=== PATIENT | female | born 1945 | race Caucasian/White ===

== ENCOUNTER 2016-04-01 06:33 | Inpatient (IN) | payer MEDICARE ==
[2016-04-01] MEDS ORDERED: SODIUM CHLORIDE 0.9% 500 ML IV STA (06:52)
[2016-04-01] MEDS ORDERED: RX INFO: IV CONTRAST WAS GIVEN 1 EACH MISC MISCELLANE PRN (06:52)
[2016-04-01] MEDS ORDERED: MORPHINE SULFATE 4 MG/ML SYRINGE IV STA (06:52)
[2016-04-01] MEDS ORDERED: SODIUM CHLORIDE 0.9% 1,000 ML IV STA ×2 (06:52)
--- NOTE | 2016-04-01 06:54 | ED ---
General Adult HPI - General Source: patient, RN notes reviewed, old records reviewed Mode of arrival: ambulatory Limitations: no limitations <Braulio Devries - Last Filed: 04/01/16 06:53> <Braulio Kirk - Last Filed: 04/01/16 09:05> - General Chief complaint: Abdominal Pain Stated complaint: ABD PAIN Time Seen by Provider: 04/01/16 06:47 - History of Present Illness Initial comments: This is a 71-year-old female to the ER for evaluation. The patient is reevaluation. Bowel pain. Patient is also suffering from diarrhea as of recent. Patient does have medical history significant for abdominal surgeries including gallbladder removal. Patient also has high blood pressure cholesterol no chest pain or stress of breath, no nausea vomiting or fever. No blood in her diarrhea. Patient also feels like her abdomen is severely distended. No modifying factors for symptoms no recent travel history and no family members with some similar significant symptoms (Braulio Devries) - Related Data Home Medications Medication Instructions Recorded Confirmed Cinnamon Bark [Cinnamon] 500 mg PO BID 12/08/15 04/01/16 Cyanocobalamin [Vitamin B-12] 1,000 mcg PO DAILY 12/08/15 04/01/16 Lisinopril-Hctz 10-12.5 mg 1 tab PO DAILY 12/08/15 04/01/16 [Zestoretic 10-12.5] [place]-3 Fatty Acids/Fish Oil [Fish 1 cap PO BID 12/08/15 04/01/16 Oil 1,000 mg Softgel] Omeprazole [PriLOSEC] 10 mg PO AC-BRKFST 12/08/15 04/01/16 Simvastatin [Simvastatin] 20 mg PO HS 12/08/15 04/01/16 Aspirin 325 mg PO DAILY 04/01/16 04/01/16 Multivitamins, Thera [Multivitamin] 1 tab PO DAILY 04/01/16 04/01/16 Allergies Allergy/AdvReac Type Severity Reaction Status Date / Time venom-honey bee Allergy Anaphylaxis Verified 04/01/16 06:38 [bee venom (honey bee)] Review of Systems ROS Other: All systems not noted in ROS Statement are negative. <Braulio Devries - Last Filed: 04/01/16 06:53> ROS Other: All systems not noted in ROS Statement are negative. <Braulio Kirk - Last Filed: 04/01/16 09:05> ROS Statement: Those systems with pertinent positive or pertinent negative responses have been documented in the HPI. Past Medical History Past Medical History: GERD/Reflux, Hyperlipidemia, Hypertension History of Any Multi-Drug Resistant Organisms: None Reported Past Surgical History: Cholecystectomy Past Psychological History: No Psychological Hx Reported Smoking Status: Never smoker Past Alcohol Use History: None Reported Past Drug Use History: None Reported <Braulio Devries - Last Filed: 04/01/16 06:53> General Exam Limitations: no limitations General appearance: alert, in no apparent distress, anxious, obese Head exam: Present: atraumatic, normocephalic, normal inspection Eye exam: Present: normal appearance, PERRL, EOMI. Absent: scleral icterus, conjunctival injection, periorbital swelling ENT exam: Present: normal exam, mucous membranes moist Neck exam: Present: normal inspection. Absent: tenderness, meningismus, lymphadenopathy Respiratory exam: Present: normal lung sounds bilaterally. Absent: respiratory distress, wheezes, rales, rhonchi, stridor Cardiovascular Exam: Present: regular rate, normal rhythm, normal heart sounds. Absent: systolic murmur, diastolic murmur, rubs, gallop, clicks GI/Abdominal exam: Present: soft, distended, tenderness, guarding, normal bowel sounds. Absent: rebound, rigid Extremities exam: Present: normal inspection, full ROM, normal capillary refill. Absent: tenderness, pedal edema, joint swelling, calf tenderness Back exam: Present: normal inspection Neurological exam: Present: alert, oriented X3, CN II-XII intact Psychiatric exam: Present: normal affect, normal mood Skin exam: Present: warm, dry, intact, normal color. Absent: rash <Braulio Devries - Last Filed: 04/01/16 06:53> Medical Decision Making <Braulio Devries - Last Filed: 04/01/16 06:53> - Lab Data Result diagrams: 04/01/16 06:50 04/01/16 06:50 <Braulio Kirk - Last Filed: 04/01/16 09:05> - Medical Decision Making CAT scan shows possible appendicitis versus sigmoid diverticulitis. Radiologist stated that the cecum comes across the midline so he believes it to be appendicitis but can't be sure because he cannot absolutely see the appendix. I spoke with Dr. Hancock's nurse in the OR and he accepts the patient admitted the patient I started the patient on Levaquin. (Braulio Kirk ) - Lab Data Lab Results 04/01/16 04/01/16 04/01/16 Range/Units 06:50 06:50 06:50 WBC 20.0 H (3.8-10.6) k/uL RBC 4.66 (3.80-5.40) m/uL Hgb 13.4 (11.4-16.0) gm/dL Hct 39.8 (34.0-46.0) % MCV 85.4 (80.0-100.0) fL MCH 28.8 (25.0-35.0) pg MCHC 33.7 (31.0-37.0) g/dL RDW 12.9 (11.5-15.5) % Plt Count 352 (150-450) k/uL Neutrophils % 87 % Lymphocytes % 10 % Monocytes % 2 % Eosinophils % 0 % Basophils % 0 % Neutrophils # 17.4 H (1.3-7.7) k/uL Lymphocytes # 2.0 (1.0-4.8) k/uL Monocytes # 0.3 (0-1.0) k/uL Eosinophils # 0.1 (0-0.7) k/uL Basophils # 0.0 (0-0.2) k/uL PT (9.0-12.0) sec INR (<1.1) APTT (22.0-30.0) sec Sodium 139 (137-145) mmol/L Potassium 3.3 L (3.5-5.1) mmol/L Chloride 101 (98-107) mmol/L Carbon Dioxide 24 (22-30) mmol/L Anion Gap 14 mmol/L BUN 12 (7-17) mg/dL Creatinine 0.67 (0.52-1.04) mg/dL Est GFR (MDRD) Af Amer >60 (>60 ml/min/1.73 sqM) Est GFR (MDRD) Non-Af >60 (>60 ml/min/1.73 sqM) Glucose 153 H (74-99) mg/dL Plasma Lactic Acid Lasha (0.7-2.0) mmol/L Calcium 9.0 (8.4-10.2) mg/dL Total Bilirubin 2.2 H (0.2-1.3) mg/dL AST 75 H (14-36) U/L ALT 95 H (9-52) U/L Alkaline Phosphatase 78 (38-126) U/L Total Creatine Kinase 99 (30-135) U/L CK-MB (CK-2) 0.8 (0.0-2.4) ng/mL CK-MB (CK-2) Rel Index 0.8 Troponin I <0.012 (0.000-0.034) ng/mL Total Protein 6.5 (6.3-8.2) g/dL Albumin 4.0 (3.5-5.0) g/dL Amylase 52 (30-110) U/L Lipase 65 (23-300) U/L Urine Color Urine Appearance (Clear) Urine pH (5.0-8.0) Ur Specific [place] (1.001-1.035) Urine Protein (Negative) Urine Glucose (UA) (Negative) Urine Ketones (Negative) Urine Blood (Negative) Urine Nitrate (Negative) Urine Bilirubin (Negative) Urine Urobilinogen (<2.0) mg/dL Ur Leukocyte Esterase (Negative) Urine RBC (0-5) /hpf Urine WBC (0-5) /hpf Ur Squamous Epith Cells (0-4) /hpf Urine Bacteria (None) /hpf Hyaline Casts (0-2) /lpf Urine Mucus (None) /hpf 04/01/16 04/01/16 04/01/16 Range/Units 06:50 06:50 06:50 WBC (3.8-10.6) k/uL RBC (3.80-5.40) m/uL Hgb (11.4-16.0) gm/dL Hct (34.0-46.0) % MCV (80.0-100.0) fL MCH (25.0-35.0) pg MCHC (31.0-37.0) g/dL RDW (11.5-15.5) % Plt Count (150-450) k/uL Neutrophils % % Lymphocytes % % Monocytes % % Eosinophils % % Basophils % % Neutrophils # (1.3-7.7) k/uL Lymphocytes # (1.0-4.8) k/uL Monocytes # (0-1.0) k/uL Eosinophils # (0-0.7) k/uL Basophils # (0-0.2) k/uL PT 13.7 H (9.0-12.0) sec INR 1.4 (<1.1) APTT 23.7 (22.0-30.0) sec Sodium (137-145) mmol/L Potassium (3.5-5.1) mmol/L Chloride (98-107) mmol/L Carbon Dioxide (22-30) mmol/L Anion Gap mmol/L BUN (7-17) mg/dL Creatinine (0.52-1.04) mg/dL Est GFR (MDRD) Af Amer (>60 ml/min/1.73 sqM) Est GFR (MDRD) Non-Af (>60 ml/min/1.73 sqM) Glucose (74-99) mg/dL Plasma Lactic Acid Lasha 1.9 (0.7-2.0) mmol/L Calcium (8.4-10.2) mg/dL Total Bilirubin (0.2-1.3) mg/dL AST (14-36) U/L ALT (9-52) U/L Alkaline Phosphatase (38-126) U/L Total Creatine Kinase (30-135) U/L CK-MB (CK-2) (0.0-2.4) ng/mL CK-MB (CK-2) Rel Index Troponin I (0.000-0.034) ng/mL Total Protein (6.3-8.2) g/dL Albumin (3.5-5.0) g/dL Amylase (30-110) U/L Lipase (23-300) U/L Urine Color Yellow Urine Appearance Cloudy H (Clear) Urine pH 6.0 (5.0-8.0) Ur Specific [place] 1.007 (1.001-1.035) Urine Protein Negative (Negative) Urine Glucose (UA) Negative (Negative) Urine Ketones Negative (Negative) Urine Blood Trace H (Negative) Urine Nitrate Negative (Negative) Urine Bilirubin Negative (Negative) Urine Urobilinogen 2.0 (<2.0) mg/dL Ur Leukocyte Esterase Negative (Negative) Urine RBC 1 (0-5) /hpf Urine WBC 2 (0-5) /hpf Ur Squamous Epith Cells 4 (0-4) /hpf Urine Bacteria Moderate H (None) /hpf Hyaline Casts 2 (0-2) /lpf Urine Mucus Rare H (None) /hpf Disposition <Braulio Devries - Last Filed: 04/01/16 06:53> Time of Disposition: 09:05 <Braulio Kirk - Last Filed: 04/01/16 09:05> Clinical Impression: Acute appendicitis Disposition: ADMITTED IP TO THIS HOSP
[2016-04-01 07:09] LABS: Basophils % (A) 0 %; CH 29.6; CHCM 34.8; Eosinophils # (A) 0.1 k/uL (0-0.7); Eosinophils % (A) 0 %; HCT 39.8 % (34.0-46.0); HDW 3.19; HGB 13.4 gm/dL (11.4-16.0); Luc # (Auto) 0.12; Luc % (Auto) 1; Lymphocytes % (A) 10 %; MCH 28.8 pg (25.0-35.0); MCHC 33.7 g/dL (31.0-37.0); MCV 85.4 fL (80.0-100.0); Mean Platelet Volume 6.4; Monocytes # (A) 0.3 k/uL (0-1.0); Monocytes % (A) 2 %; Neutrophils # (A) 17.4 k/uL (1.3-7.7); Neutrophils % (A) 87 %; RBC 4.66 m/uL (3.80-5.40); RDW 12.9 % (11.5-15.5)
[2016-04-01 07:18] LABS: INR 1.4 (<1.1); Partial Thromboplastin Time 23.7 sec (22.0-30.0); Prothrombin Time 13.7 sec (9.0-12.0)
[2016-04-01 07:19] LABS: ALT 95 U/L (9-52); AST 75 U/L (14-36); Alkaline Phosphatase 78 U/L (38-126); Amylase 52 U/L (30-110); Anion Gap 14 mmol/L; Blood Urea Nitrogen 12 mg/dL (7-17); Carbon Dioxide 24 mmol/L (22-30); Chloride 101 mmol/L (98-107); Glucose 153 mg/dL (74-99); Non-African American GFR(MDRD) >60 (>60 ml/min/1.73 sqM); Potassium 3.3 mmol/L (3.5-5.1); Sodium 139 mmol/L (137-145); Total Bilirubin 2.2 mg/dL (0.2-1.3); Total Protein 6.5 g/dL (6.3-8.2)
[2016-04-01 07:22] LABS: Appearance,Urine Cloudy (Clear); Bacteria,Urine Moderate /hpf; Bilirubin,Urine Negative (Negative); Glucose,Urine (UA) Negative (Negative); Ketones,Urine Negative (Negative); Leukocyte Esterase,Urine Negative (Negative); Mucus,Urine Rare /hpf; Nitrite,Urine Negative (Negative); Particle Count 7883; Protein,Urine Negative (Negative); RBC,Urine 1 /hpf (0-5); Specific Gravity,Urine 1.007 (1.001-1.035); Squamous Epithelial Cell,Urine 4 /hpf (0-4); UA Billing (MACRO vs. MICRO) MICRO; WBC,Urine 2 /hpf (0-5)
[2016-04-01 07:30] LABS: Creatine Kinase 99 U/L (30-135)
[2016-04-01 07:43] LABS: Creatine Kinase MB 0.8 ng/mL (0.0-2.4); Troponin I <0.012 ng/mL (0.000-0.034)
--- NOTE | 2016-04-01 08:32 | CT ---
EXAMINATION TYPE: CT abdomen pelvis w con DATE OF EXAM: 04/01/2016 8:05 AM COMPARISON: 12/08/2015 HISTORY: Abdominal pain for [address] hours with increasing intensity CT DLP: 814.10 mGycm Automated exposure control for dose reduction was used. CONTRAST: CT scan of the abdomen pelvis is performed with IV Contrast, patient injected with 100 ml mL of Omnip aque 300. FINDINGS: LUNG BASES-: No visible nodule. No infiltrate. Linear changes suggestive of scar or atelectasis. LIVER/GB: Cholecystectomy clips are in place. No space occupying hepatic lesion. Biliary tree is of n ormal caliber. PANCREAS: No inflammation. No distinct mass. SPLEEN: No splenic enlargement. No lesion seen. ADRENALS: No nodule. No thickening. KIDNEYS/BLADDER: No hydronephrosis. No nephrolithiasis. No distinct renal mass. Urinary bladder gross ly unremarkable. BOWEL: Nonvisualization of the appendix. There is a prominent small bowel loop within the pelvis with significant inflammatory change in the surrounding fat. Numerous diverticula are seen. Diverticuliti s is favored over an enteritis but should be correlated clinically. Of note the appendix is not visua lized. LYMPH NODES: No greater than 1cm abdominal or pelvic lymph nodes are appreciated. AORTA: No significant abnormality. OSSEOUS STRUCTURES: Hypertrophic and degenerative disc disease noted. OTHER: Uterus again appears lobulated with an area of abnormal attenuation could represent fibroid or thickened endometrium. Nabothian cyst again suspected. IMPRESSION: 1. Inflammatory change within the pelvis. Appendix is not seen with certainty. There is a small bowel dilated loop which may represent a localized ileus secondary to the inflammatory change. Differentia l diagnosis would include appendicitis or mild sigmoid diverticulitis. Orally clinically. 2. Large fixed paraesophageal hiatal hernia. 3. Abnormal morphology and attenuation within the uterus is nonspecific by CT scan. Fibroid in the di fferential. Endometrial pathology not excluded. Correlate clinically.
[2016-04-01] MEDS ORDERED: LEVOFLOXACIN 750MG-D5W PMX 750 MG in DEXTROSE/WATER 1 150ML.BAG IVPB STA (09:04)
[2016-04-01] MEDS ORDERED: MORPHINE SULFATE 2 MG/ML SYRINGE IVP PRN (09:07)
--- NOTE | 2016-04-01 11:31 | P.GSHP ---
History of Present Illness H&P Date: 04/01/16 Chief Complaint: Right lower quadrant abdominal pain This is a 71-year-old female who has complaints of abdominal pain. Patient states that she started to have mid abdominal pain last night. The pain worsened and is now a right lower quadrant. Patient CAT scan performed in the emergency room which is suggestive of acute appendicitis. 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 History of Any Multi-Drug Resistant Organisms: None Reported Past Surgical History: Cholecystectomy, Tonsillectomy Additional Past Surgical History / Comment(s): Bilateral cataract removals, R eye retinal hole repair, colonoscopies x 3. Past Anesthesia/Blood Transfusion Reactions: No Reported Reaction Past Psychological History: Anxiety Additional Psychological History / Comment(s): Pt resides with her spouse. She is independent. Smoking Status: Never smoker Past Alcohol Use History: None Reported Past Drug Use History: None Reported - Past Family History Father Family Medical History: Diabetes Mellitus Additional Family Medical History / Comment(s): father at the age of 62 yrs from diabetic complications. Mother Family Medical History: Diabetes Mellitus, Osteoarthritis (OA) Additional Family Medical History / Comment(s): Mother at the age of 93yrs. Medications and Allergies Home Medications Medication Instructions Recorded Confirmed Type Cinnamon Bark [Cinnamon] 500 mg PO BID 12/08/15 04/01/16 History Cyanocobalamin [Vitamin B-12] 1,000 mcg PO DAILY 12/08/15 04/01/16 History Lisinopril-Hctz 10-12.5 mg 1 tab PO DAILY 12/08/15 04/01/16 History [Zestoretic 10-12.5] [place]-3 Fatty Acids/Fish Oil [Fish 1 cap PO BID 12/08/15 04/01/16 History Oil 1,000 mg Softgel] Omeprazole [PriLOSEC] 10 mg PO AC-BRKFST 12/08/15 04/01/16 History Simvastatin [Simvastatin] 20 mg PO HS 12/08/15 04/01/16 History Aspirin 325 mg PO DAILY 04/01/16 04/01/16 History Multivitamins, Thera [Multivitamin] 1 tab PO DAILY 04/01/16 04/01/16 History Allergies Allergy/AdvReac Type Severity Reaction Status Date / Time venom-honey bee Allergy Anaphylaxis Verified 04/01/16 06:38 [bee venom (honey bee)] Surgical - Exam Vital Signs Temp Pulse Resp BP Pulse Ox 96.6 F L 96 20 133/56 99 04/01/16 06:37 04/01/16 06:37 04/01/16 06:37 04/01/16 06:37 04/01/16 06:37 - General well developed, no distress - Eyes PERRL - ENT normal pinna - Neck no masses - Respiratory normal expansion - Cardiovascular Rhythm: regular - Abdomen Abdomen: soft, tender (Pain and right lower quadrant) Results - Labs 04/01/16 06:50 04/01/16 06:50 - Imaging Abdominal x-ray: report reviewed CT scan - abdomen: report reviewed (Computed tomography scan is suggestive of acute appendicitis.) Assessment and Plan Plan: Right lower quadrant pain. Acute appendicitis. We'll perform laparoscopic appendectomy.
[2016-04-01] MEDS ORDERED: IV FLUID CONTINUATION 1,000 ML IV ONE (15:17)
[2016-04-01 15:28] LABS: Glucose,Whole Blood 94 mg/dL (75-99)
[2016-04-01] MEDS ORDERED: ONDANSETRON 4 MG/2 ML VIAL IVP ONE (15:35)
[2016-04-01] MEDS ORDERED: DEXAMETHASONE SOD PHOSPHATE 10 MG/ML 1 ML VIAL IV ONE (15:35)
[2016-04-01] MEDS ORDERED: HEPARIN SODIUM,PORCINE 5,000 UNIT/ML 1 ML VIAL SQ ONE (16:48)
[2016-04-01] MEDS ORDERED: MIDAZOLAM 2 MG/2 ML VIAL ONE (16:53)
[2016-04-01] MEDS ORDERED: NEOSTIGMINE 1 MG/ML 10 ML VIAL ONE (16:53)
[2016-04-01] MEDS ORDERED: fentaNYL (PF) 50 MCG/ML 2 ML AMP ONE (16:53)
[2016-04-01] MEDS ORDERED: GLYCOPYRROLATE 0.2 MG/ML 2 ML VIAL ONE (16:53)
[2016-04-01] MEDS ORDERED: SUCCINYLCHOLINE CHLORIDE 100 MG/5 ML SYR IV ONE (16:53)
[2016-04-01] MEDS ORDERED: LIDOCAINE 1% INJ 10MG/ML (20 ML MDV) ONE (16:53)
[2016-04-01] MEDS ORDERED: PROPOFOL 10 MG/ML 20 ML VIAL IV ONE (16:53)
[2016-04-01] MEDS ORDERED: PHENYLEPHRINE-0.9% NACL SYG 1 MG/10 ML SYRINGE ONE (16:53)
[2016-04-01] MEDS ORDERED: ROCURONIUM BROMIDE 10 MG/ML 10 ML VIAL IV ONE (16:53)
[2016-04-01] MEDS ORDERED: BUPIVACAIN-EPI 0.25%-1:200,000 30 ML VIAL SQ ONE ×2 (17:00→17:23)
[2016-04-01] MEDS: LACTATED RINGERS 1,000 ML IV ONE ×2 (17:23→19:03)
[2016-04-01] MEDS ORDERED: ONDANSETRON 4 MG/2 ML VIAL IVP PRN (17:39)
[2016-04-01] MEDS ORDERED: HYDROmorphone 1 MG/ML 1 ML SYRINGE IVP PRN (17:39)
[2016-04-01] MEDS ORDERED: NALOXONE 0.4 MG/ML 1 ML VIAL IV PRN (17:39)
--- NOTE | 2016-04-01 17:39 | P.OP ---
Date of Procedure: 04/01/16 Preoperative Diagnosis: Acute appendicitis Postoperative Diagnosis: Acute appendicitis Procedure(s) Performed: Laparoscopic appendectomy Anesthesia: BINU Surgeon: Damion Hancock Estimated Blood Loss (ml): 5 Pathology: other (Appendix) Condition: stable Disposition: PACU Description of Procedure: The patient's placed on the operating table in the supine position. The patient received general anesthesia. The abdomen was prepped and draped in the usual sterile fashion. The skin was anesthetized 1% local Xylocaine at the trocar sites. Using an 11 blade the skin was incised at the umbilicus. The umbilicus was grasped with a [place] clamp and then a Veress needle was placed into the peritoneal cavity. Position of the Veress needle was confirmed with positive drop test. After adequate insufflation a 5 mm trocar was placed into the peritoneal cavity. The abdomen was further insufflated. And then the laparoscope was placed in the peritoneal cavity. Next a 5 mm trocar was placed in the midline suprapubic position. And then a 10 mm trocar was placed in the midline epigastric position. The patient was rotated with the right side up and in Trendelenburg. The appendix was visualized. The appendix appeared to be inflamed. The appendix was grasped and then using the Harmonic scissors the mesoappendix was divided. A PDS Endoloop was then placed around the base of the appendix. And then the appendix was divided using Harmonic scissors. The appendix was placed into an Endo Catch and brought out through the 10 mm trocar site. The abdomen was irrigated. The sigmoid colon was examined. There appeared to be no evidence of significant sigmoid inflammation. There is no bleeding seen. The trochars withdrawn. The skin was closed interrupted 3-0 Monocryl suture. Dermabond dressing was applied. Patient was sent to recovery room in stable condition.
[2016-04-01 18:04] LABS: Glucose,Whole Blood 129 mg/dL (75-99)
[2016-04-02] MEDS: LACTATED RINGERS 1,000 ML IV ONE ×2 (01:59→06:54)
[2016-04-02 06:44] LABS: Basophils % (A) 0 %; CH 29.2; CHCM 33.7; Eosinophils % (A) 0 %; HCT 33.7 % (34.0-46.0); HDW 3.37; HGB 10.9 gm/dL (11.4-16.0); Luc # (Auto) 0.08; Luc % (Auto) 1; Lymphocytes # (A) 1.2 k/uL (1.0-4.8); Lymphocytes % (A) 8 %; MCH 28.3 pg (25.0-35.0); MCHC 32.5 g/dL (31.0-37.0); MCV 87.2 fL (80.0-100.0); Mean Platelet Volume 7.5; Monocytes # (A) 0.3 k/uL (0-1.0); Monocytes % (A) 2 %; Neutrophils # (A) 12.6 k/uL (1.3-7.7); Neutrophils % (A) 89 %; RBC 3.86 m/uL (3.80-5.40); RDW 13.2 % (11.5-15.5); WBC 14.2 k/uL (3.8-10.6); WBC (Perox) 15.26
[2016-04-02 06:54] LABS: Anion Gap 11 mmol/L; Blood Urea Nitrogen 9 mg/dL (7-17); Calcium 8.4 mg/dL (8.4-10.2); Carbon Dioxide 25 mmol/L (22-30); Chloride 105 mmol/L (98-107); Glucose 116 mg/dL (74-99); Non-African American GFR(MDRD) >60 (>60 ml/min/1.73 sqM); Potassium 3.5 mmol/L (3.5-5.1); Sodium 141 mmol/L (137-145)
[2016-04-02] MEDS ORDERED: HYDROcodone/APAP 7.5-325MG 1 EACH TAB PO PRN (08:21)
[2016-04-02] MEDS ORDERED: LEVOFLOXACIN 750MG-D5W PMX 750 MG in DEXTROSE/WATER 1 150ML.BAG IVPB SCH (09:00)
[2016-04-02 12:21] VITALS: BP 125/71; PULSE 82; RESP 20; TEMP 98.5
[2016-04-03] MEDS ORDERED: LEVOFLOXACIN 750 MG TAB PO SCH (09:00)
--- NOTE | 2016-04-03 19:27 | P.DS ---
Providers Date of admission: 04/01/16 09:05 Expected date of discharge: 04/02/16 Attending physician: Damion Hancock Primary care physician: Fay Joe [place] Hospital Course: Patient is a 71-year-old female admitted with acute appendicitis who emergent underwent laparoscopic appendectomy. Patient tolerated procedure well. Patient had an uneventful postoperative period. Patient was deemed stable for discharge to home with close follow-up in the outpatient setting. Discharge diagnoses: Acute appendicitis status post laparoscopic appendectomy The above impression and plan have been discussed and directed by Dr. Hancock. Anjelica WINKLER acting as scribe for Dr. Hancock. Pertinent Studies: Abdomen/pelvis CT Procedures: Laparoscopic appendectomy Patient Condition at Discharge: Good Plan - Discharge Summary New Discharge Prescriptions: Fluconazole [Diflucan] 150 mg PO ONCE #1 tab HYDROcodone/APAP 7.5-325MG [[place] 7.5-325] 1 tab PO Q6HR PRN #28 tab PRN Reason: Pain Levofloxacin [Levaquin] 500 mg PO DAILY #5 tab Discharge Medication List Cinnamon Bark [Cinnamon] 500 mg PO BID 12/08/15 [History] Cyanocobalamin [Vitamin B-12] 1,000 mcg PO DAILY 12/08/15 [History] Lisinopril-Hctz 10-12.5 mg [Zestoretic 10-12.5] 1 tab PO DAILY 12/08/15 [History ] [place]-3 Fatty Acids/Fish Oil [Fish Oil 1,000 mg Softgel] 1 cap PO BID 12/08/15 [ History] Omeprazole [PriLOSEC] 10 mg PO AC-BRKFST 12/08/15 [History] Simvastatin [Simvastatin] 20 mg PO HS 12/08/15 [History] Aspirin 325 mg PO DAILY 04/01/16 [History] Multivitamins, Thera [Multivitamin] 1 tab PO DAILY 04/01/16 [History] Fluconazole [Diflucan] 150 mg PO ONCE #1 tab 04/02/16 [Rx] HYDROcodone/APAP 7.5-325MG [[place] 7.5-325] 1 tab PO Q6HR PRN #28 tab 04/02/16 [ Rx] Levofloxacin [Levaquin] 500 mg PO DAILY #5 tab 04/02/16 [Rx] Follow up Appointment(s)/Referral(s): Fay Diaz MD [Primary Care Provider] - 1-2 days Damion Hancock MD [STAFF PHYSICIAN] - 04/09/16 3:30 pm Patient Instructions/Handouts: Laparoscopic Appendectomy (DC) Activity/Diet/Wound Care/Special Instructions: Regular diet as tolerated. drink fluids. no heavy lifting. no strenuous activity. Call office for any fever, chills. increased pain not covered with pain meds, redness or discolored drainage from puncture sites or any concerns. no driving until recheck and none when taking narcotics. May shower , no tub baths. do not scrub puncture sites. leave glue in place. Last received [place] 7.5 at 1145. start Levaquin tomorrow, received a dose iv today. Discharge Disposition: HOME SELF-CARE
== END 2016-04-02 12:44 | disposition home or self-care (01) | DRG 343 ==
LOC: EC 06:33 → 6PED 09:05
PROVIDERS: ADMIT Surgery; ATTEND Surgery
PROC: 0DTJ4ZZ Resection of Appendix, Percutaneous Endoscopic Approach (ICD-10-PCS; principal; 2016-04-01 09:00)
DX: K35.80 Unspecified acute appendicitis (principal); I10 Essential (primary) hypertension; E11.9 Type 2 diabetes mellitus without complications; K21.9 Gastro-esophageal reflux disease without esophagitis; E78.5 Hyperlipidemia, unspecified; M19.90 Unspecified osteoarthritis, unspecified site; M54.40 Lumbago with sciatica, unspecified side; Z86.59 Personal history of other mental and behavioral disorders; M53.1 Cervicobrachial syndrome; Z98.41 Cataract extraction status, right eye; Z79.82 Long term (current) use of aspirin; Z79.899 Other long term (current) drug therapy
CPT/HCPCS: 36415; 74177; 80048; 80053; 81001; 82150; 82550; 82553; 83605; 83690; 84484; 85025; 85610; 85730; 87086; 88304; 96361; 96374; 99285

== ENCOUNTER → 2016-05-27 | Outpatient (CLI) | payer MEDICARE ==
--- NOTE | 2016-05-27 12:11 | XR ---
EXAMINATION TYPE: 4 views cervical spine. 3 views lumbar spine. DATE OF EXAM: 05/27/2016 11:18 AM COMPARISON: NONE HISTORY: 71-year-old female neck and low back pain for 3 months FINDINGS: Cervical spine: Moderate to advanced disc/endplate degenerative change especially in the mid to lower cervical spine with multilevel hypertrophic facet and uncovertebral joint arthropathy throughout. No predental space widening or prevertebral soft tissue swelling. Suboptimal odontoid view. Normal alignment. Lumbar spine: There is a degenerated levoconvex scoliosis of the lumbar spine. 5 lumbar type vertebral bodies. Hype rtrophic facet arthropathy throughout with moderate to advanced disc/endplate degenerative change carl ecially at L1-L2 and to a lesser extent from L2 through L4 levels. Vertebral body heights are preserv ed. There is prominent grade 1 retrolisthesis at L3-L4 and trace grade 1 retrolisthesis at L1-L2 and L2-L3. IMPRESSION: 1. Cervical spine: Moderately advanced dissection plate degenerative change in the mid to lower cervi paul spine with multilevel hypertrophic facet and uncovertebral joint arthropathy. No malalignment. 2. Lumbar spine: Degenerated levoconvex scoliosis with advanced dissection plate degenerative change especially in the upper lumbar spine, prominent grade 1 retrolisthesis at L3-L4 and trace grade 1 ret rolistheses at L1-L2 and L2-L3. No vertebral compression collapse.
== END | disposition home or self-care (01) ==
LOC: RADXRMAIN 10:39
PROVIDERS: ATTEND Chiropractor
DX: M43.16 Spondylolisthesis, lumbar region (principal); M47.816 Spondylosis without myelopathy or radiculopathy, lumbar region; M47.812 Spondylosis without myelopathy or radiculopathy, cervical region; M46.82 Other specified inflammatory spondylopathies, cervical region; M41.9 Scoliosis, unspecified
CPT/HCPCS: 72040; 72100

== ENCOUNTER → 2016-08-19 | Outpatient (CLI) | payer MEDICARE ==
--- NOTE | 2016-08-20 10:25 | MM ---
Reason for exam: screening (asymptomatic). Last mammogram was performed 1 year and 8 months ago. History: Patient is postmenopausal and is nulliparous. Family history of breast cancer in paternal aunt at age 55 and breast cancer in paternal aunt at age 60. Took estrogen for 1 year beginning at age 51. Physical Findings: A clinical breast exam by your physician is recommended on an annual basis and results should be correlated with mammographic findings. MG 3D Screening Mammo W/Cad Bilateral CC and MLO view(s) were taken. Prior study comparison: December 31, 2014, bilateral MG screening mammo w CAD. December 18, 2013, bilateral MG screening mammo w CAD. The breast tissue is heterogeneously dense. This may lower the sensitivity of mammography. Benign calcifications. There is chronic nodularity bilaterally. There is no dominant lesion. No significant changes when compared with prior studies. ASSESSMENT: Benign, BI-RAD 2 RECOMMENDATION: Routine screening mammogram of both breasts in 1 year.
== END ==
LOC: RADMAMWWP 08:07
PROVIDERS: ATTEND Family Medicine
DX: Z12.31 Encounter for screening mammogram for malignant neoplasm of breast (principal)
CPT/HCPCS: 77063; G0202

== ENCOUNTER 2016-10-05 06:36 | Emergency (ER) | payer MEDICARE ==
[2016-10-05 06:43] VITALS: TEMP 97.4
[2016-10-05 07:51] LABS: Basophils # (A) 0.1 k/uL (0-0.2); Basophils % (A) 1 %; CH 25.7; CHCM 32.7; Eosinophils # (A) 0.1 k/uL (0-0.7); Eosinophils % (A) 1 %; HCT 32.8 % (34.0-46.0); HDW 3.26; HGB 11.1 gm/dL (11.4-16.0); Luc # (Auto) 0.11; Luc % (Auto) 1; Lymphocytes # (A) 2.1 k/uL (1.0-4.8); Lymphocytes % (A) 19 %; MCH 26.7 pg (25.0-35.0); MCHC 33.8 g/dL (31.0-37.0); MCV 78.8 fL (80.0-100.0); Mean Platelet Volume 6.6; Monocytes # (A) 0.4 k/uL (0-1.0); Monocytes % (A) 4 %; Neutrophils # (A) 8.2 k/uL (1.3-7.7); Neutrophils % (A) 75 %; RBC 4.16 m/uL (3.80-5.40); RDW 13.4 % (11.5-15.5); WBC 10.9 k/uL (3.8-10.6)
[2016-10-05 07:56] LABS: Appearance,Urine Cloudy (Clear); Bacteria,Urine Many /hpf; Bilirubin,Urine Negative (Negative); Glucose,Urine (UA) Negative (Negative); Ketones,Urine Negative (Negative); Leukocyte Esterase,Urine Small (Negative); Mucus,Urine Occasional /hpf; Nitrite,Urine Negative (Negative); PH, Urine 6.5 (5.0-8.0); Particle Count 11383; Protein,Urine Negative (Negative); RBC,Urine 2 /hpf (0-5); Specific Gravity,Urine 1.009 (1.001-1.035); Squamous Epithelial Cell,Urine 7 /hpf (0-4); UA Billing (MACRO vs. MICRO) MICRO; Urobilinogen,Urine <2.0 mg/dL (<2.0); WBC,Urine 1 /hpf (0-5)
[2016-10-05 08:04] VITALS: BP 128/62; PULSE 85; RESP 17
[2016-10-05 08:06] LABS: ALT 42 U/L (9-52); AST 27 U/L (14-36); Alkaline Phosphatase 103 U/L (38-126); Amylase 65 U/L (30-110); Anion Gap 14 mmol/L; Blood Urea Nitrogen 8 mg/dL (7-17); Calcium 9.1 mg/dL (8.4-10.2); Carbon Dioxide 23 mmol/L (22-30); Chloride 100 mmol/L (98-107); Glucose 141 mg/dL (74-99); Non-African American GFR(MDRD) >60 (>60 ml/min/1.73 sqM); Potassium 3.9 mmol/L (3.5-5.1); Sodium 137 mmol/L (137-145); Total Bilirubin 0.6 mg/dL (0.2-1.3); Total Protein 6.6 g/dL (6.3-8.2)
--- NOTE | 2016-10-05 08:14 | XR ---
EXAMINATION TYPE: XR KUB DATE OF EXAM: 10/05/2016 CLINICAL DATA: 71-year-old female right upper abdominal pain, PH[facility] COMPARISON: None FINDINGS: Lung bases are clear. Cholecystectomy clips. No evidence for free intraperitoneal air. No dilated small bowel or air-fluid levels. Scattered air and stool seen throughout the colon extendi ng distally into the rectum. Mild stool burden. No suspicious calcifications identified. IMPRESSION: No evidence of bowel obstruction or free intraperitoneal air.
--- NOTE | 2016-10-05 08:31 | ED ---
General Adult HPI - General Chief complaint: Abdominal Pain Stated complaint: Side/Abd pain Time Seen by Provider: 10/05/16 07:31 Source: patient, RN notes reviewed Mode of arrival: ambulatory Limitations: no limitations - History of Present Illness Initial comments: 71-year-old female presenting with a 3 day history of right upper quadrant abdominal pain. Patient states the pain sometimes travels to her right lower quadrant. Pain is mild at this time. She believes this may be constipation. She denies nausea vomiting or diarrhea. Denies fever. Denies chest pain or shortness of breath. States her last bowel movement was yesterday and was normal. Patient has had a cholecystectomy and appendectomy in the past. Only medical history is hypertension diabetes. - Related Data Home Medications Medication Instructions Recorded Confirmed Cinnamon Bark [Cinnamon] 500 mg PO BID 12/08/15 10/05/16 Cyanocobalamin [Vitamin B-12] 1,000 mcg PO DAILY 12/08/15 10/05/16 Lisinopril-Hctz 10-12.5 mg 1 tab PO DAILY 12/08/15 10/05/16 [Zestoretic 10-12.5] [place]-3 Fatty Acids/Fish Oil [Fish 1 cap PO BID 12/08/15 10/05/16 Oil 1,000 mg Softgel] Omeprazole [PriLOSEC] 10 mg PO AC-BRKFST 12/08/15 10/05/16 Simvastatin [Simvastatin] 20 mg PO HS 12/08/15 10/05/16 Multivitamins, Thera [Multivitamin] 1 tab PO DAILY 04/01/16 10/05/16 Aspirin 81 mg PO DAILY 10/05/16 10/05/16 Previous Rx's Medication Instructions Recorded Magnesium Citrate 150 ml PO ONCE PRN #300 ml 10/05/16 Polyethylene Glycol 3350 [Miralax] 17 gm PO DAILY PRN #1 package 10/05/16 Allergies Allergy/AdvReac Type Severity Reaction Status Date / Time venom-honey bee Allergy Anaphylaxis Verified 10/05/16 07:58 [bee venom (honey bee)] Review of Systems ROS Statement: Those systems with pertinent positive or pertinent negative responses have been documented in the HPI. ROS Other: All systems not noted in ROS Statement are negative. 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 History of Any Multi-Drug Resistant Organisms: None Reported Past Surgical History: Cholecystectomy, Tonsillectomy Additional Past Surgical History / Comment(s): Bilateral cataract removals, R eye retinal hole repair, colonoscopies x 3. Past Anesthesia/Blood Transfusion Reactions: No Reported Reaction Past Psychological History: Anxiety Smoking Status: Never smoker Past Alcohol Use History: None Reported Past Drug Use History: None Reported - Past Family History Father Family Medical History: Diabetes Mellitus Additional Family Medical History / Comment(s): father at the age of 62 yrs from diabetic complications. Mother Family Medical History: Diabetes Mellitus, Osteoarthritis (OA) Additional Family Medical History / Comment(s): Mother at the age of 93yrs. General Exam Limitations: no limitations General appearance: alert, in no apparent distress Head exam: Present: atraumatic, normocephalic Eye exam: Present: normal appearance, PERRL ENT exam: Present: normal exam, mucous membranes moist Neck exam: Present: normal inspection, full ROM. Absent: meningismus Respiratory exam: Present: normal lung sounds bilaterally. Absent: respiratory distress, wheezes Cardiovascular Exam: Present: regular rate, normal rhythm GI/Abdominal exam: Present: soft, tenderness (Minimal tenderness in the right upper and right lower quadrant). Absent: distended, guarding, rebound, rigid Extremities exam: Present: normal inspection, normal capillary refill. Absent: pedal edema Neurological exam: Present: alert, oriented X3 Psychiatric exam: Present: normal affect, normal mood Skin exam: Present: warm, dry Course Vital Signs 10/05/16 10/05/16 06:40 08:03 Temperature 97.4 F L Pulse Rate 105 H 85 Respiratory 18 17 Rate Blood Pressure 122/56 128/62 O2 Sat by Pulse 97 95 Oximetry Medical Decision Making - Medical Decision Making 71-year-old female presenting with 3 days of abdominal pain. Pain is primarily in the right upper and right lower quadrant. Abdominal examination is concerning with minimal tenderness to palpation. She states her last bowel movement was yesterday she does have a history of constipation. She believes this may be constipation. She has had her gallbladder and her appendix removed in the past. Vital signs are unremarkable. Workup including CBC, CMP, lipase and urinalysis is all unremarkable. X-ray is negative for obstruction or free air. There is a moderate amount of stool throughout the colon. Patient is discharged with MiraLAX and magnesium citrate solution. Her pain may be related to constipation or she is instructed to return to the emergency department with worsening symptoms. Patient and her are agreeable with this plan. - Lab Data Result diagrams: 10/05/16 07:23 10/05/16 07:23 Lab Results 10/05/16 10/05/16 10/05/16 Range/Units 07:23 07:23 07:23 WBC 10.9 H (3.8-10.6) k/uL RBC 4.16 (3.80-5.40) m/uL Hgb 11.1 L (11.4-16.0) gm/dL Hct 32.8 L (34.0-46.0) % MCV 78.8 L (80.0-100.0) fL MCH 26.7 (25.0-35.0) pg MCHC 33.8 (31.0-37.0) g/dL RDW 13.4 (11.5-15.5) % Plt Count 442 (150-450) k/uL Neutrophils % 75 % Lymphocytes % 19 % Monocytes % 4 % Eosinophils % 1 % Basophils % 1 % Neutrophils # 8.2 H (1.3-7.7) k/uL Lymphocytes # 2.1 (1.0-4.8) k/uL Monocytes # 0.4 (0-1.0) k/uL Eosinophils # 0.1 (0-0.7) k/uL Basophils # 0.1 (0-0.2) k/uL Sodium 137 (137-145) mmol/L Potassium 3.9 (3.5-5.1) mmol/L Chloride 100 (98-107) mmol/L Carbon Dioxide 23 (22-30) mmol/L Anion Gap 14 mmol/L BUN 8 (7-17) mg/dL Creatinine 0.65 (0.52-1.04) mg/dL Est GFR (MDRD) Af Amer >60 (>60 ml/min/1.73 sqM) Est GFR (MDRD) Non-Af >60 (>60 ml/min/1.73 sqM) Glucose 141 H (74-99) mg/dL Calcium 9.1 (8.4-10.2) mg/dL Total Bilirubin 0.6 (0.2-1.3) mg/dL AST 27 (14-36) U/L ALT 42 (9-52) U/L Alkaline Phosphatase 103 (38-126) U/L Total Protein 6.6 (6.3-8.2) g/dL Albumin 3.9 (3.5-5.0) g/dL Amylase 65 (30-110) U/L Lipase 130 (23-300) U/L Urine Color Yellow Urine Appearance Cloudy H (Clear) Urine pH 6.5 (5.0-8.0) Ur Specific [place] 1.009 (1.001-1.035) Urine Protein Negative (Negative) Urine Glucose (UA) Negative (Negative) Urine Ketones Negative (Negative) Urine Blood Trace H (Negative) Urine Nitrite Negative (Negative) Urine Bilirubin Negative (Negative) Urine Urobilinogen <2.0 (<2.0) mg/dL Ur Leukocyte Esterase Small H (Negative) Urine RBC 2 (0-5) /hpf Urine WBC 1 (0-5) /hpf Ur Squamous Epith Cells 7 H (0-4) /hpf Urine Bacteria Many H (None) /hpf Urine Mucus Occasional H (None) /hpf Disposition Clinical Impression: Abdominal pain Disposition: HOME SELF-CARE Instructions: High Fiber Diet (ED), Abdominal Pain (ED) Prescriptions: Magnesium Citrate 150 ml PO ONCE PRN #300 ml PRN Reason: Constipation Polyethylene Glycol 3350 [Miralax] 17 gm PO DAILY PRN #1 package PRN Reason: Constipation Referrals: Fay Diaz MD [Primary Care Provider] - 1-2 days
== END 2016-10-05 09:01 | disposition home or self-care (01) ==
LOC: EC 06:36
DX: R10.11 Right upper quadrant pain (principal); R10.31 Right lower quadrant pain; K21.9 Gastro-esophageal reflux disease without esophagitis; I10 Essential (primary) hypertension; E78.5 Hyperlipidemia, unspecified; M19.90 Unspecified osteoarthritis, unspecified site; Z79.82 Long term (current) use of aspirin; Z79.899 Other long term (current) drug therapy; Z91.030 Bee allergy status
CPT/HCPCS: 36415; 74000; 80053; 81001; 82150; 83690; 85025; 99284

== ENCOUNTER 2016-10-08 07:27 | Emergency (ER) | payer MEDICARE ==
[2016-10-08] MEDS ORDERED: SODIUM CHLORIDE 0.9% 1,000 ML IV STA (07:46)
[2016-10-08] MEDS ORDERED: KETOROLAC 30 MG/ML 1 ML VIAL IVP STA (07:46)
[2016-10-08 07:50] VITALS: TEMP 97.1
--- NOTE | 2016-10-08 08:24 | ED ---
Abdominal Pain HPI - General Chief Complaint: Abdominal Pain Stated Complaint: flank pain Time Seen by Provider: 10/08/16 07:30 Source: patient, RN notes reviewed Mode of arrival: ambulatory Limitations: no limitations - History of Present Illness Initial Comments: Is a 71-year-old female with a history of abdominal pain recently who states she was in the hospital about 3 days ago evaluated and found to be constipated who states she still has sharp right-sided abdominal pain. She had taken citrate of magnesium without any relief. She does state the pain is moderate in severity she denies any nausea vomiting fevers chills sweats she does have a history of a cholecystectomy and appendectomy. She has been somewhat constipated she denies any blood per rectum. No other symptoms. She points to the mid and periumbilical region as the area of the worst pain. MD Complaint: abdominal pain - Related Data Home Medications Medication Instructions Recorded Confirmed Cinnamon Bark [Cinnamon] 500 mg PO BID 12/08/15 10/08/16 Cyanocobalamin [Vitamin B-12] 1,000 mcg PO DAILY 12/08/15 10/08/16 Lisinopril-Hctz 10-12.5 mg 1 tab PO DAILY 12/08/15 10/08/16 [Zestoretic 10-12.5] [place]-3 Fatty Acids/Fish Oil [Fish 1 cap PO DAILY 12/08/15 10/08/16 Oil 1,000 mg Softgel] Omeprazole [PriLOSEC] 10 mg PO AC-BRKFST 12/08/15 10/08/16 Simvastatin [Simvastatin] 20 mg PO HS 12/08/15 10/08/16 Aspirin 81 mg PO DAILY 10/05/16 10/08/16 Cholecalciferol [Vitamin D3] 1,000 unit PO DAILY 10/08/16 10/08/16 Previous Rx's Medication Instructions Recorded Hydrocodone/Acetaminophen [[place] 1 each PO Q6HR PRN #20 tab 10/08/16 5-325] Ibuprofen 800 mg PO Q6HR PRN #20 tablet 10/08/16 Allergies Allergy/AdvReac Type Severity Reaction Status Date / Time venom-honey bee Allergy Anaphylaxis Verified 10/08/16 08:19 [bee venom (honey bee)] Review of Systems ROS Statement: Those systems with pertinent positive or pertinent negative responses have been documented in the HPI. ROS Other: All systems not noted in ROS Statement are negative. 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 History of Any Multi-Drug Resistant Organisms: None Reported Past Surgical History: Cholecystectomy, Tonsillectomy Additional Past Surgical History / Comment(s): Bilateral cataract removals, R eye retinal hole repair, colonoscopies x 3. Past Anesthesia/Blood Transfusion Reactions: No Reported Reaction Past Psychological History: Anxiety Smoking Status: Never smoker Past Alcohol Use History: None Reported Past Drug Use History: None Reported - Past Family History Father Family Medical History: Diabetes Mellitus Additional Family Medical History / Comment(s): father at the age of 62 yrs from diabetic complications. Mother Family Medical History: Diabetes Mellitus, Osteoarthritis (OA) Additional Family Medical History / Comment(s): Mother at the age of 93yrs. General Exam - General Exam Comments Initial Comments: This is a well-developed well-nourished awake alert oriented 3 female Limitations: no limitations General appearance: alert, in no apparent distress Head exam: Present: atraumatic, normocephalic, normal inspection Eye exam: Present: normal appearance, PERRL, EOMI. Absent: scleral icterus, conjunctival injection, periorbital swelling ENT exam: Present: normal exam, mucous membranes moist Neck exam: Present: normal inspection. Absent: tenderness, meningismus, lymphadenopathy Respiratory exam: Present: normal lung sounds bilaterally. Absent: respiratory distress, wheezes, rales, rhonchi, stridor Cardiovascular Exam: Present: regular rate, normal rhythm, normal heart sounds. Absent: systolic murmur, diastolic murmur, rubs, gallop, clicks GI/Abdominal exam: Present: soft, tenderness (Tenderness palpation over the periumbilical region and epigastric region no guarding rebound masses or bruits no flank tenderness), normal bowel sounds. Absent: distended, guarding, rebound , rigid Rectal exam: Present: deferred Extremities exam: Present: normal inspection, full ROM, normal capillary refill. Absent: tenderness, pedal edema, joint swelling, calf tenderness Back exam: Present: normal inspection. Absent: CVA tenderness (R), CVA tenderness (L) Neurological exam: Present: alert, oriented X3, CN II-XII intact Psychiatric exam: Present: normal affect, normal mood Skin exam: Present: warm, dry, intact, normal color. Absent: rash Course Vital Signs 10/08/16 10/08/16 10/08/16 07:28 07:43 09:04 Temperature 97.3 F L 97.1 F L Pulse Rate 100 96 68 Respiratory 20 18 18 Rate Blood Pressure 122/73 125/65 115/54 O2 Sat by Pulse 98 Oximetry Medical Decision Making - Medical Decision Making I did discuss the findings with the patient and family. The pt will be placed on pain meds and follow up with her PMD - Lab Data Result diagrams: 10/08/16 08:13 10/08/16 08:13 Lab Results 10/08/16 10/08/16 10/08/16 Range/Units 08:13 08:13 08:13 WBC 10.9 H (3.8-10.6) k/uL RBC 4.44 (3.80-5.40) m/uL Hgb 11.4 (11.4-16.0) gm/dL Hct 34.5 (34.0-46.0) % MCV 77.7 L (80.0-100.0) fL MCH 25.6 (25.0-35.0) pg MCHC 33.0 (31.0-37.0) g/dL RDW 13.0 (11.5-15.5) % Plt Count 484 H (150-450) k/uL Neutrophils % 78 % Lymphocytes % 16 % Monocytes % 4 % Eosinophils % 0 % Basophils % 1 % Neutrophils # 8.5 H (1.3-7.7) k/uL Lymphocytes # 1.8 (1.0-4.8) k/uL Monocytes # 0.4 (0-1.0) k/uL Eosinophils # 0.0 (0-0.7) k/uL Basophils # 0.1 (0-0.2) k/uL Hypochromasia Slight PT (9.0-12.0) sec INR (<1.1) APTT (22.0-30.0) sec Sodium 138 (137-145) mmol/L Potassium 4.2 (3.5-5.1) mmol/L Chloride 100 (98-107) mmol/L Carbon Dioxide 26 (22-30) mmol/L Anion Gap 12 mmol/L BUN 9 (7-17) mg/dL Creatinine 0.66 (0.52-1.04) mg/dL Est GFR (MDRD) Af Amer >60 (>60 ml/min/1.73 sqM) Est GFR (MDRD) Non-Af >60 (>60 ml/min/1.73 sqM) Glucose 131 H (74-99) mg/dL Plasma Lactic Acid [place] (0.7-2.0) mmol/L Calcium 9.4 (8.4-10.2) mg/dL Total Bilirubin 0.5 (0.2-1.3) mg/dL AST 14 (14-36) U/L ALT 36 (9-52) U/L Alkaline Phosphatase 110 (38-126) U/L Total Creatine Kinase 28 L (30-135) U/L CK-MB (CK-2) 0.6 (0.0-2.4) ng/mL CK-MB (CK-2) Rel Index 2.1 Troponin I <0.012 (0.000-0.034) ng/mL Total Protein 6.8 (6.3-8.2) g/dL Albumin 4.0 (3.5-5.0) g/dL Amylase 58 (30-110) U/L Lipase 112 (23-300) U/L Urine Color Urine Appearance (Clear) Urine pH (5.0-8.0) Ur Specific [place] (1.001-1.035) Urine Protein (Negative) Urine Glucose (UA) (Negative) Urine Ketones (Negative) Urine Blood (Negative) Urine Nitrite (Negative) Urine Bilirubin (Negative) Urine Urobilinogen (<2.0) mg/dL Ur Leukocyte Esterase (Negative) Urine WBC (0-5) /hpf Ur Squamous Epith Cells (0-4) /hpf Urine Bacteria (None) /hpf Urine Mucus (None) /hpf 10/08/16 10/08/16 10/08/16 Range/Units 08:13 08:13 08:13 WBC (3.8-10.6) k/uL RBC (3.80-5.40) m/uL Hgb (11.4-16.0) gm/dL Hct (34.0-46.0) % MCV (80.0-100.0) fL MCH (25.0-35.0) pg MCHC (31.0-37.0) g/dL RDW (11.5-15.5) % Plt Count (150-450) k/uL Neutrophils % % Lymphocytes % % Monocytes % % Eosinophils % % Basophils % % Neutrophils # (1.3-7.7) k/uL Lymphocytes # (1.0-4.8) k/uL Monocytes # (0-1.0) k/uL Eosinophils # (0-0.7) k/uL Basophils # (0-0.2) k/uL Hypochromasia PT 10.5 (9.0-12.0) sec INR 1.0 (<1.1) APTT 22.0 (22.0-30.0) sec Sodium (137-145) mmol/L Potassium (3.5-5.1) mmol/L Chloride (98-107) mmol/L Carbon Dioxide (22-30) mmol/L Anion Gap mmol/L BUN (7-17) mg/dL Creatinine (0.52-1.04) mg/dL Est GFR (MDRD) Af Amer (>60 ml/min/1.73 sqM) Est GFR (MDRD) Non-Af (>60 ml/min/1.73 sqM) Glucose (74-99) mg/dL Plasma Lactic Acid [place]asha 1.1 (0.7-2.0) mmol/L Calcium (8.4-10.2) mg/dL Total Bilirubin (0.2-1.3) mg/dL AST (14-36) U/L ALT (9-52) U/L Alkaline Phosphatase (38-126) U/L Total Creatine Kinase (30-135) U/L CK-MB (CK-2) (0.0-2.4) ng/mL CK-MB (CK-2) Rel Index Troponin I (0.000-0.034) ng/mL Total Protein (6.3-8.2) g/dL Albumin (3.5-5.0) g/dL Amylase (30-110) U/L Lipase (23-300) U/L Urine Color Yellow Urine Appearance Cloudy H (Clear) Urine pH 7.0 (5.0-8.0) Ur Specific [place] 1.009 (1.001-1.035) Urine Protein Negative (Negative) Urine Glucose (UA) Negative (Negative) Urine Ketones Negative (Negative) Urine Blood Negative (Negative) Urine Nitrite Negative (Negative) Urine Bilirubin Negative (Negative) Urine Urobilinogen <2.0 (<2.0) mg/dL Ur Leukocyte Esterase Trace H (Negative) Urine WBC 2 (0-5) /hpf Ur Squamous Epith Cells 1 (0-4) /hpf Urine Bacteria Many H (None) /hpf Urine Mucus Rare H (None) /hpf - Radiology Data Radiology results: report reviewed (Review shows a rectus hematoma), image reviewed Disposition Clinical Impression: Abdominal pain, Rectus sheath hematoma Disposition: HOME SELF-CARE Condition: Good Instructions: Abdominal Pain (ED), Hematoma (ED) Prescriptions: Hydrocodone/Acetaminophen [[place] 5-325] 1 each PO Q6HR PRN #20 tab PRN Reason: Pain Ibuprofen 800 mg PO Q6HR PRN #20 tablet PRN Reason: Pain Referrals: Fay Diaz MD [Primary Care Provider] - 1-2 days
[2016-10-08 08:33] LABS: Basophils # (A) 0.1 k/uL (0-0.2); Basophils % (A) 1 %; CH 24.9; CHCM 32.2; Eosinophils % (A) 0 %; HCT 34.5 % (34.0-46.0); HDW 3.32; HGB 11.4 gm/dL (11.4-16.0); Hypochromasia Slight; Luc % (Auto) 1; Lymphocytes # (A) 1.8 k/uL (1.0-4.8); Lymphocytes % (A) 16 %; MCH 25.6 pg (25.0-35.0); MCV 77.7 fL (80.0-100.0); Mean Platelet Volume 6.3; Monocytes # (A) 0.4 k/uL (0-1.0); Monocytes % (A) 4 %; Neutrophils # (A) 8.5 k/uL (1.3-7.7); Neutrophils % (A) 78 %; RBC 4.44 m/uL (3.80-5.40); WBC 10.9 k/uL (3.8-10.6)
[2016-10-08 08:42] LABS: ALT 36 U/L (9-52); AST 14 U/L (14-36); Alkaline Phosphatase 110 U/L (38-126); Amylase 58 U/L (30-110); Anion Gap 12 mmol/L; Blood Urea Nitrogen 9 mg/dL (7-17); Calcium 9.4 mg/dL (8.4-10.2); Carbon Dioxide 26 mmol/L (22-30); Chloride 100 mmol/L (98-107); Glucose 131 mg/dL (74-99); Non-African American GFR(MDRD) >60 (>60 ml/min/1.73 sqM); Potassium 4.2 mmol/L (3.5-5.1); Sodium 138 mmol/L (137-145); Total Bilirubin 0.5 mg/dL (0.2-1.3); Total Protein 6.8 g/dL (6.3-8.2)
[2016-10-08 08:50] LABS: Prothrombin Time 10.5 sec (9.0-12.0)
[2016-10-08 08:51] LABS: Appearance,Urine Cloudy (Clear); Bacteria,Urine Many /hpf; Bilirubin,Urine Negative (Negative); Glucose,Urine (UA) Negative (Negative); Ketones,Urine Negative (Negative); Leukocyte Esterase,Urine Trace (Negative); Mucus,Urine Rare /hpf; Nitrite,Urine Negative (Negative); Particle Count 6451; Protein,Urine Negative (Negative); Specific Gravity,Urine 1.009 (1.001-1.035); Squamous Epithelial Cell,Urine 1 /hpf (0-4); UA Billing (MACRO vs. MICRO) MICRO; Urobilinogen,Urine <2.0 mg/dL (<2.0); WBC,Urine 2 /hpf (0-5)
--- NOTE | 2016-10-08 08:54 | CT ---
EXAMINATION TYPE: CT abdomen pelvis wo con DATE OF EXAM: 10/08/2016 HISTORY: Right flank pain per patient. Abdominal pain not further specified per order CT DLP: 445.30 mGycm. Automated Exposure Control for Dose Reduction was Utilized. TECHNIQUE: CT scan of the abdomen and pelvis is performed without oral or IV contrast. COMPARISON: CT abdomen and pelvis April 01, 2016 FINDINGS: Within the limitations of a non-contrast study, the following observations are made. LUNG BASES: No significant abnormality is appreciated. LIVER/GB: Cholecystectomy clips are redemonstrated. PANCREAS: No significant abnormality is seen. SPLEEN: No significant abnormality is seen. ADRENALS: No significant abnormality is seen. KIDNEYS: No renal calculi or hydronephrosis is seen bilaterally. BOWEL: There is redemonstration of large hiatal hernia containing malrotated stomach unchanged in [place] from prior study. There are diverticula throughout the colon most pronounced in the sigmoid c olon redemonstrated. No CT evidence for acute diverticulitis. No suspicious small or large bowel dila tation. There is 1.5 cm diverticulum near junction of second and third portion of duodenum on axial i mage 33 redemonstrated. Low-lying cecum is redemonstrated. GENITAL ORGANS: Uterus is anteverted in shape and normal in size. Slightly more prominent rounded con tour to the superior body is suggestive of fibroid near axial image 75. A 1.2 cm low dense lesion lef t of midline left pelvis near cervix likely reflects prominent nabothian cyst on axial image 79 seen better on prior contrast-enhanced study. Above findings can be confirmed with pelvic ultrasound if de sired. LYMPH NODES: No greater than 1cm abdominal or pelvic lymph nodes are appreciated. OSSEOUS STRUCTURES: Levoconvex scoliosis is redemonstrated. There is multilevel spurring and disc spa ce narrowing throughout the spine most prominent L1-L2 level. OTHER: There is new heterogeneous hypodense lesion involving right rectus sheath mid abdominal level measuring 6.3 cm transversely by 3.2 cm AP diameter on axial image 43 x 7.0 cm craniocaudal dimension on sagittal image 46. Findings likely account for patient's pain. Rectus sheath hematoma is favored. IMPRESSION: New moderate size right mid abdominal rectus sheath based lesion suggestive of rectus she ath hematoma given patient history, clinical correlation advised.
[2016-10-08 09:09] LABS: Creatine Kinase 28 U/L (30-135)
[2016-10-08 09:26] LABS: Creatine Kinase MB 0.6 ng/mL (0.0-2.4); Troponin I <0.012 ng/mL (0.000-0.034)
[2016-10-08 10:25] VITALS: BP 120/57; PULSE 80; RESP 16
== END 2016-10-08 10:25 | disposition home or self-care (01) ==
LOC: EC 07:27
DX: M79.81 Nontraumatic hematoma of soft tissue (principal); I10 Essential (primary) hypertension; E78.5 Hyperlipidemia, unspecified; M19.90 Unspecified osteoarthritis, unspecified site; K21.9 Gastro-esophageal reflux disease without esophagitis; Z90.49 Acquired absence of other specified parts of digestive tract; Z91.030 Bee allergy status; Z79.82 Long term (current) use of aspirin; Z79.899 Other long term (current) drug therapy
CPT/HCPCS: 36415; 80053; 82150; 82550; 82553; 83605; 83690; 84484; 85025; 85610; 85730; 81001; 74176; 99284; 96374; 96361 ×2; J1885

== ENCOUNTER 2016-10-27 03:40 | Emergency (ER) | payer MEDICARE ==
[2016-10-27 03:50] VITALS: RESP 18
--- NOTE | 2016-10-27 04:33 | ED ---
General Adult HPI - General Chief complaint: Skin/Abscess/Foreign Body Stated complaint: abd bleeding dx hematoma Time Seen by Provider: 10/27/16 03:49 Source: patient Mode of arrival: ambulatory Limitations: no limitations - History of Present Illness Initial comments: This patient is a 71-year-old woman who presents with complaint that she is having drainage from her abdominal wall, where she was diagnosed as having a hematoma. Patient states that she had gone to sleep tonight and then she was awakened by smell. She felt her abdomen and there was a wet feeling and realize it was drainage from the abdominal wall or she was told that she had a rectus sheath hematoma. This was diagnosed here on October 08. Patient had been having a few days of right-sided abdominal pain prior to the diagnosis. She states this was found by CAT scan here. The patient denies other symptoms. She has not had change in bowel movements. No change in urination area no nausea or vomiting. She has felt hot and cold. Onset/Timin -: week(s) Location: abdomen Radiation: non-radiation Quality: aching Consistency: constant Improves with: none Worsens with: other Associated Symptoms: denies other symptoms - Related Data Home Medications Medication Instructions Recorded Confirmed Cinnamon Bark [Cinnamon] 500 mg PO BID 12/08/15 10/27/16 Cyanocobalamin [Vitamin B-12] 1,000 mcg PO DAILY 12/08/15 10/27/16 Lisinopril-Hctz 10-12.5 mg 1 tab PO DAILY 12/08/15 10/27/16 [Zestoretic 10-12.5] [place]-3 Fatty Acids/Fish Oil [Fish 1 cap PO DAILY 12/08/15 10/27/16 Oil 1,000 mg Softgel] Omeprazole [PriLOSEC] 10 mg PO AC-BRKFST 12/08/15 10/27/16 Simvastatin [Simvastatin] 20 mg PO HS 12/08/15 10/27/16 Aspirin 81 mg PO DAILY 10/05/16 10/27/16 Cholecalciferol [Vitamin D3] 1,000 unit PO DAILY 10/08/16 10/27/16 Previous Rx's Medication Instructions Recorded Hydrocodone/Acetaminophen [[place] 1 each PO Q6HR PRN #20 tab 10/08/16 5-325] Ibuprofen 800 mg PO Q6HR PRN #20 tablet 10/08/16 Hydrocodone/Acetaminophen [[place] 1 each PO Q6HR PRN #15 tab 10/27/16 5-325] Sulfamethox-Tmp 800-160Mg [Bactrim 2 each PO Q12HR #28 tab 10/27/16 Ds] Allergies Allergy/AdvReac Type Severity Reaction Status Date / Time venom-honey bee Allergy Anaphylaxis Verified 10/27/16 03:50 [bee venom (honey bee)] Review of Systems ROS Statement: Those systems with pertinent positive or pertinent negative responses have been documented in the HPI. ROS Other: All systems not noted in ROS Statement are negative. Constitutional: Reports: as per HPI Respiratory: Denies: cough, dyspnea Cardiovascular: Denies: chest pain, palpitations, syncope Gastrointestinal: Reports: as per HPI, abdominal pain. 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 History of Any Multi-Drug Resistant Organisms: None Reported Past Surgical History: Cholecystectomy, Tonsillectomy Additional Past Surgical History / Comment(s): Bilateral cataract removals, R eye retinal hole repair, colonoscopies x 3. Past Anesthesia/Blood Transfusion Reactions: No Reported Reaction Past Psychological History: Anxiety Smoking Status: Never smoker Past Alcohol Use History: None Reported Past Drug Use History: None Reported - Past Family History Father Family Medical History: Diabetes Mellitus Additional Family Medical History / Comment(s): father at the age of 62 yrs from diabetic complications. Mother Family Medical History: Diabetes Mellitus, Osteoarthritis (OA) Additional Family Medical History / Comment(s): Mother at the age of 93yrs. General Exam Limitations: no limitations General appearance: alert, in no apparent distress Head exam: Present: atraumatic, normocephalic Respiratory exam: Present: normal lung sounds bilaterally. Absent: respiratory distress, wheezes, rales, rhonchi, stridor Cardiovascular Exam: Present: normal rhythm, tachycardia, normal heart sounds. Absent: systolic murmur, diastolic murmur, rubs, gallop GI/Abdominal exam: Present: soft, tenderness (Mild tenderness at the location of drainage.), other (Onto the right of the midline in the epigastric area there is what appears to be moderate sized abscess which is currently draining purulent material. Minimal overlying cellulitis. Mild local tenderness. No rebound or guarding.). Absent: distended, guarding, rebound, rigid, mass Back exam: Absent: CVA tenderness (R), CVA tenderness (L) Neurological exam: Present: alert Skin exam: Present: warm, dry, intact, normal color. Absent: rash Course Vital Signs 10/27/16 10/27/16 10/27/16 03:47 05:33 06:00 Temperature 99.1 F Pulse Rate 110 H 83 77 Respiratory 18 18 18 Rate Blood Pressure 101/52 132/59 119/58 O2 Sat by Pulse 95 95 95 Oximetry 10/27/16 07:43 Temperature 97.8 F Pulse Rate 85 Respiratory 18 Rate Blood Pressure 135/61 O2 Sat by Pulse 96 Oximetry Procedures - Incision & Drainage Consent Obtained: verbal consent Time Out Performed?: Yes Site: abdomen Anesthetic Used: lidocaine 1% Scalpel Used: #11 I&D Drainage Obtained: Pus Packing: Iodoform Culture Obtained?: Yes Patient Tolerated Procedure: well Medical Decision Making - Medical Decision Making This patient is 71-year-old woman presenting with abdominal wall abscess that is draining. I did slightly enlarged the drainage tract with the scalpel and placed iodoform gauze after drainage of the purulent matter. The patient tolerated procedure well. She does not appear toxic at all and looks to be a good candidate for outpatient treatment with antibiotics and close follow-up. Discussed the return parameters as well as appropriate follow-up. - Lab Data Result diagrams: 10/27/16 04:10 10/27/16 04:10 Lab Results 10/27/16 10/27/16 10/27/16 Range/Units 04:10 04:10 04:10 WBC 18.1 H (3.8-10.6) k/uL RBC 4.00 (3.80-5.40) m/uL Hgb 9.6 L D (11.4-16.0) gm/dL Hct 30.2 L (34.0-46.0) % MCV 75.5 L (80.0-100.0) fL MCH 24.0 L (25.0-35.0) pg MCHC 31.8 (31.0-37.0) g/dL RDW 13.7 (11.5-15.5) % Plt Count 709 H (150-450) k/uL Neutrophils % 82 % Lymphocytes % 13 % Monocytes % 4 % Eosinophils % 1 % Basophils % 0 % Neutrophils # 14.7 H (1.3-7.7) k/uL Lymphocytes # 2.3 (1.0-4.8) k/uL Monocytes # 0.7 (0-1.0) k/uL Eosinophils # 0.1 (0-0.7) k/uL Basophils # 0.1 (0-0.2) k/uL Hypochromasia Slight Sodium 131 L (137-145) mmol/L Potassium 3.1 L (3.5-5.1) mmol/L Chloride 92 L (98-107) mmol/L Carbon Dioxide 26 (22-30) mmol/L Anion Gap 13 mmol/L BUN 8 (7-17) mg/dL Creatinine 0.50 L (0.52-1.04) mg/dL Est GFR (MDRD) Af Amer >60 (>60 ml/min/1.73 sqM) Est GFR (MDRD) Non-Af >60 (>60 ml/min/1.73 sqM) Glucose 164 H (74-99) mg/dL Plasma Lactic Acid Lasha 1.5 (0.7-2.0) mmol/L Calcium 8.6 (8.4-10.2) mg/dL Total Bilirubin 0.5 (0.2-1.3) mg/dL AST 26 (14-36) U/L ALT 58 H (9-52) U/L Alkaline Phosphatase 147 H (38-126) U/L Total Protein 5.8 L (6.3-8.2) g/dL Albumin 3.1 L (3.5-5.0) g/dL Disposition Clinical Impression: Abdominal wall abscess Disposition: HOME SELF-CARE Condition: Fair Instructions: Abscess Incision and Drainage (ED) Prescriptions: Hydrocodone/Acetaminophen [[place] 5-325] 1 each PO Q6HR PRN #15 tab PRN Reason: Pain Sulfamethox-Tmp 800-160Mg [Bactrim Ds] 2 each PO Q12HR #28 tab Referrals: Fay Diaz MD [Primary Care Provider] - 1-2 days Damion Hancock MD [STAFF PHYSICIAN] - 1-2 days
[2016-10-27 04:36] LABS: Basophils # (A) 0.1 k/uL (0-0.2); Basophils % (A) 0 %; CH 24.4; CHCM 32.4; Eosinophils # (A) 0.1 k/uL (0-0.7); Eosinophils % (A) 1 %; HCT 30.2 % (34.0-46.0); HDW 3.18; Hypochromasia Slight; Luc % (Auto) 1; Lymphocytes # (A) 2.3 k/uL (1.0-4.8); Lymphocytes % (A) 13 %; MCHC 31.8 g/dL (31.0-37.0); MCV 75.5 fL (80.0-100.0); Mean Platelet Volume 6.5; Monocytes # (A) 0.7 k/uL (0-1.0); Monocytes % (A) 4 %; Neutrophils # (A) 14.7 k/uL (1.3-7.7); Neutrophils % (A) 82 %; RDW 13.7 % (11.5-15.5); WBC 18.1 k/uL (3.8-10.6)
[2016-10-27 04:37] LABS: HGB 9.6 gm/dL (11.4-16.0)
[2016-10-27 04:51] LABS: ALT 58 U/L (9-52); AST 26 U/L (14-36); Alkaline Phosphatase 147 U/L (38-126); Anion Gap 13 mmol/L; Blood Urea Nitrogen 8 mg/dL (7-17); Calcium 8.6 mg/dL (8.4-10.2); Carbon Dioxide 26 mmol/L (22-30); Chloride 92 mmol/L (98-107); Glucose 164 mg/dL (74-99); Non-African American GFR(MDRD) >60 (>60 ml/min/1.73 sqM); Potassium 3.1 mmol/L (3.5-5.1); Sodium 131 mmol/L (137-145); Total Bilirubin 0.5 mg/dL (0.2-1.3); Total Protein 5.8 g/dL (6.3-8.2)
[2016-10-27] MEDS ORDERED: HYDROcodone/APAP 5-325MG 1 EACH TAB PO STA (07:09)
[2016-10-27] MEDS ORDERED: SULFAMETHOX-TMP 800-160MG 1 EACH TAB PO STA (07:10)
[2016-10-27 07:44] VITALS: BP 135/61; PULSE 85; TEMP 97.8
== END 2016-10-27 07:43 | disposition home or self-care (01) ==
LOC: EC 03:40
DX: L02.211 Cutaneous abscess of abdominal wall (principal); E78.5 Hyperlipidemia, unspecified; I10 Essential (primary) hypertension; M19.90 Unspecified osteoarthritis, unspecified site; K21.9 Gastro-esophageal reflux disease without esophagitis; Z90.49 Acquired absence of other specified parts of digestive tract; Z91.030 Bee allergy status; Z79.82 Long term (current) use of aspirin; Z79.899 Other long term (current) drug therapy
CPT/HCPCS: 10060; 36415; 80053; 83605; 85025; 87040; 87070; 87077; 87186; 87205; 99283

== ENCOUNTER → 2017-05-20 | Day surgery (SDC) | payer MEDICARE ==
[2017-05-18 11:03] VITALS: BMI 31.3
[~2017-05-20] MED LIST: GLUCAGON 1 MG/ML VIAL ONE; LACTATED RINGERS 1,000 ML IV SCH; LIDOCAINE 1% 20 ML VIAL (10MG/ML) FOR IV START INTRADERMA ONE; PROPOFOL 10 MG/ML 20 ML VIAL IV ONE
[2017-05-20 10:50] VITALS: RESP 16; TEMP 97.7
[2017-05-20 11:01] LABS: Glucose,Whole Blood 138 mg/dL (75-99)
--- NOTE | 2017-05-20 11:50 | P.GSHP ---
History of Present Illness H&P Date: 05/20/17 Chief Complaint: GERD, GI bleed This a 72-year-old female referred Mr. Gardner. Patient presents today for EGD colonoscopy. She's had issues with GERD and GI bleed. 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 History of Any Multi-Drug Resistant Organisms: None Reported Past Surgical History: Cholecystectomy, Tonsillectomy Additional Past Surgical History / Comment(s): Bilateral cataract removals, R eye retinal hole repair, colonoscopies x 3. Past Anesthesia/Blood Transfusion Reactions: No Reported Reaction Smoking Status: Never smoker - Past Family History Father Family Medical History: Diabetes Mellitus Additional Family Medical History / Comment(s): father at the age of 62 yrs from diabetic complications. Mother Family Medical History: Diabetes Mellitus, Osteoarthritis (OA) Additional Family Medical History / Comment(s): Mother at the age of 93yrs. Medications and Allergies Home Medications Medication Instructions Recorded Confirmed Type Cinnamon Bark [Cinnamon] 500 mg PO BID 12/08/15 05/20/17 History Cyanocobalamin [Vitamin B-12] 1,000 mcg PO DAILY 12/08/15 05/20/17 History Lisinopril-Hctz 10-12.5 mg 1 tab PO DAILY 12/08/15 05/20/17 History [Zestoretic 10-12.5] Omeprazole [PriLOSEC] 10 mg PO AC-BRKFST 12/08/15 05/20/17 History Simvastatin [Simvastatin] 20 mg PO HS 12/08/15 05/20/17 History Aspirin 81 mg PO DAILY 10/05/16 05/18/17 History Cholecalciferol [Vitamin D3] 1,000 unit PO DAILY 10/08/16 05/20/17 History Ibuprofen 800 mg PO Q6HR PRN #20 tablet 10/08/16 05/18/17 Rx Allergies Allergy/AdvReac Type Severity Reaction Status Date / Time venom-honey bee Allergy Anaphylaxis Verified 05/18/17 10:41 [bee venom (honey bee)] Surgical - Exam Vital Signs Temp Pulse Resp BP Pulse Ox 97.7 F 90 16 151/82 96 05/20/17 10:48 05/20/17 10:48 05/20/17 10:48 05/20/17 10:48 05/20/17 10:48 - General well developed, no distress - Eyes PERRL - ENT normal pinna - Neck no masses - Respiratory normal expansion - Cardiovascular Rhythm: regular - Abdomen Abdomen: soft, non tender Results - Labs Abnormal Lab Results - Last 24 Hours (Table) 05/20/17 Range/Units 10:54 POC Glucose (mg/dL) 138 H (75-99) mg/dL Assessment and Plan Assessment: GERD, GI bleed. We'll perform EGD and colonoscopy.
--- NOTE | 2017-05-20 12:11 | P.OP ---
Date of Procedure: 05/20/17 Preoperative Diagnosis: GERD GI bleed Postoperative Diagnosis: Antral gastritis No hiatal hernia Minimal esophagitis Diverticulosis Procedure(s) Performed: EGD Colonoscopy Anesthesia: MAC Surgeon: Damion Hancock Pathology: other (Antrum, esophagus) Condition: stable Disposition: PACU Description of Procedure: The patient's placed on the endoscopy table lateral position. She received IV sedation. Digital rectal exam was performed which revealed external hemorrhoids. Flexible colonoscope was then placed patient anus and passed throughout colon. The patient cannot not hold the insufflated air. The scope could only place into the left colon. The patient was unable hold the insufflated air. This point the scope was withdrawn. There was some diverticular changes noted in the sigmoid colon. Scope was then brought back the rectum and this appeared normal. Scope was withdrawn for patient. The patient was scheduled for a barium enema. Next the gastroscope placed oropharynx passed in the esophagus and into the stomach. The scope was then placed through the pylorus. The first and second portion of duodenum appeared normal. Scope was then brought back the antrum and this appeared normal. The scope was then retroflexed and the remainder some appeared normal. There was no significant hiatal hernia. The GE junction was at 40 cm the distal esophagus appeared minimally inflamed a biopsies performed. The proximal esophagus appeared normal. Scope was withdrawn for patient.
[2017-05-20 12:15] VITALS: PULSE 98
[2017-05-20 12:53] VITALS: BP 139/72
--- NOTE | 2017-05-20 16:38 | FL ---
EXAMINATION TYPE: FL barium enema DATE OF EXAM: 05/20/2017 COMPARISON: NONE HISTORY: Incomplete colonoscopy TECHNIQUE: A single contrast barium enema study is performed. 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 There is excessive bowel gas on the initial image. Delayed imaging is performed which improves the bowel gas pattern. Single contrast was utilized. Wit h difficulty contrast reflux to would appears to be the terminal ileum. No suspicious area for circumferential narrowing is evident. Multiple diverticuli are within the redu ndant sigmoid colon. Additional small diverticuli are within the transverse colon. Some descending co cameron diverticuli are present. Reflux into the appendix or terminal ileum could not be performed. Postevacuation films are obtained. There is moderate retention. IMPRESSION: 1. Diverticulosis without evidence of acute diverticulitis.
== END | disposition home or self-care (01) ==
LOC: ORWHC2ENDO 10:32
PROVIDERS: ATTEND Surgery
DX: K64.4 Residual hemorrhoidal skin tags (principal); K57.30 Diverticulosis of large intestine without perforation or abscess without bleeding; K29.70 Gastritis, unspecified, without bleeding; K21.0 Gastro-esophageal reflux disease with esophagitis; I10 Essential (primary) hypertension; E78.5 Hyperlipidemia, unspecified; E11.9 Type 2 diabetes mellitus without complications; M19.90 Unspecified osteoarthritis, unspecified site; Z79.899 Other long term (current) drug therapy; Z91.030 Bee allergy status; Z79.82 Long term (current) use of aspirin
CPT/HCPCS: 88305; 74270; 43239; 45330; J1610; J2704

== ENCOUNTER → 2017-05-21 | Outpatient (CLI) | payer MEDICARE | LOC: LABPAT 08:47 | PROVIDERS: ATTEND Surgery | DX: Z01.818 Encounter for other preprocedural examination (principal) | CPT/HCPCS: 36415; 86850; 86900; 86901; 93005 ==

== ENCOUNTER 2017-05-26 08:53 | Day surgery (SDC) | payer MEDICARE ==
[2017-05-18 10:52] VITALS: BMI 31.3
[~2017-05-26 08:53] MED LIST changes: +DEXAMETHASONE SOD PHOSPHATE 10 MG/ML 1 ML VIAL IV ONE; -GLUCAGON 1 MG/ML VIAL ONE; +HEPARIN SODIUM,PORCINE 5,000 UNIT/ML 1 ML VIAL SQ ONE; +HYDROmorphone 0.5 MG/0.5 ML SYRINGE IVP PRN; -LIDOCAINE 1% 20 ML VIAL (10MG/ML) FOR IV START INTRADERMA ONE; +ONDANSETRON 4 MG/2 ML VIAL IVP ONE; -PROPOFOL 10 MG/ML 20 ML VIAL IV ONE; +ceFAZolin IN SWFI 2 GM/20 ML SYRINGE IVP ONE
[2017-05-26 09:56] LABS: Glucose,Whole Blood 91 mg/dL (75-99)
[2017-05-26] MEDS ORDERED: LIDOCAINE 1% 20 ML VIAL (10MG/ML) FOR IV START INTRADERMA ONE (09:58)
--- NOTE | 2017-05-26 10:48 | P.GSHP ---
History of Present Illness H&P Date: 05/26/17 Chief Complaint: Incarcerated incisional hernia This is a 72-year-old female has developed an incarcerated incisional hernia at the right upper quadrant. Patient presents today for laparoscopic robotic system repair. 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 History of Any Multi-Drug Resistant Organisms: None Reported Past Surgical History: Appendectomy, Cholecystectomy, Tonsillectomy Additional Past Surgical History / Comment(s): Bilateral cataract removals, R eye retinal hole repair, colonoscopies x 3. Past Anesthesia/Blood Transfusion Reactions: No Reported Reaction Additional Psychological History / Comment(s): Pt resides with her spouse. She is independent. - Past Family History Father Family Medical History: Diabetes Mellitus Additional Family Medical History / Comment(s): father at the age of 62 yrs from diabetic complications. Mother Family Medical History: Diabetes Mellitus, Osteoarthritis (OA) Additional Family Medical History / Comment(s): Mother at the age of 93yrs. Medications and Allergies Home Medications Medication Instructions Recorded Confirmed Type Cinnamon Bark [Cinnamon] 500 mg PO BID 12/08/15 05/20/17 History Cyanocobalamin [Vitamin B-12] 1,000 mcg PO DAILY 12/08/15 05/20/17 History Lisinopril-Hctz 10-12.5 mg 1 tab PO DAILY 12/08/15 05/20/17 History [Zestoretic 10-12.5] Omeprazole [PriLOSEC] 10 mg PO AC-BRKFST 12/08/15 05/20/17 History Simvastatin [Simvastatin] 20 mg PO HS 12/08/15 05/20/17 History Aspirin 81 mg PO DAILY 10/05/16 05/18/17 History Cholecalciferol [Vitamin D3] 1,000 unit PO DAILY 10/08/16 05/20/17 History Ibuprofen 800 mg PO Q6HR PRN #20 tablet 10/08/16 05/18/17 Rx Allergies Allergy/AdvReac Type Severity Reaction Status Date / Time venom-honey bee Allergy Anaphylaxis Verified 05/26/17 09:33 [bee venom (honey bee)] Surgical - Exam Vital Signs Temp Pulse Resp BP Pulse Ox 98.6 F 81 16 160/69 97 05/26/17 09:44 05/26/17 09:44 05/26/17 09:44 05/26/17 09:44 05/26/17 09:44 - General well developed, no distress - Eyes PERRL - ENT normal pinna - Neck no masses - Respiratory normal expansion - Cardiovascular Rhythm: regular - Abdomen Abdomen: soft, no non tender Hernia: incisional (Incisional hernia located right upper quadrant. There appears to be incarcerated omentum within the hernia.) Assessment and Plan Assessment: Incarcerated incisional hernia. We'll perform laparoscopic robotic-assisted repair.
[2017-05-26] MEDS ORDERED: fentaNYL (PF) 50 MCG/ML 2 ML AMP ONE (10:58)
[2017-05-26] MEDS ORDERED: SUCCINYLCHOLINE CHLORIDE 100 MG/5 ML SYR IV ONE (10:58)
[2017-05-26] MEDS ORDERED: LIDOCAINE 1% INJ 10MG/ML (20 ML MDV) ONE (10:58)
[2017-05-26] MEDS ORDERED: ROCURONIUM BROMIDE 10 MG/ML 10 ML VIAL IV ONE (10:58)
[2017-05-26] MEDS ORDERED: PHENYLEPHRINE-0.9% NACL SYG 1 MG/10 ML SYRINGE ONE (10:58)
[2017-05-26] MEDS ORDERED: GLYCOPYRROLATE 0.2 MG/ML 2 ML VIAL ONE (10:58)
[2017-05-26] MEDS ORDERED: PROPOFOL 10 MG/ML 20 ML VIAL IV ONE (10:58)
[2017-05-26] MEDS ORDERED: NEOSTIGMINE 1 MG/ML 10 ML VIAL ONE (10:58)
[2017-05-26] MEDS ORDERED: MIDAZOLAM 2 MG/2 ML VIAL ONE (10:58)
[2017-05-26] MEDS ORDERED: BUPIVACAINE (PF) 0.25% 30 ML VIAL SQ ONE (11:35)
[2017-05-26] MEDS ORDERED: LIDOCAINE 1%-EPI 1:100,000 30 ML VIAL SQ ONE ×2 (12:24)
[2017-05-26 12:54] VITALS: TEMP 97.2
[2017-05-26] MEDS: fentaNYL (PF) 50 MCG/ML 2 ML AMP IVP ONE ×4 (12:58→13:25)
[2017-05-26 13:03] VITALS: RESP 16
[2017-05-26] MEDS ORDERED: HYDROcodone/APAP 7.5-325MG 1 EACH TAB PO ONE (14:02)
[2017-05-26] MEDS ORDERED: ONDANSETRON 4 MG/2 ML VIAL IVP ONE (15:40)
[2017-05-26 15:57] VITALS: BP 142/67; PULSE 79
--- NOTE | 2017-05-26 16:50 | P.OP ---
Date of Procedure: 05/26/17 Preoperative Diagnosis: Incarcerated incisional hernia Postoperative Diagnosis: Incarcerated incisional hernia Procedure(s) Performed: Laparoscopic robotic-assisted repair of incisional hernia Laparoscopic lysis of adhesions Excision of hernia sac/omentum Anesthesia: BINU Surgeon: Damion Hancock Estimated Blood Loss (ml): 5 Pathology: none sent Condition: stable Disposition: PACU Description of Procedure: The patient was placed on the operating table in the supine position. He received general anesthesia. His abdomen was prepped and draped usual fashion. Using a 5 mm optical trocar under direct visualization the peritoneal cavity was entered in the left upper quadrant. The abdomen was then insufflated. The laparoscope was placed back into the perineal cavity. Next a 8 mm robotic trocar was placed in the left lower quadrant and a 12 mm robotic trocar was placed in the left lateral position. The original 5 mm trocar was exchanged for a 8 mm robotic trocar. The patient's placed in the left side up position. And the patient was docked to the robot. The incisional hernia was visualized. Using the hook cautery the adhesions were lysed. Approximately 10 minutes operative time used to lyse adhesions. Using hook cautery the peritoneum over the incisional hernia was excised. The fascial opening was repaired using 0V LOC suture. Next a piece of 11 cm round ventral light ST mesh was placed into the peritoneal Cavity and secured with 2 OV lock suture. The patient was undocked the robot. The needles were retrieved. The hernia sac /omentum was withdrawn. The fascia of the 12 mm trocar site was closed with 0 Ethibond suture. Skin was closed interrupted 3-0 Monocryl suture. Dermabond dressings was applied. Patient tolerated procedure well and was sent to recovery room stable condition.
== END 2017-05-26 16:26 | disposition home or self-care (01) ==
LOC: OR 08:53
PROVIDERS: ATTEND Surgery
DX: K43.0 Incisional hernia with obstruction, without gangrene (principal); K66.0 Peritoneal adhesions (postprocedural) (postinfection); K43.9 Ventral hernia without obstruction or gangrene; E11.9 Type 2 diabetes mellitus without complications; K21.9 Gastro-esophageal reflux disease without esophagitis; E78.5 Hyperlipidemia, unspecified; I10 Essential (primary) hypertension; M19.90 Unspecified osteoarthritis, unspecified site; M54.2 Cervicalgia; M54.42 Lumbago with sciatica, left side; M54.41 Lumbago with sciatica, right side; G89.29 Other chronic pain; Z79.82 Long term (current) use of aspirin; Z79.899 Other long term (current) drug therapy; Z91.030 Bee allergy status
CPT/HCPCS: 36415; 86850; 86900; 86901; 88302

== ENCOUNTER 2017-06-29 04:21 | Inpatient (IN) | payer MEDICARE ==
[2017-06-29] MEDS ORDERED: SODIUM CHLORIDE 0.9% 500 ML IV STA (04:41)
[2017-06-29] MEDS ORDERED: MORPHINE SULF 5MG/10ML VL IV STA ×2 (04:41→06:42)
[2017-06-29] MEDS ORDERED: ONDANSETRON 4 MG/2 ML VIAL IVP STA (04:41)
--- NOTE | 2017-06-29 04:47 | ED ---
Abdominal Pain HPI - General Chief Complaint: Abdominal Pain Stated Complaint: ABD PAIN Time Seen by Provider: 06/29/17 04:30 Source: patient Mode of arrival: ambulatory Limitations: no limitations - History of Present Illness Initial Comments: This patient is 72-year-old woman who presents to be evaluated for right sided abdominal pain. She describes it as a pressure or aching pain. The pain is become constant and moderate severity. She states that the pain has been present since after her hernia surgery on May 20. She does note that it seemed to be worse since . She states that the pain does get worse if she tightens her abdomen for exam going from supine to upright, or with walking. She has not noted relieving factors. She states she did have 3 bowel movements over the course of tonight. Otherwise no change in urination or bowel movements. She has had nausea tonight but no vomiting. MD Complaint: abdominal pain Onset/Timin -: week(s) Location: RUQ Radiation: none Migration to: no migration Severity: moderate Quality: aching, fullness Consistency: constant Improves With: nothing Worsens With: nothing Associated Symptoms: nausea, diarrhea - Related Data Home Medications Medication Instructions Recorded Confirmed Cinnamon Bark [Cinnamon] 500 mg PO BID 12/08/15 06/29/17 Lisinopril-Hctz 10-12.5 mg 1 tab PO DAILY 12/08/15 06/29/17 [Zestoretic 10-12.5] Omeprazole [PriLOSEC] 10 mg PO AC-BRKFST 12/08/15 06/29/17 Simvastatin [Simvastatin] 20 mg PO HS 12/08/15 06/29/17 Aspirin 81 mg PO DAILY 10/05/16 06/29/17 Cholecalciferol [Vitamin D3] 1,000 unit PO DAILY 10/08/16 06/29/17 Previous Rx's Medication Instructions Recorded Ibuprofen 800 mg PO Q6HR PRN #20 tablet 10/08/16 Docusate [Colace] 100 mg PO BID #20 capsule 05/26/17 HYDROcodone/APAP 7.5-325MG [[place] 1 each PO Q4H PRN #30 tab 05/26/17 7.5] Allergies Allergy/AdvReac Type Severity Reaction Status Date / Time venom-honey bee Allergy Anaphylaxis Verified 06/29/17 04:27 [bee venom (honey bee)] Review of Systems ROS Statement: Those systems with pertinent positive or pertinent negative responses have been documented in the HPI. ROS Other: All systems not noted in ROS Statement are negative. Constitutional: Denies: fever, chills Respiratory: Denies: cough, dyspnea Cardiovascular: Denies: chest pain, palpitations, edema Gastrointestinal: Reports: abdominal pain, nausea, diarrhea. 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 History of Any Multi-Drug Resistant Organisms: None Reported Past Surgical History: Appendectomy, Cholecystectomy, Tonsillectomy Additional Past Surgical History / Comment(s): Bilateral cataract removals, R eye retinal hole repair, colonoscopies x 3. hernia surgery. Past Anesthesia/Blood Transfusion Reactions: No Reported Reaction Past Psychological History: No Psychological Hx Reported Smoking Status: Never smoker Past Alcohol Use History: None Reported Past Drug Use History: None Reported - Past Family History Father Family Medical History: Diabetes Mellitus Additional Family Medical History / Comment(s): father at the age of 62 yrs from diabetic complications. Mother Family Medical History: Diabetes Mellitus, Osteoarthritis (OA) Additional Family Medical History / Comment(s): Mother at the age of 93yrs. General Exam Limitations: no limitations General appearance: alert, in no apparent distress Head exam: Present: atraumatic, normocephalic Eye exam: Present: normal appearance. Absent: scleral icterus, conjunctival injection ENT exam: Present: mucous membranes dry Respiratory exam: Present: normal lung sounds bilaterally. Absent: respiratory distress, wheezes, rales, rhonchi, stridor Cardiovascular Exam: Present: normal rhythm, tachycardia (Rate approximately 108 at my exam), normal heart sounds. Absent: systolic murmur, diastolic murmur , rubs, gallop GI/Abdominal exam: Present: soft, tenderness (Right-sided). Absent: distended, guarding, rebound, rigid, mass, pulsatile mass, hernia Extremities exam: Present: normal inspection, normal capillary refill. Absent: pedal edema, calf tenderness Back exam: Present: normal inspection. Absent: CVA tenderness (R), CVA tenderness (L) Neurological exam: Present: alert Skin exam: Present: warm, dry, intact, normal color. Absent: rash Course Vital Signs 06/29/17 06/29/17 06/29/17 04:23 05:35 06:03 Temperature 97.0 F L Pulse Rate 112 H 95 97 Respiratory 16 14 18 Rate Blood Pressure 109/57 98/55 114/56 O2 Sat by Pulse 98 98 95 Oximetry 06/29/17 06/29/17 06:45 07:06 Temperature Pulse Rate 100 94 Respiratory 14 18 Rate Blood Pressure 114/56 105/55 O2 Sat by Pulse 97 95 Oximetry Medical Decision Making - Medical Decision Making Patient is 72-year-old woman presenting with abdominal pain and fullness in the right abdominal wall. She did have laparoscopic incisional hernia repair May [address] Hancock, and I called to discuss the results with him, but he is out of town. He stated that Dr. Leal was covering for him so he called and spoke with her but she is not covering physician today and informed us that was Dr. Vinny Godwin. Informs Dr. Vinny Godwin of the results and she will see the patient. - Lab Data Result diagrams: 06/29/17 04:38 06/29/17 04:38 Lab Results 06/29/17 06/29/17 06/29/17 Range/Units 04:38 04:38 04:38 WBC 26.4 H* (3.8-10.6) k/uL RBC 4.83 (3.80-5.40) m/uL Hgb 9.5 L (11.4-16.0) gm/dL Hct 31.8 L (34.0-46.0) % MCV 65.9 L (80.0-100.0) fL MCH 19.8 L (25.0-35.0) pg MCHC 30.0 L (31.0-37.0) g/dL RDW 15.1 (11.5-15.5) % Plt Count 517 H (150-450) k/uL Neutrophils % (Manual) 88 % Band Neutrophils % 6 % Lymphocytes % (Manual) 5 % Monocytes % (Manual) 2 % Neutrophils # (Manual) 24.80 H (1.3-7.7) k/uL Lymphocytes # (Manual) 1.32 (1.0-4.8) k/uL Monocytes # (Manual) 0.53 (0-1.0) k/uL Nucleated RBCs 0 (0-0) /100 WBC Manual Slide Review Performed Toxic Vacuolation Present Hypochromasia Moderate Microcytosis Marked Sodium 135 L (137-145) mmol/L Potassium 3.1 L (3.5-5.1) mmol/L Chloride 95 L (98-107) mmol/L Carbon Dioxide 23 (22-30) mmol/L Anion Gap 17 mmol/L BUN 12 (7-17) mg/dL Creatinine 0.60 (0.52-1.04) mg/dL Est GFR (CKD-EPI)AfAm >90 (>60 ml/min/1.73 sqM) Est GFR (CKD-EPI)NonAf >90 (>60 ml/min/1.73 sqM) Glucose 183 H (74-99) mg/dL Plasma Lactic Acid Lasha 3.3 H* (0.7-2.0) mmol/L Calcium 9.0 (8.4-10.2) mg/dL Total Bilirubin 1.2 (0.2-1.3) mg/dL AST 63 H (14-36) U/L ALT 75 H (9-52) U/L Alkaline Phosphatase 156 H (38-126) U/L Total Protein 6.0 L (6.3-8.2) g/dL Albumin 3.3 L (3.5-5.0) g/dL Amylase 38 (30-110) U/L Lipase 64 (23-300) U/L Urine Color Urine Appearance (Clear) Urine pH (5.0-8.0) Ur Specific [place] (1.001-1.035) Urine Protein (Negative) Urine Glucose (UA) (Negative) Urine Ketones (Negative) Urine Blood (Negative) Urine Nitrite (Negative) Urine Bilirubin (Negative) Urine Urobilinogen (<2.0) mg/dL Ur Leukocyte Esterase (Negative) Urine RBC (0-5) /hpf Urine WBC (0-5) /hpf Ur Squamous Epith Cells (0-4) /hpf Urine Bacteria (None) /hpf Hyaline Casts (0-2) /lpf Urine Mucus (None) /hpf 06/29/17 Range/Units 06:38 WBC (3.8-10.6) k/uL RBC (3.80-5.40) m/uL Hgb (11.4-16.0) gm/dL Hct (34.0-46.0) % MCV (80.0-100.0) fL MCH (25.0-35.0) pg MCHC (31.0-37.0) g/dL RDW (11.5-15.5) % Plt Count (150-450) k/uL Neutrophils % (Manual) % Band Neutrophils % % Lymphocytes % (Manual) % Monocytes % (Manual) % Neutrophils # (Manual) (1.3-7.7) k/uL Lymphocytes # (Manual) (1.0-4.8) k/uL Monocytes # (Manual) (0-1.0) k/uL Nucleated RBCs (0-0) /100 WBC Manual Slide Review Toxic Vacuolation Hypochromasia Microcytosis Sodium (137-145) mmol/L Potassium (3.5-5.1) mmol/L Chloride (98-107) mmol/L Carbon Dioxide (22-30) mmol/L Anion Gap mmol/L BUN (7-17) mg/dL Creatinine (0.52-1.04) mg/dL Est GFR (CKD-EPI)AfAm (>60 ml/min/1.73 sqM) Est GFR (CKD-EPI)NonAf (>60 ml/min/1.73 sqM) Glucose (74-99) mg/dL Plasma Lactic Acid Lasha (0.7-2.0) mmol/L Calcium (8.4-10.2) mg/dL Total Bilirubin (0.2-1.3) mg/dL AST (14-36) U/L ALT (9-52) U/L Alkaline Phosphatase (38-126) U/L Total Protein (6.3-8.2) g/dL Albumin (3.5-5.0) g/dL Amylase (30-110) U/L Lipase (23-300) U/L Urine Color Yellow Urine Appearance Cloudy H (Clear) Urine pH 6.5 (5.0-8.0) Ur Specific [place] 1.007 (1.001-1.035) Urine Protein Negative (Negative) Urine Glucose (UA) Negative (Negative) Urine Ketones Negative (Negative) Urine Blood Negative (Negative) Urine Nitrite Negative (Negative) Urine Bilirubin Negative (Negative) Urine Urobilinogen <2.0 (<2.0) mg/dL Ur Leukocyte Esterase Negative (Negative) Urine RBC 2 (0-5) /hpf Urine WBC 2 (0-5) /hpf Ur Squamous Epith Cells 13 H (0-4) /hpf Urine Bacteria Many H (None) /hpf Hyaline Casts 2 (0-2) /lpf Urine Mucus Rare H (None) /hpf Disposition Clinical Impression: Abdominal pain, Lactic acidosis Disposition: ADMITTED IP TO THIS [facility] Condition: Fair Referrals: Fay Diaz MD [Primary Care Provider] - 1-2 days
[2017-06-29 05:00] LABS: HCT 31.8 % (34.0-46.0); HGB 9.5 gm/dL (11.4-16.0); Hypochromasia Moderate; MCH 19.8 pg (25.0-35.0); MCV 65.9 fL (80.0-100.0); Mean Platelet Volume 6.7; Microcytosis Marked; Platelet Count 517 k/uL (150-450); RBC 4.83 m/uL (3.80-5.40); RDW 15.1 % (11.5-15.5)
[2017-06-29 05:01] LABS: WBC 26.4 k/uL (3.8-10.6)
[2017-06-29 05:04] LABS: ALT 75 U/L (9-52); AST 63 U/L (14-36); Albumin 3.3 g/dL (3.5-5.0); Alkaline Phosphatase 156 U/L (38-126); Amylase 38 U/L (30-110); Anion Gap 17 mmol/L; Blood Urea Nitrogen 12 mg/dL (7-17); Carbon Dioxide 23 mmol/L (22-30); Chloride 95 mmol/L (98-107); Glucose 183 mg/dL (74-99); Lipase 64 U/L (23-300); Potassium 3.1 mmol/L (3.5-5.1); Sodium 135 mmol/L (137-145); Total Bilirubin 1.2 mg/dL (0.2-1.3)
[2017-06-29 05:29] LABS: Band Neutrophils % 6 %; Lymphocytes # (M) 1.32 k/uL (1.0-4.8); Monocytes # (M) 0.53 k/uL (0-1.0); Neutrophils % (M) 88 %; Nucleated Red Blood Cells 0 /100 WBC (0-0); Total Cells Counted 200
[2017-06-29 05:30] LABS: Toxic Vacuolation Present
[2017-06-29] MEDS ORDERED: SODIUM CHLORIDE 0.9% 2,500 ML IV ONE (05:43)
[2017-06-29] MEDS ORDERED: PIPERACILLIN-TAZOBACTAM 4.5 GM in DEXTROSE/WATER 1 50ML.BAG IVPB STA (05:44)
[2017-06-29] MEDS ORDERED: PIPERACILLIN-TAZOBACTAM 3.375 GM in DEXTROSE/WATER 1 50ML.BAG IVPB STA (05:52)
--- NOTE | 2017-06-29 06:01 | CT ---
EXAM: CT Abdomen and Pelvis Without Intravenous Contrast CLINICAL HISTORY: ITS.REASON CT Reason: abdominal pain TECHNIQUE: Axial computed tomography images of the abdomen and pelvis without intravenous contrast. CTDI is 10.3 mGy and DLP is 565.5 mGy-cm. This CT exam was performed using one or more of the following dose reduction techniques: automated exposure control, adjustment of the mA and/or kV according to patient size, and/or use of iterative reconstruction technique. COMPARISON: CT abdomen pelvis dated 10/08/2016. FINDINGS: Lower thorax: Mild atelectasis or less likely pneumonia left lung base. Unchanged 1 mm solid pulmonary nodule in the right middle lobe (series 3 image 6). Large hiatal hernia containing nearly the entire stomach ABDOMEN: Liver: Unremarkable. Gallbladder and bile ducts: Prior cholecystectomy. No ductal dilation. Pancreas: Unremarkable. No ductal dilation. Spleen: Unremarkable. No splenomegaly. Adrenals: Unremarkable. No mass. Kidneys and ureters: Unremarkable. No calculi. No hydronephrosis. Stomach and bowel: Mild wall thickening within the ascending and transverse colon is nonspecific but may represent colitis. Extensive diverticulosis. Mild adjacent fluid limits evaluation for potential diverticulitis. No obstruction. Appendix: The appendix is not identified of certainty. PELVIS: Bladder: Unremarkable. No stones. Reproductive: Unremarkable as visualized. ABDOMEN and PELVIS: Intraperitoneal space: Mild free fluid in the pelvis. No free air. Bones/joints: 4 mm presumed bone island in the left hemisacrum. Soft tissues: Large air and fluid collection within the anterior abdominal wall and right rectus sheath, which appears marked multi- compartmentalized. A more superficial component anterior the abdominal wall measures 5.9 x 3.4 cm. The largest components, within and deep to the rectus sheath measures up to approximately 9.4 x 6.2 cm. Vasculature: Unremarkable. No abdominal aortic aneurysm. Lymph nodes: Unremarkable. No enlarged lymph nodes. IMPRESSION: Marked interval worsening of a right rectus sheath fluid collection which now extends into the anterior abdominal wall. The differential includes hematoma, and abscess, with stromal felt less likely. Mild wall thickening within the ascending and transverse colon is nonspecific but may represent colitis. Extensive diverticulosis. Mild adjacent nonspecific fluid in the pelvis limits evaluation for potential diverticulitis. Nonvisualization of the appendix. Mild atelectasis or less likely pneumonia in the left lung base. Large hiatal hernia.
[2017-06-29 06:50] LABS: Appearance,Urine Cloudy (Clear); Bacteria,Urine Many /hpf; Bilirubin,Urine Negative (Negative); Blood,Urine Negative (Negative); Color,Urine Yellow; Glucose,Urine (UA) Negative (Negative); Hyaline Casts,Urine 2 /lpf (0-2); Ketones,Urine Negative (Negative); Leukocyte Esterase,Urine Negative (Negative); Mucus,Urine Rare /hpf; Nitrite,Urine Negative (Negative); PH, Urine 6.5 (5.0-8.0); Protein,Urine Negative (Negative); RBC,Urine 2 /hpf (0-5); Specific Gravity,Urine 1.007 (1.001-1.035); Squamous Epithelial Cell,Urine 13 /hpf (0-4); Urobilinogen,Urine <2.0 mg/dL (<2.0); WBC,Urine 2 /hpf (0-5)
[2017-06-29] MEDS ORDERED: NALOXONE 0.4 MG/ML 1 ML VIAL IV PRN ×2 (07:29→17:28)
[2017-06-29] MEDS ORDERED: ACETAMINOPHEN TAB 325 MG TAB PO PRN (07:37)
[2017-06-29] MEDS ORDERED: MORPHINE SULF 5MG/10ML VL IV PRN (07:37)
[2017-06-29] MEDS ORDERED: ONDANSETRON 4 MG/2 ML VIAL IVP PRN ×2 (07:37→17:28)
[2017-06-29] MEDS ORDERED: IBUPROFEN 800 MG TAB PO PRN (07:41)
[2017-06-29] MEDS ORDERED: HYDROcodone/APAP 7.5-325MG 1 EACH TAB PO PRN (07:41)
[2017-06-29] MEDS ORDERED: LISINOPRIL-HCTZ 10-12.5 MG 1 EACH TAB PO SCH (09:00)
[2017-06-29 09:02] LABS: INR 1.1 (<1.2); Prothrombin Time 10.9 sec (9.0-12.0)
[2017-06-29] MEDS: ASPIRIN 81 MG PO SCH (09:12)
[2017-06-29] MEDS: DOCUSATE 100 MG CAP PO SCH ×2 (09:12→23:12)
[2017-06-29] MEDS: CHOLECALCIFEROL 1,000 UNIT TAB PO SCH (09:13)
[2017-06-29] MEDS: SODIUM CHLORIDE 0.9% 1,000 ML IV SCH ×3 (09:13→23:01)
--- NOTE | 2017-06-29 09:43 | P.GSHP ---
History of Present Illness H&P Date: 06/29/17 Chief Complaint: Abdominal pain 9-year-old female presented to the emergency room to be evaluated for right side abdominal pain described as a pressure constant increase in severity. Patient stated with any movement it caused increase pain intensity involving the right abdominal wall. Patient states that she has had this pain for past several months. The pain was present before her hernia's surgery that she had in May 26. In which the patient underwent a laparoscopic robotic-assisted repair of incisional hernia done on May 26 Patient stated that she was seen yesterday in Dr. moran office to be evaluated for the right lower quadrant abdominal wall pain. Patient states nausea sensation and had several loose stools yesterday but had been afebrile. That office visit patient was told an MRI would be set up for tomorrow and a follow-up visit the following Wednesday. Patient stated the pain was unbearable came into the emergency room to be evaluated. Patient did have on May 20 an EGD and a colonoscopy. It showed no hiatal hernia, antral gastritis diverticulosis Past surgical history appendectomy, cholecystectomy, recent hernia repair, colonoscopy EGD Patient gives a history of having been told that she had a hematoma in the past. Stated that she had hematoma in September 2016. Patient denied any trauma. Reviewing the computed tomography scan report of the abdomen pelvis done on October 08 indicated there was a new moderate-sized right mid abdominal rectus sheath based lesion suggestive of a rectus sheath hematoma CAT scan abdomen pelvis obtained in the emergency room today the report indicates large hiatal hernia, marked interval worsening of a right rectus sheath fluid collection extends into the anterior abdominal wall mild wall thickening within the ascending and transverse colon extensive diverticulosis The white count this morning is 26.4. 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 History of Any Multi-Drug Resistant Organisms: None Reported Past Surgical History: Appendectomy, Cholecystectomy, Hernia Repair, Tonsillectomy Additional Past Surgical History / Comment(s): 05/26/17 laparoscopic incisional hernia repair with mesh/lysis of adhesions, bilateral cataract removals, R eye retinal hole repair, colonoscopies/EGD. Past Anesthesia/Blood Transfusion Reactions: No Reported Reaction Past Psychological History: No Psychological Hx Reported Additional Psychological History / Comment(s): Pt resides with her spouse. She is independent. Smoking Status: Never smoker Past Alcohol Use History: None Reported Past Drug Use History: None Reported - Past Family History Father Family Medical History: Diabetes Mellitus Additional Family Medical History / Comment(s): father at the age of 62 yrs from diabetic complications. Mother Family Medical History: Diabetes Mellitus, Osteoarthritis (OA) Additional Family Medical History / Comment(s): Mother at the age of 93yrs. Medications and Allergies Home Medications Medication Instructions Recorded Confirmed Type Cinnamon Bark [Cinnamon] 500 mg PO BID 12/08/15 06/29/17 History Lisinopril-Hctz 10-12.5 mg 1 tab PO DAILY 12/08/15 06/29/17 History [Zestoretic 10-12.5] Simvastatin [Simvastatin] 20 mg PO HS 12/08/15 06/29/17 History Docusate [Colace] 100 mg PO BID #20 capsule 05/26/17 06/29/17 Rx Cyanocobalamin [Vitamin B-12] 500 mcg PO DAILY 06/29/17 06/29/17 History Omeprazole 20 mg PO DAILY 06/29/17 06/29/17 History Allergies Allergy/AdvReac Type Severity Reaction Status Date / Time venom-honey bee Allergy Anaphylaxis Verified 06/29/17 09:08 [bee venom (honey bee)] Surgical - Exam Vital Signs Temp Pulse Resp BP Pulse Ox 97.0 F L 112 H 16 109/57 98 06/29/17 04:23 06/29/17 04:23 06/29/17 04:23 06/29/17 04:23 06/29/17 04:23 GENERAL APPEARANCE: 72-year-old female patient is alert, oriented, in no acute distress. Just received pain medication positive tenderness to the right abdominal wall VITAL SIGNS: Reviewed HEENT: Head is normocephalic and atraumatic. Pupils are equal and reactive. The nares are patent. Oropharynx is clear without lesions. NECK: Supple without lymphadenopathy. Traches midline. HEART: S1, S2. Regular rate and rhythm. No murmur noted LUNGS: No crackles or wheezes are heard. Adequate air movement bilaterally ABDOMEN: Soft, positive tenderness with palpitation to the right lateral abdominal wall nondistended with good bowel sounds. Reports no nausea vomiting no frequent stooling no burning on urination EXTREMITIES: Normal skin color and turgor. No cyanosis, rash, ulceration, clubbing or edema. Radial pedal pulses are 2/4 bilaterally. NEUROLOGICAL: No focal deficits. Strength and sensation are grossly intact. Results - Labs 06/29/17 04:38 06/29/17 04:38 Abnormal Lab Results - Last 24 Hours (Table) 06/29/17 06/29/17 06/29/17 Range/Units 04:38 04:38 04:38 WBC 26.4 H* (3.8-10.6) k/uL Hgb 9.5 L (11.4-16.0) gm/dL Hct 31.8 L (34.0-46.0) % MCV 65.9 L (80.0-100.0) fL MCH 19.8 L (25.0-35.0) pg MCHC 30.0 L (31.0-37.0) g/dL Plt Count 517 H (150-450) k/uL Neutrophils # (Manual) 24.80 H (1.3-7.7) k/uL Sodium 135 L (137-145) mmol/L Potassium 3.1 L (3.5-5.1) mmol/L Chloride 95 L (98-107) mmol/L Glucose 183 H (74-99) mg/dL Plasma Lactic Acid Lasha 3.3 H* (0.7-2.0) mmol/L AST 63 H (14-36) U/L ALT 75 H (9-52) U/L Alkaline Phosphatase 156 H (38-126) U/L Total Protein 6.0 L (6.3-8.2) g/dL Albumin 3.3 L (3.5-5.0) g/dL Urine Appearance (Clear) Ur Squamous Epith Cells (0-4) /hpf Urine Bacteria (None) /hpf Urine Mucus (None) /hpf 06/29/17 Range/Units 06:38 WBC (3.8-10.6) k/uL Hgb (11.4-16.0) gm/dL Hct (34.0-46.0) % MCV (80.0-100.0) fL MCH (25.0-35.0) pg MCHC (31.0-37.0) g/dL Plt Count (150-450) k/uL Neutrophils # (Manual) (1.3-7.7) k/uL Sodium (137-145) mmol/L Potassium (3.5-5.1) mmol/L Chloride (98-107) mmol/L Glucose (74-99) mg/dL Plasma Lactic Acid Lasha (0.7-2.0) mmol/L AST (14-36) U/L ALT (9-52) U/L Alkaline Phosphatase (38-126) U/L Total Protein (6.3-8.2) g/dL Albumin (3.5-5.0) g/dL Urine Appearance Cloudy H (Clear) Ur Squamous Epith Cells 13 H (0-4) /hpf Urine Bacteria Many H (None) /hpf Urine Mucus Rare H (None) /hpf Diabetes panel 06/29/17 Range/Units 04:38 Sodium 135 L (137-145) mmol/L Potassium 3.1 L (3.5-5.1) mmol/L Chloride 95 L (98-107) mmol/L Carbon Dioxide 23 (22-30) mmol/L BUN 12 (7-17) mg/dL Creatinine 0.60 (0.52-1.04) mg/dL Glucose 183 H (74-99) mg/dL Calcium 9.0 (8.4-10.2) mg/dL AST 63 H (14-36) U/L ALT 75 H (9-52) U/L Alkaline Phosphatase 156 H (38-126) U/L Total Protein 6.0 L (6.3-8.2) g/dL Albumin 3.3 L (3.5-5.0) g/dL Calcium panel 06/29/17 Range/Units 04:38 Calcium 9.0 (8.4-10.2) mg/dL Albumin 3.3 L (3.5-5.0) g/dL Pituitary panel 06/29/17 Range/Units 04:38 Sodium 135 L (137-145) mmol/L Potassium 3.1 L (3.5-5.1) mmol/L Chloride 95 L (98-107) mmol/L Carbon Dioxide 23 (22-30) mmol/L BUN 12 (7-17) mg/dL Creatinine 0.60 (0.52-1.04) mg/dL Glucose 183 H (74-99) mg/dL Calcium 9.0 (8.4-10.2) mg/dL Adrenal panel 06/29/17 Range/Units 04:38 Sodium 135 L (137-145) mmol/L Potassium 3.1 L (3.5-5.1) mmol/L Chloride 95 L (98-107) mmol/L Carbon Dioxide 23 (22-30) mmol/L BUN 12 (7-17) mg/dL Creatinine 0.60 (0.52-1.04) mg/dL Glucose 183 H (74-99) mg/dL Calcium 9.0 (8.4-10.2) mg/dL Total Bilirubin 1.2 (0.2-1.3) mg/dL AST 63 H (14-36) U/L ALT 75 H (9-52) U/L Alkaline Phosphatase 156 H (38-126) U/L Total Protein 6.0 L (6.3-8.2) g/dL Albumin 3.3 L (3.5-5.0) g/dL Assessment and Plan Assessment: Impression Present on admission right lateral abdominal wall pain suspect due to abscess extending into the anterior wall Present on admission leukocytosis suspect due to abdominal wall abscess Severe electrolyte abnormality hypokalemia A recent hospitalization with a procedure done May 26 robotic-assisted laparoscopic incisional hernia repair with mesh Osteoarthritis Chronic lower back pain Esophageal reflux symptoms History of abdominal hematoma unclear etiology plan Keep nothing by mouth will be scheduled for surgery today per Dr. Casillas Consult infectious disease recommendations antibiotics Potassium to be replaced Consult Dr. Pruitt medical management Pain control Check a pro time with INR now Repeat labs in the morning DVT and GI prophylaxis Dictated for Dr. Hyatt The above impression and plan of care have been discussed and directed by signing physician. Gill Allen nurse practitioner acting as scribe for signing physician.
[2017-06-29] MEDS ORDERED: POTASSIUM CHLORIDE 20 MEQ in WATER FOR INJECTION 1 100ML.BAG IVPB STA (09:44)
[2017-06-29] MEDS ORDERED: PANTOPRAZOLE 40 MG/10 ML VIAL IVP SCH (10:00)
[2017-06-29 10:32] VITALS: BMI 31.1
--- NOTE | 2017-06-29 10:45 | P.CONS ---
History of Present Illness - Reason for Consult Consult date: 06/29/17 Abdominal abscess - History of Present Illness This is a 72-year-old female patient gives history of having an abdominal wall abscess on the right side for which she was treated at [facility] emergency center in October 2016. The ER physician did an incision and drainage and widen the draining track with a scalpel and placed iodoform gauze. There was purulent material at that time. Patient states that this eventually healed and in April she was having increased right-sided abdominal pain and her PCP sent her to [facility] for an ultrasound that showed a possible hematoma on the right upper quadrant. She was then sent to Dr. Hancock for further evaluation. Because of anemia, patient underwent an upper and lower endoscopy with Dr. Hancock on May 20 that found no signs of bleeding. She subsequently underwent a hernia repair at the site of the previous hematoma or abscess from October [address] Hancock and this was done on 05/26/2017. This was located in the mid upper abdomen. She states she continued to have right-sided abdominal pain, chills and hot feeling, decreased appetite with possible weight loss and nausea. She saw Dr. Hancock yesterday and she up for outpatient computed tomography scan but she states that after he pressed on her abdomen her pain got significant only worse last evening and she came into [facility] emergency center for evaluation. She underwent a CAT scan of the abdomen and pelvis which revealed marked interval worsening of a right rectus sheath fluid collection which now extends into the anterior abdominal wall. Differential includes hematoma, abscess with stromal felt less likely. Mild wall thickening within the ascending and transverse colon is nonspecific but may represent colitis. Extensive diverticulosis with mild adjacent nonspecific fluid in the pelvis limits evaluation for potential diverticulitis. Mild atelectasis or less likely pneumonia in the left lung base. Large hiatal hernia. This CAT scan was compared to one done in September 2016. Patient is now admitted under the care of Dr. Vinny Godwin and is scheduled for I&D and washout this afternoon. Patient presented with a white count of 26.4, lactic acid 3.3 and repeat 1.7, afebrile, creatinine 0.6. Mild elevation of liver function tests with AST of 63, ALT 75, alkaline phosphatase 156. Urinalysis was cloudy with nitrate and leukoesterase negative and bacteria many. Patient denies any urinary pain or frequency or urgency. She also denies having any blood in her stools. Review of Systems All systems: negative Constitutional: Reports anorexia, Reports chills, Reports poor appetite, Reports weight loss, Denies fever Eyes: denies blurred vision, denies pain Ears, nose, mouth and throat: Denies headache, Denies sore throat Cardiovascular: Denies chest pain, Denies decreased exercise tolerance, Denies dyspnea on exertion, Denies edema, Denies leg edema, Denies lightheadedness, Denies shortness of breath, Denies syncope Respiratory: Denies cough, Denies cough with sputum, Denies dyspnea, Denies excessive sputum, Denies hemoptysis, Denies home oxygen, Denies wheezing Gastrointestinal: Reports abdominal pain, Reports bloating, Reports loss of appetite, Reports nausea, Denies diarrhea, Denies melena, Denies vomiting Genitourinary: Denies dysuria, Denies hematuria, Denies urgency Musculoskeletal: Denies myalgias Integumentary: Denies pruritus, Denies rash Neurological: Denies numbness, Denies weakness Psychiatric: Denies anxiety, Denies depression Endocrine: Denies fatigue, Denies weight change Past Medical History Past Medical History: Diabetes Mellitus, GERD/Reflux, Hyperlipidemia, Hypertension, Osteoarthritis (OA) Additional Past Medical History / Comment(s): Diet controlled diabetes, 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 History of Any Multi-Drug Resistant Organisms: None Reported Past Surgical History: Appendectomy, Cholecystectomy, Hernia Repair, Tonsillectomy Additional Past Surgical History / Comment(s): 05/26/17 laparoscopic incisional hernia repair with mesh/lysis of adhesions, bilateral cataract removals, R eye retinal hole repair, colonoscopies/EGD. Past Anesthesia/Blood Transfusion Reactions: No Reported Reaction Past Psychological History: No Psychological Hx Reported Additional Psychological History / Comment(s): Pt resides with her spouse. She is independent. Smoking Status: Never smoker Past Alcohol Use History: None Reported Additional Past Alcohol Use History / Comment(s): Patient is a lifelong nonsmoker, no illicit drug use, no alcohol use. Patient lives at home with her . Past Drug Use History: None Reported - Past Family History Father Family Medical History: Diabetes Mellitus Additional Family Medical History / Comment(s): father at the age of 62 yrs from diabetic complications. Mother Family Medical History: Diabetes Mellitus, Osteoarthritis (OA) Additional Family Medical History / Comment(s): Mother at the age of 93yrs. Medications and Allergies Home Medications Medication Instructions Recorded Confirmed Type Cinnamon Bark [Cinnamon] 500 mg PO BID 12/08/15 06/29/17 History Lisinopril-Hctz 10-12.5 mg 1 tab PO DAILY 12/08/15 06/29/17 History [Zestoretic 10-12.5] Simvastatin [Simvastatin] 20 mg PO HS 12/08/15 06/29/17 History Docusate [Colace] 100 mg PO BID #20 capsule 05/26/17 06/29/17 Rx Cyanocobalamin [Vitamin B-12] 500 mcg PO DAILY 06/29/17 06/29/17 History Omeprazole 20 mg PO DAILY 06/29/17 06/29/17 History Allergies Allergy/AdvReac Type Severity Reaction Status Date / Time venom-honey bee Allergy Anaphylaxis Verified 06/29/17 09:08 [bee venom (honey bee)] Physical Exam Vitals: Vital Signs Temp Pulse Pulse Resp BP BP Pulse Ox 06/29/17 09:02 98 F 103 H 16 125/64 93 L 06/29/17 08:28 98.4 F 94 18 111/61 95 06/29/17 07:06 94 18 105/55 95 06/29/17 06:45 100 14 114/56 97 06/29/17 06:03 97 18 114/56 95 06/29/17 05:35 95 14 98/55 98 06/29/17 04:23 97.0 F L 112 H 16 109/57 98 Intake and Output 06/28/17 06/29/17 06/29/17 22:59 06:59 14:59 Other: Voiding Method Toilet Toilet Weight 77.111 kg Gen: This is a 72-year-old female patient. She is in bed and appears to be comfortable and in no acute distress. HEENT: Head is atraumatic, normocephalic. Pupils equal, round. Sclerae is anicteric. Conjunctiva pink. Mucous members of the mouth are dry. NECK: Supple. No JVD. No lymphadenopathy. No thyromegaly. LUNGS: Clear to auscultation. No wheezes or rhonchi. No intercostal retractions. HEART: Regular rate and rhythm. No murmur. ABDOMEN: Soft. Bowel sounds are present. No masses. Right sided tenderness. Mass palpated to the mid right lateral area. EXTREMITIES: No pedal edema. No calf tenderness. Dorsalis pedis +2 bilaterally. NEUROLOGICAL: Patient is awake, alert and oriented x3. Cranial nerves 2 through 12 are grossly intact. Results Results: Laboratory Results WBC 26.4 k/uL (3.8-10.6) H* 06/29/17 04:38 RBC 4.83 m/uL (3.80-5.40) 06/29/17 04:38 Hgb 9.5 gm/dL (11.4-16.0) L 06/29/17 04:38 Hct 31.8 % (34.0-46.0) L 06/29/17 04:38 MCV 65.9 fL (80.0-100.0) L 06/29/17 04:38 MCH 19.8 pg (25.0-35.0) L 06/29/17 04:38 MCHC 30.0 g/dL (31.0-37.0) L 06/29/17 04:38 RDW 15.1 % (11.5-15.5) 06/29/17 04:38 Plt Count 517 k/uL (150-450) H 06/29/17 04:38 Neutrophils % (Manual) 88 % 06/29/17 04:38 Band Neutrophils % 6 % 06/29/17 04:38 Lymphocytes % (Manual) 5 % 06/29/17 04:38 Monocytes % (Manual) 2 % 06/29/17 04:38 Neutrophils # (Manual) 24.80 k/uL (1.3-7.7) H 06/29/17 04:38 Lymphocytes # (Manual) 1.32 k/uL (1.0-4.8) 06/29/17 04:38 Monocytes # (Manual) 0.53 k/uL (0-1.0) 06/29/17 04:38 Nucleated RBCs 0 /100 WBC (0-0) 06/29/17 04:38 Manual Slide Review Performed 06/29/17 04:38 Toxic Vacuolation Present 06/29/17 04:38 Hypochromasia Moderate 06/29/17 04:38 Microcytosis Marked 06/29/17 04:38 PT 10.9 sec (9.0-12.0) 06/29/17 04:38 INR 1.1 (<1.2) 06/29/17 04:38 Sodium 135 mmol/L (137-145) L 06/29/17 04:38 Potassium 3.1 mmol/L (3.5-5.1) L 06/29/17 04:38 Chloride 95 mmol/L (98-107) L 06/29/17 04:38 Carbon Dioxide 23 mmol/L (22-30) 06/29/17 04:38 Anion Gap 17 mmol/L 06/29/17 04:38 BUN 12 mg/dL (7-17) 06/29/17 04:38 Creatinine 0.60 mg/dL (0.52-1.04) 06/29/17 04:38 Est GFR (CKD-EPI)AfAm >90 (>60 ml/min/1.73 sqM) 06/29/17 04:38 Est GFR (CKD-EPI)NonAf >90 (>60 ml/min/1.73 sqM) 06/29/17 04:38 Glucose 183 mg/dL (74-99) H 06/29/17 04:38 Lactic Ac Sepsis Rflx Y 06/29/17 05:08 Plasma Lactic Acid Lasha 1.7 mmol/L (0.7-2.0) 06/29/17 09:19 Calcium 9.0 mg/dL (8.4-10.2) 06/29/17 04:38 Magnesium 1.6 mg/dL (1.6-2.3) 06/29/17 04:38 Total Bilirubin 1.2 mg/dL (0.2-1.3) 06/29/17 04:38 AST 63 U/L (14-36) H 06/29/17 04:38 ALT 75 U/L (9-52) H 06/29/17 04:38 Alkaline Phosphatase 156 U/L (38-126) H 06/29/17 04:38 Total Protein 6.0 g/dL (6.3-8.2) L 06/29/17 04:38 Albumin 3.3 g/dL (3.5-5.0) L 06/29/17 04:38 Amylase 38 U/L (30-110) 06/29/17 04:38 Lipase 64 U/L (23-300) 06/29/17 04:38 Urine Color Yellow 04 06:38 Urine Appearance Cloudy (Clear) H 06/29/17 06:38 Urine pH 6.5 (5.0-8.0) 06/29/17 06:38 Ur Specific Sacul 1.007 (1.001-1.035) 06/29/17 06:38 Urine Protein Negative (Negative) 06/29/17 06:38 Urine Glucose (UA) Negative (Negative) 06/29/17 06:38 Urine Ketones Negative (Negative) 06/29/17 06:38 Urine Blood Negative (Negative) 06/29/17 06:38 Urine Nitrite Negative (Negative) 06/29/17 06:38 Urine Bilirubin Negative (Negative) 06/29/17 06:38 Urine Urobilinogen <2.0 mg/dL (<2.0) 06/29/17 06:38 Ur Leukocyte Esterase Negative (Negative) 06/29/17 06:38 Urine RBC 2 /hpf (0-5) 06/29/17 06:38 Urine WBC 2 /hpf (0-5) 04 06:38 Ur Squamous Epith Cells 13 /hpf (0-4) H 06/29/17 06:38 Urine Bacteria Many /hpf (None) H 06/29/17 06:38 Hyaline Casts 2 /lpf (0-2) 06/29/17 06:38 Urine Mucus Rare /hpf (None) H 06/29/17 06:38 CBC & Chem 7: 06/29/17 04:38 04 04:38 Labs: Abnormal Lab Results - Last 24 Hours (Table) 06/29/17 06/29/17 06/29/17 Range/Units 04:38 04:38 04:38 WBC 26.4 H* (3.8-10.6) k/uL Hgb 9.5 L (11.4-16.0) gm/dL Hct 31.8 L (34.0-46.0) % MCV 65.9 L (80.0-100.0) fL MCH 19.8 L (25.0-35.0) pg MCHC 30.0 L (31.0-37.0) g/dL Plt Count 517 H (150-450) k/uL Neutrophils # (Manual) 24.80 H (1.3-7.7) k/uL Sodium 135 L (137-145) mmol/L Potassium 3.1 L (3.5-5.1) mmol/L Chloride 95 L (98-107) mmol/L Glucose 183 H (74-99) mg/dL Plasma Lactic Acid Lasha 3.3 H* (0.7-2.0) mmol/L AST 63 H (14-36) U/L ALT 75 H (9-52) U/L Alkaline Phosphatase 156 H (38-126) U/L Total Protein 6.0 L (6.3-8.2) g/dL Albumin 3.3 L (3.5-5.0) g/dL Urine Appearance (Clear) Ur Squamous Epith Cells (0-4) /hpf Urine Bacteria (None) /hpf Urine Mucus (None) /hpf 06/29/17 Range/Units 06:38 WBC (3.8-10.6) k/uL Hgb (11.4-16.0) gm/dL Hct (34.0-46.0) % MCV (80.0-100.0) fL MCH (25.0-35.0) pg MCHC (31.0-37.0) g/dL Plt Count (150-450) k/uL Neutrophils # (Manual) (1.3-7.7) k/uL Sodium (137-145) mmol/L Potassium (3.5-5.1) mmol/L Chloride (98-107) mmol/L Glucose (74-99) mg/dL Plasma Lactic Acid Lasha (0.7-2.0) mmol/L AST (14-36) U/L ALT (9-52) U/L Alkaline Phosphatase (38-126) U/L Total Protein (6.3-8.2) g/dL Albumin (3.5-5.0) g/dL Urine Appearance Cloudy H (Clear) Ur Squamous Epith Cells 13 H (0-4) /hpf Urine Bacteria Many H (None) /hpf Urine Mucus Rare H (None) /hpf Assessment and Plan Plan: This is a 72-year-old female patient who presented to the hospital with significant abscess to the right abdominal wall and sepsis. She is scheduled for I&D this afternoon with Dr. Vinny Godwin. She is currently on Zosyn which will be continued and vancomycin will be added. Cultures will be obtained during surgery today, continue supportive care. Further recommendations as patient progresses. The above dictated assessment and findings were discussed with Dr. Stubbs. The impression and plan of care have been directed as dictated. Magaly Dodd nurse practitioner acting as scribe for Dr. Stubbs.
[2017-06-29] MEDS: POTASSIUM CHLORIDE 20 MEQ in WATER FOR INJECTION 1 100ML.BAG IVPB SCH ×3 (11:03→15:35)
[2017-06-29] MEDS ORDERED: VANCOMYCIN IV PER PHARMACY 1 EACH MISC MISCELLANE SCH (11:30)
[2017-06-29] MEDS ORDERED: KETOROLAC 30 MG/ML 1 ML VIAL IVP PRN (12:42)
[2017-06-29] MEDS: VANCOMYCIN 1,500 MG in SODIUM CHLORIDE 0.9% 250 ML IVPB SCH ×2 (12:57→23:01)
--- NOTE | 2017-06-29 12:57 | P.CONS ---
History of Present Illness - Reason for Consult Consult date: 06/29/17 post op bleeding Requesting physician: Denice Echavarria - Chief Complaint abd pain, CT suspicious for hematoma - History of Present Illness We were contacted by Dr. Echavarria to see pt MARTÍN as pt has bleeding and infection in the area of her recent hernia repair. Pt has pain, drop in Hgb, her WBC/ANC are elevated, She had hematoma in the abd about 6 months after appendectomy in September 2016. She states that she had a "lump" in the epigastric area that was progressively increasing in size and pain, she states it suddenly "broke open" and released "blood and pus" and that is when the hernia became noticeable. She then was sent for hernia repair in Apr. Post op she had no acute c/o but, over the last weeks she has had progressive abd discomfort. No report of fever, vomiting, changes in bowel or bladder, epistaxis, hemataemesis , hemoptysis, hemaotchezia, melena or hematuria. Pt has had major surgeries in the past with no bleeding complications. There is no reported family history of bleeding or clotting disorders. 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 History of Any Multi-Drug Resistant Organisms: None Reported Past Surgical History: Appendectomy, Cholecystectomy, Hernia Repair, Tonsillectomy Additional Past Surgical History / Comment(s): 05/26/17 laparoscopic incisional hernia repair with mesh/lysis of adhesions, bilateral cataract removals, R eye retinal hole repair, colonoscopies/EGD. Past Anesthesia/Blood Transfusion Reactions: No Reported Reaction Past Psychological History: No Psychological Hx Reported Additional Psychological History / Comment(s): Pt resides with her spouse. She is independent. Smoking Status: Never smoker Past Alcohol Use History: None Reported Additional Past Alcohol Use History / Comment(s): Patient is a lifelong nonsmoker, no illicit drug use, no alcohol use. Patient lives at home with her . Past Drug Use History: None Reported - Past Family History Father Family Medical History: Diabetes Mellitus Additional Family Medical History / Comment(s): father at the age of 62 yrs from diabetic complications. Mother Family Medical History: Diabetes Mellitus, Osteoarthritis (OA) Additional Family Medical History / Comment(s): Mother at the age of 93yrs. Medications and Allergies Home Medications Medication Instructions Recorded Confirmed Type Cinnamon Bark [Cinnamon] 500 mg PO BID 12/08/15 06/29/17 History Lisinopril-Hctz 10-12.5 mg 1 tab PO DAILY 12/08/15 06/29/17 History [Zestoretic 10-12.5] Simvastatin [Simvastatin] 20 mg PO HS 12/08/15 06/29/17 History Docusate [Colace] 100 mg PO BID #20 capsule 05/26/17 06/29/17 Rx Cyanocobalamin [Vitamin B-12] 500 mcg PO DAILY 06/29/17 06/29/17 History Omeprazole 20 mg PO DAILY 06/29/17 06/29/17 History Allergies Allergy/AdvReac Type Severity Reaction Status Date / Time venom-honey bee Allergy Anaphylaxis Verified 06/29/17 09:08 [bee venom (honey bee)] Physical Exam Vitals: Vital Signs Temp Pulse Pulse Resp BP BP Pulse Ox 06/29/17 09:02 98 F 103 H 16 125/64 93 L 06/29/17 08:28 98.4 F 94 18 111/61 95 06/29/17 07:06 94 18 105/55 95 06/29/17 06:45 100 14 114/56 97 06/29/17 06:03 97 18 114/56 95 06/29/17 05:35 95 14 98/55 98 06/29/17 04:23 97.0 F L 112 H 16 109/57 98 Intake and Output 06/28/17 06/29/17 06/29/17 22:59 06:59 14:59 Other: Voiding Method Toilet Toilet # Voids 1 Weight 77.111 kg 77.111 kg - Constitutional General appearance: average body habitus, cooperative, no acute distress - EENT Eyes: anicteric sclerae, normal appearance - Gastrointestinal banana sized elongated firmness palpated in the right abdomen, tender to touch General gastrointestinal: soft - Integumentary Integumentary: normal - Neurologic Neurologic: CNII-XII intact - Musculoskeletal Musculoskeletal: strength equal bilaterally - Psychiatric Psychiatric: A&O x's 3, appropriate affect, intact judgment & insight Results CBC & Chem 7: 06/29/17 04:38 06/29/17 04:38 Labs: Abnormal Lab Results - Last 24 Hours (Table) 06/29/17 06/29/1718 Range/Units 04:38 04:38 04:38 WBC 26.4 H* (3.8-10.6) k/uL Hgb 9.5 L (11.4-16.0) gm/dL Hct 31.8 L (34.0-46.0) % MCV 65.9 L (80.0-100.0) fL MCH 19.8 L (25.0-35.0) pg MCHC 30.0 L (31.0-37.0) g/dL Plt Count 517 H (150-450) k/uL Neutrophils # (Manual) 24.80 H (1.3-7.7) k/uL Sodium 135 L (137-145) mmol/L Potassium 3.1 L (3.5-5.1) mmol/L Chloride 95 L (98-107) mmol/L Glucose 183 H (74-99) mg/dL Plasma Lactic Acid Lasha 3.3 H* (0.7-2.0) mmol/L AST 63 H (14-36) U/L ALT 75 H (9-52) U/L Alkaline Phosphatase 156 H (38-126) U/L Total Protein 6.0 L (6.3-8.2) g/dL Albumin 3.3 L (3.5-5.0) g/dL Urine Appearance (Clear) Ur Squamous Epith Cells (0-4) /hpf Urine Bacteria (None) /hpf Urine Mucus (None) /hpf 18 Range/Units 06:38 WBC (3.8-10.6) k/uL Hgb (11.4-16.0) gm/dL Hct (34.0-46.0) % MCV (80.0-100.0) fL MCH (25.0-35.0) pg MCHC (31.0-37.0) g/dL Plt Count (150-450) k/uL Neutrophils # (Manual) (1.3-7.7) k/uL Sodium (137-145) mmol/L Potassium (3.5-5.1) mmol/L Chloride (98-107) mmol/L Glucose (74-99) mg/dL Plasma Lactic Acid Lasha (0.7-2.0) mmol/L AST (14-36) U/L ALT (9-52) U/L Alkaline Phosphatase (38-126) U/L Total Protein (6.3-8.2) g/dL Albumin (3.5-5.0) g/dL Urine Appearance Cloudy H (Clear) Ur Squamous Epith Cells 13 H (0-4) /hpf Urine Bacteria Many H (None) /hpf Urine Mucus Rare H (None) /hpf CT scan - abdomen: report reviewed CT scan - pelvis: report reviewed Assessment and Plan (1) Acute blood loss anemia Narrative/Plan: Pt Hgb is down from her baseline post op. She has evidence of a hematoma on CT. Pt appears hemodynamically stable at this time. S he is awaiting clearance for surgical intervention. Iron studies will be checked No transfusion is needed at this time Coags reviewed. No evidence to suggest a coagulopathy at this time. Current Visit: Yes Status: Acute Priority: High Code(s): D62 - ACUTE POSTHEMORRHAGIC ANEMIA SNOMED Code(s): 328319057 (2) Hematoma Narrative/Plan: Suspect post op hematoma on CT AP. Surgery requesting clearance to proceed as there are concerns for unanticipated surgical bleeding. Coags are reviewed and are WNDL. Platelets are high due to reactive nature. Pt has been taking motrin and prilosec that that can effect platelet function but, no personal or family history of bleeding or clotting disorders despite major surgery. All of pt bleeding has been localized to the abd. From Hematological standpoint pt is ok for surgical intervention without further work up or intervention at this time. Current Visit: Yes Status: Acute Priority: High Code(s): T14.8XXA - OTHER INJURY OF UNSPECIFIED BODY REGION, INITIAL ENCOUNTER SNOMED Code(s): 507315827 (3) Abdominal pain Narrative/Plan: Pt states her abd pain is similar to when she had an abd hematoma in the past, long before most recent hernia surgery. Based on elevated WBC with left shift and initial increase lactic acid level suspect some possible infection. Anticipate resolution of abd pain after procedure to relieve hematoma and possibly infection. Current Visit: Yes Status: Acute Priority: High Code(s): R10.9 - UNSPECIFIED ABDOMINAL PAIN SNOMED Code(s): 64482816
--- NOTE | 2017-06-29 13:36 | P.HPIM ---
History of Present Illness Patient came in with comments of right-sided severe abdominal pain sharp in nature and nonradiating found to have abscess in that area are a hematoma and which was infected patient had a recent laparoscopic robotic-assisted repair of incisional hernia was subsequently discharged home did well started having severe pain in that area along with chills. Patient is found to have fluid collection in the rectal sheath extending into the anterior abdominal wall and thickening of the ascending colon with diverticulosis. Patient was started on Vanco mycin Zosyn which is appropriate Review of Systems REVIEW OF SYSTEMS: CONSTITUTIONAL: No fever, no malaise, no fatigue. HEENT: No recent visual problems or hearing problems. Denied any sore throat. CARDIOVASCULAR: No chest pain, orthopnea, PND, no palpitations, no syncope. PULMONARY: No shortness of breath, no cough, no hemoptysis. GASTROINTESTINAL: As mentioned in HPI NEUROLOGICAL: No headaches, no weakness, no numbness. HEMATOLOGICAL: Denies any bleeding or petechiae. GENITOURINARY: Denies any burning micturition, frequency, or urgency. MUSCULOSKELETAL/RHEUMATOLOGICAL: Denies any joint pain, swelling, or any muscle pain. ENDOCRINE: Denies any polyuria or polydipsia. The rest of the 14-point review of systems is negative. 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 History of Any Multi-Drug Resistant Organisms: None Reported Past Surgical History: Appendectomy, Cholecystectomy, Hernia Repair, Tonsillectomy Additional Past Surgical History / Comment(s): 05/26/17 laparoscopic incisional hernia repair with mesh/lysis of adhesions, bilateral cataract removals, R eye retinal hole repair, colonoscopies/EGD. Past Anesthesia/Blood Transfusion Reactions: No Reported Reaction Past Psychological History: No Psychological Hx Reported Additional Psychological History / Comment(s): Pt resides with her spouse. She is independent. Smoking Status: Never smoker Past Alcohol Use History: None Reported Additional Past Alcohol Use History / Comment(s): Patient is a lifelong nonsmoker, no illicit drug use, no alcohol use. Patient lives at home with her . Past Drug Use History: None Reported - Past Family History Father Family Medical History: Diabetes Mellitus Additional Family Medical History / Comment(s): father at the age of 62 yrs from diabetic complications. Mother Family Medical History: Diabetes Mellitus, Osteoarthritis (OA) Additional Family Medical History / Comment(s): Mother at the age of 93yrs. Medications and Allergies Home Medications Medication Instructions Recorded Confirmed Type Cinnamon Bark [Cinnamon] 500 mg PO BID 12/08/15 06/29/17 History Lisinopril-Hctz 10-12.5 mg 1 tab PO DAILY 12/08/15 06/29/17 History [Zestoretic 10-12.5] Simvastatin [Simvastatin] 20 mg PO HS 12/08/15 06/29/17 History Docusate [Colace] 100 mg PO BID #20 capsule 05/26/17 06/29/17 Rx Cyanocobalamin [Vitamin B-12] 500 mcg PO DAILY 06/29/17 06/29/17 History Omeprazole 20 mg PO DAILY 06/29/17 06/29/17 History Allergies Allergy/AdvReac Type Severity Reaction Status Date / Time venom-honey bee Allergy Anaphylaxis Verified 06/29/17 09:08 [bee venom (honey bee)] Physical Exam Vitals: Vital Signs Temp Pulse Pulse Resp BP BP Pulse Ox 06/29/17 09:02 98 F 103 H 16 125/64 93 L 06/29/17 08:28 98.4 F 94 18 111/61 95 06/29/17 07:06 94 18 105/55 95 06/29/17 06:45 100 14 114/56 97 06/29/17 06:03 97 18 114/56 95 06/29/17 05:35 95 14 98/55 98 06/29/17 04:23 97.0 F L 112 H 16 109/57 98 Intake and Output 06/28/17 06/29/17 06/29/17 22:59 06:59 14:59 Other: Voiding Method Toilet Toilet # Voids 1 Weight 77.111 kg 77.111 kg PHYSICAL EXAMINATION: GENERAL: The patient is alert and oriented x3, not in any acute distress. Well developed, well nourished. HEENT: Pupils are round and equally reacting to light. EOMI. No scleral icterus. No conjunctival pallor. Normocephalic, atraumatic. No pharyngeal erythema. No thyromegaly. CARDIOVASCULAR: S1 and S2 present. No murmurs, rubs, or gallops. PULMONARY: Chest is clear to auscultation, no wheezing or crackles. ABDOMEN: Soft, nontender, nondistended, normoactive bowel sounds. No palpable organomegaly. Abdominal wall tenderness on the right side MUSCULOSKELETAL: No joint swelling or deformity. EXTREMITIES: No cyanosis, clubbing, or pedal edema. NEUROLOGICAL: Gross neurological examination did not reveal any focal deficits. SKIN: No rashes. Results CBC & Chem 7: 06/29/17 04:38 06/29/17 04:38 Labs: Abnormal Lab Results - Last 24 Hours (Table) 06/29/17 06/29/17 06/29/17 Range/Units 04:38 04:38 04:38 WBC 26.4 H* (3.8-10.6) k/uL Hgb 9.5 L (11.4-16.0) gm/dL Hct 31.8 L (34.0-46.0) % MCV 65.9 L (80.0-100.0) fL MCH 19.8 L (25.0-35.0) pg MCHC 30.0 L (31.0-37.0) g/dL Plt Count 517 H (150-450) k/uL Neutrophils # (Manual) 24.80 H (1.3-7.7) k/uL Sodium 135 L (137-145) mmol/L Potassium 3.1 L (3.5-5.1) mmol/L Chloride 95 L (98-107) mmol/L Glucose 183 H (74-99) mg/dL Plasma Lactic Acid Lasha 3.3 H* (0.7-2.0) mmol/L AST 63 H (14-36) U/L ALT 75 H (9-52) U/L Alkaline Phosphatase 156 H (38-126) U/L Total Protein 6.0 L (6.3-8.2) g/dL Albumin 3.3 L (3.5-5.0) g/dL Urine Appearance (Clear) Ur Squamous Epith Cells (0-4) /hpf Urine Bacteria (None) /hpf Urine Mucus (None) /hpf 06/29/17 Range/Units 06:38 WBC (3.8-10.6) k/uL Hgb (11.4-16.0) gm/dL Hct (34.0-46.0) % MCV (80.0-100.0) fL MCH (25.0-35.0) pg MCHC (31.0-37.0) g/dL Plt Count (150-450) k/uL Neutrophils # (Manual) (1.3-7.7) k/uL Sodium (137-145) mmol/L Potassium (3.5-5.1) mmol/L Chloride (98-107) mmol/L Glucose (74-99) mg/dL Plasma Lactic Acid Lasha (0.7-2.0) mmol/L AST (14-36) U/L ALT (9-52) U/L Alkaline Phosphatase (38-126) U/L Total Protein (6.3-8.2) g/dL Albumin (3.5-5.0) g/dL Urine Appearance Cloudy H (Clear) Ur Squamous Epith Cells 13 H (0-4) /hpf Urine Bacteria Many H (None) /hpf Urine Mucus Rare H (None) /hpf Thrombosis Risk Factor Assmnt - Choose All That Apply Any of the Below Risk Factors Present?: Yes Each Factor Represents 1 point: Obesity (BMI >25) Other Risk Factors: Yes Each Risk Factor Represents 2 Points: Age 61-74 years Other congenital or acquired thrombophilia - If yes, enter type in comment: No Thrombosis Risk Factor Assessment Total Risk Factor Score: 3 Thrombosis Risk Factor Assessment Level: Moderate Risk Assessment and Plan Plan: -Possible left clavicle abdominal wall abscess or hematoma that is infected: Patient the will undergo surgical intervention today patient is presently on Zosyn and vancomycin which will be continued. -Hypokalemia which will be corrected secondary to ventricular thiazide. -Hypertension hold off on the antidepressant medications as her blood pressure is on the low normal side and that is possibly due to sepsis which can draw the blood pressure. -Chronic low back pain -Gastroesophageal reflux disease -Hyperlipidemia next Above-mentioned chronic medical problems appropriate home medications will be resumed and continued we'll use Toradol along with GI prophylaxis for pain
[2017-06-29] MEDS ORDERED: IV FLUID CONTINUATION 800 ML IV ONE (13:51)
[2017-06-29] MEDS ORDERED: MORPHINE SULFATE 4MG/4ML SYRG IV PRN (14:16)
[2017-06-29] MEDS ORDERED: ONDANSETRON 4 MG/2 ML VIAL IVP ONE ×2 (14:35→17:41)
[2017-06-29] MEDS ORDERED: DEXAMETHASONE SOD PHOS (MDV) 100 MG/10 ML VIAL IV ONE (14:36)
[2017-06-29] MEDS ORDERED: ROCURONIUM BROMIDE 10 MG/ML 10 ML VIAL IV ONE (14:44)
[2017-06-29] MEDS ORDERED: MORPHINE SULFATE 10 MG/ML SYRINGE ONE (14:44)
[2017-06-29] MEDS ORDERED: PHENYLEPHRINE-0.9% NACL SYG 1 MG/10 ML SYRINGE ONE (14:44)
[2017-06-29] MEDS ORDERED: SUCCINYLCHOLINE CHLORIDE 100 MG/5 ML SYR IV ONE (14:44)
[2017-06-29] MEDS ORDERED: PROPOFOL 10 MG/ML 20 ML VIAL IV ONE (14:44)
[2017-06-29] MEDS ORDERED: GLYCOPYRROLATE 0.2 MG/ML 2 ML VIAL ONE (14:44)
[2017-06-29] MEDS ORDERED: HEPARIN SODIUM,PORCINE 5,000 UNIT/ML 1 ML VIAL ONE (14:44)
[2017-06-29] MEDS ORDERED: fentaNYL (PF) 50 MCG/ML 2 ML AMP ONE (14:44)
[2017-06-29] MEDS ORDERED: LIDOCAINE 1% INJ 10MG/ML (20 ML MDV) ONE (14:44)
[2017-06-29] MEDS ORDERED: MIDAZOLAM 2 MG/2 ML VIAL ONE (14:44)
[2017-06-29] MEDS ORDERED: NEOSTIGMINE 1 MG/ML 10 ML VIAL ONE (14:44)
[2017-06-29] MEDS ORDERED: HEPARIN SODIUM,PORCINE 5,000 UNIT/ML 1 ML VIAL SQ ONE (14:53)
--- NOTE | 2017-06-29 15:02 | P.PN ---
Progress Note - Text Patient's computed tomography scan reviewed with radiology. The patient was noted to have larger fluid collection within the intra-abdominal wall and rectus sheath which appears to have marked multi-compartmental loculations.. In addition there is a superficial as well as what appears to be an intraperitoneal component of this area. Additionally there was some concern as to a pelvic fluid collection with possible hematoma in the pelvis. The patient has a leukocytosis of 26,000. This is believed to be related to infected hematoma. Hematoma was present prior to her robotic hernia repair and was most likely unrelated. However at this time. After discussion with the radiologist it was felt this could not be drained completely percutaneously. They've therefore recommended an open exploration with drainage of the areas. I discussed the risks and benefits with the family and they wish to proceed. I've also discussed with them that depending on the involvement intraperitoneally it may require more than one operative procedure. They understand the risks and benefits and wished to proceed. These include bleeding infection reaction to the anesthetic possible bowel resection and possible ostomy.
[2017-06-29] MEDS ORDERED: LACTATED RINGERS 1,000 ML IV ONE ×2 (15:50→17:56)
[2017-06-29] MEDS: PIPERACILLIN-TAZOBACTAM 3.375 GM in DEXTROSE/WATER 1 50ML.BAG IVPB SCH (15:58)
[2017-06-29 16:13] LABS: Hepatitis A Antibody IgM Non-Reactive (Non-Reactive); Hepatitis B Core IgM Non-Reactive (Non-Reactive)
--- NOTE | 2017-06-29 17:28 | P.OP ---
Date of Procedure: 06/29/17 Preoperative Diagnosis: Infected hematoma with extension intraperitoneally, extension of of abscess into the peritoneal cavity as well as questionable interloop abscesses and pelvic abscess Postoperative Diagnosis: Same Procedure(s) Performed: Exploratory laparotomy drainage of intraperitoneal abscess, resection of infected mesh, running of the small bowel no interloop abscesses however phlegmon on the distal terminal ileum and purulent fluid in the pelvis, right rectus infected hematoma area drained Anesthesia: BINU Surgeon: Denice Echavarria Estimated Blood Loss (ml): 30 IV fluids (ml): 1,400 Pathology: other (Infected mesh, and infected omentum) Condition: stable Disposition: PACU Indications for Procedure: Patient presented to the emergency room with diffuse abdominal pain, elevated white count 26,000, computed tomography scan revealing intraperitoneal fluid collections suspicious for abscesses as well as probable infected hematoma Operative Findings: Purulent fluid in peritoneal cavity with collection in the pelvis, phlegmon on the distal terminal ileum, large intraperitoneal extension of abscess left breast. By omentum, infected mesh from prior robotic hernia repair, infected right rectus hematoma Description of Procedure: The patient was taken to the operating room and following induction of general anesthesia the abdomen was prepped and draped in a sterile fashion. A midline incision was made and carried down to the fascia of the anterior abdominal wall. This was able to be opened and the peritoneal cavity was entered. Upon entering the peritoneal cavity. The patient's omentum had walled off a large area of inflammation approximately 15 x 10 cm in size in the right upper quadrant area and mid abdomen. This area was dissected free and a large intraperitoneal abscess was identified which was approximately 15 x 10 cm in size. There was approximately 500 mL of purulent fluid. Additionally upon entering the peritoneal cavity there was seropurulent fluid throughout the peritoneal cavity with a concentration in the pelvis. It appeared that it was beginning to loculate. After the abscess had been drained , cultures were obtained. The small bowel was run from the terminal ileum to the area of the pelvis. Again there was a seropurulent fluid throughout although no definite interloop abscesses were identified. There was fluid in the pelvis which was beginning to loculated which was purulent in nature. This was well irrigated and drained. Following this the area of the mesh was approached. It was clearly infected and the infected mesh was removed. Peritoneal cavity was well irrigated with 3 L of saline. The area of the right rectus hematoma was approached. The area was approximately 10 x 9 cm in size. The area appeared to extend up to under the recent hernia repair incision in the upper mid abdomen. An incision was made over this area and copious amounts of purulent hematoma were drained. Following this the area was well irrigated. There were several fascial defects noted with respect to the right rectus area and these were closed internally using Prolene suture. Following this after the abdomen was well irrigated. Intraoperative review the CAT scan did not reveal any other areas of possible abscess that we were concerned about. Intra-abdominal wall was closed using double-stranded PDS. This was followed by closure of the skin after a fenestrated Lyudmila drain was placed. The area of the incision over the infected rectus hematoma was packed using moist Curlex. All instrument and sponge counts were correct at the end of the case. The patient tolerated the procedure in stable condition. An abdominal binder was placed.
[2017-06-29] MEDS ORDERED: MORPHINE SULFATE 10 MG/ML SYRINGE IVP ONE ×4 (17:41→18:06)
[2017-06-29] MEDS: MORPHINE SULFATE 4MG/4ML SYRG IV PRN ×2 (19:21→23:00)
[2017-06-29 20:37] LABS: Glucose,Whole Blood 181 mg/dL (75-99)
[2017-06-29] MEDS: INSULIN ASPART 100 UNIT/ML 1 ML 10 ML VIAL SQ SCH (22:58)
[2017-06-30] MEDS ORDERED: PIPERACILLIN-TAZOBACTAM 3.375 GM in DEXTROSE/WATER 1 50ML.BAG IVPB SCH
--- NOTE | 2017-06-30 00:02 | P.CON ---
Consult Note - . Consult date: 06/29/17 Assessment/Plan:: This is a 72-year-old female patient gives history of having an abdominal wall abscess on the right side for which she was treated at [facility] emergency center in October 2016. The ER physician did an incision and drainage and widen the draining track with a scalpel and placed iodoform gauze. There was purulent material at that time. Patient states that this eventually healed and in April she was having increased right-sided abdominal pain and her PCP sent her to [facility] for an ultrasound that showed a possible hematoma on the right upper quadrant. She was then sent to Dr. Hancock for further evaluation. Because of anemia, patient underwent an upper and lower endoscopy with Dr. Hancock on May 20 that found no signs of bleeding. She subsequently underwent a hernia repair at the site of the previous hematoma or abscess from October [address] Hancock and this was done on 05/26/2017. This was located in the mid upper abdomen. She states she continued to have right-sided abdominal pain, chills and hot feeling, decreased appetite with possible weight loss and nausea. She saw Dr. Hancock yesterday and she up for outpatient computed tomography scan but she states that after he pressed on her abdomen her pain got significant only worse last evening and she came into [facility] emergency center for evaluation. She underwent a CAT scan of the abdomen and pelvis which revealed marked interval worsening of a right rectus sheath fluid collection which now extends into the anterior abdominal wall. Differential includes hematoma, abscess with stromal felt less likely. Mild wall thickening within the ascending and transverse colon is nonspecific but may represent colitis. Extensive diverticulosis with mild adjacent nonspecific fluid in the pelvis limits evaluation for potential diverticulitis. Mild atelectasis or less likely pneumonia in the left lung base. Large hiatal hernia. This CAT scan was compared to one done in September 2016. Patient is now admitted under the care of Dr. Vinny Godwin and is scheduled for I&D and washout this afternoon. Patient presented with a white count of 26.4, lactic acid 3.3 and repeat 1.7, afebrile, creatinine 0.6. Mild elevation of liver function tests with AST of 63, ALT 75, alkaline phosphatase 156. Urinalysis was cloudy with nitrate and leukoesterase negative and bacteria many. Patient denies any urinary pain or frequency or urgency. She also denies having any blood in her stools. Please consult note is dictated by nurse practitioner Mrs. Magaly Dodd. 9-year-old woman who will be taken to the epidural today for drainage of the intra-abdominal abscess. It is apparently outside of the peritoneum, and hopefully with incision and drainage will allow this to resolve rapidly. Cultures will further help direct antibiotic therapy, utilizing Zosyn and vancomycin for now pending further culture data. The postoperative findings also help direct wound care if needed. At this time I agree with evaluation, assessment and plan is dictated by nurse practitioner Mrs. Magaly Dodd
[2017-06-30] MEDS: HEPARIN SODIUM,PORCINE 5,000 UNIT/ML 1 ML VIAL SQ SCH ×4 (00:26→23:32)
[2017-06-30] MEDS: ATORVASTATIN 10 MG TAB PO SCH ×2 (00:26→21:44)
[2017-06-30] MEDS: PIPERACILLIN-TAZOBACTAM 3.375 GM in DEXTROSE/WATER 1 50ML.BAG IVPB SCH ×4 (01:26→23:32)
[2017-06-30] MEDS: SODIUM CHLORIDE 0.9% 1,000 ML IV SCH ×2 (03:45→17:09)
[2017-06-30 07:04] LABS: Glucose,Whole Blood 157 mg/dL (75-99)
[2017-06-30 07:26] LABS: Albumin 2.2 g/dL (3.5-5.0); Calcium 7.6 mg/dL (8.4-10.2); Total Bilirubin 0.2 mg/dL (0.2-1.3); Total Protein 4.4 g/dL (6.3-8.2)
[2017-06-30] MEDS ORDERED: PANTOPRAZOLE 40 MG TABLET PO SCH (07:30)
[2017-06-30 07:43] LABS: Basophils % (A) 0 %; Eosinophils % (A) 0 %; HCT 26.1 % (34.0-46.0); Hypochromasia Marked; Lymphocytes # (A) 1.1 k/uL (1.0-4.8); Lymphocytes % (A) 5 %; MCH 19.8 pg (25.0-35.0); MCV 70.6 fL (80.0-100.0); Mean Platelet Volume 6.4; Microcytosis Moderate; Monocytes # (A) 0.4 k/uL (0-1.0); Monocytes % (A) 2 %; Neutrophils # (A) 18.8 k/uL (1.3-7.7); Neutrophils % (A) 92 %; Platelet Count 470 k/uL (150-450); RDW 14.9 % (11.5-15.5); WBC 20.5 k/uL (3.8-10.6)
[2017-06-30 07:48] LABS: HGB 7.3 gm/dL (11.4-16.0)
[2017-06-30] MEDS: ASPIRIN 81 MG PO SCH (07:52)
[2017-06-30] MEDS: VANCOMYCIN 1,500 MG in SODIUM CHLORIDE 0.9% 250 ML IVPB SCH (07:58)
[2017-06-30] MEDS: INSULIN ASPART 100 UNIT/ML 1 ML 10 ML VIAL SQ SCH ×4 (08:00→21:44)
[2017-06-30 08:07] LABS: Reticulocyte % 1.1 % (0.5-2.0)
[2017-06-30] MEDS ORDERED: SODIUM CHLORIDE 0.9% 1,000 ML IV ONE ×4 (10:15→15:00)
[2017-06-30] MEDS: PANTOPRAZOLE 40 MG/10 ML VIAL IV SCH (10:32)
[2017-06-30] MEDS: VANCOMYCIN IV PER PHARMACY 1 EACH MISC MISCELLANE SCH (10:40)
[2017-06-30] MEDS: DOCUSATE 100 MG CAP PO SCH ×2 (10:40→21:44)
--- NOTE | 2017-06-30 10:48 | P.PN ---
Subjective Progress Note Date: 06/30/17 72-year-old seen and examined at bedside. Pleasant awake and alert denying chest pain shortness breath dizziness or lightheadedness. Chief complaint tired out Pain medication effective for pain control. Did note the hemoglobin is 7.3 this morning plan is to give 1 unit of packed red blood cells. Additionally noted the patient has low urine output with hypotensive fluid bolus will be added. Systolic blood pressure in the 80s heart rate in the 70s afebrile abdominal binder on surgical dressing sites dry Postop June 29 exploratory laparotomy drainage of intraperitoneal abscess resection of infected mesh phlegm on the distal terminal ileum and.purulent fluid in the pelvis , right rectus infected hematoma area drained. Objective - Vital Signs Vital signs: Vital Signs Temp 98.7 F 06/30/17 10:24 Pulse 76 06/30/17 10:24 Resp 16 06/30/17 10:24 BP 90/55 06/30/17 10:24 Pulse Ox 97 06/30/17 10:24 Intake & Output 06/29/17 06/30/17 06/30/17 18:59 06:59 18:59 Intake Total 2350 2307 0 Output Total 190 500 Balance 2160 1807 0 Weight 77.111 kg Intake: IV 2350 Potassium Chloride 20 meq 200 In Water For Injection 1 100ml.bag @ 50 mls/hr IVPB Q2H REJI Rx#: [id number] Intake, IV Titration 2307 Amount Lactated Ringers 1,000 ml 1000 As IV .STK-MED ONE Rx#: [id number] Piperacillin-Tazobactam 3 100 .375 gm In Dextrose/Water 1 50ml.bag @ 12.5 mls/hr IVPB Q8HR REJI Rx#: [id number] Sodium Chloride 0.9% 1, 707 000 ml @ 100 mls/hr IV . Q10H REJI Rx#:[id number] Vancomycin 1,500 mg In 500 Sodium Chloride 0.9% 250 ml @ 125 mls/hr IVPB BID REJI Rx#:[id number] Blood Product 0 Rc As-1 Unit 0 [id number] Output: Urine 160 500 Estimated Blood Loss 30 Other: Voiding Method Toilet Indwelling Catheter Indwelling Catheter # Voids 1 2 - Exam Physical exam 72-year-old female resting in bed denies chest pain or shortness of breath chief complaint tired out Lungs adequate air movement bilaterally sats are 97% 2 L no shortness of breath Heart S1-S2 audible regular denying chest pain Abdomen nondistended hypoactive bowel tones surgical dressing sites dry abdominal binder in place diffuse surgical tenderness indwelling Demarco catheter in place denying any nausea or vomiting Extremities Venodyne's on to the bilateral lower extremities - Labs CBC & Chem 7: 06/30/17 06:39 06/30/17 06:39 Labs: Abnormal Lab Results - Last 24 Hours (Table) 06/29/17 06/30/17 06/30/17 Range/Units 20:31 06:39 06:39 WBC 20.5 H (3.8-10.6) k/uL RBC 3.70 L (3.80-5.40) m/uL Hgb 7.3 L D (11.4-16.0) gm/dL Hct 26.1 L (34.0-46.0) % MCV 70.6 L (80.0-100.0) fL MCH 19.8 L (25.0-35.0) pg MCHC 28.0 L (31.0-37.0) g/dL Plt Count 470 H (150-450) k/uL Neutrophils # 18.8 H (1.3-7.7) k/uL BUN 20 H (7-17) mg/dL Creatinine 1.80 H (0.52-1.04) mg/dL Glucose 134 H (74-99) mg/dL POC Glucose (mg/dL) 181 H (75-99) mg/dL Calcium 7.6 L (8.4-10.2) mg/dL Total Protein 4.4 L (6.3-8.2) g/dL Albumin 2.2 L (3.5-5.0) g/dL Crossmatch 06/30/17 06/30/17 Range/Units 07:02 08:24 WBC (3.8-10.6) k/uL RBC (3.80-5.40) m/uL Hgb (11.4-16.0) gm/dL Hct (34.0-46.0) % MCV (80.0-100.0) fL MCH (25.0-35.0) pg MCHC (31.0-37.0) g/dL Plt Count (150-450) k/uL Neutrophils # (1.3-7.7) k/uL BUN (7-17) mg/dL Creatinine (0.52-1.04) mg/dL Glucose (74-99) mg/dL POC Glucose (mg/dL) 157 H (75-99) mg/dL Calcium (8.4-10.2) mg/dL Total Protein (6.3-8.2) g/dL Albumin (3.5-5.0) g/dL Crossmatch See Detail Microbiology - Last 24 Hours (Table) 06/29/17 06:00 Blood Culture - Preliminary Blood No Growth after 24 hours 06/29/17 16:56 Wound Culture - Preliminary Abdomen 06/29/17 16:56 Anaerobic Culture - Preliminary Abdomen Assessment and Plan Assessment: Impression Present on admission right lateral abdominal wall pain suspect due to abscess extending into the anterior wall Present on admission leukocytosis suspect due to abdominal wall abscess Severe electrolyte abnormality hypokalemia A recent hospitalization with a procedure done May 26 robotic-assisted laparoscopic incisional hernia repair with mesh Osteoarthritis Chronic lower back pain Esophageal reflux symptoms History of prior abdominal hematoma unclear etiology Infected hematoma with extension intraperitoneally, extension of of abscess into the peritoneal cavity as well as questionable interloop abscesses and pelvic abscess Exploratory laparotomy drainage of intraperitoneal abscess, resection of infected mesh, running of the small bowel no interloop abscesses however phlegmon on the distal terminal ileum and purulent fluid in the pelvis, right rectus infected hematoma area drained done on June Postop acute blood loss anemia necessitating 1 unit of packed red blood cells Acute renal failure suspect due to hypovolemia plan Continue postop surgical care Consult nephrology increased creatinine Fluid bolus 1 now infuse 100 and hour Transfuse 1 unit packed red blood cells for hemoglobin of 7. 3 Monitor electrolytes keep therapeutic Monitor urine output will keep indwelling Demarco catheter in for now Pain control DVT and GI prophylaxis Dictated for Dr. Hyatt The above impression and plan of care have been discussed and directed by signing physician. Gill Allen nurse practitioner acting as scribe for signing physician.
[2017-06-30 11:31] LABS: Glucose,Whole Blood 124 mg/dL (75-99)
[2017-06-30] MEDS: CHOLECALCIFEROL 1,000 UNIT TAB PO SCH (12:05)
[2017-06-30] MEDS: MORPHINE SULFATE 4MG/4ML SYRG IV PRN (12:06)
--- NOTE | 2017-06-30 12:07 | P.PN ---
Subjective Progress Note Date: 06/30/17 Principal diagnosis: concerns for bleeding Patient seen today postoperatively, she is feeling well, no fever,unrealistic pain or bleeding Objective - Vital Signs Vital signs: Vital Signs Temp 98.8 F 06/30/17 10:31 Pulse 76 06/30/17 10:24 Resp 16 06/30/17 10:31 BP 106/51 06/30/17 10:31 Pulse Ox 97 06/30/17 10:31 Intake & Output 06/29/17 06/30/17 06/30/17 18:59 06:59 18:59 Intake Total 2350 2307 0 Output Total 190 500 Balance 2160 1807 0 Weight 77.111 kg Intake: IV 2350 Potassium Chloride 20 meq 200 In Water For Injection 1 100ml.bag @ 50 mls/hr IVPB Q2H [facility] Rx#: [id number] Intake, IV Titration 2307 Amount Lactated Ringers 1,000 ml 1000 As IV .STK-MED ONE Rx#: [id number] Piperacillin-Tazobactam 3 100 .375 gm In Dextrose/Water 1 50ml.bag @ 12.5 mls/hr IVPB Q8HR ON LICENSE OF [facility] Rx#: [id number] Sodium Chloride 0.9% 1, 707 000 ml @ 100 mls/hr IV . Q10H ON LICENSE OF [facility] Rx#:[id number] Vancomycin 1,500 mg In 500 Sodium Chloride 0.9% 250 ml @ 125 mls/hr IVPB BID ON LICENSE OF [facility] Rx#:[id number] Blood Product 0 Rc As-1 Unit 0 [id number] Output: Urine 160 500 Estimated Blood Loss 30 Other: Voiding Method Toilet Indwelling Catheter Indwelling Catheter # Voids 1 2 - Exam A&Ox4, NAD, respirations even and unlabored. - Labs CBC & Chem 7: 06/30/17 06:39 06/30/17 06:39 Labs: Abnormal Lab Results - Last 24 Hours (Table) 06/29/17 06/30/17 06/30/17 Range/Units 20:31 06:39 06:39 WBC 20.5 H (3.8-10.6) k/uL RBC 3.70 L (3.80-5.40) m/uL Hgb 7.3 L D (11.4-16.0) gm/dL Hct 26.1 L (34.0-46.0) % MCV 70.6 L (80.0-100.0) fL MCH 19.8 L (25.0-35.0) pg MCHC 28.0 L (31.0-37.0) g/dL Plt Count 470 H (150-450) k/uL Neutrophils # 18.8 H (1.3-7.7) k/uL BUN 20 H (7-17) mg/dL Creatinine 1.80 H (0.52-1.04) mg/dL Glucose 134 H (74-99) mg/dL POC Glucose (mg/dL) 181 H (75-99) mg/dL Calcium 7.6 L (8.4-10.2) mg/dL Total Protein 4.4 L (6.3-8.2) g/dL Albumin 2.2 L (3.5-5.0) g/dL Crossmatch 06/30/17 06/30/17 06/30/17 Range/Units 07:02 08:24 11:27 WBC (3.8-10.6) k/uL RBC (3.80-5.40) m/uL Hgb (11.4-16.0) gm/dL Hct (34.0-46.0) % MCV (80.0-100.0) fL MCH (25.0-35.0) pg MCHC (31.0-37.0) g/dL Plt Count (150-450) k/uL Neutrophils # (1.3-7.7) k/uL BUN (7-17) mg/dL Creatinine (0.52-1.04) mg/dL Glucose (74-99) mg/dL POC Glucose (mg/dL) 157 H 124 H (75-99) mg/dL Calcium (8.4-10.2) mg/dL Total Protein (6.3-8.2) g/dL Albumin (3.5-5.0) g/dL Crossmatch See Detail Microbiology - Last 24 Hours (Table) 06/29/17 06:00 Blood Culture - Preliminary Blood No Growth after 24 hours 06/29/17 16:56 Wound Culture - Preliminary Abdomen 06/29/17 16:56 Anaerobic Culture - Preliminary Abdomen Assessment and Plan (1) Acute blood loss anemia Current Visit: Yes Status: Acute Priority: High Code(s): D62 - ACUTE POSTHEMORRHAGIC ANEMIA SNOMED Code(s): 085588088 (2) Hematoma Current Visit: Yes Status: Acute Priority: High Code(s): T14.8XXA - OTHER INJURY OF UNSPECIFIED BODY REGION, INITIAL ENCOUNTER SNOMED Code(s): 090426724 (3) Abdominal pain Current Visit: Yes Status: Acute Priority: High Code(s): R10.9 - UNSPECIFIED ABDOMINAL PAIN SNOMED Code(s): 67031055 Plan: Patient is postoperative with hernia mesh exchange, drainage of infection and hematoma. Hemoglobin did drop postoperatively, suspect a degree of dilution from perioperative fluids. One unit of packed red blood cells will be transfused. Anemia workup still pending, we will make recommendations if patient is found deficient. CBC in the a.m. Doctor attests: I performed a history and physical examination of this patient, discussed with dictator. I agree with dictators note, documented as a scribe.
[2017-06-30 13:56] LABS: Anisocytosis Slight; Basophils % (A) 0 %; Eosinophils % (A) 0 %; HCT 30.5 % (34.0-46.0); Hypochromasia Marked; Lymphocytes # (A) 1.2 k/uL (1.0-4.8); Lymphocytes % (A) 6 %; MCH 21.7 pg (25.0-35.0); MCV 74.7 fL (80.0-100.0); Mean Platelet Volume 6.1; Microcytosis Slight; Monocytes # (A) 0.3 k/uL (0-1.0); Monocytes % (A) 2 %; Neutrophils # (A) 18.8 k/uL (1.3-7.7); Neutrophils % (A) 92 %; Platelet Count 479 k/uL (150-450); Poikilocytosis Slight; RBC 4.08 m/uL (3.80-5.40); RDW 16.7 % (11.5-15.5); WBC 20.4 k/uL (3.8-10.6)
[2017-06-30 13:59] LABS: HGB 8.9 gm/dL (11.4-16.0)
[2017-06-30] MEDS ORDERED: FUROSEMIDE 10 MG/ML 4 ML VIAL IV STA (16:39)
[2017-06-30 17:06] LABS: Glucose,Whole Blood 150 mg/dL (75-99)
--- NOTE | 2017-06-30 17:07 | XR ---
EXAMINATION: XR chest 2V DATE AND TIME: 06/30/2017 5:02 PM ORDERING PROVIDER: Anneliese Hilario MD~[id number] CLINICAL INDICATION: low urine output TECHNIQUE: frontal and lateral COMPARISON: CT lower chest images 06/29/2017 DESCRIPTION: The stomach is intrathoracic, and is air distended on today's study. The lungs appear to be clear. The pleural spaces are negative. The cardiac silhouette is not enlarged. The skeletal structures are intact without focal findings. IMPRESSION: 1. NO DEFINITE ACUTE RADIOGRAPHIC PROCESS. 2. INTRATHORACIC STOMACH NOTED.
--- NOTE | 2017-06-30 19:03 | P.PN ---
Subjective Progress Note Date: 06/30/17 Progress note being dictated for Dr. Parsons. Interval history: Patient came in with complaints of right-sided severe abdominal pain sharp in nature and nonradiating found to have abscess in that area are a hematoma and which was infected patient had a recent laparoscopic robotic-assisted repair of incisional hernia was subsequently discharged home did well started having severe pain in that area along with chills. Patient is found to have fluid collection in the rectal sheath extending into the anterior abdominal wall and thickening of the ascending colon with diverticulosis. Patient was started on Vanco mycin Zosyn which is appropriate 06/30/2017 status post exploratory laparotomy drainage of intraperitoneal abscess resection of an infected mesh, purulent pelvis fluid with drainage of right rectus infected hematoma area. Maintained on IV antibiotics. Hemoglobin dropped to 7.3, symptomatic, receiving one unit of packed RBCs. Hypotensive, worsening renal function with low urine output receiving third liter of IV fluid bolus. Currently denying chest pain, palpitations, shortness of breath. Denies lightheadedness or dizziness. T-max 99.1, WBC 20.4. Objective - Vital Signs Vital signs: Vital Signs Temp 98.4 F 06/30/17 14:53 Pulse 79 06/30/17 18:26 Resp 16 06/30/17 14:53 BP 110/56 06/30/17 18:26 Pulse Ox 96 06/30/17 18:26 Intake & Output 06/29/17 06/30/17 06/30/17 18:59 06:59 18:59 Intake Total 2350 2307 2310 Output Total 190 500 75 Balance 2160 1807 2235 Weight 77.111 kg Intake: IV 2350 Potassium Chloride 20 meq 200 In Water For Injection 1 100ml.bag @ 50 mls/hr IVPB Q2H [facility] Rx#: [id number] Intake, IV Titration 2307 2000 Amount Lactated Ringers 1,000 ml 1000 As IV .STK-MED ONE Rx#: [id number] Piperacillin-Tazobactam 3 100 .375 gm In Dextrose/Water 1 50ml.bag @ 12.5 mls/hr IVPB Q8HR [facility] Rx#: [id number] Sodium Chloride 0.9% 1, 707 000 ml @ 100 mls/hr IV . Q10H [facility] Rx#:[id number] Sodium Chloride 0.9% 1, 2000 000 ml @ 999 mls/hr IV . Q1H1M [facility] Rx#:[id number] Vancomycin 1,500 mg In 500 Sodium Chloride 0.9% 250 ml @ 125 mls/hr IVPB BID [facility] Rx#:[id number] Blood Product 310 Rc As-1 Unit 310 [id number] Output: Urine 160 500 75 Uretheral (Demarco) 75 Estimated Blood Loss 30 Other: Voiding Method Toilet Indwelling Catheter Indwelling Catheter # Voids 1 2 - Exam GENERAL: The patient is alert and oriented x3, not in any acute distress, tired appearing HEENT: Pupils are round and equally reacting to light. EOMI. No scleral icterus. No conjunctival pallor. Normocephalic, atraumatic. CARDIOVASCULAR: S1 and S2 present. No murmurs, rubs, or gallops. PULMONARY: Chest is clear to auscultation, no wheezing or crackles. ABDOMEN: Soft, nontender, nondistended, hypoactive bowel sounds. Status post surgery; dressing with an abdominal binder present, clean dry and intact. MUSCULOSKELETAL: No joint swelling or deformity. EXTREMITIES: No cyanosis, clubbing, or pedal edema. NEUROLOGICAL: Gross neurological examination did not reveal any focal deficits. SKIN: No rashes. - Labs CBC & Chem 7: 06/30/17 13:35 06/30/17 06:39 Labs: Abnormal Lab Results - Last 24 Hours (Table) 06/29/17 06/30/17 06/30/17 Range/Units 20:31 06:39 06:39 WBC 20.5 H (3.8-10.6) k/uL RBC 3.70 L (3.80-5.40) m/uL Hgb 7.3 L D (11.4-16.0) gm/dL Hct 26.1 L (34.0-46.0) % MCV 70.6 L (80.0-100.0) fL MCH 19.8 L (25.0-35.0) pg MCHC 28.0 L (31.0-37.0) g/dL RDW (11.5-15.5) % Plt Count 470 H (150-450) k/uL Neutrophils # 18.8 H (1.3-7.7) k/uL BUN 20 H (7-17) mg/dL Creatinine 1.80 H (0.52-1.04) mg/dL Glucose 134 H (74-99) mg/dL POC Glucose (mg/dL) 181 H (75-99) mg/dL Calcium 7.6 L (8.4-10.2) mg/dL Total Protein 4.4 L (6.3-8.2) g/dL Albumin 2.2 L (3.5-5.0) g/dL Crossmatch 06/30/17 06/30/17 06/30/17 Range/Units 07:02 08:24 11:27 WBC (3.8-10.6) k/uL RBC (3.80-5.40) m/uL Hgb (11.4-16.0) gm/dL Hct (34.0-46.0) % MCV (80.0-100.0) fL MCH (25.0-35.0) pg MCHC (31.0-37.0) g/dL RDW (11.5-15.5) % Plt Count (150-450) k/uL Neutrophils # (1.3-7.7) k/uL BUN (7-17) mg/dL Creatinine (0.52-1.04) mg/dL Glucose (74-99) mg/dL POC Glucose (mg/dL) 157 H 124 H (75-99) mg/dL Calcium (8.4-10.2) mg/dL Total Protein (6.3-8.2) g/dL Albumin (3.5-5.0) g/dL Crossmatch See Detail 06/30/17 06/30/17 Range/Units 13:35 17:04 WBC 20.4 H (3.8-10.6) k/uL RBC (3.80-5.40) m/uL Hgb 8.9 L D (11.4-16.0) gm/dL Hct 30.5 L (34.0-46.0) % MCV 74.7 L (80.0-100.0) fL MCH 21.7 L (25.0-35.0) pg MCHC 29.0 L (31.0-37.0) g/dL RDW 16.7 H (11.5-15.5) % Plt Count 479 H (150-450) k/uL Neutrophils # 18.8 H (1.3-7.7) k/uL BUN (7-17) mg/dL Creatinine (0.52-1.04) mg/dL Glucose (74-99) mg/dL POC Glucose (mg/dL) 150 H (75-99) mg/dL Calcium (8.4-10.2) mg/dL Total Protein (6.3-8.2) g/dL Albumin (3.5-5.0) g/dL Crossmatch Microbiology - Last 24 Hours (Table) 06/29/17 16:56 Gram Stain - Preliminary Abdomen Wound Culture - Preliminary 06/29/17 06:00 Blood Culture - Preliminary Blood No Growth after 24 hours 06/29/17 16:56 Anaerobic Culture - Preliminary Abdomen Assessment and Plan Assessment: -Possible right femoral abdominal wall abscess or hematoma that is infected: Status post exploratory laparotomy with resection of infected mesh and drainage of infected hematoma, abscess, of peritoneal cavity as mentioned above-referred to surgeons note. -Hypertension hold off on the antihypertensives medications as her blood pressure is on the low normal side and that is possibly due to sepsis which can draw the blood pressure. -Chronic low back pain -Gastroesophageal reflux disease -Hyperlipidemia next -Acute postoperative blood loss anemia, status post transfusion 1 unit of packed RBCs -Acute renal failure secondary to hypovolemia Plan: Continue on current medication regime ,monitoring and symptomatic treatment. Aggressive fluid resuscitation. Repeat hemoglobin 8.9 posttransfusion .Maintain IV fluids at 100 MLS per hour of 0.9% normal saline after third liter fluid bolus completed. Close monitoring of renal function, hemoglobin with repeat labs ordered for a.m. p.m. antibiotics as per ID. Pain management as per surgery. Aggressive pulmonary toileting. The impression and plan of care has been dictated as directed. : I performed a history and examination of this patient, discussed the same with the dictator. I agree with the dictator's note ,documented as a scribe. Any additional findings or plans will be noted.
[2017-06-30] MEDS ORDERED: HYDROmorphone 4 MG TABLET PO PRN (19:13)
[2017-06-30 19:24] LABS: Folate, Serum 11.2 ng/mL; Iron Saturation 3.55 (12.00-45.00)
[2017-06-30 20:37] LABS: Glucose,Whole Blood 116 mg/dL (75-99)
[2017-06-30 20:52] LABS: Hemoglobin A1C 6.9 % (4.0-6.0)
--- NOTE | 2017-06-30 22:16 | P.PN ---
Subjective Progress Note Date: 06/30/17 Principal diagnosis: abdominal pain This is a 72-year-old female patient gives history of having an abdominal wall abscess on the right side for which she was treated at [facility] emergency center in October 2016. The ER physician did an incision and drainage and widen the draining track with a scalpel and placed iodoform gauze. There was purulent material at that time. Patient states that this eventually healed and in April she was having increased right-sided abdominal pain and her PCP sent her to [facility] for an ultrasound that showed a possible hematoma on the right upper quadrant. She was then sent to Dr. Hancock for further evaluation. Because of anemia, patient underwent an upper and lower endoscopy with Dr. Hancock on May 20 that found no signs of bleeding. She subsequently underwent a hernia repair at the site of the previous hematoma or abscess from October [address] Hancock and this was done on 05/26/2017. This was located in the mid upper abdomen. She states she continued to have right-sided abdominal pain, chills and hot feeling, decreased appetite with possible weight loss and nausea. She saw Dr. Hancock yesterday and she up for outpatient computed tomography scan but she states that after he pressed on her abdomen her pain got significant only worse last evening and she came into [facility] emergency center for evaluation. She underwent a CAT scan of the abdomen and pelvis which revealed marked interval worsening of a right rectus sheath fluid collection which now extends into the anterior abdominal wall. Differential includes hematoma, abscess with stromal felt less likely. Mild wall thickening within the ascending and transverse colon is nonspecific but may represent colitis. Extensive diverticulosis with mild adjacent nonspecific fluid in the pelvis limits evaluation for potential diverticulitis. Mild atelectasis or less likely pneumonia in the left lung base. Large hiatal hernia. This CAT scan was compared to one done in September 2016. Patient is now admitted under the care of Dr. Vinny Godwin and is scheduled for I&D and washout this afternoon. Patient presented with a white count of 26.4, lactic acid 3.3 and repeat 1.7, afebrile, creatinine 0.6. Mild elevation of liver function tests with AST of 63, ALT 75, alkaline phosphatase 156. Urinalysis was cloudy with nitrate and leukoesterase negative and bacteria many. Patient denies any urinary pain or frequency or urgency. She also denies having any blood in her stools. 06/30/2017 reveals the patient to be postoperative and feeling slightly better. However she is now having difficulties with urinary output. Despite 3 L of fluid and blood transfusion she continues to have poor urinary output. She had a bladder scan that only showed 12 mL of fluid. Her abdominal pain is improving. She tolerated a clear liquid diet with no difficulties. Objective - Vital Signs Vital signs: Vital Signs Temp 98.2 F 06/30/17 19:30 Pulse 79 06/30/17 19:30 Resp 16 06/30/17 19:30 BP 106/59 06/30/17 19:30 Pulse Ox 97 06/30/17 19:30 Intake & Output 06/30/17 06/30/17 07/01/17 06:59 18:59 06:59 Intake Total 2307 2310 118 Output Total 500 75 Balance 1807 2235 118 Intake: Intake, IV Titration 2307 2000 Amount Lactated Ringers 1,000 ml 1000 As IV .STK-MED ONE Rx#: [id number] Piperacillin-Tazobactam 3 100 .375 gm In Dextrose/Water 1 50ml.bag @ 12.5 mls/hr IVPB Q8HR [facility] Rx#: [id number] Sodium Chloride 0.9% 1, 707 000 ml @ 100 mls/hr IV . Q10H [facility] Rx#:[id number] Sodium Chloride 0.9% 1, 2000 000 ml @ 999 mls/hr IV . Q1H1M ONE Rx#:[id number] Vancomycin 1,500 mg In 500 Sodium Chloride 0.9% 250 ml @ 125 mls/hr IVPB BID [facility] Rx#:[id number] Oral 118 Blood Product 310 Rc As-1 Unit 310 [id number] Output: Urine 500 75 Uretheral (Demarco) 75 Other: Voiding Method Indwelling Catheter Indwelling Catheter # Voids 2 - Exam Gen: This is a 72-year-old female patient. She is in bed and appears to be comfortable and in no acute distress. HEENT: Head is atraumatic, normocephalic. Pupils equal, round. Sclerae is anicteric. Conjunctiva pink. Mucous members of the mouth are dry. NECK: Supple. No JVD. No lymphadenopathy. No thyromegaly. LUNGS: Clear to auscultation. No wheezes or rhonchi. No intercostal retractions. HEART: Regular rate and rhythm. No murmur. ABDOMEN:few bowel sounds are heard there is a surgical incision that is having drainage of serosanginous material on the dressing the abdomen is tender to palpation EXTREMITIES: No pedal edema. No calf tenderness. Dorsalis pedis +2 bilaterally. NEUROLOGICAL: Patient is awake, alert and oriented x3 - Labs CBC & Chem 7: 06/30/17 13:35 06/30/17 06:39 Labs: Abnormal Lab Results - Last 24 Hours (Table) 06/30/17 06/30/17 06/30/17 Range/Units 06:39 06:39 07:02 WBC 20.5 H (3.8-10.6) k/uL RBC 3.70 L (3.80-5.40) m/uL Hgb 7.3 L D (11.4-16.0) gm/dL Hct 26.1 L (34.0-46.0) % MCV 70.6 L (80.0-100.0) fL MCH 19.8 L (25.0-35.0) pg MCHC 28.0 L (31.0-37.0) g/dL RDW (11.5-15.5) % Plt Count 470 H (150-450) k/uL Neutrophils # 18.8 H (1.3-7.7) k/uL BUN 20 H (7-17) mg/dL Creatinine 1.80 H (0.52-1.04) mg/dL Glucose 134 H (74-99) mg/dL POC Glucose (mg/dL) 157 H (75-99) mg/dL Calcium 7.6 L (8.4-10.2) mg/dL Total Protein 4.4 L (6.3-8.2) g/dL Albumin 2.2 L (3.5-5.0) g/dL Crossmatch 06/30/17 06/30/17 06/30/17 Range/Units 08:24 11:27 13:35 WBC 20.4 H (3.8-10.6) k/uL RBC (3.80-5.40) m/uL Hgb 8.9 L D (11.4-16.0) gm/dL Hct 30.5 L (34.0-46.0) % MCV 74.7 L (80.0-100.0) fL MCH 21.7 L (25.0-35.0) pg MCHC 29.0 L (31.0-37.0) g/dL RDW 16.7 H (11.5-15.5) % Plt Count 479 H (150-450) k/uL Neutrophils # 18.8 H (1.3-7.7) k/uL BUN (7-17) mg/dL Creatinine (0.52-1.04) mg/dL Glucose (74-99) mg/dL POC Glucose (mg/dL) 124 H (75-99) mg/dL Calcium (8.4-10.2) mg/dL Total Protein (6.3-8.2) g/dL Albumin (3.5-5.0) g/dL Crossmatch See Detail 06/30/17 06/30/17 Range/Units 17:04 20:02 WBC (3.8-10.6) k/uL RBC (3.80-5.40) m/uL Hgb (11.4-16.0) gm/dL Hct (34.0-46.0) % MCV (80.0-100.0) fL MCH (25.0-35.0) pg MCHC (31.0-37.0) g/dL RDW (11.5-15.5) % Plt Count (150-450) k/uL Neutrophils # (1.3-7.7) k/uL BUN (7-17) mg/dL Creatinine (0.52-1.04) mg/dL Glucose (74-99) mg/dL POC Glucose (mg/dL) 150 H 116 H (75-99) mg/dL Calcium (8.4-10.2) mg/dL Total Protein (6.3-8.2) g/dL Albumin (3.5-5.0) g/dL Crossmatch Microbiology - Last 24 Hours (Table) 06/29/17 16:56 Gram Stain - Preliminary Abdomen Wound Culture - Preliminary Gram Neg Bacilli 06/29/17 06:00 Blood Culture - Preliminary Blood No Growth after 24 hours 06/29/17 16:56 Anaerobic Culture - Preliminary Abdomen Laboratory Results WBC 20.4 k/uL (3.8-10.6) H 06/30/17 13:35 RBC 4.08 m/uL (3.80-5.40) 06/30/17 13:35 Hgb 8.9 gm/dL (11.4-16.0) L D 06/30/17 13:35 Hct 30.5 % (34.0-46.0) L 06/30/17 13:35 MCV 74.7 fL (80.0-100.0) L 06/30/17 13:35 MCH 21.7 pg (25.0-35.0) L 06/30/17 13:35 MCHC 29.0 g/dL (31.0-37.0) L 06/30/17 13:35 RDW 16.7 % (11.5-15.5) H 06/30/17 13:35 Plt Count 479 k/uL (150-450) H 06/30/17 13:35 Neutrophils % 92 % 06/30/17 13:35 Neutrophils % (Manual) 88 % 06/29/17 04:38 Band Neutrophils % 6 % 06/29/17 04:38 Lymphocytes % 6 % 06/30/17 13:35 Lymphocytes % (Manual) 5 % 06/29/17 04:38 Monocytes % 2 % 06/30/17 13:35 Monocytes % (Manual) 2 % 06/29/17 04:38 Eosinophils % 0 % 06/30/17 13:35 Basophils % 0 % 06/30/17 13:35 Neutrophils # 18.8 k/uL (1.3-7.7) H 06/30/17 13:35 Neutrophils # (Manual) 24.80 k/uL (1.3-7.7) H 06/29/17 04:38 Lymphocytes # 1.2 k/uL (1.0-4.8) 06/30/17 13:35 Lymphocytes # (Manual) 1.32 k/uL (1.0-4.8) 06/29/17 04:38 Monocytes # 0.3 k/uL (0-1.0) 06/30/17 13:35 Monocytes # (Manual) 0.53 k/uL (0-1.0) 06/29/17 04:38 Eosinophils # 0.0 k/uL (0-0.7) 06/30/17 13:35 Basophils # 0.0 k/uL (0-0.2) 06/30/17 13:35 Nucleated RBCs 0 /100 WBC (0-0) 06/29/17 04:38 Manual Slide Review Performed 06/29/17 04:38 Toxic Vacuolation Present 06/29/17 04:38 Hypochromasia Marked 06/30/17 13:35 Poikilocytosis Slight 06/30/17 13:35 Anisocytosis Slight 06/30/17 13:35 Microcytosis Slight 06/30/17 13:35 Retic Count 1.1 % (0.5-2.0) 06/30/17 06:39 PT 10.9 sec (9.0-12.0) 06/29/17 04:38 INR 1.1 (<1.2) 06/29/17 04:38 APTT 22.3 sec (22.0-30.0) 06/29/17 10:45 Sodium 137 mmol/L (137-145) 06/30/17 06:39 Potassium 4.0 mmol/L (3.5-5.1) 06/30/17 06:39 Chloride 103 mmol/L (98-107) 06/30/17 06:39 Carbon Dioxide 24 mmol/L (22-30) 06/30/17 06:39 Anion Gap 10 mmol/L 06/30/17 06:39 BUN 20 mg/dL (7-17) H 06/30/17 06:39 Creatinine 1.80 mg/dL (0.52-1.04) H 06/30/17 06:39 Est GFR (CKD-EPI)AfAm 32 (>60 ml/min/1.73 sqM) 06/30/17 06:39 Est GFR (CKD-EPI)NonAf 28 (>60 ml/min/1.73 sqM) 06/30/17 06:39 Glucose 134 mg/dL (74-99) H 06/30/17 06:39 POC Glucose (mg/dL) 116 mg/dL (75-99) H 06/30/17 20:02 POC Glu Cornetist MERLINE DaoKomal chenge 06/30/17 20:02 Lactic Ac Sepsis Rflx Y 06/29/17 05:08 Plasma Lactic Acid Lasha 1.7 mmol/L (0.7-2.0) 06/29/17 09:19 Calcium 7.6 mg/dL (8.4-10.2) L 06/30/17 06:39 Magnesium 1.6 mg/dL (1.6-2.3) 06/29/17 04:38 Total Bilirubin 0.2 mg/dL (0.2-1.3) 06/30/17 06:39 AST 20 U/L (14-36) 06/30/17 06:39 ALT 48 U/L (9-52) 06/30/17 06:39 Alkaline Phosphatase 97 U/L (38-126) 06/30/17 06:39 Total Protein 4.4 g/dL (6.3-8.2) L 06/30/17 06:39 Albumin 2.2 g/dL (3.5-5.0) L 06/30/17 06:39 Amylase 38 U/L (30-110) 06/29/17 04:38 Lipase 64 U/L (23-300) 06/29/17 04:38 Urine Color Yellow 06/29/17 06:38 Urine Appearance Cloudy (Clear) H 06/29/17 06:38 Urine pH 6.5 (5.0-8.0) 06/29/17 06:38 Ur Specific [place] 1.007 (1.001-1.035) 06/29/17 06:38 Urine Protein Negative (Negative) 06/29/17 06:38 Urine Glucose (UA) Negative (Negative) 06/29/17 06:38 Urine Ketones Negative (Negative) 06/29/17 06:38 Urine Blood Negative (Negative) 06/29/17 06:38 Urine Nitrite Negative (Negative) 06/29/17 06:38 Urine Bilirubin Negative (Negative) 06/29/17 06:38 Urine Urobilinogen <2.0 mg/dL (<2.0) 06/29/17 06:38 Ur Leukocyte Esterase Negative (Negative) 06/29/17 06:38 Urine RBC 2 /hpf (0-5) 06/29/17 06:38 Urine WBC 2 /hpf (0-5) 06/29/17 06:38 Ur Squamous Epith Cells 13 /hpf (0-4) H 06/29/17 06:38 Urine Bacteria Many /hpf (None) H 06/29/17 06:38 Hyaline Casts 2 /lpf (0-2) 06/29/17 06:38 Urine Mucus Rare /hpf (None) H 06/29/17 06:38 Hepatitis A IgM Ab Non-Reactive (Non-Reactive) 06/29/17 04:38 Hep Bs Antigen Non-Reactive (Non-Reactive) 06/29/17 04:38 Hep B Core IgM Ab Non-Reactive (Non-Reactive) 06/29/17 04:38 Hep C IgG Ab Non-Reactive (Non-Reactive) 06/29/17 04:38 Blood Type B Negative 06/30/17 08:24 Blood Type Recheck No 06/30/17 08:24 Antibody Screen NEGATIVE 06/30/17 08:24 Crossmatch See Detail 06/30/17 08:24 Spec Expiration Date 07/03/2017 - 2324 06/30/17 08:24 Microbiology 06/29/17 16:56 Abdomen Gram Stain - Preliminary 06/29/17 16:56 Abdomen Wound Culture - Preliminary Gram Neg Bacilli 06/29/17 06:00 Blood Blood Culture - Preliminary No Growth after 24 hours 06/29/17 16:56 Abdomen Anaerobic Culture - Preliminary Assessment and Plan (1) Abdominal pain Current Visit: Yes Status: Acute Priority: High Code(s): R10.9 - UNSPECIFIED ABDOMINAL PAIN SNOMED Code(s): 38469249 (2) Acute blood loss anemia Current Visit: Yes Status: Acute Priority: High Code(s): D62 - ACUTE POSTHEMORRHAGIC ANEMIA SNOMED Code(s): 402797130 (3) Abdominal wall abscess Narrative/Plan: 72 year old woman staus post drainage of the intra-abdominal abscess. It is apparently outside of the peritoneum, and hopefully with incision and drainage will allow this to resolve rapidly. Cultures will further help direct antibiotic therapy, utilizing Zosyn and vancomycin for now pending further culture data. 06/30/2017 reveals the patient to be postoperative in feeling somewhat better. However she's now developed very low urinary output concerns to renal failure. Wound culture showing evidence of gram-negative bacilli. Vancomycin therapy is discontinued. Acute tubular necrosis is of concern given her sepsis at admission, gram-negative in nature. Cultures will help direct the final course of antibiotic therapy. Should be able to further help direct wound therapy once her some further improvement to the postoperative wound also. Nephrology is following. Further diuertic therapy is being given to see if she will respond especially since she's been given fluids and blood. Patient and family are reassured. Current Visit: Yes Status: Acute Code(s): L02.211 - CUTANEOUS ABSCESS OF ABDOMINAL WALL SNOMED Code(s): 33137973
[2017-06-30] MEDS: NYSTATIN 100,000 UNIT/ML SUSP 500,000 UNIT/5 ML CUP PO SCH (23:31)
[2017-07-01 06:55] LABS: Anisocytosis Slight; Basophils % (A) 0 %; Eosinophils # (A) 0.5 k/uL (0-0.7); Eosinophils % (A) 3 %; HCT 29.8 % (34.0-46.0); HGB 8.6 gm/dL (11.4-16.0); Hypochromasia Marked; Lymphocytes # (A) 1.4 k/uL (1.0-4.8); Lymphocytes % (A) 8 %; MCH 21.5 pg (25.0-35.0); MCV 74.3 fL (80.0-100.0); Mean Platelet Volume 6.2; Microcytosis Moderate; Monocytes # (A) 0.3 k/uL (0-1.0); Monocytes % (A) 2 %; Neutrophils # (A) 14.6 k/uL (1.3-7.7); Neutrophils % (A) 86 %; Platelet Count 465 k/uL (150-450); Poikilocytosis Moderate; RBC 4.01 m/uL (3.80-5.40)
[2017-07-01 07:07] LABS: Albumin 2.3 g/dL (3.5-5.0); Calcium 7.6 mg/dL (8.4-10.2); Potassium 3.8 mmol/L (3.5-5.1); Total Bilirubin 0.4 mg/dL (0.2-1.3); Total Protein 4.5 g/dL (6.3-8.2)
[2017-07-01 07:12] LABS: Vancomycin,Random 28.8 ug/mL
[2017-07-01 07:32] LABS: Glucose,Whole Blood 102 mg/dL (75-99)
[2017-07-01] MEDS: INSULIN ASPART 100 UNIT/ML 1 ML 10 ML VIAL SQ SCH ×4 (07:43→20:37)
[2017-07-01] MEDS: NYSTATIN 100,000 UNIT/ML SUSP 500,000 UNIT/5 ML CUP PO SCH ×4 (07:44→20:38)
[2017-07-01] MEDS: HEPARIN SODIUM,PORCINE 5,000 UNIT/ML 1 ML VIAL SQ SCH ×3 (07:47→23:11)
[2017-07-01] MEDS: DOCUSATE 100 MG CAP PO SCH ×2 (07:47→20:37)
[2017-07-01] MEDS: PIPERACILLIN-TAZOBACTAM 3.375 GM in DEXTROSE/WATER 1 50ML.BAG IVPB SCH ×2 (07:47→20:36)
[2017-07-01] MEDS: PANTOPRAZOLE 40 MG/10 ML VIAL IV SCH (07:47)
[2017-07-01] MEDS: SODIUM CHLORIDE 0.9% 1,000 ML IV SCH ×3 (07:54→20:34)
[2017-07-01] MEDS ORDERED: FUROSEMIDE 10 MG/ML 10 ML VIAL IV STA (10:07)
[2017-07-01] MEDS: VANCOMYCIN IV PER PHARMACY 1 EACH MISC MISCELLANE SCH (10:12)
--- NOTE | 2017-07-01 10:13 | P.NPCON ---
History of Present Illness - Reason for Consult acute renal failure - History of Present Illness Reason for consultation: Acute kidney injury History of present illness: Patient is a 72-year-old female seen in renal consultation for acute kidney injury. Her creatinine on admission was 0.6 and has been worsening over the last 2 days and is up to 3.2 today. Patient presented to the hospital with abdominal pain. She underwent a CAT scan of the abdomen and pelvis without IV contrast which revealed hematoma and abscess. She subsequently underwent exploratory laparotomy with hematoma evacuation and drainage of abscess on June 29. Patient was also receiving Toradol for pain control. Additionally she did become anemic and quite hypotensive with systolic blood pressure in the 90s. She did receive a unit of blood and hemoglobin today is 8.6. Her blood pressure this morning was 109/63. She has a Demarco catheter in place with urine output of 180 mL overnight. Patient's currently awake and alert. She denies any prior history of kidney disease. Denies any family history of renal disease. She does admit to taking Motrin 3 times daily for 4-5 days prior to admission for pain control. She is maintained on normal saline at 100 mL an hour at this time. Vital signs are stable. General: The patient appeared well nourished and normally developed. HEENT: Head exam is unremarkable. Neck is without jugular venous distension. LUNGS: Lungs are clear to auscultation and percussion. Breath sounds decreased. HEART: Rate and Rhythm are regular. First and second heart sounds normal. No murmurs, rubs or gallops. ABDOMEN: Abdominal exam reveals normal bowel sounds. Non-tender and non- distended. No evidence of peritonitis. EXTREMITITES: No clubbing, cyanosis, or edema. 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 History of Any Multi-Drug Resistant Organisms: None Reported Past Surgical History: Appendectomy, Cholecystectomy, Hernia Repair, Tonsillectomy Additional Past Surgical History / Comment(s): 05/26/17 laparoscopic incisional hernia repair with mesh/lysis of adhesions, bilateral cataract removals, R eye retinal hole repair, colonoscopies/EGD. Past Anesthesia/Blood Transfusion Reactions: No Reported Reaction Past Psychological History: No Psychological Hx Reported Additional Psychological History / Comment(s): Pt resides with her spouse. She is independent. Smoking Status: Never smoker Past Alcohol Use History: None Reported Additional Past Alcohol Use History / Comment(s): Patient is a lifelong nonsmoker, no illicit drug use, no alcohol use. Patient lives at home with her . Past Drug Use History: None Reported - Past Family History Father Family Medical History: Diabetes Mellitus Additional Family Medical History / Comment(s): father at the age of 62 yrs from diabetic complications. Mother Family Medical History: Diabetes Mellitus, Osteoarthritis (OA) Additional Family Medical History / Comment(s): Mother at the age of 93yrs. Medications and Allergies Home Medications Medication Instructions Recorded Confirmed Type Cinnamon Bark [Cinnamon] 500 mg PO BID 12/08/15 06/29/17 History Lisinopril-Hctz 10-12.5 mg 1 tab PO DAILY 12/08/15 06/29/17 History [Zestoretic 10-12.5] Simvastatin [Simvastatin] 20 mg PO HS 12/08/15 06/29/17 History Docusate [Colace] 100 mg PO BID #20 capsule 05/26/17 06/29/17 Rx Cyanocobalamin [Vitamin B-12] 500 mcg PO DAILY 06/29/17 06/29/17 History Omeprazole 20 mg PO DAILY 06/29/17 06/29/17 History Allergies Allergy/AdvReac Type Severity Reaction Status Date / Time venom-honey bee Allergy Anaphylaxis Verified 06/29/17 09:08 [bee venom (honey bee)] Physical Exam Vitals: Vital Signs Temp Pulse Pulse Resp BP BP BP 07/01/17 07:00 98.3 F 82 14 109/63 07/01/17 03:30 98.2 F 79 16 114/66 07/01/17 00:00 16 06/30/17 23:35 97.9 F 79 16 112/66 06/30/17 20:00 79 16 06/30/17 19:30 98.2 F 79 16 106/59 06/30/17 18:26 79 110/56 06/30/17 17:13 78 107/57 06/30/17 16:29 103/55 06/30/17 15:21 79 93/50 06/30/17 14:53 98.4 F 77 16 98/67 06/30/17 12:26 98.6 F 78 16 92/50 06/30/17 10:31 98.8 F 16 106/51 06/30/17 10:24 98.7 F 76 16 90/55 Pulse Ox 07/01/17 07:00 97 07/01/17 03:30 94 L 07/01/17 00:00 06/30/17 23:35 95 06/30/17 20:00 06/30/17 19:30 97 06/30/17 18:26 96 06/30/17 17:13 06/30/17 16:29 06/30/17 15:21 94 L 06/30/17 14:53 94 L 06/30/17 12:26 95 06/30/17 10:31 97 06/30/17 10:24 97 Intake and Output 06/30/17 07/01/17 07/01/17 22:59 06:59 14:59 Intake Total 1318 1200 240 Output Total 120 125 Balance 1198 1075 240 Intake: Intake, IV Titration 800 800 Amount Sodium Chloride 0.9% 1, 800 000 ml @ 100 mls/hr IV . Q10H [facility] Rx#:[id number] Sodium Chloride 0.9% 1, 800 000 ml @ 100 mls/hr IV . Q10H [facility] Rx#:[id number] Oral 468 400 240 Blood Product 50 Output: Urine 120 125 Uretheral (Demarco) 75 Other: Voiding Method Indwelling Catheter Indwelling Catheter Results - Lab Results Most recent lab results Calcium 7.6 mg/dL (8.4-10.2) L 07/01/17 06:31 Magnesium 1.6 mg/dL (1.6-2.3) 06/29/17 04:38 07/01/17 06:31 07/01/17 06:31 Assessment and Plan Plan: Assessment: #1. Oliguric acute kidney injury secondary to ischemic ATN secondary to hypotension, anemia and use of nonsteroidals. Vancomycin level also high at 28.8 today. Baseline creatinine 0.6 and up to 3.2 today. Urinalysis is quite benign. No evidence of hydronephrosis noted on CAT scan on admission. #2. Status post exploratory laparotomy with hematoma evacuation and drainage of abscess on June 29. #3. Hypotension currently maintained on IV fluids. Blood pressure this morning 109/63. #4. Acute blood loss anemia status post blood transfusion. Hemoglobin 8.6 today. #5. Metabolic acidosis secondary to acute kidney injury and IV fluids. Plan: I will decrease the rate of normal saline to 75 mL an hour. Lasix 80 mg IV once today. Discontinue Toradol. Avoid NSAIDs in general. Add oral sodium bicarbonate 650 mg twice daily. Monitor vancomycin levels. Dose to be adjusted for renal function. Continue to monitor renal function and urine output. No urgent need for renal replacement therapy at this time. Will continue to assess on day-to-day basis. Thank you for the consultation. I will continue to follow the patient with you during her hospital stay.
[2017-07-01] MEDS: SODIUM BICARBONATE TAB 650 MG TAB PO SCH ×2 (11:13→20:38)
[2017-07-01 11:19] LABS: Glucose,Whole Blood 99 mg/dL (75-99)
--- NOTE | 2017-07-01 14:11 | P.PN ---
Subjective Progress Note Date: 07/01/17 72-year-old female seen and examined. Patient currently is sitting up in a chair. Patient states she did ambulate from the bed to the doorway this morning. Patient states his belching not passing gas no stool. Patient states pain medication effective for pain control. Indwelling Demarco catheter in place low urine output creatinine up to 3.2 this morning being followed by nephrology. IV fluid at 100 hour currently on a clear liquid diet the hemoglobin this morning is 8.6 was 7.3 on the day of admission up to 8.9 after a unit of packed red blood cells Postop June 29 exploratory laparotomy drainage of intraperitoneal abscess resection of infected mesh phlegm on the distal terminal ileum and.purulent fluid in the pelvis , right rectus infected hematoma area drained. Objective - Vital Signs Vital signs: Vital Signs Temp 98.3 F 07/01/17 07:00 Pulse 82 07/01/17 07:00 Resp 14 07/01/17 07:00 BP 116/64 07/01/17 11:12 Pulse Ox 97 07/01/17 07:00 Intake & Output 06/30/17 07/01/17 07/01/17 18:59 06:59 18:59 Intake Total 2310 2518 1020 Output Total 75 170 Balance 2235 2348 1020 Intake: Intake, IV Titration 1999 1600 600 Amount Sodium Chloride 0.9% 1, 800 000 ml @ 100 mls/hr IV . Q10H [facility] Rx#:[id number] Sodium Chloride 0.9% 1, 800 600 000 ml @ 100 mls/hr IV . Q10H [facility] Rx#:[id number] Sodium Chloride 0.9% 1, 2000 000 ml @ 999 mls/hr IV . Q1H1M [facility] Rx#:[id number] Oral 868 420 Blood Product 310 50 Rc As-1 Unit 310 [id number] Output: Urine 75 170 Uretheral (Demarco) 75 Other: Voiding Method Indwelling Catheter Indwelling Catheter Indwelling Catheter - Exam Physical exam 72-year-old female being up in a chair pleasant cooperative oriented 3 states did ambulate short distance in the alexandre denies dizziness lightheadedness Lungs adequate air movement bilaterally sats are 97% 2 L no shortness of breath Heart S1-S2 audible regular denying chest pain heart rate in the 70s Abdomen nondistended hypoactive bowel tones surgical dressing sites dry abdominal binder in place diffuse surgical tenderness indwelling Demarco catheter in place denying any nausea or vomiting abdominal binder removed surgical incision site inspected Lyudmila drain distal incision site intact reports no stool passing gas Extremities Venodyne's on to the bilateral lower extremities - Labs CBC & Chem 7: 18 06:31 07/01/17 06:31 Labs: Abnormal Lab Results - Last 24 Hours (Table) 06/30/17 06/30/17 06/30/17 Range/Units 06:39 06:39 17:04 WBC (3.8-10.6) k/uL Hgb (11.4-16.0) gm/dL Hct (34.0-46.0) % MCV (80.0-100.0) fL MCH (25.0-35.0) pg MCHC (31.0-37.0) g/dL RDW (11.5-15.5) % Plt Count (150-450) k/uL Neutrophils # (1.3-7.7) k/uL Chloride (98-107) mmol/L Carbon Dioxide (22-30) mmol/L BUN (7-17) mg/dL Creatinine (0.52-1.04) mg/dL POC Glucose (mg/dL) 150 H (75-99) mg/dL Hemoglobin A1c 6.9 H (4.0-6.0) % Calcium (8.4-10.2) mg/dL Iron 7 L (50-170) ug/dL TIBC 197 L (228-460) ug/dL Iron Saturation 3.55 L (12.00-45.00) Total Protein (6.3-8.2) g/dL Albumin (3.5-5.0) g/dL Vitamin B12 1273.0 H (200.0-944.0) pg/mL 06/30/17 07/01/17 07/01/17 Range/Units 20:02 06:31 06:31 WBC 17.0 H (3.8-10.6) k/uL Hgb 8.6 L (11.4-16.0) gm/dL Hct 29.8 L (34.0-46.0) % MCV 74.3 L (80.0-100.0) fL MCH 21.5 L (25.0-35.0) pg MCHC 29.0 L (31.0-37.0) g/dL RDW 17.0 H (11.5-15.5) % Plt Count 465 H (150-450) k/uL Neutrophils # 14.6 H (1.3-7.7) k/uL Chloride 108 H (98-107) mmol/L Carbon Dioxide 18 L (22-30) mmol/L BUN 30 H (7-17) mg/dL Creatinine 3.20 H (0.52-1.04) mg/dL POC Glucose (mg/dL) 116 H (75-99) mg/dL Hemoglobin A1c (4.0-6.0) % Calcium 7.6 L (8.4-10.2) mg/dL Iron (50-170) ug/dL TIBC (228-460) ug/dL Iron Saturation (12.00-45.00) Total Protein 4.5 L (6.3-8.2) g/dL Albumin 2.3 L (3.5-5.0) g/dL Vitamin B12 (200.0-944.0) pg/mL 07/01/17 Range/Units 07:20 WBC (3.8-10.6) k/uL Hgb (11.4-16.0) gm/dL Hct (34.0-46.0) % MCV (80.0-100.0) fL MCH (25.0-35.0) pg MCHC (31.0-37.0) g/dL RDW (11.5-15.5) % Plt Count (150-450) k/uL Neutrophils # (1.3-7.7) k/uL Chloride (98-107) mmol/L Carbon Dioxide (22-30) mmol/L BUN (7-17) mg/dL Creatinine (0.52-1.04) mg/dL POC Glucose (mg/dL) 102 H (75-99) mg/dL Hemoglobin A1c (4.0-6.0) % Calcium (8.4-10.2) mg/dL Iron (50-170) ug/dL TIBC (228-460) ug/dL Iron Saturation (12.00-45.00) Total Protein (6.3-8.2) g/dL Albumin (3.5-5.0) g/dL Vitamin B12 (200.0-944.0) pg/mL Microbiology - Last 24 Hours (Table) 06/29/17 06:00 Blood Culture - Preliminary Blood No Growth after 48 hours 06/29/17 16:56 Gram Stain - Preliminary Abdomen Wound Culture - Preliminary Gram Neg Bacilli Assessment and Plan Assessment: Impression Present on admission right lateral abdominal wall pain suspect due to abscess extending into the anterior wall Present on admission leukocytosis suspect due to abdominal wall abscess Severe electrolyte abnormality hypokalemia A recent hospitalization with a procedure done May 26 robotic-assisted laparoscopic incisional hernia repair with mesh Osteoarthritis Chronic lower back pain Esophageal reflux symptoms History of prior abdominal hematoma unclear etiology Infected hematoma with extension intraperitoneally, extension of of abscess into the peritoneal cavity as well as questionable interloop abscesses and pelvic abscess Exploratory laparotomy drainage of intraperitoneal abscess, resection of infected mesh, running of the small bowel no interloop abscesses however phlegmon on the distal terminal ileum and purulent fluid in the pelvis, right rectus infected hematoma area drained done on June Postop acute blood loss anemia necessitating 1 unit of packed red blood cells Acute renal failure suspect due to hypovolemia plan Continue postop surgical care IV fluids per nephrology Increase activity as tolerated Monitor electrolytes keep therapeutic Monitor urine output will keep indwelling Demarco catheter in for now Pain control DVT and GI prophylaxis Repeat labs in the morning Continue IV antibiotics per infectious disease Dictated for Dr. Hyatt The above impression and plan of care have been discussed and directed by signing physician. Gill Allen nurse practitioner acting as scribe for signing physician.
[2017-07-01] MEDS: CHOLECALCIFEROL 1,000 UNIT TAB PO SCH (14:33)
--- NOTE | 2017-07-01 16:37 | CDI ---
Last Revision, February 2017 Documentation Clarification Form Date: 07/01/2017 From: Padmini Hannah CCS, CCDS Admit Date: 06/29/2017 7:30:00 AM Patient Name: Kathy Tate Visit Number: [id number] Discharge Date: ATTENTION: The Clinical Documentation Specialists (CDI) and [facility] Coding Staff appreciate your assistance in clarifying documentation. Please respond to the clarification below the line at the bottom and electronically sign. The CDI & [facility] Coding staff will review the response and follow-up if needed. Please note: Queries are made part of the Legal Health Record. If you have any questions, please contact the author of this message via ITS. Dr. Denice Echavarria: Per the 06/30 attending progress note: "Postop acute blood loss anemia necessitating 1 unit of packed red blood cells." Patients Admitting Diagnosis: Abdominal wall abscess and hematoma Post-Operative Diagnosis: Infected hematoma with extension intraperitoneally, extension of abscess into the peritoneal cavity as well as questionable interloop abscesses & pelvic abscess. Procedure performed: Exploratory laparotomy, drainage of intraperitoneal abscess, resection of infected mesh. History/Risk Factors: DM, GERD, Anemia, Hypertension. Previous abdominal surgeries: Appy, Cholecystectomy, recent hernia repair. Clinical Indicators: LAB: Hgb on admit 9.5, drop to 7.3 on POD #2. Treatment: Surgery as above, IV fluid boluses, blood transfusion of 1 unit PRBCs, IV Ms, IV Zosyn, IV Vanco, IV Lasix. Consults: Infectious Disease, Hematology/Oncology, Medical Management. In order to accurately reflect this patients severity of illness, please clarify if the post-operative diagnosis of Acute Blood Loss Anemia is: An expected post-procedural or post-surgical condition; Integral to the procedure; Inherent to the procedure; An unexpected post-procedural or post-surgical condition related to surgical care; Other, please specify Unable to determine Please continue to document in your progress notes and discharge summary in order to capture severity of illness and risk of mortality. Include clinical findings that support your diagnosis. This was expected secondary to the patients pre-operative medical condition. She was dehydrated so with her hydration her HBG was lower than per-op reflected. This was an expected post-procedural condition. MIKI
--- NOTE | 2017-07-01 16:47 | CDI ---
Last Revision, February 2017 Documentation Clarification Form Date: 07/01/2017 From: Padmini Hannah CCS, CCDS Admit Date: 06/29/2017 7:30:00 AM Patient Name: Kathy Tate Visit Number: [id number] Discharge Date: ATTENTION: The Clinical Documentation Specialists (CDI) and [facility] Coding Staff appreciate your assistance in clarifying documentation. Please respond to the clarification below the line at the bottom and electronically sign. The CDI & [facility] Coding staff will review the response and follow-up if needed. Please note: Queries are made part of the Legal Health Record. If you have any questions, please contact the author of this message via ITS. Dr. Myranda Parsons: Per the 06/30 medical management progress note: " Hypotensive, worsening renal function with low urine output receiving third liter of IV fluid bolus." Patients Admitting Diagnosis: Infected hematoma with extension intraperitoneally, extension of abscess into the peritoneal cavity as well as questionable interloop abscesses and pelvic abscess. Post-Operative Diagnosis: Same without interloop abscesses & pelvic abscesses. Procedure performed: Exploratory laparotomy, drainage of intraperitoneal abscess, resection of infected mesh. History/Risk Factors: Hypertension, DM, recent hernia surgery. Clinical Indicators: BP 109/57, 98/55, 100/54 Treatment: IV fluid boluses x3, IV fl rate 100, blood transfusion, low hgb 1 unit PRBCs, IV abx. In order to accurately reflect this patients severity of illness, please clarify if the post-operative diagnosis of hypotension is: An expected post-procedural or post-surgical condition; Integral to the procedure; Inherent to the procedure; An unexpected post-procedural or post-surgical condition related to surgical care; Other, please specify Unable to determine Please continue to document in your progress notes and discharge summary in order to capture severity of illness and risk of mortality. Include clinical findings that support your diagnosis. MTDD
[2017-07-01 17:27] LABS: Glucose,Whole Blood 92 mg/dL (75-99)
--- NOTE | 2017-07-01 18:47 | P.PN ---
Subjective Progress Note Date: 07/01/17 Progress note being dictated for Dr. Parsons. Interval history: Patient came in with complaints of right-sided severe abdominal pain sharp in nature and nonradiating found to have abscess in that area are a hematoma and which was infected patient had a recent laparoscopic robotic-assisted repair of incisional hernia was subsequently discharged home did well started having severe pain in that area along with chills. Patient is found to have fluid collection in the rectal sheath extending into the anterior abdominal wall and thickening of the ascending colon with diverticulosis. Patient was started on Vanco mycin Zosyn which is appropriate 06/30/2017 status post exploratory laparotomy drainage of intraperitoneal abscess resection of an infected mesh, purulent pelvis fluid with drainage of right rectus infected hematoma area. Maintained on IV antibiotics. Hemoglobin dropped to 7.3, symptomatic, receiving one unit of packed RBCs. Hypotensive, worsening renal function with low urine output receiving third liter of IV fluid bolus. Currently denying chest pain, palpitations, shortness of breath. Denies lightheadedness or dizziness. T-max 99.1, WBC 20.4. 07/01/2017 blood pressure improved, urine output increased with 180 mL's overnight. Renal function worsening, up to 3.2. Evaluated by nephrology with recommendations noted. Receive 1 unit of packed RBCs yesterday with hemoglobin up to 8.6. Afebrile, WBC trending down. maintaining O2 sats of mid to high 90s on room air. Tolerating clear liquid diet with no nausea, vomiting or diarrhea. Passing flatus, burping. Blood sugars controlled. Denies abdominal pain, states she is experiencing a"stinging sensation". Maintained on IV antibiotics as per infectious disease. Objective - Vital Signs Vital signs: Vital Signs Temp 98.8 F 07/01/17 14:35 Pulse 82 07/01/17 14:35 Resp 20 07/01/17 14:35 BP 126/61 07/01/17 14:35 Pulse Ox 95 07/01/17 14:35 Intake & Output 06/30/17 07/01/17 07/01/17 18:59 06:59 18:59 Intake Total 2310 2518 1260 Output Total 75 170 60 Balance 2235 2348 1200 Intake: Intake, IV Titration 2000 1600 600 Amount Sodium Chloride 0.9% 1, 800 000 ml @ 100 mls/hr IV . Q10H [facility] Rx#:[id number] Sodium Chloride 0.9% 1, 800 600 000 ml @ 100 mls/hr IV . Q10H [facility] Rx#:[id number] Sodium Chloride 0.9% 1, 2000 000 ml @ 999 mls/hr IV . Q1H1M [facility] Rx#:[id number] Oral 868 660 Blood Product 310 50 Rc As-1 Unit 310 [id number] Output: Urine 75 170 60 Uretheral (Demarco) 75 Other: Voiding Method Indwelling Catheter Indwelling Catheter Indwelling Catheter - Exam GENERAL: The patient is alert and oriented x3, sitting up in chair, no acute distress HEENT: Pupils are round and equally reacting to light. EOMI. No scleral icterus. No conjunctival pallor. Normocephalic, atraumatic. CARDIOVASCULAR: S1 and S2 present. No murmurs, rubs, or gallops. PULMONARY: Chest is clear to auscultation, no wheezing or crackles. ABDOMEN: Soft, nontender, nondistended, hypoactive bowel sounds. Status post surgery; dressing , [place] drain with an abdominal binder present, clean dry and intact. MUSCULOSKELETAL: No joint swelling or deformity. EXTREMITIES: No cyanosis, clubbing, or pedal edema. NEUROLOGICAL: Gross neurological examination did not reveal any focal deficits. SKIN: No rashes. - Labs CBC & Chem 7: 07/01/17 06:31 07/01/17 06:31 Labs: Abnormal Lab Results - Last 24 Hours (Table) 06/30/17 06/30/17 06/30/17 Range/Units 06:39 06:39 20:02 WBC (3.8-10.6) k/uL Hgb (11.4-16.0) gm/dL Hct (34.0-46.0) % MCV (80.0-100.0) fL MCH (25.0-35.0) pg MCHC (31.0-37.0) g/dL RDW (11.5-15.5) % Plt Count (150-450) k/uL Neutrophils # (1.3-7.7) k/uL Chloride (98-107) mmol/L Carbon Dioxide (22-30) mmol/L BUN (7-17) mg/dL Creatinine (0.52-1.04) mg/dL POC Glucose (mg/dL) 116 H (75-99) mg/dL Hemoglobin A1c 6.9 H (4.0-6.0) % Calcium (8.4-10.2) mg/dL Iron 7 L (50-170) ug/dL TIBC 197 L (228-460) ug/dL Iron Saturation 3.55 L (12.00-45.00) Total Protein (6.3-8.2) g/dL Albumin (3.5-5.0) g/dL Vitamin B12 1273.0 H (200.0-944.0) pg/mL 07/01/17 07/01/17 07/01/17 Range/Units 06:31 06:31 07:20 WBC 17.0 H (3.8-10.6) k/uL Hgb 8.6 L (11.4-16.0) gm/dL Hct 29.8 L (34.0-46.0) % MCV 74.3 L (80.0-100.0) fL MCH 21.5 L (25.0-35.0) pg MCHC 29.0 L (31.0-37.0) g/dL RDW 17.0 H (11.5-15.5) % Plt Count 465 H (150-450) k/uL Neutrophils # 14.6 H (1.3-7.7) k/uL Chloride 108 H (98-107) mmol/L Carbon Dioxide 18 L (22-30) mmol/L BUN 30 H (7-17) mg/dL Creatinine 3.20 H (0.52-1.04) mg/dL POC Glucose (mg/dL) 102 H (75-99) mg/dL Hemoglobin A1c (4.0-6.0) % Calcium 7.6 L (8.4-10.2) mg/dL Iron (50-170) ug/dL TIBC (228-460) ug/dL Iron Saturation (12.00-45.00) Total Protein 4.5 L (6.3-8.2) g/dL Albumin 2.3 L (3.5-5.0) g/dL Vitamin B12 (200.0-944.0) pg/mL Microbiology - Last 24 Hours (Table) 06/29/17 06:00 Blood Culture - Preliminary Blood No Growth after 48 hours 06/29/17 16:56 Gram Stain - Preliminary Abdomen Wound Culture - Preliminary Gram Neg Bacilli Assessment and Plan Assessment: -Possible right femoral abdominal wall abscess or hematoma that is infected: Status post exploratory laparotomy with resection of infected mesh and drainage of infected , abscess,hematoma evacuation of peritoneal cavity as mentioned above-referred to surgeons note. -Hypertension hold off on the antihypertensives medications as her blood pressure is on the low normal side and that is possibly due to sepsis -Chronic low back pain -Gastroesophageal reflux disease -Hyperlipidemia next -Acute postoperative blood loss anemia, status post transfusion 1 unit of packed RBCs -Acute renal failure secondary to ATN secondary to hypotension, anemia -Metabolic acidosis secondary to acute kidney injury Plan: Continue on current medication regime , oral sodium bicarb, monitoring and symptomatic treatment. IV fluid hydration as per nephrology in addition to a dose of Lasix .Close monitoring of renal function. antibiotics as per ID. Pain management as per surgery. Aggressive pulmonary toileting. The impression and plan of care has been dictated as directed. : I performed a history and examination of this patient, discussed the same with the dictator. I agree with the dictator's note ,documented as a scribe. Any additional findings or plans will be noted.
[2017-07-01 19:52] LABS: Glucose,Whole Blood 108 mg/dL (75-99)
[2017-07-01] MEDS: ATORVASTATIN 10 MG TAB PO SCH (20:37)
--- NOTE | 2017-07-01 23:08 | P.PN ---
Subjective Progress Note Date: 07/01/17 Principal diagnosis: abdominal pain This is a 72-year-old female patient gives history of having an abdominal wall abscess on the right side for which she was treated at [facility] in October 2016. The ER physician did an incision and drainage and widen the draining track with a scalpel and placed iodoform gauze. There was purulent material at that time. Patient states that this eventually healed and in April she was having increased right-sided abdominal pain and her PCP sent her to [facility] for an ultrasound that showed a possible hematoma on the right upper quadrant. She was then sent to Dr. Hancock for further evaluation. Because of anemia, patient underwent an upper and lower endoscopy with Dr. Hancock on May 20 that found no signs of bleeding. She subsequently underwent a hernia repair at the site of the previous hematoma or abscess from October [address] Hancock and this was done on 05/26/2017. This was located in the mid upper abdomen. She states she continued to have right-sided abdominal pain, chills and hot feeling, decreased appetite with possible weight loss and nausea. She saw Dr. Hancock yesterday and she up for outpatient computed tomography scan but she states that after he pressed on her abdomen her pain got significant only worse last evening and she came into [facility] for evaluation. She underwent a CAT scan of the abdomen and pelvis which revealed marked interval worsening of a right rectus sheath fluid collection which now extends into the anterior abdominal wall. Differential includes hematoma, abscess with stromal felt less likely. Mild wall thickening within the ascending and transverse colon is nonspecific but may represent colitis. Extensive diverticulosis with mild adjacent nonspecific fluid in the pelvis limits evaluation for potential diverticulitis. Mild atelectasis or less likely pneumonia in the left lung base. Large hiatal hernia. This CAT scan was compared to one done in September 2016. Patient is now admitted under the care of Dr. Vinny Godwin and is scheduled for I&D and washout this afternoon. Patient presented with a white count of 26.4, lactic acid 3.3 and repeat 1.7, afebrile, creatinine 0.6. Mild elevation of liver function tests with AST of 63, ALT 75, alkaline phosphatase 156. Urinalysis was cloudy with nitrate and leukoesterase negative and bacteria many. Patient denies any urinary pain or frequency or urgency. She also denies having any blood in her stools. 06/30/2017 reveals the patient to be postoperative and feeling slightly better. However she is now having difficulties with urinary output. Despite 3 L of fluid and blood transfusion she continues to have poor urinary output. She had a bladder scan that only showed 12 mL of fluid. Her abdominal pain is improving. She tolerated a clear liquid diet with no difficulties. 07/01/2017 patient is postoperative and feeling better. Pain is under good control. She continues to have poor urinary output but has had at least some urine output today. She is comfortable. Denies shortness of breath. Wound culture showed evidence of gram-negative bacilli only and vancomycin therapy was discontinued yesterday. Objective - Vital Signs Vital signs: Vital Signs Temp 98.5 F 07/01/17 19:21 Pulse 80 07/01/17 19:21 Resp 18 07/01/17 19:21 BP 128/90 07/01/17 19:21 Pulse Ox 95 07/01/17 19:21 Intake & Output 07/01/17 07/01/17 07/02/17 06:59 18:59 06:59 Intake Total 2518 1260 420 Output Total 170 60 200 Balance 2348 1200 220 Intake: Intake, IV Titration 1600 600 300 Amount Sodium Chloride 0.9% 1, 800 000 ml @ 100 mls/hr IV . Q10H [facility] Rx#:[id number] Sodium Chloride 0.9% 1, 800 600 300 000 ml @ 100 mls/hr IV . Q10H [facility] Rx#:[id number] Oral 868 660 120 Blood Product 50 Output: Urine 170 60 200 Other: Voiding Method Indwelling Catheter Indwelling Catheter Indwelling Catheter - Exam Gen: This is a 72-year-old female patient. She is in bed and appears to be comfortable and in no acute distress. HEENT: Head is atraumatic, normocephalic. Pupils equal, round. Sclerae is anicteric. Conjunctiva pink. Mucous members of the mouth are dry. NECK: Supple. No JVD. No lymphadenopathy. No thyromegaly. LUNGS: Clear to auscultation. No wheezes or rhonchi. No intercostal retractions. HEART: Regular rate and rhythm. No murmur. ABDOMEN:few bowel sounds are heard there is a surgical incision that is having drainage of serosanginous material on the dressing the abdomen is tender to palpation EXTREMITIES: No pedal edema. No calf tenderness. Dorsalis pedis +2 bilaterally. NEUROLOGICAL: Patient is awake, alert and oriented x3 - Labs CBC & Chem 7: 07/01/17 06:31 07/01/17 06:31 Labs: Abnormal Lab Results - Last 24 Hours (Table) 06/30/17 06/30/17 07/01/17 Range/Units 06:39 06:39 06:31 WBC (3.8-10.6) k/uL Hgb (11.4-16.0) gm/dL Hct (34.0-46.0) % MCV (80.0-100.0) fL MCH (25.0-35.0) pg MCHC (31.0-37.0) g/dL RDW (11.5-15.5) % Plt Count (150-450) k/uL Neutrophils # (1.3-7.7) k/uL Chloride 108 H (98-107) mmol/L Carbon Dioxide 18 L (22-30) mmol/L BUN 30 H (7-17) mg/dL Creatinine 3.20 H (0.52-1.04) mg/dL POC Glucose (mg/dL) (75-99) mg/dL Hemoglobin A1c 6.9 H (4.0-6.0) % Calcium 7.6 L (8.4-10.2) mg/dL Iron 7 L (50-170) ug/dL TIBC 197 L (228-460) ug/dL Iron Saturation 3.55 L (12.00-45.00) Total Protein 4.5 L (6.3-8.2) g/dL Albumin 2.3 L (3.5-5.0) g/dL Vitamin B12 1273.0 H (200.0-944.0) pg/mL 07/01/17 07/01/17 07/01/17 Range/Units 06:31 07:20 19:50 WBC 17.0 H (3.8-10.6) k/uL Hgb 8.6 L (11.4-16.0) gm/dL Hct 29.8 L (34.0-46.0) % MCV 74.3 L (80.0-100.0) fL MCH 21.5 L (25.0-35.0) pg MCHC 29.0 L (31.0-37.0) g/dL RDW 17.0 H (11.5-15.5) % Plt Count 465 H (150-450) k/uL Neutrophils # 14.6 H (1.3-7.7) k/uL Chloride (98-107) mmol/L Carbon Dioxide (22-30) mmol/L BUN (7-17) mg/dL Creatinine (0.52-1.04) mg/dL POC Glucose (mg/dL) 102 H 108 H (75-99) mg/dL Hemoglobin A1c (4.0-6.0) % Calcium (8.4-10.2) mg/dL Iron (50-170) ug/dL TIBC (228-460) ug/dL Iron Saturation (12.00-45.00) Total Protein (6.3-8.2) g/dL Albumin (3.5-5.0) g/dL Vitamin B12 (200.0-944.0) pg/mL Microbiology - Last 24 Hours (Table) 06/29/17 16:56 Gram Stain - Final Abdomen Wound Culture - Final Proteus mirabilis 06/29/17 06:00 Blood Culture - Preliminary Blood No Growth after 48 hours Assessment and Plan (1) Abdominal pain Current Visit: Yes Status: Acute Priority: High Code(s): R10.9 - UNSPECIFIED ABDOMINAL PAIN SNOMED Code(s): 56750189 (2) Acute blood loss anemia Current Visit: Yes Status: Acute Priority: High Code(s): D62 - ACUTE POSTHEMORRHAGIC ANEMIA SNOMED Code(s): 927250692 (3) Abdominal wall abscess Narrative/Plan: 72 year old woman staus post drainage of the intra-abdominal abscess. It is apparently outside of the peritoneum, and hopefully with incision and drainage will allow this to resolve rapidly. Cultures will further help direct antibiotic therapy, utilizing Zosyn and vancomycin for now pending further culture data. 06/30/2017 reveals the patient to be postoperative in feeling somewhat better. However she's now developed very low urinary output concerns to renal failure. Wound culture showing evidence of gram-negative bacilli. Vancomycin therapy is discontinued. Acute tubular necrosis is of concern given her sepsis at admission, gram-negative in nature. Cultures will help direct the final course of antibiotic therapy. Should be able to further help direct wound therapy once her some further improvement to the postoperative wound also. Nephrology is following. Further diuertic therapy is being given to see if she will respond especially since she's been given fluids and blood. Patient and family are reassured. 07/01/2017 patient is feeling relatively well. She is not having much pain and when she does oral pain medication and is tolerating this well. She does have poor urinary output and she has evidence of acute renal failure that as per nephrology is multifactorial. We'll culture has gram-negative bacilli only and that was evident the vancomycin therapy was discontinued, however with her acute renal failure she continues to have therapeutic level but no further doses are planned. She's received hydration and diuretic therapy awaiting a response. She clinically has an ATN and may require renal replacement therapy. Current Visit: Yes Status: Acute Code(s): L02.211 - CUTANEOUS ABSCESS OF ABDOMINAL WALL SNOMED Code(s): 21806874
[2017-07-02] MEDS: SODIUM CHLORIDE 0.9% 1,000 ML IV SCH ×2 (00:22→02:59)
[2017-07-02 06:51] LABS: Glucose,Whole Blood 97 mg/dL (75-99)
[2017-07-02 07:49] LABS: Anisocytosis Slight; Basophils % (A) 0 %; Eosinophils # (A) 0.5 k/uL (0-0.7); Eosinophils % (A) 3 %; HCT 29.7 % (34.0-46.0); HGB 8.7 gm/dL (11.4-16.0); Hypochromasia Marked; Lymphocytes # (A) 1.3 k/uL (1.0-4.8); Lymphocytes % (A) 8 %; MCH 21.6 pg (25.0-35.0); MCHC 29.3 g/dL (31.0-37.0); MCV 73.8 fL (80.0-100.0); Mean Platelet Volume 6.5; Microcytosis Moderate; Monocytes # (A) 0.4 k/uL (0-1.0); Monocytes % (A) 3 %; Neutrophils # (A) 13.1 k/uL (1.3-7.7); Neutrophils % (A) 85 %; Platelet Count 535 k/uL (150-450); Poikilocytosis Slight; RBC 4.03 m/uL (3.80-5.40); RDW 17.4 % (11.5-15.5); WBC 15.4 k/uL (3.8-10.6)
[2017-07-02] MEDS: INSULIN ASPART 100 UNIT/ML 1 ML 10 ML VIAL SQ SCH ×4 (07:50→22:01)
[2017-07-02] MEDS: HEPARIN SODIUM,PORCINE 5,000 UNIT/ML 1 ML VIAL SQ SCH ×2 (07:53→18:05)
[2017-07-02] MEDS: NYSTATIN 100,000 UNIT/ML SUSP 500,000 UNIT/5 ML CUP PO SCH ×4 (07:54→22:00)
[2017-07-02] MEDS: PANTOPRAZOLE 40 MG/10 ML VIAL IV SCH ×2 (07:54→08:07)
[2017-07-02] MEDS: DOCUSATE 100 MG CAP PO SCH ×2 (07:54→22:00)
[2017-07-02] MEDS: SODIUM BICARBONATE TAB 650 MG TAB PO SCH ×2 (07:55→22:00)
[2017-07-02] MEDS: CHOLECALCIFEROL 1,000 UNIT TAB PO SCH (07:55)
[2017-07-02 08:05] LABS: Albumin 2.3 g/dL (3.5-5.0); Calcium 7.8 mg/dL (8.4-10.2); Potassium 4.1 mmol/L (3.5-5.1); Total Bilirubin 0.4 mg/dL (0.2-1.3); Total Protein 4.5 g/dL (6.3-8.2)
[2017-07-02 08:10] LABS: Vancomycin,Random 26.9 ug/mL
[2017-07-02] MEDS: PIPERACILLIN-TAZOBACTAM 3.375 GM in DEXTROSE/WATER 1 50ML.BAG IVPB SCH ×2 (08:10→22:00)
--- NOTE | 2017-07-02 11:07 | P.PN ---
Subjective Patient is seen in follow-up for acute kidney injury. Renal function is worsening with creatinine up to 4.7 today. She did receive 80 mg of IV Lasix yesterday with no significant response in her urine output. Urine output overnight was less than 200 mL. Patient is awake and alert. Denies any nausea or vomiting. She has a Demarco catheter in place. Hemodynamically stable. Vital signs are stable. General: The patient appeared well nourished and normally developed. HEENT: Head exam is unremarkable. Neck is without jugular venous distension. LUNGS: Lungs are clear to auscultation and percussion. Breath sounds decreased. HEART: Rate and Rhythm are regular. First and second heart sounds normal. No murmurs, rubs or gallops. ABDOMEN: Abdominal exam reveals normal bowel sounds. Non-tender and non- distended. No evidence of peritonitis. EXTREMITITES: No clubbing, cyanosis, or edema. Objective - Vital Signs Vital signs: Vital Signs Temp 97.9 F 07/02/17 00:04 Pulse 78 07/02/17 00:04 Resp 18 07/02/17 00:04 BP 120/87 07/02/17 00:04 Pulse Ox 95 07/02/17 00:04 Intake & Output 07/01/17 07/02/17 07/02/17 18:59 06:59 18:59 Intake Total 1260 480 Output Total 60 300 Balance 1200 180 Intake: Intake, IV Titration 600 300 Amount Sodium Chloride 0.9% 1, 600 300 000 ml @ 75 mls/hr IV . [id number] [facility] Rx#:[id number] Oral 660 180 Output: Urine 60 300 Other: Voiding Method Indwelling Catheter Indwelling Catheter - Labs CBC & Chem 7: 07/02/17 06:24 07/02/17 06:24 Labs: Abnormal Lab Results - Last 24 Hours (Table) 07/01/17 07/02/17 07/02/17 Range/Units 19:50 06:24 06:24 WBC 15.4 H (3.8-10.6) k/uL Hgb 8.7 L (11.4-16.0) gm/dL Hct 29.7 L (34.0-46.0) % MCV 73.8 L (80.0-100.0) fL MCH 21.6 L (25.0-35.0) pg MCHC 29.3 L (31.0-37.0) g/dL RDW 17.4 H (11.5-15.5) % Plt Count 535 H (150-450) k/uL Neutrophils # 13.1 H (1.3-7.7) k/uL Carbon Dioxide 13 L (22-30) mmol/L BUN 35 H (7-17) mg/dL Creatinine 4.70 H (0.52-1.04) mg/dL POC Glucose (mg/dL) 108 H (75-99) mg/dL Calcium 7.8 L (8.4-10.2) mg/dL Total Protein 4.5 L (6.3-8.2) g/dL Albumin 2.3 L (3.5-5.0) g/dL Microbiology - Last 24 Hours (Table) 06/29/17 06:00 Blood Culture - Preliminary Blood No Growth after 72 hours 06/29/17 16:56 Gram Stain - Final Abdomen Wound Culture - Final Proteus mirabilis Assessment and Plan Plan: Assessment: #1. Oliguric acute kidney injury secondary to ischemic ATN secondary to hypotension, anemia and use of nonsteroidals. Vancomycin level also high at 28.8 as of July 01 and is 26.9 today. Baseline creatinine 0.6 and up to 4.7 today. Urinalysis is quite benign. No evidence of hydronephrosis noted on CAT scan on admission. #2. Status post exploratory laparotomy with hematoma evacuation and drainage of abscess on June 29. #3. Hypotension currently maintained on IV fluids. Blood pressure now in the systolic 120s. #4. Acute blood loss anemia status post blood transfusion. Hemoglobin 8.7 today. #5. Metabolic acidosis secondary to acute kidney injury and IV fluids. Bicarb level down to 13 today. Plan: Discontinue normal saline. Start isotonic sodium bicarbonate drip to be run at 75 mL an hour. Status post 80 mg IV Lasix on July 01. Discontinued Toradol. Avoid NSAIDs in general. Monitor vancomycin levels. Dose to be adjusted for renal function. Continue to monitor renal function and urine output. No urgent need for renal replacement therapy at this time. Will continue to assess on day-to-day basis.
[2017-07-02 11:12] LABS: Glucose,Whole Blood 133 mg/dL (75-99)
--- NOTE | 2017-07-02 11:13 | CDI ---
Last Revision, February 2017 Documentation Clarification Form Date: 07/01/2017 Resubmitted 07/02/2017 11:11 From: Padmini Hannah Admit Date: 06/29/2017 7:30:00 AM Patient Name: Kathy Tate Visit Number: [id number] Discharge Date: ATTENTION: The Clinical Documentation Specialists (CDI) and [facility] Coding Staff appreciate your assistance in clarifying documentation. Please respond to the clarification below the line at the bottom and electronically sign. The CDI & [facility] Coding staff will review the response and follow-up if needed. Please note: Queries are made part of the Legal Health Record. If you have any questions, please contact the author of this message via ITS. Dr. Myranda Parsons: Per the 06/30 medical management progress note: " Hypotensive, worsening renal function with low urine output receiving third liter of IV fluid bolus." Patients Admitting Diagnosis: Infected hematoma with extension intraperitoneally, extension of of abscess into the peritoneal cavity as well as questionable interloop abscesses and pelvic abscess. Post-Operative Diagnosis: Same without interloop abscesses & pelvic abscesses. Procedure performed: Expl laparotomy, drainage of intraperitoneal abscess, resection of infected mesh. History/Risk Factors: Hypertension, DM, recent hernia surgery. Clinical Indicators: BP 109/57, 98/55, 100/54 Treatment: IV fluid boluses x3, IV fluid rate 100, blood transfusion for low hgb 1 unit PRBCs, IV abx. In order to accurately reflect this patients severity of illness, please clarify if the post-operative diagnosis of hypotension is: An expected post-procedural or post-surgical condition; Integral to the procedure; Inherent to the procedure; An unexpected post-procedural or post-surgical condition related to surgical care; Other, please specify Unable to determine Please continue to document in your progress notes and discharge summary in order to capture severity of illness and risk of mortality. Include clinical findings that support your diagnosis. An expected post-procedural condition given the patients dehydration and sepsis. MTDD
--- NOTE | 2017-07-02 11:15 | CDI ---
Last Revision, February 2017 Documentation Clarification Form Date: 07/01/2017 Resubmitted 07/02/2017 11:13:00 From: Padmini Hannah Admit Date: 06/29/2017 7:30:00 AM Patient Name: Kathy Tate Visit Number: [id number] Discharge Date: ATTENTION: The Clinical Documentation Specialists (CDI) and [facility] Coding Staff appreciate your assistance in clarifying documentation. Please respond to the clarification below the line at the bottom and electronically sign. The CDI & [facility] Coding staff will review the response and follow-up if needed. Please note: Queries are made part of the Legal Health Record. If you have any questions, please contact the author of this message via ITS. Dr. Denice Echavarria: Per the 06/30 attending progress note: "Postop acute blood loss anemia necessitating 1 unit of packed red blood cells." Patients Admitting Diagnosis: Abdominal wall abscess and hematoma Post-Operative Diagnosis: Infected hematoma with extension intraperitoneally, extension of abscess into the peritoneal cavity as well as questionable interloop abscesses & pelvic abscess. Procedure performed: Exploratory laparotomy, drainage of intraperitoneal abscess, resection of infected mesh. History/Risk Factors: DM, GERD, Anemia, Hypertension. Previous abdominal surgeries: Appy, Cholecystectomy, recent hernia repair. Clinical Indicators: LAB: Hgb on admit 9.5, drop to 7.3 on POD #2. Treatment: Surgery as above, IV fluid boluses, blood transfusion of 1 unit PRBCs, IV Ms, IV Zosyn, IV Vanco, IV Lasix. Consults: Infectious Disease, Hematology/Oncology, Medical Management. In order to accurately reflect this patients severity of illness, please clarify if the post-operative diagnosis of Acute Blood Loss Anemia is: An expected post-procedural or post-surgical condition; Integral to the procedure; Inherent to the procedure; An unexpected post-procedural or post-surgical condition related to surgical care; Other, please specify Unable to determine Please continue to document in your progress notes and discharge summary in order to capture severity of illness and risk of mortality. Include clinical findings that support your diagnosis. Already answered. MIKI
[2017-07-02] MEDS: DEXTROSE 5% IN WATER 1,000 ML with SODIUM BICARB (1 MEQ/ML) 150 ML IV SCH (13:17)
--- NOTE | 2017-07-02 13:39 | P.PN ---
Subjective Progress Note Date: 07/02/17 9-year-old female seen at the bedside. Currently sitting up in a chair. Patient states pain medication effective for pain control. Denying any dizziness lightheadedness. Reports no nausea vomiting. Indwelling Demarco catheter in place did note the creatinine is up to 4.7 this morning had been 3.2 the day before being followed by nephrology service hemodynamically stable afebrile the white count down to 15.4 Postop June 29 exploratory laparotomy drainage of intraperitoneal abscess resection of infected mesh phlegm on the distal terminal ileum and.purulent fluid in the pelvis , right rectus infected hematoma area drained. Objective - Vital Signs Vital signs: Vital Signs Temp 97.9 F 07/02/17 07:00 Pulse 89 07/02/17 07:00 Resp 18 07/02/17 00:04 BP 125/75 07/02/17 07:00 Pulse Ox 94 L 07/02/17 07:00 Intake & Output 07/01/17 07/02/17 07/02/17 18:59 06:59 18:59 Intake Total 1260 480 250 Output Total 60 300 Balance 1200 180 250 Weight 77.111 kg Intake: Intake, IV Titration 600 300 Amount Sodium Chloride 0.9% 1, 600 300 000 ml @ 75 mls/hr IV . [id number] [facility] Rx#:[id number] Oral 660 180 250 Output: Urine 60 300 Other: Voiding Method Indwelling Catheter Indwelling Catheter Indwelling Catheter - Exam Physical exam 72-year-old female up in a chair denies dizziness lightheadedness states did ambulate in the hallway this morning Lungs adequate air movement bilaterally sats are 97% 2 L no shortness of breath Heart S1-S2 audible regular denying chest pain heart rate in the 70s Abdomen nondistended hypoactive bowel tones surgical dressing sites dry abdominal binder in place mild surgical tenderness indwelling Demarco catheter in place denying any nausea or vomiting abdominal binder removed surgical incision site inspected Lyudmila drain distal incision site intact reports no stool passing gas Extremities Venodyne's on to the bilateral lower extremities - Labs CBC & Chem 7: 07/02/17 06:24 07/02/17 06:24 Labs: Abnormal Lab Results - Last 24 Hours (Table) 07/01/17 07/02/17 07/02/17 Range/Units 19:50 06:24 06:24 WBC 15.4 H (3.8-10.6) k/uL Hgb 8.7 L (11.4-16.0) gm/dL Hct 29.7 L (34.0-46.0) % MCV 73.8 L (80.0-100.0) fL MCH 21.6 L (25.0-35.0) pg MCHC 29.3 L (31.0-37.0) g/dL RDW 17.4 H (11.5-15.5) % Plt Count 535 H (150-450) k/uL Neutrophils # 13.1 H (1.3-7.7) k/uL Carbon Dioxide 13 L (22-30) mmol/L BUN 35 H (7-17) mg/dL Creatinine 4.70 H (0.52-1.04) mg/dL POC Glucose (mg/dL) 108 H (75-99) mg/dL Calcium 7.8 L (8.4-10.2) mg/dL Total Protein 4.5 L (6.3-8.2) g/dL Albumin 2.3 L (3.5-5.0) g/dL 07/02/17 Range/Units 11:10 WBC (3.8-10.6) k/uL Hgb (11.4-16.0) gm/dL Hct (34.0-46.0) % MCV (80.0-100.0) fL MCH (25.0-35.0) pg MCHC (31.0-37.0) g/dL RDW (11.5-15.5) % Plt Count (150-450) k/uL Neutrophils # (1.3-7.7) k/uL Carbon Dioxide (22-30) mmol/L BUN (7-17) mg/dL Creatinine (0.52-1.04) mg/dL POC Glucose (mg/dL) 133 H (75-99) mg/dL Calcium (8.4-10.2) mg/dL Total Protein (6.3-8.2) g/dL Albumin (3.5-5.0) g/dL Microbiology - Last 24 Hours (Table) 06/29/17 06:00 Blood Culture - Preliminary Blood No Growth after 72 hours 06/29/17 16:56 Gram Stain - Final Abdomen Wound Culture - Final Proteus mirabilis Assessment and Plan Assessment: Impression Present on admission right lateral abdominal wall pain suspect due to abscess extending into the anterior wall Present on admission leukocytosis, tachycardia, febrile hypotensive sepsis suspect due to abdominal wall abscess Severe electrolyte abnormality hypokalemia A recent hospitalization with a procedure done May 26 robotic-assisted laparoscopic incisional hernia repair with mesh Osteoarthritis Chronic lower back pain Esophageal reflux symptoms History of prior abdominal hematoma unclear etiology Infected hematoma with extension intraperitoneally, extension of of abscess into the peritoneal cavity as well as questionable interloop abscesses and pelvic abscess Exploratory laparotomy drainage of intraperitoneal abscess, resection of infected mesh, running of the small bowel no interloop abscesses however phlegmon on the distal terminal ileum and purulent fluid in the pelvis, right rectus infected hematoma area drained done on June Postop acute blood loss anemia expected postsurgical condition due to extensive infection with drainage of infected hematoma necessitating 1 unit of packed red blood cells to be infused Acute renal failure suspect due to hypovolemia hypotension Oliguric acute kidney injury secondary to ischemic ATN secondary to hypotension , anemia and use of nonsteroidals. Metabolic acidosis secondary to acute kidney injury and IV fluids. Symptomatic hypotension requiring 3 L bolus fluid for a low systolic pressure due to an unexpected postsurgical condition related to surgical care Present on admission clinical dehydration likely due to poor oral intake plan Continue recommendations by nephrology defer to Continue postop surgical care IV fluids per nephrology Increase activity as tolerated Monitor electrolytes keep therapeutic Monitor urine output will keep indwelling Demarco catheter in for now Pain control DVT and GI prophylaxis Repeat labs in the morning Continue IV antibiotics per infectious disease Dictated for Dr. Hyatt The above impression and plan of care have been discussed and directed by signing physician. Gill Allen nurse practitioner acting as scribe for signing physician.
[2017-07-02 17:16] LABS: Glucose,Whole Blood 138 mg/dL (75-99)
--- NOTE | 2017-07-02 18:58 | P.PN ---
Subjective Progress Note Date: 07/02/17 Progress note being dictated for Dr. Parsons. Interval history: Patient came in with complaints of right-sided severe abdominal pain sharp in nature and nonradiating found to have abscess in that area are a hematoma and which was infected patient had a recent laparoscopic robotic-assisted repair of incisional hernia was subsequently discharged home did well started having severe pain in that area along with chills. Patient is found to have fluid collection in the rectal sheath extending into the anterior abdominal wall and thickening of the ascending colon with diverticulosis. Patient was started on Vanco mycin Zosyn which is appropriate 06/30/2017 status post exploratory laparotomy drainage of intraperitoneal abscess resection of an infected mesh, purulent pelvis fluid with drainage of right rectus infected hematoma area. Maintained on IV antibiotics. Hemoglobin dropped to 7.3, symptomatic, receiving one unit of packed RBCs. Hypotensive, worsening renal function with low urine output receiving third liter of IV fluid bolus. Currently denying chest pain, palpitations, shortness of breath. Denies lightheadedness or dizziness. T-max 99.1, WBC 20.4. 07/01/2017 blood pressure improved, urine output increased with 180 mL's overnight. Renal function worsening, up to 3.2. Evaluated by nephrology with recommendations noted. Receive 1 unit of packed RBCs yesterday with hemoglobin up to 8.6. Afebrile, WBC trending down. maintaining O2 sats of mid to high 90s on room air. Tolerating clear liquid diet with no nausea, vomiting or diarrhea. Passing flatus, burping. Blood sugars controlled. Denies abdominal pain, states she is experiencing a"stinging sensation". Maintained on IV antibiotics as per infectious disease. 07/02/2017 denies pain. Tolerating regular diet with no nausea or vomiting. No bowel movement, passing flatus. Leukocytosis trending down. Afebrile. Received Lasix yesterday without increase in urine output. Renal function continues to worsen, 4.7. acidotic, CO2 13. Bicarb drip initiated as per nephrology. Objective - Vital Signs Vital signs: Vital Signs Temp 98 F 07/02/17 14:39 Pulse 83 07/02/17 14:39 Resp 16 07/02/17 14:39 BP 131/80 07/02/17 14:39 Pulse Ox 95 07/02/17 14:39 Intake & Output 07/01/17 07/02/17 07/02/17 18:59 06:59 18:59 Intake Total 1260 480 487 Output Total 60 300 Balance 1200 180 487 Weight 77.111 kg Intake: Intake, IV Titration 600 300 Amount Sodium Chloride 0.9% 1, 600 300 000 ml @ 75 mls/hr IV . [id number] [facility] Rx#:[id number] Oral 660 180 487 Output: Urine 60 300 Other: Voiding Method Indwelling Catheter Indwelling Catheter Indwelling Catheter - Exam GENERAL: The patient is alert and oriented x3, sitting up in chair, no acute distress HEENT: Pupils are round and equally reacting to light. EOMI. No scleral icterus. No conjunctival pallor. Normocephalic, atraumatic. CARDIOVASCULAR: S1 and S2 present. No murmurs, rubs, or gallops. PULMONARY: Chest is clear to auscultation, no wheezing or crackles. ABDOMEN: Soft, nontender, nondistended, hypoactive bowel sounds. Status post surgery; dressing , Lyudmila drain with an abdominal binder present, increased drainage soaking through binder and gown. MUSCULOSKELETAL: No joint swelling or deformity. EXTREMITIES: No cyanosis, clubbing, or pedal edema. NEUROLOGICAL: Gross neurological examination did not reveal any focal deficits. SKIN: No rashes. - Labs CBC & Chem 7: 07/02/17 06:24 07/02/17 06:24 Labs: Abnormal Lab Results - Last 24 Hours (Table) 07/01/17 07/02/17 07/02/17 Range/Units 19:50 06:24 06:24 WBC 15.4 H (3.8-10.6) k/uL Hgb 8.7 L (11.4-16.0) gm/dL Hct 29.7 L (34.0-46.0) % MCV 73.8 L (80.0-100.0) fL MCH 21.6 L (25.0-35.0) pg MCHC 29.3 L (31.0-37.0) g/dL RDW 17.4 H (11.5-15.5) % Plt Count 535 H (150-450) k/uL Neutrophils # 13.1 H (1.3-7.7) k/uL Carbon Dioxide 13 L (22-30) mmol/L BUN 35 H (7-17) mg/dL Creatinine 4.70 H (0.52-1.04) mg/dL POC Glucose (mg/dL) 108 H (75-99) mg/dL Calcium 7.8 L (8.4-10.2) mg/dL Total Protein 4.5 L (6.3-8.2) g/dL Albumin 2.3 L (3.5-5.0) g/dL 07/02/17 07/02/17 Range/Units 11:10 17:12 WBC (3.8-10.6) k/uL Hgb (11.4-16.0) gm/dL Hct (34.0-46.0) % MCV (80.0-100.0) fL MCH (25.0-35.0) pg MCHC (31.0-37.0) g/dL RDW (11.5-15.5) % Plt Count (150-450) k/uL Neutrophils # (1.3-7.7) k/uL Carbon Dioxide (22-30) mmol/L BUN (7-17) mg/dL Creatinine (0.52-1.04) mg/dL POC Glucose (mg/dL) 133 H 138 H (75-99) mg/dL Calcium (8.4-10.2) mg/dL Total Protein (6.3-8.2) g/dL Albumin (3.5-5.0) g/dL Microbiology - Last 24 Hours (Table) 06/29/17 06:00 Blood Culture - Preliminary Blood No Growth after 72 hours 06/29/17 16:56 Gram Stain - Final Abdomen Wound Culture - Final Proteus mirabilis Assessment and Plan Assessment: -Possible right femoral abdominal wall abscess or hematoma that is infected: Status post exploratory laparotomy with resection of infected mesh and drainage of infected , abscess,hematoma evacuation of peritoneal cavity as mentioned above-referred to surgeons note. -Hypertension hold off on the antihypertensives medications as her blood pressure is on the low normal side and that is possibly due to sepsis -Chronic low back pain -Gastroesophageal reflux disease -Hyperlipidemia next -Acute postoperative blood loss anemia, status post transfusion 1 unit of packed RBCs -Acute renal failure secondary to ATN secondary to hypotension, anemia -Metabolic acidosis secondary to acute kidney injury Plan: Continue on current medication regime , monitoring and symptomatic treatment. Isotonic bicarb drip.Close monitoring of renal function. No renal replacement therapy at this time as per nephrology. antibiotics as per ID. Aggressive pulmonary toileting. The impression and plan of care has been dictated as directed. : I performed a history and examination of this patient, discussed the same with the dictator. I agree with the dictator's note ,documented as a scribe. Any additional findings or plans will be noted.
[2017-07-02 21:03] LABS: Glucose,Whole Blood 178 mg/dL (75-99)
[2017-07-02] MEDS: ATORVASTATIN 10 MG TAB PO SCH (22:00)
--- NOTE | 2017-07-03 00:19 | P.PN ---
Subjective Progress Note Date: 07/02/17 Principal diagnosis: abdominal pain This is a 72-year-old female patient gives history of having an abdominal wall abscess on the right side for which she was treated at [facility] emergency center in October 2016. The ER physician did an incision and drainage and widen the draining track with a scalpel and placed iodoform gauze. There was purulent material at that time. Patient states that this eventually healed and in April she was having increased right-sided abdominal pain and her PCP sent her to [facility] for an ultrasound that showed a possible hematoma on the right upper quadrant. She was then sent to Dr. Hancock for further evaluation. Because of anemia, patient underwent an upper and lower endoscopy with Dr. Hancock on May 20 that found no signs of bleeding. She subsequently underwent a hernia repair at the site of the previous hematoma or abscess from October [address] Hancock and this was done on 05/26/2017. This was located in the mid upper abdomen. She states she continued to have right-sided abdominal pain, chills and hot feeling, decreased appetite with possible weight loss and nausea. She saw Dr. Hancock yesterday and she up for outpatient computed tomography scan but she states that after he pressed on her abdomen her pain got significant only worse last evening and she came into [facility] emergency center for evaluation. She underwent a CAT scan of the abdomen and pelvis which revealed marked interval worsening of a right rectus sheath fluid collection which now extends into the anterior abdominal wall. Differential includes hematoma, abscess with stromal felt less likely. Mild wall thickening within the ascending and transverse colon is nonspecific but may represent colitis. Extensive diverticulosis with mild adjacent nonspecific fluid in the pelvis limits evaluation for potential diverticulitis. Mild atelectasis or less likely pneumonia in the left lung base. Large hiatal hernia. This CAT scan was compared to one done in September 2016. Patient is now admitted under the care of Dr. Vinny Godwin and is scheduled for I&D and washout this afternoon. Patient presented with a white count of 26.4, lactic acid 3.3 and repeat 1.7, afebrile, creatinine 0.6. Mild elevation of liver function tests with AST of 63, ALT 75, alkaline phosphatase 156. Urinalysis was cloudy with nitrate and leukoesterase negative and bacteria many. Patient denies any urinary pain or frequency or urgency. She also denies having any blood in her stools. 06/30/2017 reveals the patient to be postoperative and feeling slightly better. However she is now having difficulties with urinary output. Despite 3 L of fluid and blood transfusion she continues to have poor urinary output. She had a bladder scan that only showed 12 mL of fluid. Her abdominal pain is improving. She tolerated a clear liquid diet with no difficulties. 07/01/2017 patient is postoperative and feeling better. Pain is under good control. She continues to have poor urinary output but has had at least some urine output today. She is comfortable. Denies shortness of breath. Wound culture showed evidence of gram-negative bacilli only and vancomycin therapy was discontinued yesterday. 07/02/2017 patient does feel better. Is having difficulties with edema. Urine output remains very low. Fortunately she is not having severe shortness of breath. She's had only minimal abdominal discomfort related to her recent surgery. Only Proteus mirabilis is been isolated and is noted vancomycin therapy was discontinued. Is being followed by nephrology and if she has no urinary output we will consider renal replacement therapy. Objective - Vital Signs Vital signs: Vital Signs Temp 98.0 F 07/02/17 19:00 Pulse 85 07/02/17 19:00 Resp 16 07/02/17 19:00 BP 115/75 07/02/17 19:00 Pulse Ox 96 07/02/17 19:00 Intake & Output 07/02/17 07/02/17 07/03/17 06:59 18:59 06:59 Intake Total 480 487 Output Total 300 Balance 180 487 Weight 77.111 kg Intake: Intake, IV Titration 300 Amount Sodium Chloride 0.9% 1, 300 000 ml @ 75 mls/hr IV . [id number] [facility] Rx#:[id number] Oral 180 487 Output: Urine 300 Other: Voiding Method Indwelling Catheter Indwelling Catheter - Exam Gen: This is a 72-year-old female patient. She is in bed and appears to be comfortable and in no acute distress. HEENT: Head is atraumatic, normocephalic. Pupils equal, round. Sclerae is anicteric. Conjunctiva pink. Mucous members of the mouth are dry. NECK: Supple. No JVD. No lymphadenopathy. No thyromegaly. LUNGS: Clear to auscultation. No wheezes or rhonchi. No intercostal retractions. HEART: Regular rate and rhythm. No murmur. ABDOMEN:few bowel sounds are heard there is a surgical incision that is having drainage of serosanginous material on the dressing the abdomen is tender to palpation EXTREMITIES: No pedal edema. No calf tenderness. Dorsalis pedis +2 bilaterally. NEUROLOGICAL: Patient is awake, alert and oriented x3 - Labs CBC & Chem 7: 07/02/17 06:24 07/02/17 06:24 Labs: Abnormal Lab Results - Last 24 Hours (Table) 07/02/17 07/02/17 07/02/17 Range/Units 06:24 06:24 11:10 WBC 15.4 H (3.8-10.6) k/uL Hgb 8.7 L (11.4-16.0) gm/dL Hct 29.7 L (34.0-46.0) % MCV 73.8 L (80.0-100.0) fL MCH 21.6 L (25.0-35.0) pg MCHC 29.3 L (31.0-37.0) g/dL RDW 17.4 H (11.5-15.5) % Plt Count 535 H (150-450) k/uL Neutrophils # 13.1 H (1.3-7.7) k/uL Carbon Dioxide 13 L (22-30) mmol/L BUN 35 H (7-17) mg/dL Creatinine 4.70 H (0.52-1.04) mg/dL POC Glucose (mg/dL) 133 H (75-99) mg/dL Calcium 7.8 L (8.4-10.2) mg/dL Total Protein 4.5 L (6.3-8.2) g/dL Albumin 2.3 L (3.5-5.0) g/dL 07/02/17 07/02/17 Range/Units 17:12 20:57 WBC (3.8-10.6) k/uL Hgb (11.4-16.0) gm/dL Hct (34.0-46.0) % MCV (80.0-100.0) fL MCH (25.0-35.0) pg MCHC (31.0-37.0) g/dL RDW (11.5-15.5) % Plt Count (150-450) k/uL Neutrophils # (1.3-7.7) k/uL Carbon Dioxide (22-30) mmol/L BUN (7-17) mg/dL Creatinine (0.52-1.04) mg/dL POC Glucose (mg/dL) 138 H 178 H (75-99) mg/dL Calcium (8.4-10.2) mg/dL Total Protein (6.3-8.2) g/dL Albumin (3.5-5.0) g/dL Microbiology - Last 24 Hours (Table) 06/29/17 06:00 Blood Culture - Preliminary Blood No Growth after 72 hours Laboratory Results WBC 15.4 k/uL (3.8-10.6) H 07/02/17 06:24 RBC 4.03 m/uL (3.80-5.40) 07/02/17 06:24 Hgb 8.7 gm/dL (11.4-16.0) L 07/02/17 06:24 Hct 29.7 % (34.0-46.0) L 07/02/17 06:24 MCV 73.8 fL (80.0-100.0) L 07/02/17 06:24 MCH 21.6 pg (25.0-35.0) L 07/02/17 06:24 MCHC 29.3 g/dL (31.0-37.0) L 07/02/17 06:24 RDW 17.4 % (11.5-15.5) H 07/02/17 06:24 Plt Count 535 k/uL (150-450) H 07/02/17 06:24 Neutrophils % 85 % 07/02/17 06:24 Neutrophils % (Manual) 88 % 06/29/17 04:38 Band Neutrophils % 6 % 06/29/17 04:38 Lymphocytes % 8 % 07/02/17 06:24 Lymphocytes % (Manual) 5 % 06/29/17 04:38 Monocytes % 3 % 07/02/17 06:24 Monocytes % (Manual) 2 % 06/29/17 04:38 Eosinophils % 3 % 07/02/17 06:24 Basophils % 0 % 07/02/17 06:24 Neutrophils # 13.1 k/uL (1.3-7.7) H 07/02/17 06:24 Neutrophils # (Manual) 24.80 k/uL (1.3-7.7) H 06/29/17 04:38 Lymphocytes # 1.3 k/uL (1.0-4.8) 07/02/17 06:24 Lymphocytes # (Manual) 1.32 k/uL (1.0-4.8) 06/29/17 04:38 Monocytes # 0.4 k/uL (0-1.0) 07/02/17 06:24 Monocytes # (Manual) 0.53 k/uL (0-1.0) 06/29/17 04:38 Eosinophils # 0.5 k/uL (0-0.7) 07/02/17 06:24 Basophils # 0.0 k/uL (0-0.2) 07/02/17 06:24 Nucleated RBCs 0 /100 WBC (0-0) 06/29/17 04:38 Manual Slide Review Performed 06/29/17 04:38 Toxic Vacuolation Present 06/29/17 04:38 Hypochromasia Marked 07/02/17 06:24 Poikilocytosis Slight 07/02/17 06:24 Anisocytosis Slight 07/02/17 06:24 Microcytosis Moderate 07/02/17 06:24 Retic Count 1.1 % (0.5-2.0) 06/30/17 06:39 PT 10.9 sec (9.0-12.0) 06/29/17 04:38 INR 1.1 (<1.2) 06/29/17 04:38 APTT 22.3 sec (22.0-30.0) 06/29/17 10:45 Sodium 137 mmol/L (137-145) 07/02/17 06:24 Potassium 4.1 mmol/L (3.5-5.1) 07/02/17 06:24 Chloride 107 mmol/L (98-107) 07/02/17 06:24 Carbon Dioxide 13 mmol/L (22-30) L 07/02/17 06:24 Anion Gap 17 mmol/L 07/02/17 06:24 BUN 35 mg/dL (7-17) H 07/02/17 06:24 Creatinine 4.70 mg/dL (0.52-1.04) H 07/02/17 06:24 Est GFR (CKD-EPI)AfAm 10 (>60 ml/min/1.73 sqM) 07/02/17 06:24 Est GFR (CKD-EPI)NonAf 9 (>60 ml/min/1.73 sqM) 07/02/17 06:24 Glucose 74 mg/dL (74-99) 07/02/17 06:24 POC Glucose (mg/dL) 178 mg/dL (75-99) H 07/02/17 20:57 POC Glu Stallion Manager ID Zonia Camacho 07/02/17 20:[address] Glu mg/dL 151 06/30/17 06:39 Hemoglobin A1c 6.9 % (4.0-6.0) H 06/30/17 06:39 Lactic Ac Sepsis Rflx Y 06/29/17 05:08 Plasma Lactic Acid Lasha 1.7 mmol/L (0.7-2.0) 06/29/17 09:19 Calcium 7.8 mg/dL (8.4-10.2) L 07/02/17 06:24 Magnesium 1.6 mg/dL (1.6-2.3) 06/29/17 04:38 Iron 7 ug/dL (50-170) L 06/30/17 06:39 TIBC 197 ug/dL (228-460) L 06/30/17 06:39 Iron Saturation 3.55 (12.00-45.00) L 06/30/17 06:39 Ferritin 116.2 ng/mL (10.0-291.0) 06/30/17 06:39 Total Bilirubin 0.4 mg/dL (0.2-1.3) 07/02/17 06:24 AST 24 U/L (14-36) 07/02/17 06:24 ALT 36 U/L (9-52) 07/02/17 06:24 Alkaline Phosphatase 91 U/L (38-126) 07/02/17 06:24 Total Protein 4.5 g/dL (6.3-8.2) L 07/02/17 06:24 Albumin 2.3 g/dL (3.5-5.0) L 07/02/17 06:24 Amylase 38 U/L (30-110) 06/29/17 04:38 Lipase 64 U/L (23-300) 06/29/17 04:38 Vitamin B12 1273.0 pg/mL (200.0-944.0) H 06/30/17 06:39 Folate 11.2 ng/mL 06/30/17 06:39 Urine Color Yellow 04 06:38 Urine Appearance Cloudy (Clear) H 06/29/17 06:38 Urine pH 6.5 (5.0-8.0) 06/29/17 06:38 Ur Specific Ehrhardt 1.007 (1.001-1.035) 06/29/17 06:38 Urine Protein Negative (Negative) 06/29/17 06:38 Urine Glucose (UA) Negative (Negative) 06/29/17 06:38 Urine Ketones Negative (Negative) 06/29/17 06:38 Urine Blood Negative (Negative) 06/29/17 06:38 Urine Nitrite Negative (Negative) 06/29/17 06:38 Urine Bilirubin Negative (Negative) 06/29/17 06:38 Urine Urobilinogen <2.0 mg/dL (<2.0) 06/29/17 06:38 Ur Leukocyte Esterase Negative (Negative) 06/29/17 06:38 Urine RBC 2 /hpf (0-5) 06/29/17 06:38 Urine WBC 2 /hpf (0-5) 06/29/17 06:38 Ur Squamous Epith Cells 13 /hpf (0-4) H 06/29/17 06:38 Urine Bacteria Many /hpf (None) H 06/29/17 06:38 Hyaline Casts 2 /lpf (0-2) 06/29/17 06:38 Urine Mucus Rare /hpf (None) H 06/29/17 06:38 Random Vancomycin 26.9 ug/mL 07/02/17 06:24 Hepatitis A IgM Ab Non-Reactive (Non-Reactive) 06/29/17 04:38 Hep Bs Antigen Non-Reactive (Non-Reactive) 06/29/17 04:38 Hep B Core IgM Ab Non-Reactive (Non-Reactive) 06/29/17 04:38 Hep C IgG Ab Non-Reactive (Non-Reactive) 06/29/17 04:38 Blood Type B Negative 06/30/17 08:24 Blood Type Recheck No 06/30/17 08:24 Antibody Screen NEGATIVE 06/30/17 08:24 Crossmatch See Detail 06/30/17 08:24 Spec Expiration Date 07/03/2017 - 2324 06/30/17 08:24 Microbiology 06/29/17 06:00 Blood Blood Culture - Preliminary No Growth after 72 hours 06/29/17 16:56 Abdomen Gram Stain - Final 06/29/17 16:56 Abdomen Wound Culture - Final Proteus mirabilis 06/29/17 16:56 Abdomen Anaerobic Culture - Preliminary Assessment and Plan (1) Abdominal pain Current Visit: Yes Status: Acute Priority: High Code(s): R10.9 - UNSPECIFIED ABDOMINAL PAIN SNOMED Code(s): 43400224 (2) Acute blood loss anemia Current Visit: Yes Status: Acute Priority: High Code(s): D62 - ACUTE POSTHEMORRHAGIC ANEMIA SNOMED Code(s): 590441999 (3) Abdominal wall abscess Narrative/Plan: 72 year old woman staus post drainage of the intra-abdominal abscess. It is apparently outside of the peritoneum, and hopefully with incision and drainage will allow this to resolve rapidly. Cultures will further help direct antibiotic therapy, utilizing Zosyn and vancomycin for now pending further culture data. 06/30/2017 reveals the patient to be postoperative in feeling somewhat better. However she's now developed very low urinary output concerns to renal failure. Wound culture showing evidence of gram-negative bacilli. Vancomycin therapy is discontinued. Acute tubular necrosis is of concern given her sepsis at admission, gram-negative in nature. Cultures will help direct the final course of antibiotic therapy. Should be able to further help direct wound therapy once her some further improvement to the postoperative wound also. Nephrology is following. Further diuertic therapy is being given to see if she will respond especially since she's been given fluids and blood. Patient and family are reassured. 07/01/2017 patient is feeling relatively well. She is not having much pain and when she does oral pain medication and is tolerating this well. She does have poor urinary output and she has evidence of acute renal failure that as per nephrology is multifactorial. We'll culture has gram-negative bacilli only and that was evident the vancomycin therapy was discontinued, however with her acute renal failure she continues to have therapeutic level but no further doses are planned. She's received hydration and diuretic therapy awaiting a response. She clinically has an ATN and may require renal replacement therapy. 07/02/2017 patient does feel relatively well. Pain control with oral agents as effective. Continues to have very poor urinary output is being followed by nephrology and may require renal replacement therapy for her HTN. Antibiotic therapy with Zosyn is being utilized with excellent control of her infection, has been renally adjusted, and will likely transition to oral antimicrobial therapy as she shows ongoing improvement. Current Visit: Yes Status: Acute Code(s): L02.211 - CUTANEOUS ABSCESS OF ABDOMINAL WALL SNOMED Code(s): 78839365
[2017-07-03] MEDS: HEPARIN SODIUM,PORCINE 5,000 UNIT/ML 1 ML VIAL SQ SCH ×3 (01:16→18:30)
[2017-07-03] MEDS: DEXTROSE 5% IN WATER 1,000 ML with SODIUM BICARB (1 MEQ/ML) 150 ML IV SCH ×2 (05:43→10:10)
[2017-07-03 07:08] LABS: Glucose,Whole Blood 140 mg/dL (75-99)
[2017-07-03 07:59] LABS: Calcium 7.9 mg/dL (8.4-10.2); Potassium 3.8 mmol/L (3.5-5.1)
[2017-07-03] MEDS ORDERED: FUROSEMIDE 10 MG/ML 10 ML VIAL IV STA (08:59)
[2017-07-03] MEDS: DOCUSATE 100 MG CAP PO SCH ×2 (10:08→22:12)
[2017-07-03] MEDS: NYSTATIN 100,000 UNIT/ML SUSP 500,000 UNIT/5 ML CUP PO SCH ×4 (10:09→22:11)
[2017-07-03] MEDS: SODIUM BICARBONATE TAB 650 MG TAB PO SCH ×2 (10:10→22:11)
[2017-07-03] MEDS: PIPERACILLIN-TAZOBACTAM 3.375 GM in DEXTROSE/WATER 1 50ML.BAG IVPB SCH ×2 (10:10→22:11)
[2017-07-03] MEDS: INSULIN ASPART 100 UNIT/ML 1 ML 10 ML VIAL SQ SCH ×4 (10:35→22:11)
[2017-07-03] MEDS: VANCOMYCIN IV PER PHARMACY 1 EACH MISC MISCELLANE SCH (11:10)
[2017-07-03 11:49] LABS: Glucose,Whole Blood 164 mg/dL (75-99)
--- NOTE | 2017-07-03 12:18 | PN ---
PROGRESS NOTE The patient is seen for followup for acute kidney injury. The patient remains oliguric with only about 100 mL of urine output for 8 hours. Her creatinine is significantly elevated today to 6.0 from 4.7 yesterday. Currently, she denies any shortness of breath. The patient is not confused. She is awake, alert, and oriented. She is maintained on D5. She is maintained on IV bicarb. Her CO2 has improved to 18 from 13 yesterday. I have advised her that she will likely need dialysis today or tomorrow depending upon her response and depending upon her urine output, response to Lasix. EXAMINATION: Blood pressure was 121/79, heart rate 81 per minute. Patient is afebrile. Examination of the heart S1, S2. Examination lungs bilateral breath sounds are heard. Abdomen is soft, obese. There is tenderness noted. Examination of lower extremities shows trace edema bilaterally. [employer] exam is grossly intact. LABS SHOW: Sodium 138, potassium 3.8, chloride 106, CO2 is 18, BUN 42, serum creatinine 6.01. ASSESSMENT: 1. Acute kidney injury, acute tubular necrosis, currently oliguric secondary to hypotension hypoperfusion and has been significant worsening in her serum creatinine. However, patient remains nontoxic. I will give her a higher dose of Lasix and if she continues to have no increased urine output, we will start her first treatment of hemodialysis tomorrow. There are no nephrotoxic agents on board at this time. 2. Metabolic acidosis secondary to renal failure and gastrointestinal fluid loss. Currently on IV sodium bicarb, which we will continue for now. 3. Hypotension secondary to sepsis, maintained on IV Zosyn. 4. Type 2 diabetes, currently on insulin. 5. Abdominal wall abscesses status post exploratory laparotomy and resection of infected mesh and drainage of abscess. PLAN: 60 mg of IV push Lasix x1 now. If urine output remains low, will proceed with vascular surgery consult for placement of dialysis catheter and will plan for her 1st treatment tomorrow. The patient has been informed. She is agreeable. MMODL / IJN: [id number] /
--- NOTE | 2017-07-03 12:29 | P.PN ---
Subjective Progress Note Date: 07/03/17 Patient is status post drainage of abdominal wall hematoma by Dr. Vinny Godwin. Separately, she has developed acute renal failure. Nephrology is following. Patient is tolerating diet. Pain is well-controlled. She is wearing an abdominal binder. Objective - Vital Signs Vital signs: Vital Signs Temp 98.1 F 07/03/17 07:00 Pulse 76 07/03/17 07:00 Resp 20 07/03/17 07:00 BP 131/79 07/03/17 07:00 Pulse Ox 96 07/03/17 07:00 Intake & Output 07/02/17 07/03/17 07/03/17 18:59 06:59 18:59 Intake Total 487 950 118 Output Total 100 Balance 487 850 118 Weight 77.111 kg Intake: Intake, IV Titration 950 Amount Dextrose 5% in Water 1, 525 000 ml @ 75 mls/hr IV . [id number] RE[facility]I with Sodium Bicarb (1 Meq/ml) 150 ml Rx#:[id number] Piperacillin-Tazobactam 3 50 .375 gm In Dextrose/Water 1 50ml.bag @ 12.5 mls/hr IVPB Q12HR REJI Rx#: [id number] Sodium Chloride 0.9% 1, 375 000 ml @ 75 mls/hr IV . [id number] REJI Rx#:[id number] Oral 487 118 Output: Urine 100 Other: Voiding Method Indwelling Catheter Indwelling Catheter - Exam GENERAL: Well developed and in no acute distress. Pleasant. HEENT: No sclera icterus. Extraocular movements grossly intact. Moist buccal mucosa. Head is atraumatic, normocephalic. Hears conversational speech. No nasal drainage. CHEST: Non-labored respirations and equal bilateral excursions. CARDIOVASCULAR: Regular rate and rhythm. Palpable 2+ radial pulses. ABDOMEN: Dressing is clean dry and intact. Abdominal binder present. No peritonitis. MUSCULOSKELETAL: No clubbing, cyanosis or edema. NEUROLOGIC: No focal or lateralizing signs. PSYCH: Appropriate affect. Alert and oriented to person, place and time. SKIN: Good skin turgor. Well perfused. - Labs CBC & Chem 7: 07/02/17 06:24 07/03/17 07:20 Labs: Abnormal Lab Results - Last 24 Hours (Table) 07/02/17 07/02/17 07/03/17 Range/Units 17:12 20:57 07:05 Carbon Dioxide (22-30) mmol/L BUN (7-17) mg/dL Creatinine (0.52-1.04) mg/dL Glucose (74-99) mg/dL POC Glucose (mg/dL) 138 H 178 H 140 H (75-99) mg/dL Calcium (8.4-10.2) mg/dL 07/03/17 07/03/17 Range/Units 07:20 11:31 Carbon Dioxide 18 L (22-30) mmol/L BUN 42 H (7-17) mg/dL Creatinine 6.01 H* (0.52-1.04) mg/dL Glucose 125 H (74-99) mg/dL POC Glucose (mg/dL) 164 H (75-99) mg/dL Calcium 7.9 L (8.4-10.2) mg/dL Microbiology - Last 24 Hours (Table) 06/29/17 06:00 Blood Culture - Preliminary Blood No Growth after 96 hours Assessment and Plan (1) Acute renal failure Current Visit: Yes Status: Acute Code(s): N17.9 - ACUTE KIDNEY FAILURE, UNSPECIFIED SNOMED Code(s): 80565980 (2) Abdominal wall abscess Current Visit: Yes Status: Acute Code(s): L02.211 - CUTANEOUS ABSCESS OF ABDOMINAL WALL SNOMED Code(s): 98687193 Plan: 1. Management of her acute renal failure with nephrology. 2. Diet is as tolerated. 3. Hospitalization pending resolution of acute renal failure. Rounding on behalf of Dr. Vinny Godwin
[2017-07-03] MEDS: CHOLECALCIFEROL 1,000 UNIT TAB PO SCH (14:00)
--- NOTE | 2017-07-03 14:50 | P.PN ---
Subjective atient came in with complaints of right-sided severe abdominal pain sharp in nature and nonradiating found to have abscess in that area are a hematoma and which was infected patient had a recent laparoscopic robotic-assisted repair of incisional hernia was subsequently discharged home did well started having severe pain in that area along with chills. Patient is found to have fluid collection in the rectal sheath extending into the anterior abdominal wall and thickening of the ascending colon with diverticulosis. Patient was started on Vanco mycin Zosyn which is appropriate 06/30/2017 status post exploratory laparotomy drainage of intraperitoneal abscess resection of an infected mesh, purulent pelvis fluid with drainage of right rectus infected hematoma area. Maintained on IV antibiotics. Hemoglobin dropped to 7.3, symptomatic, receiving one unit of packed RBCs. Hypotensive, worsening renal function with low urine output receiving third liter of IV fluid bolus. Currently denying chest pain, palpitations, shortness of breath. Denies lightheadedness or dizziness. T-max 99.1, WBC 20.4. 07/01/2017 blood pressure improved, urine output increased with 180 mL's overnight. Renal function worsening, up to 3.2. Evaluated by nephrology with recommendations noted. Receive 1 unit of packed RBCs yesterday with hemoglobin up to 8.6. Afebrile, WBC trending down. maintaining O2 sats of mid to high 90s on room air. Tolerating clear liquid diet with no nausea, vomiting or diarrhea. Passing flatus, burping. Blood sugars controlled. Denies abdominal pain, states she is experiencing a"stinging sensation". Maintained on IV antibiotics as per infectious disease. 07/03/2017 Patient's kidney function continued to worsen. Although patient clinically looks with very good and nephrology wanted to wait 1 more day and reassess for renal replacement therapy. Constitutional: Denied any fatigue denied any fever. Cardio vascular: denied any chest pain, palpitations Gastrointestinal denied any nausea vomiting Pulmonary: Denied any shortness of breath cough Neurologic denied any new focal deficits Objective - Vital Signs Vital signs: Vital Signs Temp 98.1 F 07/03/17 07:00 Pulse 76 07/03/17 07:00 Resp 20 07/03/17 07:00 BP 131/79 07/03/17 07:00 Pulse Ox 96 07/03/17 07:00 Intake & Output 07/02/17 07/03/17 07/03/17 18:59 06:59 18:59 Intake Total 487 950 355 Output Total 100 Balance 487 850 355 Weight 77.111 kg Intake: Intake, IV Titration 950 Amount Dextrose 5% in Water 1, 525 000 ml @ 75 mls/hr IV . [id number] RE[facility]I with Sodium Bicarb (1 Meq/ml) 150 ml Rx#:[id number] Piperacillin-Tazobactam 3 50 .375 gm In Dextrose/Water 1 50ml.bag @ 12.5 mls/hr IVPB Q12HR [facility] Rx#: [id number] Sodium Chloride 0.9% 1, 375 000 ml @ 75 mls/hr IV . [id number] [facility] Rx#:[id number] Oral 487 355 Output: Urine 100 Other: Voiding Method Indwelling Catheter Indwelling Catheter - Exam PHYSICAL EXAMINATION: GENERAL: The patient is alert and oriented x3, not in any acute distress. Well developed, well nourished. HEENT: Pupils are round and equally reacting to light. EOMI. No scleral icterus. No conjunctival pallor. Normocephalic, atraumatic. No pharyngeal erythema. No thyromegaly. CARDIOVASCULAR: S1 and S2 present. No murmurs, rubs, or gallops. PULMONARY: Chest is clear to auscultation, no wheezing or crackles. ABDOMEN: Soft, nontender, nondistended, normoactive bowel sounds. No palpable organomegaly. MUSCULOSKELETAL: No joint swelling or deformity. EXTREMITIES: No cyanosis, clubbing, or pedal edema. NEUROLOGICAL: Gross neurological examination did not reveal any focal deficits. SKIN: No rashes. - Labs CBC & Chem 7: 07/02/17 06:24 07/03/17 07:20 Labs: Abnormal Lab Results - Last 24 Hours (Table) 07/02/17 07/02/17 07/03/17 Range/Units 17:12 20:57 07:05 Carbon Dioxide (22-30) mmol/L BUN (7-17) mg/dL Creatinine (0.52-1.04) mg/dL Glucose (74-99) mg/dL POC Glucose (mg/dL) 138 H 178 H 140 H (75-99) mg/dL Calcium (8.4-10.2) mg/dL 07/03/17 07/03/17 Range/Units 07:20 11:31 Carbon Dioxide 18 L (22-30) mmol/L BUN 42 H (7-17) mg/dL Creatinine 6.01 H* (0.52-1.04) mg/dL Glucose 125 H (74-99) mg/dL POC Glucose (mg/dL) 164 H (75-99) mg/dL Calcium 7.9 L (8.4-10.2) mg/dL Microbiology - Last 24 Hours (Table) 06/29/17 06:00 Blood Culture - Preliminary Blood No Growth after 96 hours Assessment and Plan Plan: -Abdominal wall abscess: Patient on Zosyn wound cultures are showing Proteus mirabilis -acute renal failure: Probably due to acute tubular necrosis with contribution from multiple medication she is on. Patient is being evaluated for hemodialysis. Creatinine continued to worsen -Hypertension patient blood pressure remains stable without any of her antidepressant medications -Chronic low back pain -Gastroesophageal reflux disease -Hyperlipidemia next Above-mentioned chronic medical problems appropriate home medications will be resumed and continued we'll use Toradol along with GI prophylaxis for pain
[2017-07-03 17:26] LABS: Glucose,Whole Blood 133 mg/dL (75-99)
[2017-07-03 21:08] LABS: Glucose,Whole Blood 172 mg/dL (75-99)
[2017-07-03] MEDS: ATORVASTATIN 10 MG TAB PO SCH (22:11)
--- NOTE | 2017-07-03 23:56 | P.PN ---
Subjective Progress Note Date: 07/03/17 Principal diagnosis: abdominal pain This is a 72-year-old female patient gives history of having an abdominal wall abscess on the right side for which she was treated at [facility] in October 2016. The ER physician did an incision and drainage and widen the draining track with a scalpel and placed iodoform gauze. There was purulent material at that time. Patient states that this eventually healed and in April she was having increased right-sided abdominal pain and her PCP sent her to [facility] for an ultrasound that showed a possible hematoma on the right upper quadrant. She was then sent to Dr. Hancock for further evaluation. Because of anemia, patient underwent an upper and lower endoscopy with Dr. Hancock on May 20 that found no signs of bleeding. She subsequently underwent a hernia repair at the site of the previous hematoma or abscess from October [address] Hancock and this was done on 05/26/2017. This was located in the mid upper abdomen. She states she continued to have right-sided abdominal pain, chills and hot feeling, decreased appetite with possible weight loss and nausea. She saw Dr. Hancock yesterday and she up for outpatient computed tomography scan but she states that after he pressed on her abdomen her pain got significant only worse last evening and she came into [facility] for evaluation. She underwent a CAT scan of the abdomen and pelvis which revealed marked interval worsening of a right rectus sheath fluid collection which now extends into the anterior abdominal wall. Differential includes hematoma, abscess with stromal felt less likely. Mild wall thickening within the ascending and transverse colon is nonspecific but may represent colitis. Extensive diverticulosis with mild adjacent nonspecific fluid in the pelvis limits evaluation for potential diverticulitis. Mild atelectasis or less likely pneumonia in the left lung base. Large hiatal hernia. This CAT scan was compared to one done in September 2016. Patient is now admitted under the care of Dr. Vinny Godwin and is scheduled for I&D and washout this afternoon. Patient presented with a white count of 26.4, lactic acid 3.3 and repeat 1.7, afebrile, creatinine 0.6. Mild elevation of liver function tests with AST of 63, ALT 75, alkaline phosphatase 156. Urinalysis was cloudy with nitrate and leukoesterase negative and bacteria many. Patient denies any urinary pain or frequency or urgency. She also denies having any blood in her stools. 06/30/2017 reveals the patient to be postoperative and feeling slightly better. However she is now having difficulties with urinary output. Despite 3 L of fluid and blood transfusion she continues to have poor urinary output. She had a bladder scan that only showed 12 mL of fluid. Her abdominal pain is improving. She tolerated a clear liquid diet with no difficulties. 07/01/2017 patient is postoperative and feeling better. Pain is under good control. She continues to have poor urinary output but has had at least some urine output today. She is comfortable. Denies shortness of breath. Wound culture showed evidence of gram-negative bacilli only and vancomycin therapy was discontinued yesterday. 07/02/2017 patient does feel better. Is having difficulties with edema. Urine output remains very low. Fortunately she is not having severe shortness of breath. She's had only minimal abdominal discomfort related to her recent surgery. Only Proteus mirabilis is been isolated and is noted vancomycin therapy was discontinued. Is being followed by nephrology and if she has no urinary output we will consider renal replacement therapy. 07/03/2017 patient does feel relatively well but is having some increasing difficulties with edema and has some epigastric discomfort. She's having increasing difficulties with her appetite with increasing nausea which appears to be in the bases of her increasing uremia. Objective - Vital Signs Vital signs: Vital Signs Temp 97.8 F 07/03/17 15:00 Pulse 72 07/03/17 15:00 Resp 20 07/03/17 15:00 BP 117/71 07/03/17 15:00 Pulse Ox 97 07/03/17 15:00 Intake & Output 07/03/17 07/03/17 07/04/17 06:59 18:59 06:59 Intake Total 950 1810 Output Total 100 200 Balance 850 1610 Intake: Intake, IV Titration 950 775 Amount Dextrose 5% in Water 1, 525 725 000 ml @ 75 mls/hr IV . [id number] REJI with Sodium Bicarb (1 Meq/ml) 150 ml Rx#:[id number] Piperacillin-Tazobactam 3 50 50 .375 gm In Dextrose/Water 1 50ml.bag @ 12.5 mls/hr IVPB Q12HR REJI Rx#: [id number] Sodium Chloride 0.9% 1, 375 000 ml @ 75 mls/hr IV . [id number] [facility] Rx#:[id number] Oral 1035 Output: Urine 100 200 Other: Voiding Method Indwelling Catheter Indwelling Catheter - Exam Gen: This is a 72-year-old female patient. She is in bed and appears to be comfortable and in no acute distress. We does complain of some nausea. HEENT: Head is atraumatic, normocephalic. Pupils equal, round. Sclerae is anicteric. Conjunctiva pink. Mucous members of the mouth are dry. NECK: Supple. No JVD. No lymphadenopathy. No thyromegaly. LUNGS: Clear to auscultation. No wheezes or rhonchi. No intercostal retractions. HEART: Regular rate and rhythm. No murmur. ABDOMEN:few bowel sounds are heard there is a surgical incision that is having drainage of serosanginous material on the dressing the abdomen is tender to palpation EXTREMITIES: No pedal edema. No calf tenderness. Dorsalis pedis +2 bilaterally. NEUROLOGICAL: Patient is awake, alert and oriented x3 - Labs CBC & Chem 7: 07/02/17 06:24 07/03/17 07:20 Labs: Abnormal Lab Results - Last 24 Hours (Table) 07/03/17 07/03/17 07/03/17 Range/Units 07:05 07:20 11:31 Carbon Dioxide 18 L (22-30) mmol/L BUN 42 H (7-17) mg/dL Creatinine 6.01 H* (0.52-1.04) mg/dL Glucose 125 H (74-99) mg/dL POC Glucose (mg/dL) 140 H 164 H (75-99) mg/dL Calcium 7.9 L (8.4-10.2) mg/dL 07/03/17 07/03/17 Range/Units 17:19 20:47 Carbon Dioxide (22-30) mmol/L BUN (7-17) mg/dL Creatinine (0.52-1.04) mg/dL Glucose (74-99) mg/dL POC Glucose (mg/dL) 133 H 172 H (75-99) mg/dL Calcium (8.4-10.2) mg/dL Microbiology - Last 24 Hours (Table) 06/29/17 06:00 Blood Culture - Preliminary Blood No Growth after 96 hours Laboratory Results WBC 15.4 k/uL (3.8-10.6) H 07/02/17 06:24 RBC 4.03 m/uL (3.80-5.40) 07/02/17 06:24 Hgb 8.7 gm/dL (11.4-16.0) L 07/02/17 06:24 Hct 29.7 % (34.0-46.0) L 07/02/17 06:24 MCV 73.8 fL (80.0-100.0) L 07/02/17 06:24 MCH 21.6 pg (25.0-35.0) L 07/02/17 06:24 MCHC 29.3 g/dL (31.0-37.0) L 07/02/17 06:24 RDW 17.4 % (11.5-15.5) H 07/02/17 06:24 Plt Count 535 k/uL (150-450) H 07/02/17 06:24 Neutrophils % 85 % 07/02/17 06:24 Neutrophils % (Manual) 88 % 06/29/17 04:38 Band Neutrophils % 6 % 06/29/17 04:38 Lymphocytes % 8 % 07/02/17 06:24 Lymphocytes % (Manual) 5 % 06/29/17 04:38 Monocytes % 3 % 07/02/17 06:24 Monocytes % (Manual) 2 % 06/29/17 04:38 Eosinophils % 3 % 07/02/17 06:24 Basophils % 0 % 07/02/17 06:24 Neutrophils # 13.1 k/uL (1.3-7.7) H 07/02/17 06:24 Neutrophils # (Manual) 24.80 k/uL (1.3-7.7) H 06/29/17 04:38 Lymphocytes # 1.3 k/uL (1.0-4.8) 07/02/17 06:24 Lymphocytes # (Manual) 1.32 k/uL (1.0-4.8) 06/29/17 04:38 Monocytes # 0.4 k/uL (0-1.0) 07/02/17 06:24 Monocytes # (Manual) 0.53 k/uL (0-1.0) 06/29/17 04:38 Eosinophils # 0.5 k/uL (0-0.7) 07/02/17 06:24 Basophils # 0.0 k/uL (0-0.2) 07/02/17 06:24 Nucleated RBCs 0 /100 WBC (0-0) 06/29/17 04:38 Manual Slide Review Performed 06/29/17 04:38 Toxic Vacuolation Present 06/29/17 04:38 Hypochromasia Marked 07/02/17 06:24 Poikilocytosis Slight 07/02/17 06:24 Anisocytosis Slight 07/02/17 06:24 Microcytosis Moderate 07/02/17 06:24 Retic Count 1.1 % (0.5-2.0) 06/30/17 06:39 PT 10.9 sec (9.0-12.0) 06/29/17 04:38 INR 1.1 (<1.2) 06/29/17 04:38 APTT 22.3 sec (22.0-30.0) 06/29/17 10:45 Sodium 138 mmol/L (137-145) 07/03/17 07:20 Potassium 3.8 mmol/L (3.5-5.1) 07/03/17 07:20 Chloride 106 mmol/L (98-107) 07/03/17 07:20 Carbon Dioxide 18 mmol/L (22-30) L 07/03/17 07:20 Anion Gap 14 mmol/L 07/03/17 07:20 BUN 42 mg/dL (7-17) H 07/03/17 07:20 Creatinine 6.01 mg/dL (0.52-1.04) H* 07/03/17 07:20 Est GFR (CKD-EPI)AfAm 8 (>60 ml/min/1.73 sqM) 07/03/17 07:20 Est GFR (CKD-EPI)NonAf 7 (>60 ml/min/1.73 sqM) 07/03/17 07:20 Glucose 125 mg/dL (74-99) H 07/03/17 07:20 POC Glucose (mg/dL) 172 mg/dL (75-99) H 07/03/17 20:47 POC Glu [employer] Director ID Saritha Wagner 07/03/17 20:[address] Glu mg/dL 151 06/30/17 06:39 Hemoglobin A1c 6.9 % (4.0-6.0) H 06/30/17 06:39 Lactic Ac Sepsis Rflx Y 06/29/17 05:08 Plasma Lactic Acid Lasha 1.7 mmol/L (0.7-2.0) 06/29/17 09:19 Calcium 7.9 mg/dL (8.4-10.2) L 07/03/17 07:20 Magnesium 1.6 mg/dL (1.6-2.3) 06/29/17 04:38 Iron 7 ug/dL (50-170) L 06/30/17 06:39 TIBC 197 ug/dL (228-460) L 06/30/17 06:39 Iron Saturation 3.55 (12.00-45.00) L 06/30/17 06:39 Ferritin 116.2 ng/mL (10.0-291.0) 06/30/17 06:39 Total Bilirubin 0.4 mg/dL (0.2-1.3) 07/02/17 06:24 AST 24 U/L (14-36) 07/02/17 06:24 ALT 36 U/L (9-52) 07/02/17 06:24 Alkaline Phosphatase 91 U/L (38-126) 07/02/17 06:24 Total Protein 4.5 g/dL (6.3-8.2) L 07/02/17 06:24 Albumin 2.3 g/dL (3.5-5.0) L 07/02/17 06:24 Amylase 38 U/L (30-110) 06/29/17 04:38 Lipase 64 U/L (23-300) 06/29/17 04:38 Vitamin B12 1273.0 pg/mL (200.0-944.0) H 06/30/17 06:39 Folate 11.2 ng/mL 06/30/17 06:39 Urine Color Yellow 06/29/17 06:38 Urine Appearance Cloudy (Clear) H 06/29/17 06:38 Urine pH 6.5 (5.0-8.0) 06/29/17 06:38 Ur Specific [place] 1.007 (1.001-1.035) 06/29/17 06:38 Urine Protein Negative (Negative) 06/29/17 06:38 Urine Glucose (UA) Negative (Negative) 06/29/17 06:38 Urine Ketones Negative (Negative) 06/29/17 06:38 Urine Blood Negative (Negative) 06/29/17 06:38 Urine Nitrite Negative (Negative) 06/29/17 06:38 Urine Bilirubin Negative (Negative) 06/29/17 06:38 Urine Urobilinogen <2.0 mg/dL (<2.0) 06/29/17 06:38 Ur Leukocyte Esterase Negative (Negative) 06/29/17 06:38 Urine RBC 2 /hpf (0-5) 06/29/17 06:38 Urine WBC 2 /hpf (0-5) 06/29/17 06:38 Ur Squamous Epith Cells 13 /hpf (0-4) H 06/29/17 06:38 Urine Bacteria Many /hpf (None) H 06/29/17 06:38 Hyaline Casts 2 /lpf (0-2) 06/29/17 06:38 Urine Mucus Rare /hpf (None) H 06/29/17 06:38 Random Vancomycin 26.9 ug/mL 07/02/17 06:24 Hepatitis A IgM Ab Non-Reactive (Non-Reactive) 06/29/17 04:38 Hep Bs Antigen Non-Reactive (Non-Reactive) 06/29/17 04:38 Hep B Core IgM Ab Non-Reactive (Non-Reactive) 06/29/17 04:38 Hep C IgG Ab Non-Reactive (Non-Reactive) 06/29/17 04:38 Blood Type B Negative 06/30/17 08:24 Blood Type Recheck No 06/30/17 08:24 Antibody Screen NEGATIVE 06/30/17 08:24 Crossmatch See Detail 06/30/17 08:24 Spec Expiration Date 07/03/2017232306/30/17 08:24 Microbiology 06/29/17 06:00 Blood Blood Culture - Preliminary No Growth after 96 hours 06/29/17 16:56 Abdomen Gram Stain - Final 06/29/17 16:56 Abdomen Wound Culture - Final Proteus mirabilis 06/29/17 16:56 Abdomen Anaerobic Culture - Preliminary Assessment and Plan (1) Abdominal pain Current Visit: Yes Status: Acute Priority: High Code(s): R10.9 - UNSPECIFIED ABDOMINAL PAIN SNOMED Code(s): 76466720 (2) Acute blood loss anemia Current Visit: Yes Status: Acute Priority: High Code(s): D62 - ACUTE POSTHEMORRHAGIC ANEMIA SNOMED Code(s): 393854793 (3) Abdominal wall abscess Narrative/Plan: 72 year old woman staus post drainage of the intra-abdominal abscess. It is apparently outside of the peritoneum, and hopefully with incision and drainage will allow this to resolve rapidly. Cultures will further help direct antibiotic therapy, utilizing Zosyn and vancomycin for now pending further culture data. 06/30/2017 reveals the patient to be postoperative in feeling somewhat better. However she's now developed very low urinary output concerns to renal failure. Wound culture showing evidence of gram-negative bacilli. Vancomycin therapy is discontinued. Acute tubular necrosis is of concern given her sepsis at admission, gram-negative in nature. Cultures will help direct the final course of antibiotic therapy. Should be able to further help direct wound therapy once her some further improvement to the postoperative wound also. Nephrology is following. Further diuertic therapy is being given to see if she will respond especially since she's been given fluids and blood. Patient and family are reassured. 07/01/2017 patient is feeling relatively well. She is not having much pain and when she does oral pain medication and is tolerating this well. She does have poor urinary output and she has evidence of acute renal failure that as per nephrology is multifactorial. We'll culture has gram-negative bacilli only and that was evident the vancomycin therapy was discontinued, however with her acute renal failure she continues to have therapeutic level but no further doses are planned. She's received hydration and diuretic therapy awaiting a response. She clinically has an ATN and may require renal replacement therapy. 07/02/2017 patient does feel relatively well. Pain control with oral agents as effective. Continues to have very poor urinary output is being followed by nephrology and may require renal replacement therapy for her HTN. Antibiotic therapy with Zosyn is being utilized with excellent control of her infection, has been renally adjusted, and will likely transition to oral antimicrobial therapy as she shows ongoing improvement. 07/03/2017 patient is feeling less well today. Is having some epigastric discomfort and is developed some nausea without leonardo emesis. She has increasing amounts of renal failure and poor urinary output. She's developing some uremia is developing some edema and nausea on the basis. She's been followed by nephrology and likable have hemodialysis starting tomorrow for her ATN and acute oliguric renal failure. Antimicrobial therapy will transition to oral in the near future. Current Visit: Yes Status: Acute Code(s): L02.211 - CUTANEOUS ABSCESS OF ABDOMINAL WALL SNOMED Code(s): 63884554
[2017-07-04] MEDS: HEPARIN SODIUM,PORCINE 5,000 UNIT/ML 1 ML VIAL SQ SCH ×4 (00:38→23:06)
[2017-07-04 07:29] LABS: Glucose,Whole Blood 126 mg/dL (75-99)
[2017-07-04] MEDS: INSULIN ASPART 100 UNIT/ML 1 ML 10 ML VIAL SQ SCH ×4 (09:40→20:53)
[2017-07-04] MEDS: PIPERACILLIN-TAZOBACTAM 3.375 GM in DEXTROSE/WATER 1 50ML.BAG IVPB SCH ×2 (10:38→23:09)
[2017-07-04] MEDS: DOCUSATE 100 MG CAP PO SCH ×2 (10:39→23:06)
[2017-07-04] MEDS: PANTOPRAZOLE 40 MG/10 ML VIAL IV SCH (10:39)
[2017-07-04] MEDS: SODIUM BICARBONATE TAB 650 MG TAB PO SCH ×2 (10:40→23:06)
[2017-07-04] MEDS: NYSTATIN 100,000 UNIT/ML SUSP 500,000 UNIT/5 ML CUP PO SCH ×4 (10:40→23:07)
[2017-07-04] MEDS: DEXTROSE 5% IN WATER 1,000 ML with SODIUM BICARB (1 MEQ/ML) 150 ML IV SCH (10:40)
[2017-07-04 11:00] LABS: Calcium 7.6 mg/dL (8.4-10.2); Potassium 3.9 mmol/L (3.5-5.1)
--- NOTE | 2017-07-04 11:18 | P.PN ---
Subjective Progress Note Date: 07/04/17 Patient is status post drainage of abdominal wall hematoma by Dr. Vinny Godwin. No reports of abdominal pain. She is tolerating diet. Her creatinine continues to elevate secondary to acute renal failure. Objective - Vital Signs Vital signs: Vital Signs Temp 97.8 F 07/04/17 02:10 Pulse 72 07/04/17 02:10 Resp 16 07/04/17 02:10 BP 128/75 07/04/17 02:10 Pulse Ox 97 07/04/17 02:10 Intake & Output 07/03/17 07/04/17 07/04/17 18:59 06:59 18:59 Intake Total 1810 118 Output Total 200 265 Balance 1610 -265 118 Intake: Intake, IV Titration 775 Amount Dextrose 5% in Water 1, 725 000 ml @ 75 mls/hr IV . [id number] REJI with Sodium Bicarb (1 Meq/ml) 150 ml Rx#:[id number] Piperacillin-Tazobactam 3 50 .375 gm In Dextrose/Water 1 50ml.bag @ 12.5 mls/hr IVPB Q12HR REJI Rx#: [id number] Oral 1035 118 Output: Urine 200 265 Other: Voiding Method Indwelling Catheter Indwelling Catheter - Exam GENERAL: Well developed and in no acute distress. Pleasant. HEENT: No sclera icterus. Extraocular movements grossly intact. Moist buccal mucosa. Head is atraumatic, normocephalic. Hears conversational speech. No nasal drainage. CHEST: Non-labored respirations and equal bilateral excursions. CARDIOVASCULAR: Regular rate and rhythm. Palpable 2+ radial pulses. ABDOMEN: Dressing is clean dry and intact. Abdominal binder present. No peritonitis. MUSCULOSKELETAL: No clubbing, cyanosis or edema. NEUROLOGIC: No focal or lateralizing signs. PSYCH: Appropriate affect. Alert and oriented to person, place and time. SKIN: Good skin turgor. Well perfused. - Labs CBC & Chem 7: 07/02/17 06:24 07/04/17 10:10 Labs: Abnormal Lab Results - Last 24 Hours (Table) 07/03/17 07/03/17 07/03/17 Range/Units 11:31 17:19 20:47 Sodium (137-145) mmol/L BUN (7-17) mg/dL Creatinine (0.52-1.04) mg/dL Glucose (74-99) mg/dL POC Glucose (mg/dL) 164 H 133 H 172 H (75-99) mg/dL Calcium (8.4-10.2) mg/dL 07/04/17 07/04/17 Range/Units 07:13 10:10 Sodium 134 L (137-145) mmol/L BUN 46 H (7-17) mg/dL Creatinine 6.60 H* (0.52-1.04) mg/dL Glucose 157 H (74-99) mg/dL POC Glucose (mg/dL) 126 H (75-99) mg/dL Calcium 7.6 L (8.4-10.2) mg/dL Microbiology - Last 24 Hours (Table) 06/29/17 06:00 Blood Culture - Preliminary Blood No Growth after 120 hours Assessment and Plan (1) Acute renal failure Current Visit: Yes Status: Acute Code(s): N17.9 - ACUTE KIDNEY FAILURE, UNSPECIFIED SNOMED Code(s): 78305517 (2) Abdominal wall abscess Current Visit: Yes Status: Acute Code(s): L02.211 - CUTANEOUS ABSCESS OF ABDOMINAL WALL SNOMED Code(s): 88074419 Plan: 1. I went over her lab results regarding her kidneys. On admission creatinine was 0.6. Yesterday was 6.0. Today is 6.6. 2. Management of acute renal failure per nephrology. 3. Diet as tolerated.
[2017-07-04] MEDS ORDERED: FUROSEMIDE 10 MG/ML 10 ML VIAL IV STA (11:26)
[2017-07-04 11:37] LABS: Glucose,Whole Blood 170 mg/dL (75-99)
[2017-07-04] MEDS: CHOLECALCIFEROL 1,000 UNIT TAB PO SCH (11:56)
--- NOTE | 2017-07-04 15:19 | PN ---
PROGRESS NOTE Patient is seen for followup for acute kidney injury. She is currently sitting up in a bedside chair. Patient feels better. She has had some increase in her urine output after Lasix yesterday. Her serum creatinine is higher today. However, the jump is not as high as it had been previously when it went from 4.7 to 6 and as compared to today it is up to 6.6 from 6.1 yesterday. The patient remains on IV fluids. She denies any significant shortness of breath. No chest pain. The patient has low appetite. She is not severely nauseated. EXAMINATION: Blood pressure is 139/71, heart rate 71 per minute. She is afebrile. Examination of the heart: S1, S2. Examination lungs: Bilateral breath sounds are heard. Abdomen is soft, nontender. Examination lower extremities shows edema 1+ bilaterally. [employer] exam is grossly intact. LAB: Show sodium 134, potassium 3.9, BUN 46, serum creatinine 6.6, sodium 134. ASSESSMENT: 1. Acute kidney injury, acute tubular necrosis, initially oliguric, currently nonoliguric. However, urine output remains low. We will repeat another dose of Lasix today and we will also decrease the IV fluids. No need for dialysis today. The rate of increase is lower today and we will repeat the serum creatinine tomorrow. The patient is advised that she may still need dialysis depending on her labs and volume status. She does not need to be dialyzed today. We will continue to evaluate on a daily basis for need for renal replacement therapy. 2. Metabolic acidosis, currently improved. Will discontinue the IV bicarb. 3. Type 2 diabetes, maintained on insulin. 4. Abdominal wall abscess, status post explorative laparotomy and resection of infected mesh and drainage of abscess. PLAN: Decrease IV fluids. DC IV bicarb and repeat IV Lasix today. Repeat labs in a.m. as well. We will continue to evaluate on a daily basis for need for renal replacement therapy. MMODL / IJN: [id number] /
[2017-07-04] MEDS: SODIUM CHLORIDE 0.9% 1,000 ML IV SCH (16:20)
[2017-07-04] MEDS: ONDANSETRON 4 MG/2 ML VIAL IVP PRN ×2 (16:21→23:33)
[2017-07-04 17:23] LABS: Glucose,Whole Blood 126 mg/dL (75-99)
[2017-07-04 20:14] LABS: Glucose,Whole Blood 114 mg/dL (75-99)
[2017-07-04] MEDS: FUROSEMIDE 10 MG/ML 10 ML VIAL IV SCH (23:05)
[2017-07-04] MEDS: ATORVASTATIN 10 MG TAB PO SCH (23:06)
[2017-07-05 07:14] LABS: Glucose,Whole Blood 116 mg/dL (75-99)
[2017-07-05] MEDS: INSULIN ASPART 100 UNIT/ML 1 ML 10 ML VIAL SQ SCH ×4 (07:42→23:34)
[2017-07-05] MEDS: PIPERACILLIN-TAZOBACTAM 3.375 GM in DEXTROSE/WATER 1 50ML.BAG IVPB SCH ×2 (07:57→20:56)
[2017-07-05] MEDS: PANTOPRAZOLE 40 MG/10 ML VIAL IV SCH (07:57)
[2017-07-05] MEDS: HEPARIN SODIUM,PORCINE 5,000 UNIT/ML 1 ML VIAL SQ SCH ×3 (07:58→23:34)
[2017-07-05] MEDS: NYSTATIN 100,000 UNIT/ML SUSP 500,000 UNIT/5 ML CUP PO SCH ×4 (07:58→20:57)
[2017-07-05] MEDS: FUROSEMIDE 10 MG/ML 10 ML VIAL IV SCH ×2 (07:59→20:56)
[2017-07-05] MEDS: DOCUSATE 100 MG CAP PO SCH ×3 (07:59→20:56)
[2017-07-05] MEDS: SODIUM BICARBONATE TAB 650 MG TAB PO SCH ×2 (08:00→20:57)
[2017-07-05] MEDS: CHOLECALCIFEROL 1,000 UNIT TAB PO SCH (08:02)
[2017-07-05 09:52] LABS: Calcium 7.7 mg/dL (8.4-10.2); Potassium 3.9 mmol/L (3.5-5.1)
[2017-07-05 10:55] LABS: Glucose,Whole Blood 152 mg/dL (75-99)
[2017-07-05 10:55] LABS: Anisocytosis Slight; Basophils % (A) 0 %; Eosinophils # (A) 0.4 k/uL (0-0.7); Eosinophils % (A) 3 %; HGB 9.4 gm/dL (11.4-16.0); Hypochromasia Marked; Lymphocytes # (A) 1.2 k/uL (1.0-4.8); Lymphocytes % (A) 8 %; MCH 21.9 pg (25.0-35.0); MCHC 31.2 g/dL (31.0-37.0); Mean Platelet Volume 6.5; Microcytosis Marked; Monocytes # (A) 0.3 k/uL (0-1.0); Monocytes % (A) 2 %; Neutrophils # (A) 12.7 k/uL (1.3-7.7); Neutrophils % (A) 86 %; Platelet Count 493 k/uL (150-450); RBC 4.29 m/uL (3.80-5.40); RDW 19.1 % (11.5-15.5); WBC 14.7 k/uL (3.8-10.6)
--- NOTE | 2017-07-05 11:43 | P.PN ---
Subjective Progress Note Date: 07/05/17 72-year-old seen and examined at bedside sitting up in a chair. Patient states feels depressed this morning secondary to no noted improvement in the renal status. The creatinine is 7.1 was 6.6 the day before indwelling Demarco catheter in place close monitoring of urine output per recommendations of nephrology. Nephrology following patient patient is tolerating a diet and reports no abdominal pain afebrile Postop June 29 exploratory laparotomy drainage of intraperitoneal abscess resection of infected mesh phlegm on the distal terminal ileum and.purulent fluid in the pelvis , right rectus infected hematoma area drained. Objective - Vital Signs Vital signs: Vital Signs Temp 97.1 F L 07/05/17 07:00 Pulse 70 07/05/17 07:00 Resp 16 07/05/17 01:40 BP 153/85 07/05/17 07:00 Pulse Ox 96 07/05/17 07:00 Intake & Output 07/04/17 07/05/17 07/05/17 18:59 06:59 18:59 Intake Total 1853 Output Total 175 275 100 Balance 1678 -275 -100 Intake: Intake, IV Titration 575 Amount Dextrose 5% in Water 1, 525 000 ml @ 75 mls/hr IV . [id number] REJI with Sodium Bicarb (1 Meq/ml) 150 ml Rx#:[id number] Piperacillin-Tazobactam 3 50 .375 gm In Dextrose/Water 1 50ml.bag @ 12.5 mls/hr IVPB Q12HR REJI Rx#: [id number] Oral 1278 Output: Urine 175 275 100 Uretheral (Demarco) 75 100 Other: Voiding Method Indwelling Catheter Indwelling Catheter Indwelling Catheter # Bowel Movements 1 - Exam Physical exam physical exam 72-year-old female sitting up in a chair appears in no acute distress Lungs adequate air movement bilaterally on room air Heart S1-S2 audible regular Abdomen abdominal binder in place removed surgical dressing site dry [employer] drain distal lower incision draining serous drainage soft nondistended nontender bowel tones present indwelling Demarco catheter in place states had a bowel movement the day before tolerating a diet Extremities no edema noted - Labs CBC & Chem 7: 07/05/17 10:15 07/05/17 08:53 Labs: Abnormal Lab Results - Last 24 Hours (Table) 07/04/17 07/04/17 07/04/17 Range/Units 11:34 17:14 20:12 WBC (3.8-10.6) k/uL Hgb (11.4-16.0) gm/dL Hct (34.0-46.0) % MCV (80.0-100.0) fL MCH (25.0-35.0) pg RDW (11.5-15.5) % Plt Count (150-450) k/uL Neutrophils # (1.3-7.7) k/uL Sodium (137-145) mmol/L Carbon Dioxide (22-30) mmol/L BUN (7-17) mg/dL Creatinine (0.52-1.04) mg/dL Glucose (74-99) mg/dL POC Glucose (mg/dL) 170 H 126 H 114 H (75-99) mg/dL Calcium (8.4-10.2) mg/dL 07/05/17 07/05/17 07/05/17 Range/Units 07:11 08:53 10:15 WBC 14.7 H (3.8-10.6) k/uL Hgb 9.4 L (11.4-16.0) gm/dL Hct 30.0 L (34.0-46.0) % MCV 70.0 L (80.0-100.0) fL MCH 21.9 L (25.0-35.0) pg RDW 19.1 H (11.5-15.5) % Plt Count 493 H (150-450) k/uL Neutrophils # 12.7 H (1.3-7.7) k/uL Sodium 132 L (137-145) mmol/L Carbon Dioxide 21 L (22-30) mmol/L BUN 46 H (7-17) mg/dL Creatinine 7.18 H* (0.52-1.04) mg/dL Glucose 154 H (74-99) mg/dL POC Glucose (mg/dL) 116 H (75-99) mg/dL Calcium 7.7 L (8.4-10.2) mg/dL 07/05/17 Range/Units 10:51 WBC (3.8-10.6) k/uL Hgb (11.4-16.0) gm/dL Hct (34.0-46.0) % MCV (80.0-100.0) fL MCH (25.0-35.0) pg RDW (11.5-15.5) % Plt Count (150-450) k/uL Neutrophils # (1.3-7.7) k/uL Sodium (137-145) mmol/L Carbon Dioxide (22-30) mmol/L BUN (7-17) mg/dL Creatinine (0.52-1.04) mg/dL Glucose (74-99) mg/dL POC Glucose (mg/dL) 152 H (75-99) mg/dL Calcium (8.4-10.2) mg/dL Microbiology - Last 24 Hours (Table) 06/29/17 06:00 Blood Culture - Final Blood No Growth after 144 hours Assessment and Plan Assessment: Impression Present on admission right lateral abdominal wall pain suspect due to abscess extending into the anterior wall Present on admission leukocytosis, tachycardia, febrile hypotensive sepsis suspect due to abdominal wall abscess Severe electrolyte abnormality hypokalemia corrected resolved A recent hospitalization with a procedure done May 26 robotic-assisted laparoscopic incisional hernia repair with mesh Osteoarthritis Chronic lower back pain Esophageal reflux symptoms History of prior abdominal hematoma unclear etiology Infected hematoma with extension intraperitoneally, extension of of abscess into the peritoneal cavity as well as questionable interloop abscesses and pelvic abscess Exploratory laparotomy drainage of intraperitoneal abscess, resection of infected mesh, running of the small bowel no interloop abscesses however phlegmon on the distal terminal ileum and purulent fluid in the pelvis, right rectus infected hematoma area drained done on June Postop acute blood loss anemia expected postsurgical condition due to extensive infection with drainage of infected hematoma necessitating 1 unit of packed red blood cells to be infused Acute renal failure suspect due to hypovolemia hypotension Oliguric acute kidney injury secondary to ischemic ATN secondary to hypotension , anemia and use of nonsteroidals. Metabolic acidosis secondary to acute kidney injury and IV fluids. Improved Symptomatic hypotension requiring 3 L bolus fluid for a low systolic pressure due to an unexpected postsurgical condition related to surgical care Present on admission clinical dehydration likely due to poor oral intake Acute renal failure plan Continue recommendations by nephrology defer to Continue postop surgical care IV fluids per nephrology Increase activity as tolerated Monitor electrolytes keep therapeutic Monitor urine output will keep indwelling Demarco catheter in for now Pain control DVT and GI prophylaxis Repeat labs in the morning Continue IV antibiotics per infectious disease Dictated for Dr. Hyatt The above impression and plan of care have been discussed and directed by signing physician. Gill Allen nurse practitioner acting as scribe for signing physician.
--- NOTE | 2017-07-05 13:00 | PN ---
PROGRESS NOTE Patient is seen for followup for acute kidney injury. She is currently sitting up in a bedside chair. The patient states she feels about the same with no worsening nausea or vomiting. PHYSICAL EXAMINATION: Blood pressure is 149/83, heart rate 76 per minute. She is afebrile. EXAMINATION OF THE HEART: S1 and S2. EXAMINATION OF THE LUNGS: Bilateral breath sounds are heard. No crackles or wheezing is heard. Abdomen is soft, nontender. Examination of lower extremities shows edema 1+ bilaterally. [employer] exam is grossly intact. No asterixis is noted. LABS: Labs from today show sodium 132, potassium 3.9, serum creatinine 7.1. Hemoglobin 9.4 g/dL. ASSESSMENT: 1. Acute kidney injury, acute tubular necrosis secondary to hypotension hypoperfusion. Serum creatinine is still rising. However, the rate of increase is not as much. Urine output improved slightly yesterday. Patient is maintained on IV Lasix, which I will continue. We will repeat labs in a.m. and patient is aware that she may very well need to start dialysis tomorrow. 2. Mild volume overload. I will discontinue the IV fluids and continue with the Lasix for now. 3. Abdominal wall abscess, status post exploratory laparotomy, resection of infected mesh and drainage of abscess. 4. Metabolic acidosis, status post IV bicarb. PLAN: Continue with IV Lasix. Discontinue IV fluids. Repeat labs in a.m. Patient will most likely need dialysis tomorrow. No need for urgent dialysis today. We will repeat recheck the labs tomorrow. MMODL / IJN: [id number] /
--- NOTE | 2017-07-05 13:41 | P.PN ---
Subjective Progress Note Date: 07/02/17 Principal diagnosis: Metabolic Acidosis Kathy was seen in follow-up today. She is sitting up family at bedside, no acute complaints. Objective - Vital Signs Vital signs: Vital Signs Temp 98 F 07/02/17 14:39 Pulse 83 07/02/17 14:39 Resp 16 07/02/17 14:39 BP 131/80 07/02/17 14:39 Pulse Ox 95 07/02/17 14:39 Intake & Output 07/01/17 07/02/17 07/02/17 18:59 06:59 18:59 Intake Total 1260 480 250 Output Total 60 300 Balance 1200 180 250 Weight 77.111 kg Intake: Intake, IV Titration 600 300 Amount Sodium Chloride 0.9% 1, 600 300 000 ml @ 75 mls/hr IV . [id number] [facility] Rx#:[id number] Oral 660 180 250 Output: Urine 60 300 Other: Voiding Method Indwelling Catheter Indwelling Catheter Indwelling Catheter - Constitutional General appearance: Present: no acute distress, obese - EENT Eyes: Present: EOMI, PERRLA, dentition normal ENT: Present: NA/AT, normal oropharynx - Neck Details: Supple, Trachea Midline - Respiratory Respiratory: bilateral: CTA (No increased effort) - Cardiovascular Rhythm: regular - Gastrointestinal General gastrointestinal: Present: soft, tenderness - Integumentary Integumentary: Present: pale - Neurologic Neurologic: Present: CNII-XII intact - Musculoskeletal Musculoskeletal: Present: generalized weakness - Psychiatric Psychiatric: Present: A&O x's 3, appropriate affect, intact judgment & insight - Labs CBC & Chem 7: 07/05/17 10:15 07/05/17 08:53 Labs: Abnormal Lab Results - Last 24 Hours (Table) 07/01/17 07/02/17 07/02/17 Range/Units 19:50 06:24 06:24 WBC 15.4 H (3.8-10.6) k/uL Hgb 8.7 L (11.4-16.0) gm/dL Hct 29.7 L (34.0-46.0) % MCV 73.8 L (80.0-100.0) fL MCH 21.6 L (25.0-35.0) pg MCHC 29.3 L (31.0-37.0) g/dL RDW 17.4 H (11.5-15.5) % Plt Count 535 H (150-450) k/uL Neutrophils # 13.1 H (1.3-7.7) k/uL Carbon Dioxide 13 L (22-30) mmol/L BUN 35 H (7-17) mg/dL Creatinine 4.70 H (0.52-1.04) mg/dL POC Glucose (mg/dL) 108 H (75-99) mg/dL Calcium 7.8 L (8.4-10.2) mg/dL Total Protein 4.5 L (6.3-8.2) g/dL Albumin 2.3 L (3.5-5.0) g/dL 07/02/17 Range/Units 11:10 WBC (3.8-10.6) k/uL Hgb (11.4-16.0) gm/dL Hct (34.0-46.0) % MCV (80.0-100.0) fL MCH (25.0-35.0) pg MCHC (31.0-37.0) g/dL RDW (11.5-15.5) % Plt Count (150-450) k/uL Neutrophils # (1.3-7.7) k/uL Carbon Dioxide (22-30) mmol/L BUN (7-17) mg/dL Creatinine (0.52-1.04) mg/dL POC Glucose (mg/dL) 133 H (75-99) mg/dL Calcium (8.4-10.2) mg/dL Total Protein (6.3-8.2) g/dL Albumin (3.5-5.0) g/dL Microbiology - Last 24 Hours (Table) 06/29/17 06:00 Blood Culture - Preliminary Blood No Growth after 72 hours 06/29/17 16:56 Gram Stain - Final Abdomen Wound Culture - Final Proteus mirabilis Assessment and Plan (1) Microcytic anemia Current Visit: Yes Status: Acute Code(s): D50.9 - IRON DEFICIENCY ANEMIA, UNSPECIFIED SNOMED Code(s): 503122134 (2) Abdominal pain Current Visit: Yes Status: Acute Priority: High Code(s): R10.9 - UNSPECIFIED ABDOMINAL PAIN SNOMED Code(s): 19931903 (3) Acute blood loss anemia Current Visit: Yes Status: Acute Priority: High Code(s): D62 - ACUTE POSTHEMORRHAGIC ANEMIA SNOMED Code(s): 538431585 (4) Acute renal failure Current Visit: Yes Status: Acute Code(s): N17.9 - ACUTE KIDNEY FAILURE, UNSPECIFIED SNOMED Code(s): 00112927 (5) Hematoma Current Visit: Yes Status: Acute Priority: High Code(s): T14.8XXA - OTHER INJURY OF UNSPECIFIED BODY REGION, INITIAL ENCOUNTER SNOMED Code(s): 075851009 Plan: Assessment and Recommendations: 1. Microcytic Anemia likely secondary to Acute Blood Loss Anemia: - Will Check Iron Studies, Retic, B12, Folate levels - If iron low ok for parental Iron as long as no concern for underlying sepsis, if so hold off or initiate PO - Monitor CBC and provide supportive transfusion less then 7 2. Hematoma/Intraperitoneal Abscess: - Status Post Surgical exploratory laparotomy drainage of intraperitoneal abscess resection of infected mesh infected hematoma area drained. 3. Acute Renal Insufficiency - Likely Multifactorial with Hypovolemia Hypotension, Infection - Per Nephrology and Primary Team.
--- NOTE | 2017-07-05 13:46 | P.PN ---
Subjective Progress Note Date: 07/05/17 Principal diagnosis: Metabolic Acidosis Kathy was seen in follow-up today. She denies any new complaints. Objective - Vital Signs Vital signs: Vital Signs Temp 97.1 F L 07/05/17 07:00 Pulse 70 07/05/17 07:00 Resp 16 07/05/17 01:40 BP 153/85 07/05/17 07:00 Pulse Ox 96 07/05/17 07:00 Intake & Output 07/04/17 07/05/17 07/05/17 18:59 06:59 18:59 Intake Total 1853 Output Total 175 275 100 Balance 1678 -275 -100 Intake: Intake, IV Titration 575 Amount Dextrose 5% in Water 1, 525 000 ml @ 75 mls/hr IV . [id number] REJI with Sodium Bicarb (1 Meq/ml) 150 ml Rx#:[id number] Piperacillin-Tazobactam 3 50 .375 gm In Dextrose/Water 1 50ml.bag @ 12.5 mls/hr IVPB Q12HR REJI Rx#: [id number] Oral 1278 Output: Urine 175 275 100 Uretheral (Demarco) 75 100 Other: Voiding Method Indwelling Catheter Indwelling Catheter Indwelling Catheter # Bowel Movements 1 - Constitutional General appearance: Present: average body habitus, no acute distress - EENT Eyes: Present: EOMI, dentition normal ENT: Present: NA/AT, normal oropharynx - Neck Neck: Present: normal ROM - Respiratory Respiratory: bilateral: CTA (No increased effort) - Cardiovascular Rhythm: regular - Gastrointestinal General gastrointestinal: Present: soft, tenderness - Integumentary Integumentary Comment(s): Evidence of recent surgery - Neurologic Neurologic Comment(s): No focal defects Neurologic: Present: CNII-XII intact - Musculoskeletal Musculoskeletal: Present: strength equal bilaterally - Psychiatric Psychiatric: Present: A&O x's 3, appropriate affect, intact judgment & insight - Labs CBC & Chem 7: 07/05/17 10:15 07/05/17 08:53 Labs: Abnormal Lab Results - Last 24 Hours (Table) 07/04/17 07/04/17 07/05/17 Range/Units 17:14 20:12 07:11 WBC (3.8-10.6) k/uL Hgb (11.4-16.0) gm/dL Hct (34.0-46.0) % MCV (80.0-100.0) fL MCH (25.0-35.0) pg RDW (11.5-15.5) % Plt Count (150-450) k/uL Neutrophils # (1.3-7.7) k/uL Sodium (137-145) mmol/L Carbon Dioxide (22-30) mmol/L BUN (7-17) mg/dL Creatinine (0.52-1.04) mg/dL Glucose (74-99) mg/dL POC Glucose (mg/dL) 126 H 114 H 116 H (75-99) mg/dL Calcium (8.4-10.2) mg/dL 07/05/17 07/05/17 07/05/17 Range/Units 08:53 10:15 10:51 WBC 14.7 H (3.8-10.6) k/uL Hgb 9.4 L (11.4-16.0) gm/dL Hct 30.0 L (34.0-46.0) % MCV 70.0 L (80.0-100.0) fL MCH 21.9 L (25.0-35.0) pg RDW 19.1 H (11.5-15.5) % Plt Count 493 H (150-450) k/uL Neutrophils # 12.7 H (1.3-7.7) k/uL Sodium 132 L (137-145) mmol/L Carbon Dioxide 21 L (22-30) mmol/L BUN 46 H (7-17) mg/dL Creatinine 7.18 H* (0.52-1.04) mg/dL Glucose 154 H (74-99) mg/dL POC Glucose (mg/dL) 152 H (75-99) mg/dL Calcium 7.7 L (8.4-10.2) mg/dL Microbiology - Last 24 Hours (Table) 06/29/17 06:00 Blood Culture - Final Blood No Growth after 144 hours Assessment and Plan (1) Microcytic anemia Current Visit: Yes Status: Acute Code(s): D50.9 - IRON DEFICIENCY ANEMIA, UNSPECIFIED SNOMED Code(s): 861005839 (2) Abdominal pain Current Visit: Yes Status: Acute Priority: High Code(s): R10.9 - UNSPECIFIED ABDOMINAL PAIN SNOMED Code(s): 06319977 (3) Acute blood loss anemia Current Visit: Yes Status: Acute Priority: High Code(s): D62 - ACUTE POSTHEMORRHAGIC ANEMIA SNOMED Code(s): 147864204 (4) Acute renal failure Current Visit: Yes Status: Acute Code(s): N17.9 - ACUTE KIDNEY FAILURE, UNSPECIFIED SNOMED Code(s): 00165765 (5) Hematoma Current Visit: Yes Status: Acute Priority: High Code(s): T14.8XXA - OTHER INJURY OF UNSPECIFIED BODY REGION, INITIAL ENCOUNTER SNOMED Code(s): 295460579 Plan: Assessment and Recommendations: 1. Microcytic Anemia likely secondary to Acute Blood Loss Anemia: - Iron studies are low and could benefit from IV iron, although in the presence of recent to ongoing infection will hold off until decreased risk of complicating bacteremia with parental Iron support, Hemoglobin stable at this time, improving. - Monitor CBC and provide supportive transfusion less then 7 - Will also check SPEP 2. Hematoma/Intraperitoneal Abscess: - Status Post Surgical exploratory laparotomy drainage of intraperitoneal abscess resection of infected mesh infected hematoma area drained. 3. Acute Renal Insufficiency - Likely Multifactorial with Hypovolemia Hypotension, Infection - Per Nephrology and Primary Team. Physician Attest: I have completed the full history and physical of this patient, discussed and agree with dictation above by Paulette Wheeler NP. Documented as a scribe.
[2017-07-05] MEDS: ONDANSETRON 4 MG/2 ML VIAL IVP PRN ×2 (15:40→22:00)
[2017-07-05 16:12] LABS: Protein, Total 4.3 g/dL (6.2-8.2)
[2017-07-05 17:09] LABS: Glucose,Whole Blood 111 mg/dL (75-99)
--- NOTE | 2017-07-05 18:46 | P.PN ---
Subjective Progress Note Date: 07/05/17 Progress note being dictated for Dr. Parsons. Interval history: Patient came in with complaints of right-sided severe abdominal pain sharp in nature and nonradiating found to have abscess in that area are a hematoma and which was infected patient had a recent laparoscopic robotic-assisted repair of incisional hernia was subsequently discharged home did well started having severe pain in that area along with chills. Patient is found to have fluid collection in the rectal sheath extending into the anterior abdominal wall and thickening of the ascending colon with diverticulosis. Patient was started on Vanco mycin Zosyn which is appropriate 06/30/2017 status post exploratory laparotomy drainage of intraperitoneal abscess resection of an infected mesh, purulent pelvis fluid with drainage of right rectus infected hematoma area. Maintained on IV antibiotics. Hemoglobin dropped to 7.3, symptomatic, receiving one unit of packed RBCs. Hypotensive, worsening renal function with low urine output receiving third liter of IV fluid bolus. Currently denying chest pain, palpitations, shortness of breath. Denies lightheadedness or dizziness. T-max 99.1, WBC 20.4. 07/01/2017 blood pressure improved, urine output increased with 180 mL's overnight. Renal function worsening, up to 3.2. Evaluated by nephrology with recommendations noted. Receive 1 unit of packed RBCs yesterday with hemoglobin up to 8.6. Afebrile, WBC trending down. maintaining O2 sats of mid to high 90s on room air. Tolerating clear liquid diet with no nausea, vomiting or diarrhea. Passing flatus, burping. Blood sugars controlled. Denies abdominal pain, states she is experiencing a"stinging sensation". Maintained on IV antibiotics as per infectious disease. 07/02/2017 denies pain. Tolerating regular diet with no nausea or vomiting. No bowel movement, passing flatus. Leukocytosis trending down. Afebrile. Received Lasix yesterday without increase in urine output. Renal function continues to worsen, 4.7. acidotic, CO2 13. Bicarb drip initiated as per nephrology. 07/03/2017 Patient's kidney function continued to worsen. Although patient clinically looks with very good and nephrology wanted to wait 1 more day and reassess for renal replacement therapy. Constitutional: Denied any fatigue denied any fever. Cardio vascular: denied any chest pain, palpitations Gastrointestinal denied any nausea vomiting Pulmonary: Denied any shortness of breath cough Neurologic denied any new focal deficits 07/05/2017 creatinine up to 7.4, complaining of decreased appetite, worsening nausea this afternoon. IV fluids have been discontinued, maintained on IV push Lasix. Franklin drain discontinued. Nursing reports serous drainage during dressing change. Afebrile, WBC trending down. Objective - Vital Signs Vital signs: Vital Signs Temp 98 F 07/05/17 15:00 Pulse 66 07/05/17 15:00 Resp 16 07/05/17 15:00 BP 143/83 07/05/17 15:00 Pulse Ox 97 07/05/17 15:00 Intake & Output 07/04/17 07/05/17 07/05/17 18:59 06:59 18:59 Intake Total 1853 Output Total 175 275 100 Balance 1678 -275 -100 Intake: Intake, IV Titration 575 Amount Dextrose 5% in Water 1, 525 000 ml @ 75 mls/hr IV . [id number] REJI with Sodium Bicarb (1 Meq/ml) 150 ml Rx#:[id number] Piperacillin-Tazobactam 3 50 .375 gm In Dextrose/Water 1 50ml.bag @ 12.5 mls/hr IVPB Q12HR [facility] Rx#: [id number] Oral 1278 Output: Urine 175 275 100 Uretheral (Demarco) 75 100 Other: Voiding Method Indwelling Catheter Indwelling Catheter Indwelling Catheter # Bowel Movements 1 - Exam GENERAL: The patient is alert and oriented x3, sitting up in chair, no acute distress HEENT: Pupils are round and equally reacting to light. EOMI. No scleral icterus. No conjunctival pallor. Normocephalic, atraumatic. CARDIOVASCULAR: S1 and S2 present. No murmurs, rubs, or gallops. PULMONARY: Chest is clear to auscultation, no wheezing or crackles. ABDOMEN: Soft, nontender, nondistended, positive bowel sounds. Status post surgery; dressing ,abdominal binder present MUSCULOSKELETAL: No joint swelling or deformity. EXTREMITIES: No cyanosis, clubbing, or pedal edema. NEUROLOGICAL: Gross neurological examination did not reveal any focal deficits. SKIN: No rashes. - Labs CBC & Chem 7: 07/05/17 10:15 07/05/17 08:53 Labs: Abnormal Lab Results - Last 24 Hours (Table) 07/04/17 07/05/17 07/05/17 Range/Units 20:12 07:11 08:53 WBC (3.8-10.6) k/uL Hgb (11.4-16.0) gm/dL Hct (34.0-46.0) % MCV (80.0-100.0) fL MCH (25.0-35.0) pg RDW (11.5-15.5) % Plt Count (150-450) k/uL Neutrophils # (1.3-7.7) k/uL Sodium 132 L (137-145) mmol/L Carbon Dioxide 21 L (22-30) mmol/L BUN 46 H (7-17) mg/dL Creatinine 7.18 H* (0.52-1.04) mg/dL Glucose 154 H (74-99) mg/dL POC Glucose (mg/dL) 114 H 116 H (75-99) mg/dL Calcium 7.7 L (8.4-10.2) mg/dL Total Protein (PEP) (6.2-8.2) g/dL 07/05/17 07/05/17 07/05/17 Range/Units 10:15 10:15 10:51 WBC 14.7 H (3.8-10.6) k/uL Hgb 9.4 L (11.4-16.0) gm/dL Hct 30.0 L (34.0-46.0) % MCV 70.0 L (80.0-100.0) fL MCH 21.9 L (25.0-35.0) pg RDW 19.1 H (11.5-15.5) % Plt Count 493 H (150-450) k/uL Neutrophils # 12.7 H (1.3-7.7) k/uL Sodium (137-145) mmol/L Carbon Dioxide (22-30) mmol/L BUN (7-17) mg/dL Creatinine (0.52-1.04) mg/dL Glucose (74-99) mg/dL POC Glucose (mg/dL) 152 H (75-99) mg/dL Calcium (8.4-10.2) mg/dL Total Protein (PEP) 4.3 L (6.2-8.2) g/dL 07/05/17 Range/Units 17:07 WBC (3.8-10.6) k/uL Hgb (11.4-16.0) gm/dL Hct (34.0-46.0) % MCV (80.0-100.0) fL MCH (25.0-35.0) pg RDW (11.5-15.5) % Plt Count (150-450) k/uL Neutrophils # (1.3-7.7) k/uL Sodium (137-145) mmol/L Carbon Dioxide (22-30) mmol/L BUN (7-17) mg/dL Creatinine (0.52-1.04) mg/dL Glucose (74-99) mg/dL POC Glucose (mg/dL) 111 H (75-99) mg/dL Calcium (8.4-10.2) mg/dL Total Protein (PEP) (6.2-8.2) g/dL Microbiology - Last 24 Hours (Table) 06/29/17 16:56 Anaerobic Culture - Final Abdomen Anaerobic Gm Negative Bacilli 06/29/17 06:00 Blood Culture - Final Blood No Growth after 144 hours Assessment and Plan Assessment: - abdominal wall abscess, Status post exploratory laparotomy with resection of infected mesh and drainage -Sepsis present on admission secondary to abdominal wall abscess -Hypertension -Chronic low back pain -Gastroesophageal reflux disease -Hyperlipidemia next -Acute postoperative blood loss anemia, expected postsurgical secondary to resection and drainage of abscess/hematoma ,status post transfusion 1 unit of packed RBCs -Acute renal failure secondary to ATN secondary to hypovolemic hypotension initially-resolved, anemia, medications -Metabolic acidosis secondary to acute kidney injury, status post IV bicarb Plan: Continue on current medication regime , Lasix, monitoring and symptomatic treatment. IV fluids discontinued as per nephrology. Close monitoring of renal function with repeat labs ordered for a.m. potential initiation of Hemodialysis tomorrow. antibiotics as per ID. Aggressive pulmonary toileting. The impression and plan of care has been dictated as directed. : I performed a history and examination of this patient, discussed the same with the dictator. I agree with the dictator's note ,documented as a scribe. Any additional findings or plans will be noted.
[2017-07-05 20:56] LABS: Glucose,Whole Blood 132 mg/dL (75-99)
[2017-07-05] MEDS: ATORVASTATIN 10 MG TAB PO SCH (20:56)
--- NOTE | 2017-07-05 23:17 | P.PN ---
Subjective Progress Note Date: 07/05/17 Principal diagnosis: abdominal pain This is a 72-year-old female patient gives history of having an abdominal wall abscess on the right side for which she was treated at [facility] emergency center in October 2016. The ER physician did an incision and drainage and widen the draining track with a scalpel and placed iodoform gauze. There was purulent material at that time. Patient states that this eventually healed and in April she was having increased right-sided abdominal pain and her PCP sent her to [facility] for an ultrasound that showed a possible hematoma on the right upper quadrant. She was then sent to Dr. Hancock for further evaluation. Because of anemia, patient underwent an upper and lower endoscopy with Dr. Hancock on May 20 that found no signs of bleeding. She subsequently underwent a hernia repair at the site of the previous hematoma or abscess from October [address] Hancock and this was done on 05/26/2017. This was located in the mid upper abdomen. She states she continued to have right-sided abdominal pain, chills and hot feeling, decreased appetite with possible weight loss and nausea. She saw Dr. Hancock yesterday and she up for outpatient computed tomography scan but she states that after he pressed on her abdomen her pain got significant only worse last evening and she came into [facility] emergency center for evaluation. She underwent a CAT scan of the abdomen and pelvis which revealed marked interval worsening of a right rectus sheath fluid collection which now extends into the anterior abdominal wall. Differential includes hematoma, abscess with stromal felt less likely. Mild wall thickening within the ascending and transverse colon is nonspecific but may represent colitis. Extensive diverticulosis with mild adjacent nonspecific fluid in the pelvis limits evaluation for potential diverticulitis. Mild atelectasis or less likely pneumonia in the left lung base. Large hiatal hernia. This CAT scan was compared to one done in September 2016. Patient is now admitted under the care of Dr. Vinny Godwin and is scheduled for I&D and washout this afternoon. Patient presented with a white count of 26.4, lactic acid 3.3 and repeat 1.7, afebrile, creatinine 0.6. Mild elevation of liver function tests with AST of 63, ALT 75, alkaline phosphatase 156. Urinalysis was cloudy with nitrate and leukoesterase negative and bacteria many. Patient denies any urinary pain or frequency or urgency. She also denies having any blood in her stools. 06/30/2017 reveals the patient to be postoperative and feeling slightly better. However she is now having difficulties with urinary output. Despite 3 L of fluid and blood transfusion she continues to have poor urinary output. She had a bladder scan that only showed 12 mL of fluid. Her abdominal pain is improving. She tolerated a clear liquid diet with no difficulties. 07/01/2017 patient is postoperative and feeling better. Pain is under good control. She continues to have poor urinary output but has had at least some urine output today. She is comfortable. Denies shortness of breath. Wound culture showed evidence of gram-negative bacilli only and vancomycin therapy was discontinued yesterday. 07/02/2017 patient does feel better. Is having difficulties with edema. Urine output remains very low. Fortunately she is not having severe shortness of breath. She's had only minimal abdominal discomfort related to her recent surgery. Only Proteus mirabilis is been isolated and is noted vancomycin therapy was discontinued. Is being followed by nephrology and if she has no urinary output we will consider renal replacement therapy. 07/03/2017 patient does feel relatively well but is having some increasing difficulties with edema and has some epigastric discomfort. She's having increasing difficulties with her appetite with increasing nausea which appears to be in the bases of her increasing uremia. 07/05/2017 patient is feeling relatively well she is having some edema. She is evaluated by nephrology her creatinine is a 7.18 and consideration for hemodialysis tomorrow. Objective - Vital Signs Vital signs: Vital Signs Temp 97.7 F 07/05/17 20:00 Pulse 76 07/05/17 20:00 Resp 16 07/05/17 20:00 BP 139/80 07/05/17 20:00 Pulse Ox 98 07/05/17 20:00 Intake & Output 07/05/17 07/05/17 07/06/17 06:59 18:59 06:59 Intake Total 50 Output Total 275 425 Balance -275 -425 50 Intake: Intake, IV Titration 50 Amount Piperacillin-Tazobactam 3 50 .375 gm In Dextrose/Water 1 50ml.bag @ 12.5 mls/hr IVPB Q12HR [facility] Rx#: [id number] Output: Urine 275 425 Uretheral (Demarco) 75 100 Other: Voiding Method Indwelling Catheter Indwelling Catheter Indwelling Catheter # Bowel Movements 1 - Exam Gen: This is a 72-year-old female patient. She is in bed and appears to be comfortable and in no acute distress. We does complain of some nausea. HEENT: Head is atraumatic, normocephalic. Pupils equal, round. Sclerae is anicteric. Conjunctiva pink. Mucous members of the mouth are dry. NECK: Supple. No JVD. No lymphadenopathy. No thyromegaly. LUNGS: Clear to auscultation. No wheezes or rhonchi. No intercostal retractions. HEART: Regular rate and rhythm. No murmur. ABDOMEN:few bowel sounds are heard there is a surgical incision that is having drainage of serosanginous material on the dressing the abdomen is tender to palpation EXTREMITIES: Is evidence of bilateral lower extremity edema No calf tenderness. Dorsalis pedis +2 bilaterally. NEUROLOGICAL: Patient is awake, alert and oriented x3 - Labs CBC & Chem 7: 07/05/17 10:15 07/05/17 08:53 Labs: Abnormal Lab Results - Last 24 Hours (Table) 07/05/17 07/05/17 07/05/17 Range/Units 07:11 08:53 10:15 WBC 14.7 H (3.8-10.6) k/uL Hgb 9.4 L (11.4-16.0) gm/dL Hct 30.0 L (34.0-46.0) % MCV 70.0 L (80.0-100.0) fL MCH 21.9 L (25.0-35.0) pg RDW 19.1 H (11.5-15.5) % Plt Count 493 H (150-450) k/uL Neutrophils # 12.7 H (1.3-7.7) k/uL Sodium 132 L (137-145) mmol/L Carbon Dioxide 21 L (22-30) mmol/L BUN 46 H (7-17) mg/dL Creatinine 7.18 H* (0.52-1.04) mg/dL Glucose 154 H (74-99) mg/dL POC Glucose (mg/dL) 116 H (75-99) mg/dL Calcium 7.7 L (8.4-10.2) mg/dL Total Protein (PEP) (6.2-8.2) g/dL 07/05/17 07/05/17 07/05/17 Range/Units 10:15 10:51 17:07 WBC (3.8-10.6) k/uL Hgb (11.4-16.0) gm/dL Hct (34.0-46.0) % MCV (80.0-100.0) fL MCH (25.0-35.0) pg RDW (11.5-15.5) % Plt Count (150-450) k/uL Neutrophils # (1.3-7.7) k/uL Sodium (137-145) mmol/L Carbon Dioxide (22-30) mmol/L BUN (7-17) mg/dL Creatinine (0.52-1.04) mg/dL Glucose (74-99) mg/dL POC Glucose (mg/dL) 152 H 111 H (75-99) mg/dL Calcium (8.4-10.2) mg/dL Total Protein (PEP) 4.3 L (6.2-8.2) g/dL 07/05/17 Range/Units 20:54 WBC (3.8-10.6) k/uL Hgb (11.4-16.0) gm/dL Hct (34.0-46.0) % MCV (80.0-100.0) fL MCH (25.0-35.0) pg RDW (11.5-15.5) % Plt Count (150-450) k/uL Neutrophils # (1.3-7.7) k/uL Sodium (137-145) mmol/L Carbon Dioxide (22-30) mmol/L BUN (7-17) mg/dL Creatinine (0.52-1.04) mg/dL Glucose (74-99) mg/dL POC Glucose (mg/dL) 132 H (75-99) mg/dL Calcium (8.4-10.2) mg/dL Total Protein (PEP) (6.2-8.2) g/dL Microbiology - Last 24 Hours (Table) 06/29/17 16:56 Anaerobic Culture - Final Abdomen Anaerobic Gm Negative Bacilli 06/29/17 06:00 Blood Culture - Final Blood No Growth after 144 hours Laboratory Results WBC 14.7 k/uL (3.8-10.6) H 07/05/17 10:15 RBC 4.29 m/uL (3.80-5.40) 07/05/17 10:15 Hgb 9.4 gm/dL (11.4-16.0) L 07/05/17 10:15 Hct 30.0 % (34.0-46.0) L 07/05/17 10:15 MCV 70.0 fL (80.0-100.0) L 07/05/17 10:15 MCH 21.9 pg (25.0-35.0) L 07/05/17 10:15 MCHC 31.2 g/dL (31.0-37.0) 07/05/17 10:15 RDW 19.1 % (11.5-15.5) H 07/05/17 10:15 Plt Count 493 k/uL (150-450) H 07/05/17 10:15 Neutrophils % 86 % 07/05/17 10:15 Neutrophils % (Manual) 88 % 06/29/17 04:38 Band Neutrophils % 6 % 06/29/17 04:38 Lymphocytes % 8 % 07/05/17 10:15 Lymphocytes % (Manual) 5 % 06/29/17 04:38 Monocytes % 2 % 07/05/17 10:15 Monocytes % (Manual) 2 % 06/29/17 04:38 Eosinophils % 3 % 07/05/17 10:15 Basophils % 0 % 07/05/17 10:15 Neutrophils # 12.7 k/uL (1.3-7.7) H 07/05/17 10:15 Neutrophils # (Manual) 24.80 k/uL (1.3-7.7) H 06/29/17 04:38 Lymphocytes # 1.2 k/uL (1.0-4.8) 07/05/17 10:15 Lymphocytes # (Manual) 1.32 k/uL (1.0-4.8) 06/29/17 04:38 Monocytes # 0.3 k/uL (0-1.0) 07/05/17 10:15 Monocytes # (Manual) 0.53 k/uL (0-1.0) 06/29/17 04:38 Eosinophils # 0.4 k/uL (0-0.7) 07/05/17 10:15 Basophils # 0.0 k/uL (0-0.2) 07/05/17 10:15 Nucleated RBCs 0 /100 WBC (0-0) 06/29/17 04:38 Manual Slide Review Performed 06/29/17 04:38 Toxic Vacuolation Present 06/29/17 04:38 Hypochromasia Marked 07/05/17 10:15 Poikilocytosis Slight 07/02/17 06:24 Anisocytosis Slight 07/05/17 10:15 Microcytosis Marked 07/05/17 10:15 Retic Count 1.1 % (0.5-2.0) 06/30/17 06:39 PT 10.9 sec (9.0-12.0) 06/29/17 04:38 INR 1.1 (<1.2) 06/29/17 04:38 APTT 22.3 sec (22.0-30.0) 06/29/17 10:45 Sodium 132 mmol/L (137-145) L 07/05/17 08:53 Potassium 3.9 mmol/L (3.5-5.1) 07/05/17 08:53 Chloride 98 mmol/L (98-107) 07/05/17 08:53 Carbon Dioxide 21 mmol/L (22-30) L 07/05/17 08:53 Anion Gap 13 mmol/L 07/05/17 08:53 BUN 46 mg/dL (7-17) H 07/05/17 08:53 Creatinine 7.18 mg/dL (0.52-1.04) H* 07/05/17 08:53 Est GFR (CKD-EPI)AfAm 6 (>60 ml/min/1.73 sqM) 07/05/17 08:53 Est GFR (CKD-EPI)NonAf 5 (>60 ml/min/1.73 sqM) 07/05/17 08:53 Glucose 154 mg/dL (74-99) H 07/05/17 08:53 POC Glucose (mg/dL) 132 mg/dL (75-99) H 07/05/17 20:54 POC Glu Lance [employer]member/[employer] Dave Townsendnie 07/05/17 20:[address] Glu mg/dL 151 06/30/17 06:39 Hemoglobin A1c 6.9 % (4.0-6.0) H 06/30/17 06:39 Lactic Ac Sepsis Rflx Y 04/03/18 05:08 Plasma Lactic Acid Lasha 1.7 mmol/L (0.7-2.0) 06/29/17 09:19 Calcium 7.7 mg/dL (8.4-10.2) L 07/05/17 08:53 Magnesium 1.6 mg/dL (1.6-2.3) 06/29/17 04:38 Iron 7 ug/dL (50-170) L 06/30/17 06:39 TIBC 197 ug/dL (228-460) L 06/30/17 06:39 Iron Saturation 3.55 (12.00-45.00) L 06/30/17 06:39 Ferritin 116.2 ng/mL (10.0-291.0) 06/30/17 06:39 Total Bilirubin 0.4 mg/dL (0.2-1.3) 07/02/17 06:24 AST 24 U/L (14-36) 07/02/17 06:24 ALT 36 U/L (9-52) 07/02/17 06:24 Alkaline Phosphatase 91 U/L (38-126) 07/02/17 06:24 Total Protein 4.5 g/dL (6.3-8.2) L 07/02/17 06:24 Total Protein (PEP) 4.3 g/dL (6.2-8.2) L 07/05/17 10:15 Albumin 2.3 g/dL (3.5-5.0) L 07/02/17 06:24 Amylase 38 U/L (30-110) 06/29/17 04:38 Lipase 64 U/L (23-300) 06/29/17 04:38 Vitamin B12 1273.0 pg/mL (200.0-944.0) H 06/30/17 06:39 Folate 11.2 ng/mL 06/30/17 06:39 Urine Color Yellow 06/29/17 06:38 Urine Appearance Cloudy (Clear) H 06/29/17 06:38 Urine pH 6.5 (5.0-8.0) 06/29/17 06:38 Ur Specific [place] 1.007 (1.001-1.035) 06/29/17 06:38 Urine Protein Negative (Negative) 06/29/17 06:38 Urine Glucose (UA) Negative (Negative) 06/29/17 06:38 Urine Ketones Negative (Negative) 06/29/17 06:38 Urine Blood Negative (Negative) 06/29/17 06:38 Urine Nitrite Negative (Negative) 06/29/17 06:38 Urine Bilirubin Negative (Negative) 06/29/17 06:38 Urine Urobilinogen <2.0 mg/dL (<2.0) 06/29/17 06:38 Ur Leukocyte Esterase Negative (Negative) 06/29/17 06:38 Urine RBC 2 /hpf (0-5) 06/29/17 06:38 Urine WBC 2 /hpf (0-5) 06/29/17 06:38 Ur Squamous Epith Cells 13 /hpf (0-4) H 06/29/17 06:38 Urine Bacteria Many /hpf (None) H 06/29/17 06:38 Hyaline Casts 2 /lpf (0-2) 06/29/17 06:38 Urine Mucus Rare /hpf (None) H 06/29/17 06:38 Random Vancomycin 26.9 ug/mL 07/02/17 06:24 Hepatitis A IgM Ab Non-Reactive (Non-Reactive) 06/29/17 04:38 Hep Bs Antigen Non-Reactive (Non-Reactive) 06/29/17 04:38 Hep B Core IgM Ab Non-Reactive (Non-Reactive) 06/29/17 04:38 Hep C IgG Ab Non-Reactive (Non-Reactive) 06/29/17 04:38 Blood Type B Negative 06/30/17 08:24 Blood Type Recheck No 06/30/17 08:24 Antibody Screen NEGATIVE 06/30/17 08:24 Crossmatch See Detail 06/30/17 08:24 Spec Expiration Date 07/03/2017 72306/30/17 08:24 Microbiology 06/29/17 16:56 Abdomen Anaerobic Culture - Final Anaerobic Gm Negative Bacilli 06/29/17 06:00 Blood Blood Culture - Final No Growth after 144 hours 06/29/17 16:56 Abdomen Gram Stain - Final 06/29/17 16:56 Abdomen Wound Culture - Final Proteus mirabilis Assessment and Plan (1) Abdominal pain Current Visit: Yes Status: Acute Priority: High Code(s): R10.9 - UNSPECIFIED ABDOMINAL PAIN SNOMED Code(s): 44463672 (2) Acute blood loss anemia Current Visit: Yes Status: Acute Priority: High Code(s): D62 - ACUTE POSTHEMORRHAGIC ANEMIA SNOMED Code(s): 682133123 (3) Abdominal wall abscess Narrative/Plan: 72 year old woman staus post drainage of the intra-abdominal abscess. It is apparently outside of the peritoneum, and hopefully with incision and drainage will allow this to resolve rapidly. Cultures will further help direct antibiotic therapy, utilizing Zosyn and vancomycin for now pending further culture data. 06/30/2017 reveals the patient to be postoperative in feeling somewhat better. However she's now developed very low urinary output concerns to renal failure. Wound culture showing evidence of gram-negative bacilli. Vancomycin therapy is discontinued. Acute tubular necrosis is of concern given her sepsis at admission, gram-negative in nature. Cultures will help direct the final course of antibiotic therapy. Should be able to further help direct wound therapy once her some further improvement to the postoperative wound also. Nephrology is following. Further diuertic therapy is being given to see if she will respond especially since she's been given fluids and blood. Patient and family are reassured. 07/01/2017 patient is feeling relatively well. She is not having much pain and when she does oral pain medication and is tolerating this well. She does have poor urinary output and she has evidence of acute renal failure that as per nephrology is multifactorial. We'll culture has gram-negative bacilli only and that was evident the vancomycin therapy was discontinued, however with her acute renal failure she continues to have therapeutic level but no further doses are planned. She's received hydration and diuretic therapy awaiting a response. She clinically has an ATN and may require renal replacement therapy. 07/02/2017 patient does feel relatively well. Pain control with oral agents as effective. Continues to have very poor urinary output is being followed by nephrology and may require renal replacement therapy for her HTN. Antibiotic therapy with Zosyn is being utilized with excellent control of her infection, has been renally adjusted, and will likely transition to oral antimicrobial therapy as she shows ongoing improvement. 07/03/2017 patient is feeling less well today. Is having some epigastric discomfort and is developed some nausea without leonardo emesis. She has increasing amounts of renal failure and poor urinary output. She's developing some uremia is developing some edema and nausea on the basis. She's been followed by nephrology and likable have hemodialysis starting tomorrow for her ATN and acute oliguric renal failure. Antimicrobial therapy will transition to oral in the near future. 07/05/2017 patient continues to feel somewhat poorly. However is not having significant nausea or emesis. She is a bit more uremic and appetites poor. Has edema. Nephrology is following and will likely initiate hemodialysis tomorrow. We will transition to oral antibiotic therapy when she has initiated above treatment. Current Visit: Yes Status: Acute Code(s): L02.211 - CUTANEOUS ABSCESS OF ABDOMINAL WALL SNOMED Code(s): 30593468
[2017-07-05] MEDS: SODIUM CHLORIDE 0.9% 1,000 ML IV SCH (23:34)
[2017-07-06] MEDS: ONDANSETRON 4 MG/2 ML VIAL IVP PRN ×2 (03:21→08:54)
[2017-07-06 07:01] LABS: Glucose,Whole Blood 111 mg/dL (75-99)
[2017-07-06 07:51] LABS: Albumin 2.1 g/dL (3.5-5.0); Calcium 7.6 mg/dL (8.4-10.2); Potassium 3.8 mmol/L (3.5-5.1); Total Bilirubin 0.2 mg/dL (0.2-1.3); Total Protein 4.1 g/dL (6.3-8.2)
[2017-07-06] MEDS: HEPARIN SODIUM,PORCINE 5,000 UNIT/ML 1 ML VIAL SQ SCH ×2 (08:21→17:24)
[2017-07-06] MEDS: FUROSEMIDE 10 MG/ML 10 ML VIAL IV SCH ×2 (08:35→20:28)
[2017-07-06] MEDS: PANTOPRAZOLE 40 MG/10 ML VIAL IV SCH (08:37)
[2017-07-06] MEDS: SODIUM BICARBONATE TAB 650 MG TAB PO SCH (08:38)
[2017-07-06] MEDS: PIPERACILLIN-TAZOBACTAM 3.375 GM in DEXTROSE/WATER 1 50ML.BAG IVPB SCH ×2 (08:38→20:39)
[2017-07-06] MEDS: CHOLECALCIFEROL 1,000 UNIT TAB PO SCH (08:38)
[2017-07-06] MEDS: INSULIN ASPART 100 UNIT/ML 1 ML 10 ML VIAL SQ SCH ×4 (08:39→23:05)
[2017-07-06] MEDS: DOCUSATE 100 MG CAP PO SCH ×3 (08:39→20:28)
[2017-07-06] MEDS: NYSTATIN 100,000 UNIT/ML SUSP 500,000 UNIT/5 ML CUP PO SCH ×4 (08:40→20:28)
[2017-07-06 09:45] LABS: INR 1.2 (<1.2); Prothrombin Time 11.7 sec (9.0-12.0)
[2017-07-06 11:21] LABS: Glucose,Whole Blood 145 mg/dL (75-99)
--- NOTE | 2017-07-06 12:52 | P.PN ---
Subjective Progress Note Date: 07/06/17 72-year-old female seen this morning sitting up in a chair patient teary-eyed this morning concerned about worsening of the renal status creatinine is up to 8.1 nephrology participating in the plan of care plan is for permacath placement for dialysis to be initiated today. Patient states feeling a nausea sensation "feel like I have to force myself to eat no emesis just no appetite states no abdominal pain. Surgical dressing site dry. Postop June 29 exploratory laparotomy drainage of intraperitoneal abscess resection of infected mesh phlegm on the distal terminal ileum and.purulent fluid in the pelvis , right rectus infected hematoma area drained. Objective - Vital Signs Vital signs: Vital Signs Temp 97.8 F 07/06/17 07:00 Pulse 75 07/06/17 07:00 Resp 16 07/06/17 07:00 BP 176/81 07/06/17 07:00 Pulse Ox 95 07/06/17 07:00 Intake & Output 07/05/17 07/06/17 07/06/17 18:59 06:59 18:59 Intake Total 50 Output Total 425 275 Balance -425 -225 Intake: Intake, IV Titration 50 Amount Piperacillin-Tazobactam 3 50 .375 gm In Dextrose/Water 1 50ml.bag @ 12.5 mls/hr IVPB Q12HR [facility] Rx#: [id number] Output: Urine 425 275 Uretheral (Demarco) 100 Other: Voiding Method Indwelling Catheter Indwelling Catheter Indwelling Catheter - Exam Physical exam 72-year-old female sitting up in a chair appears in no acute distress Lungs essentially clear adequate air movement on room air no cough no shortness of breath Heart S1-S2 audible regular Abdomen soft nondistended and indwelling Demarco catheter in place 200ml urine output for 8 hours surgical dressing site dry bowel tones present states had a bowel movement this morning reports a nausea sensation no active emesis extremities no edema noted - Labs CBC & Chem 7: 07/05/17 10:15 07/06/17 06:48 Labs: Abnormal Lab Results - Last 24 Hours (Table) 07/05/17 07/05/17 07/05/17 Range/Units 10:15 17:07 20:54 INR (<1.2) Sodium (137-145) mmol/L Chloride (98-107) mmol/L BUN (7-17) mg/dL Creatinine (0.52-1.04) mg/dL POC Glucose (mg/dL) 111 H 132 H (75-99) mg/dL Calcium (8.4-10.2) mg/dL Total Protein (6.3-8.2) g/dL Total Protein (PEP) 4.3 L (6.2-8.2) g/dL Albumin (3.5-5.0) g/dL 07/06/17 07/06/17 07/06/17 Range/Units 06:48 06:58 09:17 INR 1.2 H (<1.2) Sodium 132 L (137-145) mmol/L Chloride 97 L (98-107) mmol/L BUN 47 H (7-17) mg/dL Creatinine 8.14 H* (0.52-1.04) mg/dL POC Glucose (mg/dL) 111 H (75-99) mg/dL Calcium 7.6 L (8.4-10.2) mg/dL Total Protein 4.1 L (6.3-8.2) g/dL Total Protein (PEP) (6.2-8.2) g/dL Albumin 2.1 L (3.5-5.0) g/dL 07/06/17 Range/Units 11:16 INR (<1.2) Sodium (137-145) mmol/L Chloride (98-107) mmol/L BUN (7-17) mg/dL Creatinine (0.52-1.04) mg/dL POC Glucose (mg/dL) 145 H (75-99) mg/dL Calcium (8.4-10.2) mg/dL Total Protein (6.3-8.2) g/dL Total Protein (PEP) (6.2-8.2) g/dL Albumin (3.5-5.0) g/dL Microbiology - Last 24 Hours (Table) 06/29/17 16:56 Anaerobic Culture - Final Abdomen Anaerobic Gm Negative Bacilli Assessment and Plan Assessment: Impression Present on admission right lateral abdominal wall pain suspect due to abscess extending into the anterior wall Present on admission leukocytosis, tachycardia, febrile hypotensive sepsis suspect due to abdominal wall abscess Severe electrolyte abnormality hypokalemia corrected resolved A recent hospitalization with a procedure done May 26 robotic-assisted laparoscopic incisional hernia repair with mesh Osteoarthritis Chronic lower back pain Esophageal reflux symptoms History of prior abdominal hematoma unclear etiology Infected hematoma with extension intraperitoneally, extension of of abscess into the peritoneal cavity as well as questionable interloop abscesses and pelvic abscess Exploratory laparotomy drainage of intraperitoneal abscess, resection of infected mesh, running of the small bowel no interloop abscesses however phlegmon on the distal terminal ileum and purulent fluid in the pelvis, right rectus infected hematoma area drained done on June Postop acute blood loss anemia expected postsurgical condition due to extensive infection with drainage of infected hematoma necessitating 1 unit of packed red blood cells to be infused Acute renal failure suspect due to hypovolemia hypotension Oliguric acute kidney injury secondary to ischemic ATN secondary to hypotension , anemia and use of nonsteroidals. Metabolic acidosis secondary to acute kidney injury and IV fluids. Improved Symptomatic hypotension requiring 3 L bolus fluid for a low systolic pressure due to an unexpected postsurgical condition related to surgical care Present on admission clinical dehydration likely due to poor oral intake Acute renal failure plan Diuretics per nephrology Lasix 60 IV every 12 monitor electrolytes monitor response Consult Dr. Yadav for permacath placement for hemodialysis Continue recommendations by nephrology hemodialysis to be initiated Continue postop surgical care IV fluids per nephrology Increase activity as tolerated Monitor urine output will keep indwelling Demarco catheter in for now Pain control DVT and GI prophylaxis Repeat labs in the morning Continue IV antibiotics per infectious disease Dictated for Dr. Hyatt The above impression and plan of care have been discussed and directed by signing physician. Gill Allen nurse practitioner acting as scribe for signing physician.
[2017-07-06] MEDS ORDERED: SODIUM CHLORIDE 0.9% 1,000 ML IV ONE (14:05)
[2017-07-06] MEDS ORDERED: LIDOCAINE 2% INJ 20 MG/ML SQ ONE ×2 (14:07)
[2017-07-06] MEDS ORDERED: fentaNYL (PF) 50 MCG/ML 2 ML AMP IVP ONE (14:11)
[2017-07-06] MEDS ORDERED: MIDAZOLAM 2 MG/2 ML VIAL IVP ONE (14:12)
[2017-07-06 14:49] LABS: Albumin 2.04 g/dL (3.80-4.90); Gamma Globulin 0.41 g/dL (0.70-1.50)
--- NOTE | 2017-07-06 15:48 | XR ---
EXAMINATION TYPE: XR chest 1V DATE OF EXAM: 07/06/2017 COMPARISON: 06/30/[address] 06/29/2017 HISTORY: 72-year-old female positive placement of dialysis port TECHNIQUE: Single frontal view of the chest is obtained. FINDINGS: Right-sided double lumen hemodialysis catheter has its tip in the right atrium. Heart normal size. In creased left basilar density. Low lung volumes and cardiovascular markings. IMPRESSION: 1. Right-sided double-lumen hemodialysis catheter with tip in the right atrium. 2. Increased left basilar density could represent combination of atelectasis, consolidation, and pleu ral effusion. In part, the density is secondary to the patient's known large hiatal hernia.
--- NOTE | 2017-07-06 16:37 | CONS ---
CONSULTATION This is a 72-year-old female. Patient has history of acute kidney injury. For that the patient needed urgent dialysis catheter. Patient has been admitted with abdominal wall abscess which was treated surgically. Medical history includes history of hypertension, chronic kidney disease, history of diabetes, history of hyperlipidemia, osteoarthritis. On examination, patient was seen. NECK: Supple. No bruit appreciated. CHEST: Clear to auscultation. First and second sounds normal. Patient had surgery for abdominal wall abscess. VASCULAR EXAMINATION: Brachial, radial and femoral pulses are present. IMPRESSION: 1. Acute chronic renal failure. 2. Abdominal wall abscess. PLAN: Placement of dialysis catheter. Risks and complications were discussed. MMODL / IJN: [id number] /
--- NOTE | 2017-07-06 17:31 | PCN ---
PROCEDURE NOTE PREOPERATIVE DIAGNOSIS: Acute chronic renal failure. PROCEDURE: Placement of a dialysis catheter, ultrasound-guided right internal jugular vein under IV sedation. Sedation time is 20 minutes. PROCEDURE: Patient brought to the microbiological laboratory technician. Right side of the neck and chest was prepped, drapes applied in the usual sterile manner. 1% lidocaine plain infiltrated in the neck and chest area. Ultrasound-guided micropuncture introduced into the right internal jugular vein. Micropuncture guide wire was passed and 4-Lebanese dilator on the top of the guidewire. Then a tunnel was created. Through the tunnel we brought 28 cm dialysis catheter to the neck area. The regular guidewire was passed under fluoroscopy control. The catheter was in the inferior vena cava. Then the dilator was advanced off the top of the guidewire. Then, sheath was advanced. Through the sheath we introduced the dialysis catheter. Tip of the catheter in his superior vena cava and atrial junction. Sheath was removed, flushed with heparin and saline. Incision was closed with Vicryl and nylon. Dressing applied. Patient tolerated procedure well. Sedation time is 20 minutes. Patient transferred to the room in satisfactory condition. MMODL / IJN: [id number] /
[2017-07-06] MEDS: SODIUM CHLORIDE 0.9% 1,000 ML IV SCH ×2 (17:38→23:02)
--- NOTE | 2017-07-06 19:36 | P.PN ---
Subjective Progress Note Date: 07/06/17 Progress note being dictated for Dr. Parsons. Interval history: Patient came in with complaints of right-sided severe abdominal pain sharp in nature and nonradiating found to have abscess in that area are a hematoma and which was infected patient had a recent laparoscopic robotic-assisted repair of incisional hernia was subsequently discharged home did well started having severe pain in that area along with chills. Patient is found to have fluid collection in the rectal sheath extending into the anterior abdominal wall and thickening of the ascending colon with diverticulosis. Patient was started on Vanco mycin Zosyn which is appropriate 06/30/2017 status post exploratory laparotomy drainage of intraperitoneal abscess resection of an infected mesh, purulent pelvis fluid with drainage of right rectus infected hematoma area. Maintained on IV antibiotics. Hemoglobin dropped to 7.3, symptomatic, receiving one unit of packed RBCs. Hypotensive, worsening renal function with low urine output receiving third liter of IV fluid bolus. Currently denying chest pain, palpitations, shortness of breath. Denies lightheadedness or dizziness. T-max 99.1, WBC 20.4. 07/01/2017 blood pressure improved, urine output increased with 180 mL's overnight. Renal function worsening, up to 3.2. Evaluated by nephrology with recommendations noted. Receive 1 unit of packed RBCs yesterday with hemoglobin up to 8.6. Afebrile, WBC trending down. maintaining O2 sats of mid to high 90s on room air. Tolerating clear liquid diet with no nausea, vomiting or diarrhea. Passing flatus, burping. Blood sugars controlled. Denies abdominal pain, states she is experiencing a"stinging sensation". Maintained on IV antibiotics as per infectious disease. 07/02/2017 denies pain. Tolerating regular diet with no nausea or vomiting. No bowel movement, passing flatus. Leukocytosis trending down. Afebrile. Received Lasix yesterday without increase in urine output. Renal function continues to worsen, 4.7. acidotic, CO2 13. Bicarb drip initiated as per nephrology. 07/03/2017 Patient's kidney function continued to worsen. Although patient clinically looks with very good and nephrology wanted to wait 1 more day and reassess for renal replacement therapy. Constitutional: Denied any fatigue denied any fever. Cardio vascular: denied any chest pain, palpitations Gastrointestinal denied any nausea vomiting Pulmonary: Denied any shortness of breath cough Neurologic denied any new focal deficits 07/05/2017 creatinine up to 7.4, complaining of decreased appetite, worsening nausea this afternoon. IV fluids have been discontinued, maintained on IV push Lasix. [place] drain discontinued. Nursing reports serous drainage during dressing change. Afebrile, WBC trending down. 07/06/17 renal function continues to worsen, creatinine up to 8.1,nauseated. Vascular surgery consulted from permacath placement and initiation of dialysis.afebrile. Objective - Vital Signs Vital signs: Vital Signs Temp 97.8 F 07/06/17 07:00 Pulse 75 07/06/17 07:00 Resp 16 07/06/17 07:00 BP 176/81 07/06/17 07:00 Pulse Ox 95 07/06/17 07:00 Intake & Output 07/05/17 07/06/17 07/06/17 18:59 06:59 18:59 Intake Total 50 Output Total 425 275 Balance -425 -225 Intake: Intake, IV Titration 50 Amount Piperacillin-Tazobactam 3 50 .375 gm In Dextrose/Water 1 50ml.bag @ 12.5 mls/hr IVPB Q12HR [facility] Rx#: [id number] Output: Urine 425 275 Uretheral (Demarco) 100 Other: Voiding Method Indwelling Catheter Indwelling Catheter - Exam GENERAL: The patient is alert and oriented x3, sitting up in chair, teary-eyed HEENT: Pupils are round and equally reacting to light. EOMI. No scleral icterus. No conjunctival pallor. Normocephalic, atraumatic. CARDIOVASCULAR: S1 and S2 present. No murmurs, rubs, or gallops. PULMONARY: Chest is clear to auscultation, no wheezing or crackles. ABDOMEN: Soft, nontender, nondistended, positive bowel sounds. Status post surgery; dressing ,abdominal binder present MUSCULOSKELETAL: No joint swelling or deformity. EXTREMITIES: No cyanosis, clubbing, or pedal edema. NEUROLOGICAL: Gross neurological examination did not reveal any focal deficits. SKIN: No rashes. - Labs CBC & Chem 7: 07/05/17 10:15 07/06/17 06:48 Labs: Abnormal Lab Results - Last 24 Hours (Table) 07/05/17 07/05/17 07/05/17 Range/Units 10:15 17:07 20:54 INR (<1.2) Sodium (137-145) mmol/L Chloride (98-107) mmol/L BUN (7-17) mg/dL Creatinine (0.52-1.04) mg/dL POC Glucose (mg/dL) 111 H 132 H (75-99) mg/dL Calcium (8.4-10.2) mg/dL Total Protein (6.3-8.2) g/dL Total Protein (PEP) 4.3 L (6.2-8.2) g/dL Albumin (3.5-5.0) g/dL 07/06/17 07/06/17 07/06/17 Range/Units 06:48 06:58 09:17 INR 1.2 H (<1.2) Sodium 132 L (137-145) mmol/L Chloride 97 L (98-107) mmol/L BUN 47 H (7-17) mg/dL Creatinine 8.14 H* (0.52-1.04) mg/dL POC Glucose (mg/dL) 111 H (75-99) mg/dL Calcium 7.6 L (8.4-10.2) mg/dL Total Protein 4.1 L (6.3-8.2) g/dL Total Protein (PEP) (6.2-8.2) g/dL Albumin 2.1 L (3.5-5.0) g/dL 07/06/17 Range/Units 11:16 INR (<1.2) Sodium (137-145) mmol/L Chloride (98-107) mmol/L BUN (7-17) mg/dL Creatinine (0.52-1.04) mg/dL POC Glucose (mg/dL) 145 H (75-99) mg/dL Calcium (8.4-10.2) mg/dL Total Protein (6.3-8.2) g/dL Total Protein (PEP) (6.2-8.2) g/dL Albumin (3.5-5.0) g/dL Microbiology - Last 24 Hours (Table) 06/29/17 16:56 Anaerobic Culture - Final Abdomen Anaerobic Gm Negative Bacilli 06/29/17 06:00 Blood Culture - Final Blood No Growth after 144 hours Assessment and Plan Assessment: - abdominal wall abscess, Status post exploratory laparotomy with resection of infected mesh and drainage -Sepsis present on admission secondary to abdominal wall abscess -Hypertension -Chronic low back pain -Gastroesophageal reflux disease -Hyperlipidemia next -Acute postoperative blood loss anemia, expected postsurgical secondary to resection and drainage of abscess/hematoma ,status post transfusion 1 unit of packed RBCs -Acute renal failure secondary to ATN secondary to hypovolemic hypotension initially-resolved, anemia, medications -Metabolic acidosis secondary to acute kidney injury, status post IV bicarb Plan: Continue on current medication regime , Lasix, monitoring and symptomatic treatment. as mentioned above renal function has continued to decline, scheduled for PermCath with vascular surgery and initiation of hemodialysis. Close monitoring of renal function with repeat labs ordered for a.m. antibiotics as per ID. Aggressive pulmonary toileting. The impression and plan of care has been dictated as directed. : I performed a history and examination of this patient, discussed the same with the dictator. I agree with the dictator's note ,documented as a scribe. Any additional findings or plans will be noted.
[2017-07-06] MEDS: ATORVASTATIN 10 MG TAB PO SCH (20:28)
[2017-07-06 20:29] LABS: Glucose,Whole Blood 90 mg/dL (75-99)
--- NOTE | 2017-07-06 20:31 | PN ---
PROGRESS NOTE Patient is seen for followup for acute kidney injury. Renal function continues to worsen. Serum creatinine is up to 8 mg/dL. Urine output was 700 mL for 24 hours yesterday. Overall patient states she feels about the same. However, in view of continued increase in her serum creatinine, we will proceed with starting renal replacement therapy today. On examination, blood pressure was 142/69. Earlier in the morning it was 153/85. Patient is afebrile. Heart rate about 75 per minute. EXAMINATION OF THE HEART: S1, S2. EXAMINATION OF LUNGS: Bilateral breath sounds are heard. Decreased breath sounds at bases. ABDOMEN: Soft, non-tender. Examination of lower extremities shows edema 1+ bilaterally. Lab show sodium of 132, potassium 3.8, chloride 97, BUN 47, serum creatinine 8.14, albumin 2.1. ASSESSMENT: 1. Acute kidney injury, acute tubular necrosis, currently non-oliguric with progressively worsening creatinine. I will proceed with starting dialysis. We will repeat another treatment tomorrow and continue to monitor for recovery of renal function. We need to continue to avoid nephrotoxic agents and avoid hypotension. I will discontinue the IV fluids, as patient is mildly hypervolemic. 2. Mild hypervolemia. Continue with the IV Lasix. Discontinue IV fluids. We will plan for ultrafiltration of about 1 L tomorrow. 3. Metabolic acidosis. I will discontinue the sodium bicarb. Expect further improvement in the acidosis with initiation of the dialysis. 4. Abdominal wall abscess, status post surgery and drainage of abscess and removal of infected mesh. Maintained on Zosyn. PLAN: Start hemodialysis today. We will repeat another treatment tomorrow and continue to avoid nephrotoxic agents and monitor for recovery of renal function. Discontinue sodium bicarb. Discontinue IV fluids. MMODL / IJN: [id number] /
[2017-07-07 00:42] LABS: Hepatitis B Surface AB- Quant 3.5 mIU/mL
[2017-07-07] MEDS: HEPARIN SODIUM,PORCINE 5,000 UNIT/ML 1 ML VIAL SQ SCH ×4 (01:35→22:43)
[2017-07-07 07:20] LABS: Glucose,Whole Blood 105 mg/dL (75-99)
[2017-07-07] MEDS: INSULIN ASPART 100 UNIT/ML 1 ML 10 ML VIAL SQ SCH ×3 (07:48→22:43)
[2017-07-07] MEDS: NYSTATIN 100,000 UNIT/ML SUSP 500,000 UNIT/5 ML CUP PO SCH ×4 (10:32→21:07)
[2017-07-07] MEDS: PANTOPRAZOLE 40 MG/10 ML VIAL IV SCH (10:32)
[2017-07-07] MEDS: FUROSEMIDE 10 MG/ML 10 ML VIAL IV SCH ×2 (10:32→21:07)
[2017-07-07] MEDS: DOCUSATE 100 MG CAP PO SCH ×2 (10:32→21:07)
[2017-07-07] MEDS: PIPERACILLIN-TAZOBACTAM 3.375 GM in DEXTROSE/WATER 1 50ML.BAG IVPB SCH ×2 (10:32→21:08)
--- NOTE | 2017-07-07 11:45 | P.PN ---
Subjective Progress Note Date: 07/07/17 72-year-old female seen and examined at bedside this morning currently receiving hemodialysis. Patient is postop day 1 placement of a dialysis catheter for a acute renal failure. currently is denying any dizziness lightheadedness. Nephrology participating in the plan of care. Tentatively plan per nephrology to start hemodialysis monitor for recovery of renal function continue to avoid the nephrotoxic agents avoid episodes of hypotension. This was all reinforced explained to the patient this morning currently no labs pending Continues to report no appetite a nausea sensation but is improving. States no surgical pain indwelling Demarco catheter with urine output being monitored surgical dressing site dry states had 1 stool yesterday Postop June 29 exploratory laparotomy drainage of intraperitoneal abscess resection of infected mesh phlegm on the distal terminal ileum and.purulent fluid in the pelvis , right rectus infected hematoma area drained. Objective - Vital Signs Vital signs: Vital Signs Temp 97.8 F 07/07/17 07:00 Pulse 96 07/07/17 01:00 Resp 17 07/07/17 01:00 BP 153/72 07/07/17 07:00 Pulse Ox 96 07/07/17 07:00 Intake & Output 07/06/17 07/07/17 07/07/17 18:59 06:59 18:59 Intake Total 50 200 Output Total 480 800 Balance -430 -600 Weight 77.111 kg Intake: IV 50 Oral 200 Output: Urine 480 800 Other: Voiding Method Indwelling Catheter Indwelling Catheter Indwelling Catheter - Exam Physical exam 72-year-old female resting in bed hemodialysis in progress awake alert oriented 3 Lungs adequate air movement bilaterally on room air sats are 96% Heart S1-S2 audible and regular denying chest pain Abdomen abdominal binder in place surgical dressing site dry indwelling Demarco catheter in place nondistended soft reports a nausea sensation no active emesis Extremities no edema noted - Labs CBC & Chem 7: 07/05/17 10:15 07/06/17 06:48 Labs: Abnormal Lab Results - Last 24 Hours (Table) 07/05/17 07/07/17 Range/Units 10:15 07:15 POC Glucose (mg/dL) 105 H (75-99) mg/dL Albumin (PEP) 2.04 L (3.80-4.90) g/dL Gamma Globulins 0.41 L (0.70-1.50) g/dL Assessment and Plan Assessment: Impression Present on admission right lateral abdominal wall pain suspect due to abscess extending into the anterior wall Present on admission leukocytosis, tachycardia, febrile hypotensive sepsis suspect due to abdominal wall abscess Severe electrolyte abnormality hypokalemia corrected resolved A recent hospitalization with a procedure done May 26 robotic-assisted laparoscopic incisional hernia repair with mesh Osteoarthritis Chronic lower back pain Esophageal reflux symptoms History of prior abdominal hematoma unclear etiology Infected hematoma with extension intraperitoneally, extension of of abscess into the peritoneal cavity as well as questionable interloop abscesses and pelvic abscess Exploratory laparotomy drainage of intraperitoneal abscess, resection of infected mesh, running of the small bowel no interloop abscesses however phlegmon on the distal terminal ileum and purulent fluid in the pelvis, right rectus infected hematoma area drained done on June Postop acute blood loss anemia expected postsurgical condition due to extensive infection with drainage of infected hematoma necessitating 1 unit of packed red blood cells to be infused Acute renal failure suspect due to hypovolemia hypotension Oliguric acute kidney injury secondary to ischemic ATN secondary to hypotension , anemia and use of nonsteroidals. Metabolic acidosis secondary to acute kidney injury and IV fluids. Improved Symptomatic hypotension requiring 3 L bolus fluid for a low systolic pressure due to an unexpected postsurgical condition related to surgical care Present on admission clinical dehydration likely due to poor oral intake Acute renal failure started hemodialysis July 06 postop July 06 placement of dialysis catheter plan Diuretics per nephrology Lasix 60 IV every 12 monitor electrolytes monitor response Hemodialysis schedule per nephrology Continue postop surgical care IV fluids per nephrology Increase activity as tolerated Monitor urine output will keep indwelling Demarco catheter in for now will ask nephrology when the Demarco can be DC'd Pain control DVT and GI prophylaxis Repeat labs in the morning Continue IV antibiotics per infectious disease Dictated for Dr. Hyatt The above impression and plan of care have been discussed and directed by signing physician. Gill Allen nurse practitioner acting as scribe for signing physician.
[2017-07-07 11:56] LABS: Glucose,Whole Blood 155 mg/dL (75-99)
[2017-07-07 13:11] LABS: Albumin 2.2 g/dL (3.5-5.0); Calcium 7.6 mg/dL (8.4-10.2); Potassium 3.4 mmol/L (3.5-5.1); Total Bilirubin 0.1 mg/dL (0.2-1.3); Total Protein 4.2 g/dL (6.3-8.2)
[2017-07-07] MEDS: CHOLECALCIFEROL 1,000 UNIT TAB PO SCH (17:45)
[2017-07-07 17:49] LABS: Glucose,Whole Blood 109 mg/dL (75-99)
[2017-07-07 20:45] LABS: Glucose,Whole Blood 138 mg/dL (75-99)
[2017-07-07] MEDS: ATORVASTATIN 10 MG TAB PO SCH (21:07)
[2017-07-07] MEDS: FLUCONAZOLE 100 MG TAB PO SCH (22:43)
--- NOTE | 2017-07-08 05:29 | PN ---
PROGRESS NOTE Patient is seen for followup for acute kidney injury. She was started on dialysis yesterday. The patient had a 2-1/2 hour treatment. She was dialyzed again today. Urine output has picked up. The patient has an indwelling Demarco catheter. It looks like she has had about 800 mL. I am not sure if this is including the ultrafiltration with dialysis. Overall, patient states she is feeling better. Her nausea has improved. PHYSICAL EXAMINATION: On examination, blood pressure this morning was 153/72, heart rate of 81 per minute. She is afebrile. EXAMINATION OF THE HEART: S1 and S2. EXAMINATION OF THE LUNGS: Bilateral breath sounds are heard. Abdomen is soft, nontender. Examination of the lower extremities shows edema 1+ bilaterally. LABS: Labs show sodium 136, potassium 3.4, BUN 21, serum creatinine 4.52. ASSESSMENT: 1. Acute kidney injury, acute tubular necrosis, currently nonoliguric. However, urine output remains marginal. We will continue with renal replacement therapy unless urine output significantly increases. I will re-evaluate in the morning depending on her labs and urine output over the last 24 hours. 2. Mild volume overload. Continue with IV Lasix. We plan for about a liter of ultrafiltration with hemodialysis today. 3. Status post exploratory laparotomy and drainage of abscess and removal of mesh for abdominal wall abscess and infected mesh. PLAN: Repeat labs in a.m. Continue with IV Lasix and will decide on hemodialysis tomorrow depending on the urine output and labs. MMODL / IJN: [id number] /
[2017-07-08 07:09] LABS: Albumin 2.2 g/dL (3.5-5.0); Calcium 7.7 mg/dL (8.4-10.2); Potassium 3.4 mmol/L (3.5-5.1); Total Bilirubin 0.2 mg/dL (0.2-1.3); Total Protein 4.2 g/dL (6.3-8.2)
[2017-07-08 07:12] LABS: Glucose,Whole Blood 93 mg/dL (75-99)
--- NOTE | 2017-07-08 08:27 | P.PN ---
Subjective Progress Note Date: 07/07/17 Progress note being dictated for Dr. Parsons. Interval history: Patient came in with complaints of right-sided severe abdominal pain sharp in nature and nonradiating found to have abscess in that area are a hematoma and which was infected patient had a recent laparoscopic robotic-assisted repair of incisional hernia was subsequently discharged home did well started having severe pain in that area along with chills. Patient is found to have fluid collection in the rectal sheath extending into the anterior abdominal wall and thickening of the ascending colon with diverticulosis. Patient was started on Vanco mycin Zosyn which is appropriate 06/30/2017 status post exploratory laparotomy drainage of intraperitoneal abscess resection of an infected mesh, purulent pelvis fluid with drainage of right rectus infected hematoma area. Maintained on IV antibiotics. Hemoglobin dropped to 7.3, symptomatic, receiving one unit of packed RBCs. Hypotensive, worsening renal function with low urine output receiving third liter of IV fluid bolus. Currently denying chest pain, palpitations, shortness of breath. Denies lightheadedness or dizziness. T-max 99.1, WBC 20.4. 07/01/2017 blood pressure improved, urine output increased with 180 mL's overnight. Renal function worsening, up to 3.2. Evaluated by nephrology with recommendations noted. Receive 1 unit of packed RBCs yesterday with hemoglobin up to 8.6. Afebrile, WBC trending down. maintaining O2 sats of mid to high 90s on room air. Tolerating clear liquid diet with no nausea, vomiting or diarrhea. Passing flatus, burping. Blood sugars controlled. Denies abdominal pain, states she is experiencing a"stinging sensation". Maintained on IV antibiotics as per infectious disease. 07/02/2017 denies pain. Tolerating regular diet with no nausea or vomiting. No bowel movement, passing flatus. Leukocytosis trending down. Afebrile. Received Lasix yesterday without increase in urine output. Renal function continues to worsen, 4.7. acidotic, CO2 13. Bicarb drip initiated as per nephrology. 07/03/2017 Patient's kidney function continued to worsen. Although patient clinically looks with very good and nephrology wanted to wait 1 more day and reassess for renal replacement therapy. Constitutional: Denied any fatigue denied any fever. Cardio vascular: denied any chest pain, palpitations Gastrointestinal denied any nausea vomiting Pulmonary: Denied any shortness of breath cough Neurologic denied any new focal deficits 07/05/2017 creatinine up to 7.4, complaining of decreased appetite, worsening nausea this afternoon. IV fluids have been discontinued, maintained on IV push Lasix. [place] drain discontinued. Nursing reports serous drainage during dressing change. Afebrile, WBC trending down. 07/06/17 renal function continues to worsen, creatinine up to 8.1,nauseated. Vascular surgery consulted from permacath placement and initiation of dialysis.afebrile. 07/07/17 yesterday underwent ultrasound-guided right internal jugular dialysis catheter placement with hemodialysis initiated, tolerated well. Received second session of hemodialysis this morning. Feels better ,nausea subsided. Good diet intake. Positive bowel movement. Denies abdominal pain. Afebrile. Diuresing well on Lasix IV push with 24-hour I&O reflecting a negative fluid balance. Potassium 3.4. Urine output improving. Objective - Vital Signs Vital signs: Vital Signs Temp 98.0 F 07/08/17 01:00 Pulse 65 07/08/17 01:00 Resp 16 07/08/17 01:00 BP 154/69 07/08/17 01:00 Pulse Ox 97 07/08/17 01:00 Intake & Output 07/07/17 07/08/17 07/08/17 18:59 06:59 18:59 Intake Total 2750 Output Total 1580 Balance 1170 Weight 77.111 kg Intake: Intake, IV Titration 50 Amount Piperacillin-Tazobactam 3 50 .375 gm In Dextrose/Water 1 50ml.bag @ 12.5 mls/hr IVPB Q12HR [facility] Rx#: [id number] Oral 2700 Output: Urine 1580 Other: Voiding Method Indwelling Catheter Indwelling Catheter # Voids 2 1 - Exam GENERAL: Temperature 97.8 oral, pulse 96, respiratory rate 17, blood pressure 153/72, O2 sat 96% on room air. Alert and oriented 3, sitting up in bed, eating, no acute distress HEENT: Pupils are round and equally reacting to light. EOMI. No scleral icterus. No conjunctival pallor. Normocephalic, atraumatic. Right internal jugular PermCath present CARDIOVASCULAR: S1 and S2 present. No murmurs, rubs, or gallops. PULMONARY: Chest is clear to auscultation, no wheezing or crackles. No rhonchi ABDOMEN: Soft, nontender, nondistended, positive bowel sounds. Status post surgery; dressing ,abdominal binder present MUSCULOSKELETAL: EXTREMITIES: No cyanosis, bilateral lower extremity edema NEUROLOGICAL: Gross neurological examination did not reveal any focal deficits. SKIN: No rashes. - Labs CBC & Chem 7: 07/05/17 10:15 07/08/17 06:22 Labs: Abnormal Lab Results - Last 24 Hours (Table) 07/07/17 07/07/17 07/07/17 Range/Units 11:54 12:21 17:30 Sodium 136 L (137-145) mmol/L Potassium 3.4 L (3.5-5.1) mmol/L BUN 21 H (7-17) mg/dL Creatinine 4.52 H (0.52-1.04) mg/dL Glucose 144 H (74-99) mg/dL POC Glucose (mg/dL) 155 H 109 H (75-99) mg/dL Calcium 7.6 L (8.4-10.2) mg/dL Total Bilirubin 0.1 L (0.2-1.3) mg/dL Total Protein 4.2 L (6.3-8.2) g/dL Albumin 2.2 L (3.5-5.0) g/dL 07/07/17 07/08/17 Range/Units 20:42 06:22 Sodium (137-145) mmol/L Potassium 3.4 L (3.5-5.1) mmol/L BUN 24 H (7-17) mg/dL Creatinine 5.44 H* (0.52-1.04) mg/dL Glucose (74-99) mg/dL POC Glucose (mg/dL) 138 H (75-99) mg/dL Calcium 7.7 L (8.4-10.2) mg/dL Total Bilirubin (0.2-1.3) mg/dL Total Protein 4.2 L (6.3-8.2) g/dL Albumin 2.2 L (3.5-5.0) g/dL Assessment and Plan Assessment: - abdominal wall abscess, Status post exploratory laparotomy with resection of infected mesh and drainage -Sepsis present on admission secondary to abdominal wall abscess -Hypertension -Chronic low back pain -Gastroesophageal reflux disease -Hyperlipidemia next -Acute postoperative blood loss anemia, expected postsurgical secondary to resection and drainage of abscess/hematoma ,status post transfusion 1 unit of packed RBCs -Acute renal failure secondary to ATN secondary to hypovolemic hypotension initially-resolved, anemia, medications -Status post PermCath placement with initiation of hemodialysis secondary to the above -Metabolic acidosis secondary to acute kidney injury, status post IV bicarb Plan: Continue on current medication regime , Lasix, monitoring and symptomatic treatment. Hemodialysis, Diuretics, electrolyte replacement as per nephrology. Close monitoring of renal function, electrolytes with repeat labs ordered for a.m. antibiotics as per ID. Aggressive pulmonary toileting. The impression and plan of care has been dictated as directed. : I performed a history and examination of this patient, discussed the same with the dictator. I agree with the dictator's note ,documented as a scribe. Any additional findings or plans will be noted.
[2017-07-08] MEDS: INSULIN ASPART 100 UNIT/ML 1 ML 10 ML VIAL SQ SCH ×4 (09:38→21:54)
[2017-07-08] MEDS: HEPARIN SODIUM,PORCINE 5,000 UNIT/ML 1 ML VIAL SQ SCH ×3 (09:40→21:52)
[2017-07-08] MEDS: NYSTATIN 100,000 UNIT/ML SUSP 500,000 UNIT/5 ML CUP PO SCH ×4 (09:40→21:52)
[2017-07-08] MEDS: FUROSEMIDE 10 MG/ML 10 ML VIAL IV SCH ×2 (09:40→21:51)
[2017-07-08] MEDS: DOCUSATE 100 MG CAP PO SCH ×3 (09:40→21:52)
[2017-07-08] MEDS: PANTOPRAZOLE 40 MG TABLET PO SCH (09:41)
[2017-07-08] MEDS: CHOLECALCIFEROL 1,000 UNIT TAB PO SCH (09:42)
[2017-07-08] MEDS: PIPERACILLIN-TAZOBACTAM 3.375 GM in DEXTROSE/WATER 1 50ML.BAG IVPB SCH ×2 (09:44→21:53)
--- NOTE | 2017-07-08 10:23 | IR ---
EXAMINATION TYPE: IR cvc insert central tunneled DATE OF EXAM: 07/06/2017 COMPARISON: NONE HISTORY: Line placement. Fluoroscopy was provided to the referring clinician. 0.7 minutes of fluoroscopy utilized..
--- NOTE | 2017-07-08 10:45 | P.PN ---
Subjective Progress Note Date: 07/08/17 72-year-old female sitting up in a chair family at bedside. Patient states "feeling better less nausea sensation seems to have improved" patient denies any abdominal pain denies any surgical abdominal discomfort . States diet is improving as well. Had a bowel movement yesterday. Indwelling Demarco catheter in place clear urine noted. Patient states she's to be dialyzed this morning. Patient states she did talk with the racing secretary and handicapper feels relief knowing that hemodialysis is not going to be permanent is hoping for recovery Postop June 29 exploratory laparotomy drainage of intraperitoneal abscess resection of infected mesh phlegm on the distal terminal ileum and.purulent fluid in the pelvis , right rectus infected hematoma area drained. Objective - Vital Signs Vital signs: Vital Signs Temp 98.3 F 07/08/17 09:39 Pulse 74 07/08/17 09:39 Resp 17 07/08/17 09:57 BP 165/75 07/08/17 09:39 Pulse Ox 97 07/08/17 09:39 Intake & Output 07/07/17 07/08/17 07/08/17 18:59 06:59 18:59 Intake Total 2750 180 Output Total 1580 Balance 1170 180 Weight 77.111 kg Intake: Intake, IV Titration 50 Amount Piperacillin-Tazobactam 3 50 .375 gm In Dextrose/Water 1 50ml.bag @ 12.5 mls/hr IVPB Q12HR [facility] Rx#: [id number] Oral 2700 180 Output: Urine 1580 Other: Voiding Method Indwelling Catheter Indwelling Catheter Indwelling Catheter # Voids 2 1 - Exam Physical exam Sitting up in a chair talkative oriented 3 appears in no acute distress Lungs adequate air movement bilaterally on room air Heart S1-S2 audible regular Abdomen surgical dressing site dry abdominal binder on bowel tones present reports no nausea vomiting states the nausea sensation resolved bowel movement last night indwelling Demarco catheter in place appetite improving Extremities no edema - Labs CBC & Chem 7: 07/05/17 10:15 07/08/17 06:22 Labs: Abnormal Lab Results - Last 24 Hours (Table) 07/07/17 07/07/17 07/07/17 Range/Units 11:54 12:21 17:30 Sodium 136 L (137-145) mmol/L Potassium 3.4 L (3.5-5.1) mmol/L BUN 21 H (7-17) mg/dL Creatinine 4.52 H (0.52-1.04) mg/dL Glucose 144 H (74-99) mg/dL POC Glucose (mg/dL) 155 H 109 H (75-99) mg/dL Calcium 7.6 L (8.4-10.2) mg/dL Total Bilirubin 0.1 L (0.2-1.3) mg/dL Total Protein 4.2 L (6.3-8.2) g/dL Albumin 2.2 L (3.5-5.0) g/dL 07/07/17 07/08/17 Range/Units 20:42 06:22 Sodium (137-145) mmol/L Potassium 3.4 L (3.5-5.1) mmol/L BUN 24 H (7-17) mg/dL Creatinine 5.44 H* (0.52-1.04) mg/dL Glucose (74-99) mg/dL POC Glucose (mg/dL) 138 H (75-99) mg/dL Calcium 7.7 L (8.4-10.2) mg/dL Total Bilirubin (0.2-1.3) mg/dL Total Protein 4.2 L (6.3-8.2) g/dL Albumin 2.2 L (3.5-5.0) g/dL Assessment and Plan Assessment: Impression Present on admission right lateral abdominal wall pain suspect due to abscess extending into the anterior wall Present on admission leukocytosis, tachycardia, febrile hypotensive sepsis suspect due to abdominal wall abscess Severe electrolyte abnormality hypokalemia corrected resolved A recent hospitalization with a procedure done May 26 robotic-assisted laparoscopic incisional hernia repair with mesh Osteoarthritis Chronic lower back pain Esophageal reflux symptoms History of prior abdominal hematoma unclear etiology Infected hematoma with extension intraperitoneally, extension of of abscess into the peritoneal cavity as well as questionable interloop abscesses and pelvic abscess Exploratory laparotomy drainage of intraperitoneal abscess, resection of infected mesh, running of the small bowel no interloop abscesses however phlegmon on the distal terminal ileum and purulent fluid in the pelvis, right rectus infected hematoma area drained done on June Postop acute blood loss anemia expected postsurgical condition due to extensive infection with drainage of infected hematoma necessitating 1 unit of packed red blood cells to be infused Acute renal failure suspect due to hypovolemia hypotension Oliguric acute kidney injury secondary to ischemic ATN secondary to hypotension , anemia and use of nonsteroidals. Metabolic acidosis secondary to acute kidney injury and IV fluids. Improved Symptomatic hypotension requiring 3 L bolus fluid for a low systolic pressure due to an unexpected postsurgical condition related to surgical care Present on admission clinical dehydration likely due to poor oral intake Acute renal failure started hemodialysis July 06 postop July 06 placement of dialysis catheter plan No further surgical recommendations at this time we'll sign off and follow up in the outpatient setting discussed with patient verbalized understanding Continue recommendations by medicine and nephrology service Re-eval as needed Dictated for Dr. Hyatt The above impression and plan of care have been discussed and directed by signing physician. Gill Allen nurse practitioner acting as scribe for signing physician.
[2017-07-08 11:06] LABS: Glucose,Whole Blood 114 mg/dL (75-99)
--- NOTE | 2017-07-08 11:30 | PN ---
PROGRESS NOTE Patient is seen for followup for acute kidney injury, acute tubular necrosis currently nonoliguric, initially oliguric. The patient is now maintained on dialysis. She has had 2 treatments, today will be her 3rd treatment. Urine output has improved. Patient is maintained on IV Lasix. She states her nausea has improved as well. She currently has a right IJ Permacath. EXAMINATION: Blood pressure is 154/69 last night. This morning, 165/75, heart rate 74 per minute. She is afebrile. Examination of the heart S1, S2. Exam of the lungs bilateral breath sounds are heard. Abdomen is soft, nontender. Exam of lower extremity shows edema 1+ bilaterally. LAB: Show sodium 137, potassium 3.4, chloride 101, BUN 24, serum creatinine 5.4, albumin 2.2. ASSESSMENT: 1. Acute kidney injury, acute tubular necrosis secondary to hypoperfusion as well as possibly component of vancomycin toxicity, currently nonoliguric, maintained on dialysis. The patient will have a 3rd treatment of hemodialysis today. I will hold off on dialysis tomorrow and we will continue to monitor the urine output. Her urine output has improved. I will continue with the IV Lasix. 2. Hypokalemia. Will replace with dialysis. 3. Status post exploratory laparotomy and drainage of abscess with removal of infected mesh. 4. Hypertension, partly volume sensitive. 5. Volume overload, maintained on IV Lasix which we will continue for now. PLAN: Hemodialysis today. We will hold off on hemodialysis tomorrow I would prefer to keep to patient over the weekend to assess her renal function. If she is not able to come off of dialysis, she will need to be set up for outpatient treatment. Her urine output has improved and I will hold off on hemodialysis tomorrow. We will repeat labs in a.m. MMODL / IJN: [id number] /
[2017-07-08 17:01] LABS: Glucose,Whole Blood 133 mg/dL (75-99)
[2017-07-08 21:34] LABS: Glucose,Whole Blood 120 mg/dL (75-99)
[2017-07-08] MEDS: FLUCONAZOLE 100 MG TAB PO SCH (21:52)
[2017-07-08] MEDS: ATORVASTATIN 10 MG TAB PO SCH (21:52)
--- NOTE | 2017-07-09 00:01 | P.PN ---
Subjective Progress Note Date: 07/08/17 Principal diagnosis: abdominal pain This is a 72-year-old female patient gives history of having an abdominal wall abscess on the right side for which she was treated at [facility] emergency center in October 2016. The ER physician did an incision and drainage and widen the draining track with a scalpel and placed iodoform gauze. There was purulent material at that time. Patient states that this eventually healed and in April she was having increased right-sided abdominal pain and her PCP sent her to [facility] for an ultrasound that showed a possible hematoma on the right upper quadrant. She was then sent to Dr. Hancock for further evaluation. Because of anemia, patient underwent an upper and lower endoscopy with Dr. Hancock on May 20 that found no signs of bleeding. She subsequently underwent a hernia repair at the site of the previous hematoma or abscess from October [address] Hancock and this was done on 05/26/2017. This was located in the mid upper abdomen. She states she continued to have right-sided abdominal pain, chills and hot feeling, decreased appetite with possible weight loss and nausea. She saw Dr. Hancock yesterday and she up for outpatient computed tomography scan but she states that after he pressed on her abdomen her pain got significant only worse last evening and she came into [facility] emergency center for evaluation. She underwent a CAT scan of the abdomen and pelvis which revealed marked interval worsening of a right rectus sheath fluid collection which now extends into the anterior abdominal wall. Differential includes hematoma, abscess with stromal felt less likely. Mild wall thickening within the ascending and transverse colon is nonspecific but may represent colitis. Extensive diverticulosis with mild adjacent nonspecific fluid in the pelvis limits evaluation for potential diverticulitis. Mild atelectasis or less likely pneumonia in the left lung base. Large hiatal hernia. This CAT scan was compared to one done in September 2016. Patient is now admitted under the care of Dr. Vinny Godwin and is scheduled for I&D and washout this afternoon. Patient presented with a white count of 26.4, lactic acid 3.3 and repeat 1.7, afebrile, creatinine 0.6. Mild elevation of liver function tests with AST of 63, ALT 75, alkaline phosphatase 156. Urinalysis was cloudy with nitrate and leukoesterase negative and bacteria many. Patient denies any urinary pain or frequency or urgency. She also denies having any blood in her stools. 06/30/2017 reveals the patient to be postoperative and feeling slightly better. However she is now having difficulties with urinary output. Despite 3 L of fluid and blood transfusion she continues to have poor urinary output. She had a bladder scan that only showed 12 mL of fluid. Her abdominal pain is improving. She tolerated a clear liquid diet with no difficulties. 07/01/2017 patient is postoperative and feeling better. Pain is under good control. She continues to have poor urinary output but has had at least some urine output today. She is comfortable. Denies shortness of breath. Wound culture showed evidence of gram-negative bacilli only and vancomycin therapy was discontinued yesterday. 07/02/2017 patient does feel better. Is having difficulties with edema. Urine output remains very low. Fortunately she is not having severe shortness of breath. She's had only minimal abdominal discomfort related to her recent surgery. Only Proteus mirabilis is been isolated and is noted vancomycin therapy was discontinued. Is being followed by nephrology and if she has no urinary output we will consider renal replacement therapy. 07/03/2017 patient does feel relatively well but is having some increasing difficulties with edema and has some epigastric discomfort. She's having increasing difficulties with her appetite with increasing nausea which appears to be in the bases of her increasing uremia. 07/05/2017 patient is feeling relatively well she is having some edema. She is evaluated by nephrology her creatinine is a 7.18 and consideration for hemodialysis tomorrow. 07/08/2017 patient is further improvement. Urine output has now markedly improved. Appears now have any post-ATN diuresis occurring. She is feeling better. Started to have a vaginal yeast infection and fluconazole was started yesterday and she relates she's feeling better today. Objective - Vital Signs Vital signs: Vital Signs Temp 97.8 F 07/08/17 14:25 Pulse 59 L 07/08/17 14:25 Resp 16 07/08/17 14:25 BP 150/76 07/08/17 14:25 Pulse Ox 95 07/08/17 14:25 Intake & Output 07/08/17 07/08/17 07/09/17 06:59 18:59 06:59 Intake Total 2750 560 Output Total 1580 650 Balance 1170 -90 Intake: Intake, IV Titration 50 Amount Piperacillin-Tazobactam 3 50 .375 gm In Dextrose/Water 1 50ml.bag @ 12.5 mls/hr IVPB Q12HR [facility] Rx#: [id number] Oral 2700 560 Output: Urine 1580 650 Other: Voiding Method Indwelling Catheter Indwelling Catheter # Voids 2 1 - Exam Gen: This is a 72-year-old female patient. She is in bed and appears to be comfortable and in no acute distress. We does complain of some nausea. HEENT: Head is atraumatic, normocephalic. Pupils equal, round. Sclerae is anicteric. Conjunctiva pink. Mucous members of the mouth are dry. NECK: Supple. No JVD. No lymphadenopathy. No thyromegaly. LUNGS: Clear to auscultation. No wheezes or rhonchi. No intercostal retractions. HEART: Regular rate and rhythm. No murmur. ABDOMEN:few bowel sounds are heard there is a surgical incision that is having drainage of serosanginous material on the dressing the abdomen is tender to palpation EXTREMITIES: Is evidence of bilateral lower extremity edema No calf tenderness. Dorsalis pedis +2 bilaterally. NEUROLOGICAL: Patient is awake, alert and oriented x3 - Labs CBC & Chem 7: 07/05/17 10:15 07/08/17 06:22 Labs: Abnormal Lab Results - Last 24 Hours (Table) 07/08/17 07/08/17 07/08/17 Range/Units 06:22 11:04 16:59 Potassium 3.4 L (3.5-5.1) mmol/L BUN 24 H (7-17) mg/dL Creatinine 5.44 H* (0.52-1.04) mg/dL POC Glucose (mg/dL) 114 H 133 H (75-99) mg/dL Calcium 7.7 L (8.4-10.2) mg/dL Total Protein 4.2 L (6.3-8.2) g/dL Albumin 2.2 L (3.5-5.0) g/dL 07/08/17 Range/Units 21:13 Potassium (3.5-5.1) mmol/L BUN (7-17) mg/dL Creatinine (0.52-1.04) mg/dL POC Glucose (mg/dL) 120 H (75-99) mg/dL Calcium (8.4-10.2) mg/dL Total Protein (6.3-8.2) g/dL Albumin (3.5-5.0) g/dL Laboratory Results WBC 14.7 k/uL (3.8-10.6) H 07/05/17 10:15 RBC 4.29 m/uL (3.80-5.40) 07/05/17 10:15 Hgb 9.4 gm/dL (11.4-16.0) L 07/05/17 10:15 Hct 30.0 % (34.0-46.0) L 07/05/17 10:15 MCV 70.0 fL (80.0-100.0) L 07/05/17 10:15 MCH 21.9 pg (25.0-35.0) L 07/05/17 10:15 MCHC 31.2 g/dL (31.0-37.0) 07/05/17 10:15 RDW 19.1 % (11.5-15.5) H 07/05/17 10:15 Plt Count 493 k/uL (150-450) H 07/05/17 10:15 Neutrophils % 86 % 07/05/17 10:15 Neutrophils % (Manual) 88 % 06/29/17 04:38 Band Neutrophils % 6 % 06/29/17 04:38 Lymphocytes % 8 % 07/05/17 10:15 Lymphocytes % (Manual) 5 % 06/29/17 04:38 Monocytes % 2 % 07/05/17 10:15 Monocytes % (Manual) 2 % 06/29/17 04:38 Eosinophils % 3 % 07/05/17 10:15 Basophils % 0 % 07/05/17 10:15 Neutrophils # 12.7 k/uL (1.3-7.7) H 07/05/17 10:15 Neutrophils # (Manual) 24.80 k/uL (1.3-7.7) H 06/29/17 04:38 Lymphocytes # 1.2 k/uL (1.0-4.8) 07/05/17 10:15 Lymphocytes # (Manual) 1.32 k/uL (1.0-4.8) 06/29/17 04:38 Monocytes # 0.3 k/uL (0-1.0) 07/05/17 10:15 Monocytes # (Manual) 0.53 k/uL (0-1.0) 06/29/17 04:38 Eosinophils # 0.4 k/uL (0-0.7) 07/05/17 10:15 Basophils # 0.0 k/uL (0-0.2) 07/05/17 10:15 Nucleated RBCs 0 /100 WBC (0-0) 06/29/17 04:38 Manual Slide Review Performed 06/29/17 04:38 Toxic Vacuolation Present 06/29/17 04:38 Hypochromasia Marked 07/05/17 10:15 Poikilocytosis Slight 07/02/17 06:24 Anisocytosis Slight 07/05/17 10:15 Microcytosis Marked 07/05/17 10:15 Retic Count 1.1 % (0.5-2.0) 06/30/17 06:39 PT 11.7 sec (9.0-12.0) 07/06/17 09:17 INR 1.2 (<1.2) H 07/06/17 09:17 APTT 22.3 sec (22.0-30.0) 06/29/17 10:45 Sodium 137 mmol/L (137-145) 07/08/17 06:22 Potassium 3.4 mmol/L (3.5-5.1) L 07/08/17 06:22 Chloride 101 mmol/L (98-107) 07/08/17 06:22 Carbon Dioxide 25 mmol/L (22-30) 07/08/17 06:22 Anion Gap 11 mmol/L 07/08/17 06:22 BUN 24 mg/dL (7-17) H 07/08/17 06:22 Creatinine 5.44 mg/dL (0.52-1.04) H* 07/08/17 06:22 Est GFR (CKD-EPI)AfAm 9 (>60 ml/min/1.73 sqM) 07/08/17 06:22 Est GFR (CKD-EPI)NonAf 7 (>60 ml/min/1.73 sqM) 07/08/17 06:22 Glucose 87 mg/dL (74-99) 07/08/17 06:22 POC Glucose (mg/dL) 120 mg/dL (75-99) H 07/08/17 21:13 POC Glu Allergist/Immunologist ID Aminata Granger 07/08/17 21:[address] Glu mg/dL 151 06/30/17 06:39 Hemoglobin A1c 6.9 % (4.0-6.0) H 06/30/17 06:39 Lactic Ac Sepsis Rflx Y 06/29/17 05:08 Plasma Lactic Acid Lasha 1.7 mmol/L (0.7-2.0) 06/29/17 09:19 Calcium 7.7 mg/dL (8.4-10.2) L 07/08/17 06:22 Magnesium 1.6 mg/dL (1.6-2.3) 07/08/17 06:22 Iron 7 ug/dL (50-170) L 06/30/17 06:39 TIBC 197 ug/dL (228-460) L 06/30/17 06:39 Iron Saturation 3.55 (12.00-45.00) L 06/30/17 06:39 Ferritin 116.2 ng/mL (10.0-291.0) 06/30/17 06:39 Total Bilirubin 0.2 mg/dL (0.2-1.3) 07/08/17 06:22 AST 16 U/L (14-36) 07/08/17 06:22 ALT 26 U/L (9-52) 07/08/17 06:22 Alkaline Phosphatase 62 U/L (38-126) 07/08/17 06:22 Total Protein 4.2 g/dL (6.3-8.2) L 07/08/17 06:22 Total Protein (PEP) 4.3 g/dL (6.2-8.2) L 07/05/17 10:15 Albumin 2.2 g/dL (3.5-5.0) L 07/08/17 06:22 Albumin (PEP) 2.04 g/dL (3.80-4.90) L 07/05/17 10:15 Qzfwe-3-Kjeyuipju 0.31 g/dL (0.10-0.40) 07/05/17 10:15 Nuwqg-7-Jaltnfgls 0.93 g/dL (0.60-1.00) 07/05/17 10:15 Beta Globulins 0.61 g/dL (0.60-1.30) 07/05/17 10:15 Gamma Globulins 0.41 g/dL (0.70-1.50) L 07/05/17 10:15 PEP Interpretation SEE NOTE 07/05/17 10:15 Amylase 38 U/L (30-110) 06/29/17 04:38 Lipase 64 U/L (23-300) 06/29/17 04:38 Vitamin B12 1273.0 pg/mL (200.0-944.0) H 06/30/17 06:39 Folate 11.2 ng/mL 06/30/17 06:39 Urine Color Yellow 06/29/17 06:38 Urine Appearance Cloudy (Clear) H 06/29/17 06:38 Urine pH 6.5 (5.0-8.0) 06/29/17 06:38 Ur Specific [place] 1.007 (1.001-1.035) 06/29/17 06:38 Urine Protein Negative (Negative) 06/29/17 06:38 Urine Glucose (UA) Negative (Negative) 06/29/17 06:38 Urine Ketones Negative (Negative) 06/29/17 06:38 Urine Blood Negative (Negative) 06/29/17 06:38 Urine Nitrite Negative (Negative) 06/29/17 06:38 Urine Bilirubin Negative (Negative) 06/29/17 06:38 Urine Urobilinogen <2.0 mg/dL (<2.0) 06/29/17 06:38 Ur Leukocyte Esterase Negative (Negative) 06/29/17 06:38 Urine RBC 2 /hpf (0-5) 06/29/17 06:38 Urine WBC 2 /hpf (0-5) 06/29/17 06:38 Ur Squamous Epith Cells 13 /hpf (0-4) H 06/29/17 06:38 Urine Bacteria Many /hpf (None) H 06/29/17 06:38 Hyaline Casts 2 /lpf (0-2) 06/29/17 06:38 Urine Mucus Rare /hpf (None) H 06/29/17 06:38 Random Vancomycin 26.9 ug/mL 07/02/17 06:24 Hepatitis A IgM Ab Non-Reactive (Non-Reactive) 06/29/17 04:38 Hep Bs Antigen Non-Reactive (Non-Reactive) 07/06/17 06:48 Hep Bs Antibody Non-Reactive (Non-Reactive) 07/06/17 06:48 Hep Bs Antibody, Quant 3.5 mIU/mL 07/06/17 06:48 Hep B Core IgM Ab Non-Reactive (Non-Reactive) 06/29/17 04:38 Hep C IgG Ab Non-Reactive (Non-Reactive) 06/29/17 04:38 Blood Type B Negative 06/30/17 08:24 Blood Type Recheck No 06/30/17 08:24 Antibody Screen NEGATIVE 06/30/17 08:24 Crossmatch See Detail 06/30/17 08:24 Spec Expiration Date 07/03/2017 - 2324 06/30/17 08:24 Microbiology 06/29/17 16:56 Abdomen Anaerobic Culture - Final Anaerobic Gm Negative Bacilli 06/29/17 06:00 Blood Blood Culture - Final No Growth after 144 hours 06/29/17 16:56 Abdomen Gram Stain - Final 06/29/17 16:56 Abdomen Wound Culture - Final Proteus mirabilis Assessment and Plan (1) Abdominal pain Current Visit: Yes Status: Acute Priority: High Code(s): R10.9 - UNSPECIFIED ABDOMINAL PAIN SNOMED Code(s): 08407281 (2) Acute blood loss anemia Current Visit: Yes Status: Acute Priority: High Code(s): D62 - ACUTE POSTHEMORRHAGIC ANEMIA SNOMED Code(s): 589574531 (3) Abdominal wall abscess Narrative/Plan: 72 year old woman staus post drainage of the intra-abdominal abscess. It is apparently outside of the peritoneum, and hopefully with incision and drainage will allow this to resolve rapidly. Cultures will further help direct antibiotic therapy, utilizing Zosyn and vancomycin for now pending further culture data. 06/30/2017 reveals the patient to be postoperative in feeling somewhat better. However she's now developed very low urinary output concerns to renal failure. Wound culture showing evidence of gram-negative bacilli. Vancomycin therapy is discontinued. Acute tubular necrosis is of concern given her sepsis at admission, gram-negative in nature. Cultures will help direct the final course of antibiotic therapy. Should be able to further help direct wound therapy once her some further improvement to the postoperative wound also. Nephrology is following. Further diuertic therapy is being given to see if she will respond especially since she's been given fluids and blood. Patient and family are reassured. 07/01/2017 patient is feeling relatively well. She is not having much pain and when she does oral pain medication and is tolerating this well. She does have poor urinary output and she has evidence of acute renal failure that as per nephrology is multifactorial. We'll culture has gram-negative bacilli only and that was evident the vancomycin therapy was discontinued, however with her acute renal failure she continues to have therapeutic level but no further doses are planned. She's received hydration and diuretic therapy awaiting a response. She clinically has an ATN and may require renal replacement therapy. 07/02/2017 patient does feel relatively well. Pain control with oral agents as effective. Continues to have very poor urinary output is being followed by nephrology and may require renal replacement therapy for her HTN. Antibiotic therapy with Zosyn is being utilized with excellent control of her infection, has been renally adjusted, and will likely transition to oral antimicrobial therapy as she shows ongoing improvement. 07/03/2017 patient is feeling less well today. Is having some epigastric discomfort and is developed some nausea without leonardo emesis. She has increasing amounts of renal failure and poor urinary output. She's developing some uremia is developing some edema and nausea on the basis. She's been followed by nephrology and likable have hemodialysis starting tomorrow for her ATN and acute oliguric renal failure. Antimicrobial therapy will transition to oral in the near future. 07/05/2017 patient continues to feel somewhat poorly. However is not having significant nausea or emesis. She is a bit more uremic and appetites poor. Has edema. Nephrology is following and will likely initiate hemodialysis tomorrow. We will transition to oral antibiotic therapy when she has initiated above treatment. 07/08/2017 patient continues to improve. She is now having post-ATN diuresis. She is definitely feeling better. She had a vaginal yeast infection is responding well to fluconazole. As she improves we'll be able to transition to oral Augmentin therapy to include her course of therapy for her extensive abdominal wall infection that is now much improved. Current Visit: Yes Status: Acute Code(s): L02.211 - CUTANEOUS ABSCESS OF ABDOMINAL WALL SNOMED Code(s): 27639397
[2017-07-09 07:08] LABS: Glucose,Whole Blood 103 mg/dL (75-99)
[2017-07-09 08:37] LABS: Anisocytosis Moderate; Basophils % (A) 0 %; Eosinophils # (A) 0.4 k/uL (0-0.7); Eosinophils % (A) 3 %; HCT 29.3 % (34.0-46.0); HGB 8.9 gm/dL (11.4-16.0); Hypochromasia Marked; Lymphocytes # (A) 1.5 k/uL (1.0-4.8); Lymphocytes % (A) 13 %; MCHC 30.5 g/dL (31.0-37.0); MCV 72.1 fL (80.0-100.0); Mean Platelet Volume 7.1; Microcytosis Marked; Monocytes # (A) 0.4 k/uL (0-1.0); Monocytes % (A) 4 %; Neutrophils # (A) 9.5 k/uL (1.3-7.7); Neutrophils % (A) 79 %; Platelet Count 388 k/uL (150-450); Poikilocytosis Slight; RBC 4.06 m/uL (3.80-5.40); RDW 20.1 % (11.5-15.5)
[2017-07-09 08:38] LABS: Albumin 2.5 g/dL (3.5-5.0); Calcium 8.1 mg/dL (8.4-10.2); Potassium 3.6 mmol/L (3.5-5.1); Total Bilirubin 0.3 mg/dL (0.2-1.3); Total Protein 4.8 g/dL (6.3-8.2)
[2017-07-09] MEDS: INSULIN ASPART 100 UNIT/ML 1 ML 10 ML VIAL SQ SCH ×4 (09:02→22:03)
[2017-07-09] MEDS: PANTOPRAZOLE 40 MG TABLET PO SCH (09:04)
[2017-07-09] MEDS: HEPARIN SODIUM,PORCINE 5,000 UNIT/ML 1 ML VIAL SQ SCH ×3 (09:04→21:57)
[2017-07-09] MEDS: FUROSEMIDE 10 MG/ML 10 ML VIAL IV SCH (09:04)
[2017-07-09] MEDS: DOCUSATE 100 MG CAP PO SCH ×2 (09:05→21:58)
[2017-07-09] MEDS: CHOLECALCIFEROL 1,000 UNIT TAB PO SCH (09:05)
[2017-07-09] MEDS: NYSTATIN 100,000 UNIT/ML SUSP 500,000 UNIT/5 ML CUP PO SCH ×4 (09:05→21:58)
[2017-07-09] MEDS: PIPERACILLIN-TAZOBACTAM 3.375 GM in DEXTROSE/WATER 1 50ML.BAG IVPB SCH ×2 (09:08→22:00)
[2017-07-09 11:07] LABS: Glucose,Whole Blood 142 mg/dL (75-99)
[2017-07-09 17:20] LABS: Glucose,Whole Blood 105 mg/dL (75-99)
--- NOTE | 2017-07-09 18:01 | PN ---
PROGRESS NOTE The patient is seen for followup for acute kidney injury, currently hemodialysis dependent. Patient has had 3 treatments of hemodialysis. Today I held her dialysis and we will repeat labs in a.m. Urine output has picked up and it looked like the patient had about 1800 mL for last 24 hours. The patient was initially quite oliguric with no significant urine output of only 100 mL for 24 hours. She is currently feeling better. Her nausea has improved. The patient has a right IJ PermCath. We will assess her renal function over the weekend regarding need for continued renal replacement therapy versus recovery of renal function. EXAMINATION: Blood pressure is 154/76, heart rate 71 per minute. She is afebrile. Examination of the heart: S1, S2. Examination lungs: Bilateral breath sounds are heard. Abdomen is soft, nontender. Examination lower extremities shows edema 1+ bilaterally. COPY TECHNICIAN exam is grossly intact. LABS SHOW: Sodium 140, potassium 3.6, chloride 102, BUN 16, serum creatinine 4.4, hemoglobin 8.9 g/dL. ASSESSMENT: 1. Acute kidney injury, acute tubular necrosis, initially oliguric, currently nonoliguric with improved urine output. The patient has had 3 treatments of dialysis last treatment was yesterday 07/08/2017. I held her dialysis today and we will re-evaluate tomorrow based on her labs and urine output regarding need for continued renal replacement therapy. I will also decrease her Lasix since the volume overload has significantly improved. 2. Abdominal wall abscess with explorative laparotomy, resection of infected mesh and drainage of abscess. 3. Metabolic acidosis, status post IV bicarb. 4. Volume overload, currently improved. PLAN: Hold hemodialysis today and repeat labs in a.m. Decrease Lasix. Will re-evaluate tomorrow regarding need for dialysis. The patient will need to be set up as outpatient if she continues to be dialysis dependent. However, given her significant improvement in urine output she will hopefully recover soon. MMODL / IJN: [id number] /
[2017-07-09] MEDS: FLUCONAZOLE 100 MG TAB PO SCH (21:58)
[2017-07-09] MEDS: ATORVASTATIN 10 MG TAB PO SCH (21:58)
[2017-07-09 22:14] LABS: Glucose,Whole Blood 127 mg/dL (75-99)
--- NOTE | 2017-07-09 23:47 | P.PN ---
Subjective Progress Note Date: 07/09/17 Principal diagnosis: abdominal pain This is a 72-year-old female patient gives history of having an abdominal wall abscess on the right side for which she was treated at [facility] emergency center in October 2016. The ER physician did an incision and drainage and widen the draining track with a scalpel and placed iodoform gauze. There was purulent material at that time. Patient states that this eventually healed and in April she was having increased right-sided abdominal pain and her PCP sent her to [facility] for an ultrasound that showed a possible hematoma on the right upper quadrant. She was then sent to Dr. Hancock for further evaluation. Because of anemia, patient underwent an upper and lower endoscopy with Dr. Hancock on May 20 that found no signs of bleeding. She subsequently underwent a hernia repair at the site of the previous hematoma or abscess from October [address] Hancock and this was done on 05/26/2017. This was located in the mid upper abdomen. She states she continued to have right-sided abdominal pain, chills and hot feeling, decreased appetite with possible weight loss and nausea. She saw Dr. Hancock yesterday and she up for outpatient computed tomography scan but she states that after he pressed on her abdomen her pain got significant only worse last evening and she came into [facility] emergency center for evaluation. She underwent a CAT scan of the abdomen and pelvis which revealed marked interval worsening of a right rectus sheath fluid collection which now extends into the anterior abdominal wall. Differential includes hematoma, abscess with stromal felt less likely. Mild wall thickening within the ascending and transverse colon is nonspecific but may represent colitis. Extensive diverticulosis with mild adjacent nonspecific fluid in the pelvis limits evaluation for potential diverticulitis. Mild atelectasis or less likely pneumonia in the left lung base. Large hiatal hernia. This CAT scan was compared to one done in September 2016. Patient is now admitted under the care of Dr. Vinny Godwin and is scheduled for I&D and washout this afternoon. Patient presented with a white count of 26.4, lactic acid 3.3 and repeat 1.7, afebrile, creatinine 0.6. Mild elevation of liver function tests with AST of 63, ALT 75, alkaline phosphatase 156. Urinalysis was cloudy with nitrate and leukoesterase negative and bacteria many. Patient denies any urinary pain or frequency or urgency. She also denies having any blood in her stools. 06/30/2017 reveals the patient to be postoperative and feeling slightly better. However she is now having difficulties with urinary output. Despite 3 L of fluid and blood transfusion she continues to have poor urinary output. She had a bladder scan that only showed 12 mL of fluid. Her abdominal pain is improving. She tolerated a clear liquid diet with no difficulties. 07/01/2017 patient is postoperative and feeling better. Pain is under good control. She continues to have poor urinary output but has had at least some urine output today. She is comfortable. Denies shortness of breath. Wound culture showed evidence of gram-negative bacilli only and vancomycin therapy was discontinued yesterday. 07/02/2017 patient does feel better. Is having difficulties with edema. Urine output remains very low. Fortunately she is not having severe shortness of breath. She's had only minimal abdominal discomfort related to her recent surgery. Only Proteus mirabilis is been isolated and is noted vancomycin therapy was discontinued. Is being followed by nephrology and if she has no urinary output we will consider renal replacement therapy. 07/03/2017 patient does feel relatively well but is having some increasing difficulties with edema and has some epigastric discomfort. She's having increasing difficulties with her appetite with increasing nausea which appears to be in the bases of her increasing uremia. 07/05/2017 patient is feeling relatively well she is having some edema. She is evaluated by nephrology her creatinine is a 7.18 and consideration for hemodialysis tomorrow. 07/08/2017 patient is further improvement. Urine output has now markedly improved. Appears now have any post-ATN diuresis occurring. She is feeling better. Started to have a vaginal yeast infection and fluconazole was started yesterday and she relates she's feeling better today. 07/09/2017 reveals further improvement. Responding to the fluconazole for a vaginal candidal infection.. Urine output remains adequate Objective - Vital Signs Vital signs: Vital Signs Temp 97.6 F 07/09/17 14:28 Pulse 71 07/09/17 14:28 Resp 16 07/09/17 14:28 BP 154/76 07/09/17 14:28 Pulse Ox 98 07/09/17 14:28 Intake & Output 07/09/17 07/09/17 07/10/17 06:59 18:59 06:59 Intake Total 1090 560 Output Total 1150 600 Balance -60 -40 Intake: IV 50 Piperacillin-Tazobactam 3 50 .375 gm In Dextrose/Water 1 50ml.bag @ 12.5 mls/hr IVPB Q12HR REJI Rx#: [id number] Intake, IV Titration 50 Amount Piperacillin-Tazobactam 3 50 .375 gm In Dextrose/Water 1 50ml.bag @ 12.5 mls/hr IVPB Q12HR REJI Rx#: [id number] Oral 1040 510 Output: Urine 1150 600 Other: Voiding Method Toilet Toilet # Voids 2 1 # Bowel Movements 0 - Exam Gen: This is a 72-year-old female patient. She is in bed and appears to be comfortable and in no acute distress. We does complain of some nausea. HEENT: Head is atraumatic, normocephalic. Pupils equal, round. Sclerae is anicteric. Conjunctiva pink. Mucous members of the mouth are dry. NECK: Supple. No JVD. No lymphadenopathy. No thyromegaly. LUNGS: Clear to auscultation. No wheezes or rhonchi. No intercostal retractions. HEART: Regular rate and rhythm. No murmur. ABDOMEN:few bowel sounds are heard there is a surgical incision that is having drainage of serosanginous material on the dressing the abdomen is tender to palpation EXTREMITIES: Is evidence of bilateral lower extremity edema No calf tenderness. Dorsalis pedis +2 bilaterally. NEUROLOGICAL: Patient is awake, alert and oriented x3 - Labs CBC & Chem 7: 07/09/17 08:04 07/09/17 08:04 Labs: Abnormal Lab Results - Last 24 Hours (Table) 07/09/17 07/09/17 07/09/17 Range/Units 07:06 08:04 08:04 WBC 12.0 H (3.8-10.6) k/uL Hgb 8.9 L (11.4-16.0) gm/dL Hct 29.3 L (34.0-46.0) % MCV 72.1 L (80.0-100.0) fL MCH 22.0 L (25.0-35.0) pg MCHC 30.5 L (31.0-37.0) g/dL RDW 20.1 H (11.5-15.5) % Neutrophils # 9.5 H (1.3-7.7) k/uL Creatinine 4.40 H (0.52-1.04) mg/dL Glucose 110 H (74-99) mg/dL POC Glucose (mg/dL) 103 H (75-99) mg/dL Calcium 8.1 L (8.4-10.2) mg/dL Total Protein 4.8 L (6.3-8.2) g/dL Albumin 2.5 L (3.5-5.0) g/dL 07/09/17 07/09/17 07/09/17 Range/Units 11:02 17:14 22:02 WBC (3.8-10.6) k/uL Hgb (11.4-16.0) gm/dL Hct (34.0-46.0) % MCV (80.0-100.0) fL MCH (25.0-35.0) pg MCHC (31.0-37.0) g/dL RDW (11.5-15.5) % Neutrophils # (1.3-7.7) k/uL Creatinine (0.52-1.04) mg/dL Glucose (74-99) mg/dL POC Glucose (mg/dL) 142 H 105 H 127 H (75-99) mg/dL Calcium (8.4-10.2) mg/dL Total Protein (6.3-8.2) g/dL Albumin (3.5-5.0) g/dL Laboratory Results WBC 12.0 k/uL (3.8-10.6) H 07/09/17 08:04 RBC 4.06 m/uL (3.80-5.40) 07/09/17 08:04 Hgb 8.9 gm/dL (11.4-16.0) L 07/09/17 08:04 Hct 29.3 % (34.0-46.0) L 07/09/17 08:04 MCV 72.1 fL (80.0-100.0) L 07/09/17 08:04 MCH 22.0 pg (25.0-35.0) L 07/09/17 08:04 MCHC 30.5 g/dL (31.0-37.0) L 07/09/17 08:04 RDW 20.1 % (11.5-15.5) H 07/09/17 08:04 Plt Count 388 k/uL (150-450) 07/09/17 08:04 Neutrophils % 79 % 07/09/17 08:04 Neutrophils % (Manual) 88 % 06/29/17 04:38 Band Neutrophils % 6 % 06/29/17 04:38 Lymphocytes % 13 % 07/09/17 08:04 Lymphocytes % (Manual) 5 % 06/29/17 04:38 Monocytes % 4 % 07/09/17 08:04 Monocytes % (Manual) 2 % 06/29/17 04:38 Eosinophils % 3 % 07/09/17 08:04 Basophils % 0 % 07/09/17 08:04 Neutrophils # 9.5 k/uL (1.3-7.7) H 07/09/17 08:04 Neutrophils # (Manual) 24.80 k/uL (1.3-7.7) H 06/29/17 04:38 Lymphocytes # 1.5 k/uL (1.0-4.8) 07/09/17 08:04 Lymphocytes # (Manual) 1.32 k/uL (1.0-4.8) 06/29/17 04:38 Monocytes # 0.4 k/uL (0-1.0) 07/09/17 08:04 Monocytes # (Manual) 0.53 k/uL (0-1.0) 06/29/17 04:38 Eosinophils # 0.4 k/uL (0-0.7) 07/09/17 08:04 Basophils # 0.0 k/uL (0-0.2) 07/09/17 08:04 Nucleated RBCs 0 /100 WBC (0-0) 06/29/17 04:38 Manual Slide Review Performed 06/29/17 04:38 Toxic Vacuolation Present 06/29/17 04:38 Hypochromasia Marked 07/09/17 08:04 Poikilocytosis Slight 07/09/17 08:04 Anisocytosis Moderate 07/09/17 08:04 Microcytosis Marked 07/09/17 08:04 Retic Count 1.1 % (0.5-2.0) 06/30/17 06:39 PT 11.7 sec (9.0-12.0) 07/06/17 09:17 INR 1.2 (<1.2) H 07/06/17 09:17 APTT 22.3 sec (22.0-30.0) 06/29/17 10:45 Sodium 140 mmol/L (137-145) 07/09/17 08:04 Potassium 3.6 mmol/L (3.5-5.1) 07/09/17 08:04 Chloride 102 mmol/L (98-107) 07/09/17 08:04 Carbon Dioxide 25 mmol/L (22-30) 07/09/17 08:04 Anion Gap 13 mmol/L 07/09/17 08:04 BUN 16 mg/dL (7-17) 07/09/17 08:04 Creatinine 4.40 mg/dL (0.52-1.04) H 07/09/17 08:04 Est GFR (CKD-EPI)AfAm 11 (>60 ml/min/1.73 sqM) 07/09/17 08:04 Est GFR (CKD-EPI)NonAf 10 (>60 ml/min/1.73 sqM) 07/09/17 08:04 Glucose 110 mg/dL (74-99) H 07/09/17 08:04 POC Glucose (mg/dL) 127 mg/dL (75-99) H 07/09/17 22:02 POC Glu Solar Engineer ID Yamilet Mcnulty 07/09/17 22:[address] Glu mg/dL 151 06/30/17 06:39 Hemoglobin A1c 6.9 % (4.0-6.0) H 06/30/17 06:39 Lactic Ac Sepsis Rflx Y 06/29/17 05:08 Plasma Lactic Acid Lasha 1.7 mmol/L (0.7-2.0) 06/29/17 09:19 Calcium 8.1 mg/dL (8.4-10.2) L 07/09/17 08:04 Magnesium 1.6 mg/dL (1.6-2.3) 07/08/17 06:22 Iron 7 ug/dL (50-170) L 06/30/17 06:39 TIBC 197 ug/dL (228-460) L 06/30/17 06:39 Iron Saturation 3.55 (12.00-45.00) L 06/30/17 06:39 Ferritin 116.2 ng/mL (10.0-291.0) 06/30/17 06:39 Total Bilirubin 0.3 mg/dL (0.2-1.3) 07/09/17 08:04 AST 16 U/L (14-36) 07/09/17 08:04 ALT 23 U/L (9-52) 07/09/17 08:04 Alkaline Phosphatase 64 U/L (38-126) 07/09/17 08:04 Total Protein 4.8 g/dL (6.3-8.2) L 07/09/17 08:04 Total Protein (PEP) 4.3 g/dL (6.2-8.2) L 07/05/17 10:15 Albumin 2.5 g/dL (3.5-5.0) L 07/09/17 08:04 Albumin (PEP) 2.04 g/dL (3.80-4.90) L 07/05/17 10:15 Gjljv-2-Toioqmlrp 0.31 g/dL (0.10-0.40) 07/05/17 10:15 Ltgsp-4-Mimgmrmni 0.93 g/dL (0.60-1.00) 07/05/17 10:15 Beta Globulins 0.61 g/dL (0.60-1.30) 07/05/17 10:15 Gamma Globulins 0.41 g/dL (0.70-1.50) L 07/05/17 10:15 PEP Interpretation SEE NOTE 07/05/17 10:15 Amylase 38 U/L (30-110) 06/29/17 04:38 Lipase 64 U/L (23-300) 06/29/17 04:38 Vitamin B12 1273.0 pg/mL (200.0-944.0) H 06/30/17 06:39 Folate 11.2 ng/mL 06/30/17 06:39 Urine Color Yellow 06/29/17 06:38 Urine Appearance Cloudy (Clear) H 06/29/17 06:38 Urine pH 6.5 (5.0-8.0) 06/29/17 06:38 Ur Specific [place] 1.007 (1.001-1.035) 06/29/17 06:38 Urine Protein Negative (Negative) 06/29/17 06:38 Urine Glucose (UA) Negative (Negative) 06/29/17 06:38 Urine Ketones Negative (Negative) 06/29/17 06:38 Urine Blood Negative (Negative) 06/29/17 06:38 Urine Nitrite Negative (Negative) 06/29/17 06:38 Urine Bilirubin Negative (Negative) 06/29/17 06:38 Urine Urobilinogen <2.0 mg/dL (<2.0) 06/29/17 06:38 Ur Leukocyte Esterase Negative (Negative) 06/29/17 06:38 Urine RBC 2 /hpf (0-5) 06/29/17 06:38 Urine WBC 2 /hpf (0-5) 06/29/17 06:38 Ur Squamous Epith Cells 13 /hpf (0-4) H 06/29/17 06:38 Urine Bacteria Many /hpf (None) H 06/29/17 06:38 Hyaline Casts 2 /lpf (0-2) 06/29/17 06:38 Urine Mucus Rare /hpf (None) H 06/29/17 06:38 Random Vancomycin 26.9 ug/mL 07/02/17 06:24 Hepatitis A IgM Ab Non-Reactive (Non-Reactive) 06/29/17 04:38 Hep Bs Antigen Non-Reactive (Non-Reactive) 07/06/17 06:48 Hep Bs Antibody Non-Reactive (Non-Reactive) 07/06/17 06:48 Hep Bs Antibody, Quant 3.5 mIU/mL 07/06/17 06:48 Hep B Core IgM Ab Non-Reactive (Non-Reactive) 06/29/17 04:38 Hep C IgG Ab Non-Reactive (Non-Reactive) 06/29/17 04:38 Blood Type B Negative 06/30/17 08:24 Blood Type Recheck No 06/30/17 08:24 Antibody Screen NEGATIVE 06/30/17 08:24 Crossmatch See Detail 06/30/17 08:24 Spec Expiration Date 07/03/2017232306/30/17 08:24 Microbiology 06/29/17 16:56 Abdomen Anaerobic Culture - Final Anaerobic Gm Negative Bacilli 06/29/17 06:00 Blood Blood Culture - Final No Growth after 144 hours 06/29/17 16:56 Abdomen Gram Stain - Final 06/29/17 16:56 Abdomen Wound Culture - Final Proteus mirabilis Assessment and Plan (1) Abdominal pain Current Visit: Yes Status: Acute Priority: High Code(s): R10.9 - UNSPECIFIED ABDOMINAL PAIN SNOMED Code(s): 09972443 (2) Acute blood loss anemia Current Visit: Yes Status: Acute Priority: High Code(s): D62 - ACUTE POSTHEMORRHAGIC ANEMIA SNOMED Code(s): 948826717 (3) Abdominal wall abscess Narrative/Plan: 72 year old woman staus post drainage of the intra-abdominal abscess. It is apparently outside of the peritoneum, and hopefully with incision and drainage will allow this to resolve rapidly. Cultures will further help direct antibiotic therapy, utilizing Zosyn and vancomycin for now pending further culture data. 06/30/2017 reveals the patient to be postoperative in feeling somewhat better. However she's now developed very low urinary output concerns to renal failure. Wound culture showing evidence of gram-negative bacilli. Vancomycin therapy is discontinued. Acute tubular necrosis is of concern given her sepsis at admission, gram-negative in nature. Cultures will help direct the final course of antibiotic therapy. Should be able to further help direct wound therapy once her some further improvement to the postoperative wound also. Nephrology is following. Further diuertic therapy is being given to see if she will respond especially since she's been given fluids and blood. Patient and family are reassured. 07/01/2017 patient is feeling relatively well. She is not having much pain and when she does oral pain medication and is tolerating this well. She does have poor urinary output and she has evidence of acute renal failure that as per nephrology is multifactorial. We'll culture has gram-negative bacilli only and that was evident the vancomycin therapy was discontinued, however with her acute renal failure she continues to have therapeutic level but no further doses are planned. She's received hydration and diuretic therapy awaiting a response. She clinically has an ATN and may require renal replacement therapy. 07/02/2017 patient does feel relatively well. Pain control with oral agents as effective. Continues to have very poor urinary output is being followed by nephrology and may require renal replacement therapy for her HTN. Antibiotic therapy with Zosyn is being utilized with excellent control of her infection, has been renally adjusted, and will likely transition to oral antimicrobial therapy as she shows ongoing improvement. 07/03/2017 patient is feeling less well today. Is having some epigastric discomfort and is developed some nausea without leonardo emesis. She has increasing amounts of renal failure and poor urinary output. She's developing some uremia is developing some edema and nausea on the basis. She's been followed by nephrology and likable have hemodialysis starting tomorrow for her ATN and acute oliguric renal failure. Antimicrobial therapy will transition to oral in the near future. 07/05/2017 patient continues to feel somewhat poorly. However is not having significant nausea or emesis. She is a bit more uremic and appetites poor. Has edema. Nephrology is following and will likely initiate hemodialysis tomorrow. We will transition to oral antibiotic therapy when she has initiated above treatment. 07/08/2017 patient continues to improve. She is now having post-ATN diuresis. She is definitely feeling better. She had a vaginal yeast infection is responding well to fluconazole. As she improves we'll be able to transition to oral Augmentin therapy to include her course of therapy for her extensive abdominal wall infection that is now much improved. 07/09/2017 with ongoing improvement the patient is feeling better. Yeast infections improved. We'll complete her course of fluconazole and Augmentin can be utilized to complete her course of significant abdominal wall infection. Nephrology is advising her completion course of hemodialysis for her acute tubular necrosis and renal failure which seems to be showing improvement with improving urine output. Current Visit: Yes Status: Acute Code(s): L02.211 - CUTANEOUS ABSCESS OF ABDOMINAL WALL SNOMED Code(s): 22608889
[2017-07-10 07:04] LABS: Glucose,Whole Blood 124 mg/dL (75-99)
[2017-07-10 07:42] LABS: Anisocytosis Moderate; Basophils % (A) 0 %; Eosinophils # (A) 0.4 k/uL (0-0.7); Eosinophils % (A) 3 %; HCT 27.9 % (34.0-46.0); HGB 8.5 gm/dL (11.4-16.0); Hypochromasia Marked; Lymphocytes # (A) 1.7 k/uL (1.0-4.8); Lymphocytes % (A) 15 %; MCH 22.2 pg (25.0-35.0); MCHC 30.6 g/dL (31.0-37.0); MCV 72.7 fL (80.0-100.0); Mean Platelet Volume 7.1; Microcytosis Marked; Monocytes # (A) 0.4 k/uL (0-1.0); Monocytes % (A) 4 %; Neutrophils # (A) 8.6 k/uL (1.3-7.7); Neutrophils % (A) 76 %; Platelet Count 388 k/uL (150-450); RBC 3.83 m/uL (3.80-5.40); RDW 21.1 % (11.5-15.5); WBC 11.3 k/uL (3.8-10.6)
[2017-07-10 07:54] LABS: Albumin 2.6 g/dL (3.5-5.0); Potassium 3.7 mmol/L (3.5-5.1); Total Bilirubin 0.4 mg/dL (0.2-1.3); Total Protein 4.9 g/dL (6.3-8.2)
[2017-07-10] MEDS: INSULIN ASPART 100 UNIT/ML 1 ML 10 ML VIAL SQ SCH ×4 (09:33→22:03)
[2017-07-10] MEDS: CHOLECALCIFEROL 1,000 UNIT TAB PO SCH (09:47)
[2017-07-10] MEDS: DOCUSATE 100 MG CAP PO SCH ×2 (09:47→20:48)
[2017-07-10] MEDS: HEPARIN SODIUM,PORCINE 5,000 UNIT/ML 1 ML VIAL SQ SCH ×2 (09:48→15:42)
[2017-07-10] MEDS: PANTOPRAZOLE 40 MG TABLET PO SCH (09:48)
[2017-07-10] MEDS: PIPERACILLIN-TAZOBACTAM 3.375 GM in DEXTROSE/WATER 1 50ML.BAG IVPB SCH ×2 (09:48→20:48)
[2017-07-10] MEDS: NYSTATIN 100,000 UNIT/ML SUSP 500,000 UNIT/5 ML CUP PO SCH ×4 (09:48→20:48)
[2017-07-10] MEDS: ONDANSETRON 4 MG/2 ML VIAL IVP PRN ×2 (11:16→20:48)
--- NOTE | 2017-07-10 11:25 | P.PN ---
Subjective Progress Note Date: 07/10/17 Principal diagnosis: This is a 72-year-old female seen in consultation with hemodialysis dependent acute kidney injury after removal of a mesh from her abdomen which was infected. She was dialyzed before yesterday and is presumably the second i dialysis treatment. It seems like she is recovering renal function is good urine output. She is feeling fairly well except from some nausea. She is moving her bowels no fever chills cough shortness of breath nausea vomiting. No dizziness is able to walk. She is able to eat without any vomiting. Objective - Vital Signs Vital signs: Vital Signs Temp 98.1 F 07/10/17 07:00 Pulse 65 07/10/17 07:00 Resp 14 07/10/17 07: 00 BP 159/79 07/10/17 07:00 Pulse Ox 97 07/10/17 07:00 Intake & Output 07/09/17 07/10/17 07/10/17 18:59 06:59 18:59 Intake Total 560 750 50 Output Total 600 950 400 Balance -40 -200 -350 Intake: IV 50 50 Piperacillin-Tazobactam 3 50 50 .375 gm In Dextrose/Water 1 50ml.bag @ 12.5 mls/hr IVPB Q12HR REJI Rx#: [id number] Oral 510 750 Output: Urine 600 950 400 Other: Voiding Method Toilet Toilet # Voids 1 1 1 on examination she is awake alert oriented HEENT exam no JVP neck is supple no facial asymmetry Lungs clear to auscultation percussion good air entry bilaterally Heart sounds are unremarkable no murmur rub gallop Abdomen is soft she has dressing on from her Extremity exam minimal edema Neurologically awake alert oriented - Labs CBC & Chem 7: 07/10/17 07:07 07/10/17 07:06 Labs: Abnormal Lab Results - Last 24 Hours (Table) 07/09/17 07/09/17 07/10/17 Range/Units 17:14 22:02 07:01 WBC (3.8-10.6) k/uL Hgb (11.4-16.0) gm/dL Hct (34.0-46.0) % MCV (80.0-100.0) fL MCH (25.0-35.0) pg MCHC (31.0-37.0) g/dL RDW (11.5-15.5) % Neutrophils # (1.3-7.7) k/uL BUN (7-17) mg/dL Creatinine (0.52-1.04) mg/dL Glucose (74-99) mg/dL POC Glucose (mg/dL) 105 H 127 H 124 H (75-99) mg/dL Calcium (8.4-10.2) mg/dL AST (14-36) U/L Total Protein (6.3-8.2) g/dL Albumin (3.5-5.0) g/dL 07/10/17 07/10/17 Range/Units 07:06 07:07 WBC 11.3 H (3.8-10.6) k/uL Hgb 8.5 L (11.4-16.0) gm/dL Hct 27.9 L (34.0-46.0) % MCV 72.7 L (80.0-100.0) fL MCH 22.2 L (25.0-35.0) pg MCHC 30.6 L (31.0-37.0) g/dL RDW 21.1 H (11.5-15.5) % Neutrophils # 8.6 H (1.3-7.7) k/uL BUN 19 H (7-17) mg/dL Creatinine 5.47 H* (0.52-1.04) mg/dL Glucose 103 H (74-99) mg/dL POC Glucose (mg/dL) (75-99) mg/dL Calcium 8.0 L (8.4-10.2) mg/dL AST 13 L (14-36) U/L Total Protein 4.9 L (6.3-8.2) g/dL Albumin 2.6 L (3.5-5.0) g/dL Assessment and Plan Assessment: impression. 1 acute kidney injury secondary to sepsis, hemodialysis dependent. Last dialysis was day before yesterday which was her second dialysis and she is recovering with good urine output and stable creatinine, creatinine was 4.4 yesterday postdialysis 5.47 today with normal electrolytes. 2. Baseline creatinine 0.6 on 06/29/2017. 3. Status post removal of infected hernia repair mesh. 4. Metabolic acidosis resolved bicarb is 25. Recommendation. Will hold off dialysis and follow her closely. Maintain current medication.
[2017-07-10 11:27] LABS: Glucose,Whole Blood 123 mg/dL (75-99)
[2017-07-10] MEDS ORDERED: ALPRAZolam 0.25 MG TAB PO PRN (16:08)
--- NOTE | 2017-07-10 16:54 | P.PN ---
Subjective atient came in with complaints of right-sided severe abdominal pain sharp in nature and nonradiating found to have abscess in that area are a hematoma and which was infected patient had a recent laparoscopic robotic-assisted repair of incisional hernia was subsequently discharged home did well started having severe pain in that area along with chills. Patient is found to have fluid collection in the rectal sheath extending into the anterior abdominal wall and thickening of the ascending colon with diverticulosis. Patient was started on Vanco mycin Zosyn which is appropriate 06/30/2017 status post exploratory laparotomy drainage of intraperitoneal abscess resection of an infected mesh, purulent pelvis fluid with drainage of right rectus infected hematoma area. Maintained on IV antibiotics. Hemoglobin dropped to 7.3, symptomatic, receiving one unit of packed RBCs. Hypotensive, worsening renal function with low urine output receiving third liter of IV fluid bolus. Currently denying chest pain, palpitations, shortness of breath. Denies lightheadedness or dizziness. T-max 99.1, WBC 20.4. 07/01/2017 blood pressure improved, urine output increased with 180 mL's overnight. Renal function worsening, up to 3.2. Evaluated by nephrology with recommendations noted. Receive 1 unit of packed RBCs yesterday with hemoglobin up to 8.6. Afebrile, WBC trending down. maintaining O2 sats of mid to high 90s on room air. Tolerating clear liquid diet with no nausea, vomiting or diarrhea. Passing flatus, burping. Blood sugars controlled. Denies abdominal pain, states she is experiencing a"stinging sensation". Maintained on IV antibiotics as per infectious disease. 07/03/2017 Patient's kidney function continued to worsen. Although patient clinically looks with very good and nephrology wanted to wait 1 more day and reassess for renal replacement therapy. 07/10/2017 Patient was initiated on hemodialysis with improvement in creatinine, in of hemodialysis is being held since yesterday with mild worsening in creatinine patient was complaining of some nausea along when she gets Zosyn. Constitutional: Denied any fatigue denied any fever. Cardio vascular: denied any chest pain, palpitations Gastrointestinal denied any nausea vomiting Pulmonary: Denied any shortness of breath cough Neurologic denied any new focal deficits Objective - Vital Signs Vital signs: Vital Signs Temp 98.1 F 07/10/17 07:00 Pulse 65 07/10/17 07:00 Resp 14 07/10/17 07:00 BP 159/79 07/10/17 07:00 Pulse Ox 97 07/10/17 07:00 Intake & Output 07/09/17 07/10/17 07/10/17 18:59 06:59 18:59 Intake Total 560 750 100 Output Total 600 950 600 Balance -40 -200 -500 Intake: IV 50 100 Piperacillin-Tazobactam 3 50 100 .375 gm In Dextrose/Water 1 50ml.bag @ 12.5 mls/hr IVPB Q12HR [facility] Rx#: [id number] Oral 510 750 Output: Urine 600 950 600 Other: Voiding Method Toilet Toilet # Voids 1 1 1 - Exam PHYSICAL EXAMINATION: GENERAL: The patient is alert and oriented x3, not in any acute distress. Well developed, well nourished. HEENT: Pupils are round and equally reacting to light. EOMI. No scleral icterus. No conjunctival pallor. Normocephalic, atraumatic. No pharyngeal erythema. No thyromegaly. CARDIOVASCULAR: S1 and S2 present. No murmurs, rubs, or gallops. PULMONARY: Chest is clear to auscultation, no wheezing or crackles. ABDOMEN: Soft, nontender, nondistended, normoactive bowel sounds. No palpable organomegaly. MUSCULOSKELETAL: No joint swelling or deformity. EXTREMITIES: No cyanosis, clubbing, or pedal edema. NEUROLOGICAL: Gross neurological examination did not reveal any focal deficits. SKIN: No rashes. - Labs CBC & Chem 7: 07/10/17 07:07 07/10/17 07:06 Labs: Abnormal Lab Results - Last 24 Hours (Table) 07/09/17 07/09/17 07/10/17 Range/Units 17:14 22:02 07:01 WBC (3.8-10.6) k/uL Hgb (11.4-16.0) gm/dL Hct (34.0-46.0) % MCV (80.0-100.0) fL MCH (25.0-35.0) pg MCHC (31.0-37.0) g/dL RDW (11.5-15.5) % Neutrophils # (1.3-7.7) k/uL BUN (7-17) mg/dL Creatinine (0.52-1.04) mg/dL Glucose (74-99) mg/dL POC Glucose (mg/dL) 105 H 127 H 124 H (75-99) mg/dL Calcium (8.4-10.2) mg/dL AST (14-36) U/L Total Protein (6.3-8.2) g/dL Albumin (3.5-5.0) g/dL 07/10/17 07/10/17 07/10/17 Range/Units 07:06 07:07 11:25 WBC 11.3 H (3.8-10.6) k/uL Hgb 8.5 L (11.4-16.0) gm/dL Hct 27.9 L (34.0-46.0) % MCV 72.7 L (80.0-100.0) fL MCH 22.2 L (25.0-35.0) pg MCHC 30.6 L (31.0-37.0) g/dL RDW 21.1 H (11.5-15.5) % Neutrophils # 8.6 H (1.3-7.7) k/uL BUN 19 H (7-17) mg/dL Creatinine 5.47 H* (0.52-1.04) mg/dL Glucose 103 H (74-99) mg/dL POC Glucose (mg/dL) 123 H (75-99) mg/dL Calcium 8.0 L (8.4-10.2) mg/dL AST 13 L (14-36) U/L Total Protein 4.9 L (6.3-8.2) g/dL Albumin 2.6 L (3.5-5.0) g/dL Assessment and Plan Plan: -Abdominal wall abscess: Patient on Zosyn wound cultures are showing Proteus mirabilis -acute renal failure: Probably due to acute tubular necrosis secondary to sepsis and patient was initiated on hemodialysis mild worsening of creatinine today -Hypertension patient blood pressure remains stable without any of her antidepressant medications -Chronic low back pain -Gastroesophageal reflux disease -Hyperlipidemia next Above-mentioned chronic medical problems appropriate home medications will be resumed and continued we'll use Toradol along with GI prophylaxis for pain
[2017-07-10 17:20] LABS: Glucose,Whole Blood 113 mg/dL (75-99)
[2017-07-10 20:27] LABS: Glucose,Whole Blood 136 mg/dL (75-99)
[2017-07-10] MEDS: ATORVASTATIN 10 MG TAB PO SCH (20:48)
[2017-07-10] MEDS: FLUCONAZOLE 100 MG TAB PO SCH (20:54)
[2017-07-11 07:08] LABS: Glucose,Whole Blood 103 mg/dL (75-99)
[2017-07-11] MEDS: INSULIN ASPART 100 UNIT/ML 1 ML 10 ML VIAL SQ SCH ×4 (07:19→20:38)
[2017-07-11] MEDS: HEPARIN SODIUM,PORCINE 5,000 UNIT/ML 1 ML VIAL SQ SCH ×3 (07:25→15:52)
[2017-07-11] MEDS: PANTOPRAZOLE 40 MG TABLET PO SCH (07:25)
[2017-07-11] MEDS: PIPERACILLIN-TAZOBACTAM 3.375 GM in DEXTROSE/WATER 1 50ML.BAG IVPB SCH ×2 (08:46→20:24)
[2017-07-11] MEDS: ONDANSETRON 4 MG/2 ML VIAL IVP PRN ×2 (08:46→20:24)
[2017-07-11] MEDS: NYSTATIN 100,000 UNIT/ML SUSP 500,000 UNIT/5 ML CUP PO SCH ×4 (08:46→20:25)
[2017-07-11] MEDS: DOCUSATE 100 MG CAP PO SCH ×2 (08:47→20:25)
[2017-07-11] MEDS: CHOLECALCIFEROL 1,000 UNIT TAB PO SCH (08:47)
--- NOTE | 2017-07-11 09:38 | P.PN ---
Subjective Progress Note Date: 07/11/17 Principal diagnosis: This is a 72-year-old female seen in consultation with hemodialysis dependent acute kidney injury after removal of a mesh from her abdomen which was infected. She was dialyzed last on 07/08/17, her second dialysis treatment. It seems like she is recovering renal function is good urine output. She is feeling fairly well. She is moving her bowels no fever chills cough shortness of breath nausea vomiting. No dizziness is able to walk. She is able to eat without any vomiting. On 06/30/2017 she had exploratory laparotomy drainage of intraperitoneal abscess resection of an infected mesh, purulent pelvis fluid with drainage of right rectus infected hematoma area. Maintained on IV antibiotics. Objective - Vital Signs Vital signs: Vital Signs Temp 98.4 F 07/11/17 07:00 Pulse 63 07/11/17 07:00 Resp 14 07/11/17 07:00 BP 156/71 07/11/17 07:00 Pulse Ox 97 07/11/17 07:00 Intake & Output 07/10/17 07/11/17 07/11/17 18:59 06:59 18:59 Intake Total 100 200 Output Total 600 700 200 Balance -500 -500 -200 Intake: IV 100 50 Piperacillin-Tazobactam 3 100 50 .375 gm In Dextrose/Water 1 50ml.bag @ 12.5 mls/hr IVPB Q12HR [facility] Rx#: [id number] Oral 150 Output: Urine 600 700 200 Other: Voiding Method Toilet # Voids 1 On examination she is awake alert oriented comfortable A chin exam no JVP neck is supple no facial asymmetry Lungs are clear to auscultation with occasional basilar crackles that cleared with cough no dullness percussion Heart sounds are unremarkable for any murmur rub gallop Abdomen soft nontender there is dressing on abdomen Extremity exam was minimal edema Neurologically awake alert oriented. - Labs CBC & Chem 7: 07/10/17 07:07 07/10/17 07:06 Labs: Abnormal Lab Results - Last 24 Hours (Table) 07/10/17 07/10/17 07/10/17 Range/Units 11:25 17:17 20:23 POC Glucose (mg/dL) 123 H 113 H 136 H (75-99) mg/dL 07/11/17 Range/Units 07:02 POC Glucose (mg/dL) 103 H (75-99) mg/dL Assessment and Plan Assessment: impression. 1 acute kidney injury secondary to sepsis, hemodialysis dependent. Last dialysis was 07/08/2017 to dialysis so far. Dialysis was discontinued and she is under careful observation. She has fair amount of urine output and clinically stable. Yesterday her pending. 2. Baseline creatinine 0.6 on 06/29/2017. 3. Status post removal of infected hernia repair mesh. 4. Metabolic acidosis resolved bicarb is 25. Recommendation. Obtain labs today Will hold off dialysis and follow her closely. Maintain current medication.
[2017-07-11 10:42] LABS: Calcium 8.1 mg/dL (8.4-10.2)
[2017-07-11 11:48] LABS: Glucose,Whole Blood 131 mg/dL (75-99)
--- NOTE | 2017-07-11 15:09 | P.PN ---
Subjective atient came in with complaints of right-sided severe abdominal pain sharp in nature and nonradiating found to have abscess in that area are a hematoma and which was infected patient had a recent laparoscopic robotic-assisted repair of incisional hernia was subsequently discharged home did well started having severe pain in that area along with chills. Patient is found to have fluid collection in the rectal sheath extending into the anterior abdominal wall and thickening of the ascending colon with diverticulosis. Patient was started on Vanco mycin Zosyn which is appropriate 06/30/2017 status post exploratory laparotomy drainage of intraperitoneal abscess resection of an infected mesh, purulent pelvis fluid with drainage of right rectus infected hematoma area. Maintained on IV antibiotics. Hemoglobin dropped to 7.3, symptomatic, receiving one unit of packed RBCs. Hypotensive, worsening renal function with low urine output receiving third liter of IV fluid bolus. Currently denying chest pain, palpitations, shortness of breath. Denies lightheadedness or dizziness. T-max 99.1, WBC 20.4. 07/01/2017 blood pressure improved, urine output increased with 180 mL's overnight. Renal function worsening, up to 3.2. Evaluated by nephrology with recommendations noted. Receive 1 unit of packed RBCs yesterday with hemoglobin up to 8.6. Afebrile, WBC trending down. maintaining O2 sats of mid to high 90s on room air. Tolerating clear liquid diet with no nausea, vomiting or diarrhea. Passing flatus, burping. Blood sugars controlled. Denies abdominal pain, states she is experiencing a"stinging sensation". Maintained on IV antibiotics as per infectious disease. 07/03/2017 Patient's kidney function continued to worsen. Although patient clinically looks with very good and nephrology wanted to wait 1 more day and reassess for renal replacement therapy. 07/10/2017 Patient was initiated on hemodialysis with improvement in creatinine, in of hemodialysis is being held since yesterday with mild worsening in creatinine patient was complaining of some nausea along when she gets Zosyn. 07/11/2017 Patient's creatinine continued to worse and is now 6.15 may and up needing hemodialysis tomorrow. Patient has Proteus mirabilis and anaerobic bacteria because of which patient is to be on Zosyn nausea vomiting come completely resolved today patient is able to eat full liquid diet Constitutional: Denied any fatigue denied any fever. Cardio vascular: denied any chest pain, palpitations Gastrointestinal denied any nausea vomiting Pulmonary: Denied any shortness of breath cough Neurologic denied any new focal deficits Objective - Vital Signs Vital signs: Vital Signs Temp 98.4 F 07/11/17 07:00 Pulse 63 07/11/17 07:00 Resp 14 07/11/17 07:00 BP 156/71 07/11/17 07:00 Pulse Ox 97 07/11/17 07:00 Intake & Output 07/10/17 07/11/17 07/11/17 18:59 06:59 18:59 Intake Total 100 200 Output Total 600 700 200 Balance -500 -500 -200 Intake: IV 100 50 Piperacillin-Tazobactam 3 100 50 .375 gm In Dextrose/Water 1 50ml.bag @ 12.5 mls/hr IVPB Q12HR [facility] Rx#: [id number] Oral 150 Output: Urine 600 700 200 Other: Voiding Method Toilet # Voids 1 - Exam PHYSICAL EXAMINATION: GENERAL: The patient is alert and oriented x3, not in any acute distress. Well developed, well nourished. HEENT: Pupils are round and equally reacting to light. EOMI. No scleral icterus. No conjunctival pallor. Normocephalic, atraumatic. No pharyngeal erythema. No thyromegaly. CARDIOVASCULAR: S1 and S2 present. No murmurs, rubs, or gallops. PULMONARY: Chest is clear to auscultation, no wheezing or crackles. ABDOMEN: Soft, nontender, nondistended, normoactive bowel sounds. No palpable organomegaly. MUSCULOSKELETAL: No joint swelling or deformity. EXTREMITIES: No cyanosis, clubbing, or pedal edema. NEUROLOGICAL: Gross neurological examination did not reveal any focal deficits. SKIN: No rashes. - Labs CBC & Chem 7: 07/10/17 07:07 07/11/17 10:16 Labs: Abnormal Lab Results - Last 24 Hours (Table) 07/10/17 07/10/17 07/11/17 Range/Units 17:17 20:23 07:02 BUN (7-17) mg/dL Creatinine (0.52-1.04) mg/dL Glucose (74-99) mg/dL POC Glucose (mg/dL) 113 H 136 H 103 H (75-99) mg/dL Calcium (8.4-10.2) mg/dL 07/11/17 07/11/17 Range/Units 10:16 11:35 BUN 22 H (7-17) mg/dL Creatinine 6.15 H* (0.52-1.04) mg/dL Glucose 156 H (74-99) mg/dL POC Glucose (mg/dL) 131 H (75-99) mg/dL Calcium 8.1 L (8.4-10.2) mg/dL Assessment and Plan Plan: -Abdominal wall abscess: Patient on Zosyn wound cultures are showing Proteus mirabilis and and aerobic gram-negative organisms -acute renal failure: Probably due to acute tubular necrosis secondary to sepsis and patient was initiated on hemodialysis mild worsening of creatinine today. Hemodialysis is being temporally held may require hemodialysis tomorrow -Hypertension patient blood pressure remains stable without any of her antidepressant medications -Chronic low back pain -Gastroesophageal reflux disease -Hyperlipidemia next Above-mentioned chronic medical problems appropriate home medications will be resumed and continued we'll use Toradol along with GI prophylaxis for pain
[2017-07-11 16:55] LABS: Glucose,Whole Blood 128 mg/dL (75-99)
[2017-07-11 20:21] LABS: Glucose,Whole Blood 136 mg/dL (75-99)
[2017-07-11 20:23] VITALS: RESP 16
[2017-07-11] MEDS: ATORVASTATIN 10 MG TAB PO SCH (20:25)
[2017-07-11] MEDS: FLUCONAZOLE 100 MG TAB PO SCH (20:25)
--- NOTE | 2017-07-11 23:30 | P.PN ---
Subjective Progress Note Date: 07/08/17 Progress note being dictated for Dr. Parsons. Interval history: Patient came in with complaints of right-sided severe abdominal pain sharp in nature and nonradiating found to have abscess in that area are a hematoma and which was infected patient had a recent laparoscopic robotic-assisted repair of incisional hernia was subsequently discharged home did well started having severe pain in that area along with chills. Patient is found to have fluid collection in the rectal sheath extending into the anterior abdominal wall and thickening of the ascending colon with diverticulosis. Patient was started on Vanco mycin Zosyn which is appropriate 06/30/2017 status post exploratory laparotomy drainage of intraperitoneal abscess resection of an infected mesh, purulent pelvis fluid with drainage of right rectus infected hematoma area. Maintained on IV antibiotics. Hemoglobin dropped to 7.3, symptomatic, receiving one unit of packed RBCs. Hypotensive, worsening renal function with low urine output receiving third liter of IV fluid bolus. Currently denying chest pain, palpitations, shortness of breath. Denies lightheadedness or dizziness. T-max 99.1, WBC 20.4. 07/01/2017 blood pressure improved, urine output increased with 180 mL's overnight. Renal function worsening, up to 3.2. Evaluated by nephrology with recommendations noted. Receive 1 unit of packed RBCs yesterday with hemoglobin up to 8.6. Afebrile, WBC trending down. maintaining O2 sats of mid to high 90s on room air. Tolerating clear liquid diet with no nausea, vomiting or diarrhea. Passing flatus, burping. Blood sugars controlled. Denies abdominal pain, states she is experiencing a"stinging sensation". Maintained on IV antibiotics as per infectious disease. 07/02/2017 denies pain. Tolerating regular diet with no nausea or vomiting. No bowel movement, passing flatus. Leukocytosis trending down. Afebrile. Received Lasix yesterday without increase in urine output. Renal function continues to worsen, 4.7. acidotic, CO2 13. Bicarb drip initiated as per nephrology. 07/03/2017 Patient's kidney function continued to worsen. Although patient clinically looks with very good and nephrology wanted to wait 1 more day and reassess for renal replacement therapy. Constitutional: Denied any fatigue denied any fever. Cardio vascular: denied any chest pain, palpitations Gastrointestinal denied any nausea vomiting Pulmonary: Denied any shortness of breath cough Neurologic denied any new focal deficits 07/05/2017 creatinine up to 7.4, complaining of decreased appetite, worsening nausea this afternoon. IV fluids have been discontinued, maintained on IV push Lasix. [place] drain discontinued. Nursing reports serous drainage during dressing change. Afebrile, WBC trending down. 07/06/17 renal function continues to worsen, creatinine up to 8.1,nauseated. Vascular surgery consulted from permacath placement and initiation of dialysis.afebrile. 07/07/17 yesterday underwent ultrasound-guided right internal jugular dialysis catheter placement with hemodialysis initiated, tolerated well. Received second session of hemodialysis this morning. Feels better ,nausea subsided. Good diet intake. Positive bowel movement. Denies abdominal pain. Afebrile. Diuresing well on Lasix IV push with 24-hour I&O reflecting a negative fluid balance. Potassium 3.4. Urine output improving. 07/08/2017 maintained on Zosyn, afebrile. scheduled for hemodialysis again today. Continues to do well. Nausea subsided. Positive bowel movement.Hypokalemic with electrolyte replacement as per nephrology. Objective - Vital Signs Vital signs: Vital Signs Temp 98.0 F 07/08/17 01:00 Pulse 65 07/08/17 01:00 Resp 16 07/08/17 01:00 BP 154/69 07/08/17 01:00 Pulse Ox 97 07/08/17 01:00 Intake & Output 07/07/17 07/08/17 07/08/17 18:59 06:59 18:59 Intake Total 2750 Output Total 1580 Balance 1170 Weight 77.111 kg Intake: Intake, IV Titration 50 Amount Piperacillin-Tazobactam 3 50 .375 gm In Dextrose/Water 1 50ml.bag @ 12.5 mls/hr IVPB Q12HR [facility] Rx#: [id number] Oral 2700 Output: Urine 1580 Other: Voiding Method Indwelling Catheter Indwelling Catheter # Voids 2 1 - Exam GENERAL: Sitting up in chair, Alert and oriented 3, no acute distress HEENT: Pupils are round and equally reacting to light. EOMI. No scleral icterus. No conjunctival pallor. Normocephalic, atraumatic. Right internal jugular PermCath present CARDIOVASCULAR: S1 and S2 present. No murmurs, rubs, or gallops. PULMONARY: Chest is clear to auscultation, no wheezing or crackles. No rhonchi ABDOMEN: Soft, nontender, nondistended, positive bowel sounds. Status post surgery; dressing ,abdominal binder present MUSCULOSKELETAL: EXTREMITIES: No cyanosis, bilateral lower extremity edema NEUROLOGICAL: Gross neurological examination did not reveal any focal deficits. SKIN: No rashes. - Labs CBC & Chem 7: 07/10/17 07:07 07/11/17 10:16 Labs: Abnormal Lab Results - Last 24 Hours (Table) 07/07/17 07/07/17 07/07/17 Range/Units 11:54 12:21 17:30 Sodium 136 L (137-145) mmol/L Potassium 3.4 L (3.5-5.1) mmol/L BUN 21 H (7-17) mg/dL Creatinine 4.52 H (0.52-1.04) mg/dL Glucose 144 H (74-99) mg/dL POC Glucose (mg/dL) 155 H 109 H (75-99) mg/dL Calcium 7.6 L (8.4-10.2) mg/dL Total Bilirubin 0.1 L (0.2-1.3) mg/dL Total Protein 4.2 L (6.3-8.2) g/dL Albumin 2.2 L (3.5-5.0) g/dL 07/07/17 07/08/17 Range/Units 20:42 06:22 Sodium (137-145) mmol/L Potassium 3.4 L (3.5-5.1) mmol/L BUN 24 H (7-17) mg/dL Creatinine 5.44 H* (0.52-1.04) mg/dL Glucose (74-99) mg/dL POC Glucose (mg/dL) 138 H (75-99) mg/dL Calcium 7.7 L (8.4-10.2) mg/dL Total Bilirubin (0.2-1.3) mg/dL Total Protein 4.2 L (6.3-8.2) g/dL Albumin 2.2 L (3.5-5.0) g/dL Assessment and Plan Assessment: - abdominal wall abscess, Status post exploratory laparotomy with resection of infected mesh and drainage, wound cultures reporting Proteus Mirabillis -Sepsis present on admission secondary to abdominal wall abscess -Hypertension -Chronic low back pain -Gastroesophageal reflux disease -Hyperlipidemia next -Acute postoperative blood loss anemia, expected postsurgical secondary to resection and drainage of abscess/hematoma ,status post transfusion 1 unit of packed RBCs -Acute renal failure secondary to ATN secondary to sepsis, -Status post PermCath placement with initiation of hemodialysis secondary to the above -Metabolic acidosis secondary to acute kidney injury, status post IV bicarb Plan: Continue on current medication regime , Lasix, monitoring and symptomatic treatment. Aggressive pulmonary toileting. Hemodialysis scheduled to be repeated today. Diuretics, electrolyte replacement as per nephrology. Close monitoring of renal function, electrolytes with repeat labs ordered for a.m. antibiotics as per ID. The impression and plan of care has been dictated as directed. : I performed a history and examination of this patient, discussed the same with the dictator. I agree with the dictator's note ,documented as a scribe. Any additional findings or plans will be noted.
--- NOTE | 2017-07-11 23:37 | P.PN ---
Subjective Progress Note Date: 07/09/17 Progress note being dictated for Dr. Parsons. Interval history: Patient came in with complaints of right-sided severe abdominal pain sharp in nature and nonradiating found to have abscess in that area are a hematoma and which was infected patient had a recent laparoscopic robotic-assisted repair of incisional hernia was subsequently discharged home did well started having severe pain in that area along with chills. Patient is found to have fluid collection in the rectal sheath extending into the anterior abdominal wall and thickening of the ascending colon with diverticulosis. Patient was started on Vanco mycin Zosyn which is appropriate 06/30/2017 status post exploratory laparotomy drainage of intraperitoneal abscess resection of an infected mesh, purulent pelvis fluid with drainage of right rectus infected hematoma area. Maintained on IV antibiotics. Hemoglobin dropped to 7.3, symptomatic, receiving one unit of packed RBCs. Hypotensive, worsening renal function with low urine output receiving third liter of IV fluid bolus. Currently denying chest pain, palpitations, shortness of breath. Denies lightheadedness or dizziness. T-max 99.1, WBC 20.4. 07/01/2017 blood pressure improved, urine output increased with 180 mL's overnight. Renal function worsening, up to 3.2. Evaluated by nephrology with recommendations noted. Receive 1 unit of packed RBCs yesterday with hemoglobin up to 8.6. Afebrile, WBC trending down. maintaining O2 sats of mid to high 90s on room air. Tolerating clear liquid diet with no nausea, vomiting or diarrhea. Passing flatus, burping. Blood sugars controlled. Denies abdominal pain, states she is experiencing a"stinging sensation". Maintained on IV antibiotics as per infectious disease. 07/02/2017 denies pain. Tolerating regular diet with no nausea or vomiting. No bowel movement, passing flatus. Leukocytosis trending down. Afebrile. Received Lasix yesterday without increase in urine output. Renal function continues to worsen, 4.7. acidotic, CO2 13. Bicarb drip initiated as per nephrology. 07/03/2017 Patient's kidney function continued to worsen. Although patient clinically looks with very good and nephrology wanted to wait 1 more day and reassess for renal replacement therapy. Constitutional: Denied any fatigue denied any fever. Cardio vascular: denied any chest pain, palpitations Gastrointestinal denied any nausea vomiting Pulmonary: Denied any shortness of breath cough Neurologic denied any new focal deficits 07/05/2017 creatinine up to 7.4, complaining of decreased appetite, worsening nausea this afternoon. IV fluids have been discontinued, maintained on IV push Lasix. [place] drain discontinued. Nursing reports serous drainage during dressing change. Afebrile, WBC trending down. 07/06/17 renal function continues to worsen, creatinine up to 8.1,nauseated. Vascular surgery consulted from permacath placement and initiation of dialysis.afebrile. 07/07/17 yesterday underwent ultrasound-guided right internal jugular dialysis catheter placement with hemodialysis initiated, tolerated well. Received second session of hemodialysis this morning. Feels better ,nausea subsided. Good diet intake. Positive bowel movement. Denies abdominal pain. Afebrile. Diuresing well on Lasix IV push with 24-hour I&O reflecting a negative fluid balance. Potassium 3.4. Urine output improving. 07/08/2017 maintained on Zosyn, afebrile. scheduled for hemodialysis again today. Continues to do well. Nausea subsided. Positive bowel movement.Hypokalemic with electrolyte replacement as per nephrology. 07/10/17 no hemodialysis today. Fluid volume overload improved with Lasix decreased as per nephrology. Urine output improving. Afebrile, maintained on IV antibiotics of Zosyn Objective - Vital Signs Vital signs: Vital Signs Temp 98.4 F 07/11/17 20:22 Pulse 72 07/11/17 20:22 Resp 16 07/11/17 20:22 BP 150/80 07/11/17 20:22 Pulse Ox 98 07/11/17 20:22 Intake & Output 07/11/17 07/11/17 07/12/17 06:59 18:59 06:59 Intake Total 200 50 250 Output Total 700 202 400 Balance -500 -152 -150 Intake: IV 50 50 Piperacillin-Tazobactam 3 50 50 .375 gm In Dextrose/Water 1 50ml.bag @ 12.5 mls/hr IVPB Q12HR [facility] Rx#: [id number] Oral 150 250 Output: Urine 700 200 400 Stool 2 Other: Voiding Method Toilet Toilet - Exam GENERAL: VS:Temp. 98.1, pulse 69, blood pressure 143/81, O2 sat 97% on room air .Sitting up in chair, Alert and oriented 3, no acute distress HEENT: Pupils are round and equally reacting to light. EOMI. No scleral icterus. No conjunctival pallor. Normocephalic, atraumatic. Right internal jugular PermCath present CARDIOVASCULAR: S1 and S2 present. No murmurs, rubs, or gallops. PULMONARY: Chest is clear to auscultation, no wheezing or crackles. No rhonchi ABDOMEN: Soft, nontender, nondistended, positive bowel sounds. Status post surgery; dressing ,abdominal binder present MUSCULOSKELETAL: EXTREMITIES: No cyanosis, bilateral lower extremity edema NEUROLOGICAL: Gross neurological examination did not reveal any focal deficits. - Labs CBC & Chem 7: 07/10/17 07:07 07/11/17 10:16 Labs: Abnormal Lab Results - Last 24 Hours (Table) 07/11/17 07/11/17 07/11/17 Range/Units 07:02 10:16 11:35 BUN 22 H (7-17) mg/dL Creatinine 6.15 H* (0.52-1.04) mg/dL Glucose 156 H (74-99) mg/dL POC Glucose (mg/dL) 103 H 131 H (75-99) mg/dL Calcium 8.1 L (8.4-10.2) mg/dL 07/11/17 07/11/17 Range/Units 16:52 20:18 BUN (7-17) mg/dL Creatinine (0.52-1.04) mg/dL Glucose (74-99) mg/dL POC Glucose (mg/dL) 128 H 136 H (75-99) mg/dL Calcium (8.4-10.2) mg/dL Assessment and Plan Assessment: - abdominal wall abscess, Status post exploratory laparotomy with resection of infected mesh and drainage, wound cultures reporting Proteus Mirabillis -Sepsis present on admission secondary to abdominal wall abscess -Hypertension -Chronic low back pain -Gastroesophageal reflux disease -Hyperlipidemia next -Acute postoperative blood loss anemia, expected postsurgical secondary to resection and drainage of abscess/hematoma ,status post transfusion 1 unit of packed RBCs -Acute renal failure secondary to ATN secondary to sepsis, -Status post PermCath placement with initiation of hemodialysis secondary to the above -Metabolic acidosis secondary to acute kidney injury, status post IV bicarb Plan: Continue on current medication regime , Lasix, monitoring and symptomatic treatment. Aggressive pulmonary toileting. Hemodialysis on hold for today. Diuretics, electrolyte replacement as per nephrology. Close monitoring of renal function, electrolytes with repeat labs ordered for a.m. antibiotics as per ID. The impression and plan of care has been dictated as directed. : I performed a history and examination of this patient, discussed the same with the dictator. I agree with the dictator's note ,documented as a scribe. Any additional findings or plans will be noted.
[2017-07-12] MEDS: HEPARIN SODIUM,PORCINE 5,000 UNIT/ML 1 ML VIAL SQ SCH ×4 (01:35→22:34)
[2017-07-12 06:51] LABS: Glucose,Whole Blood 110 mg/dL (75-99)
[2017-07-12] MEDS: INSULIN ASPART 100 UNIT/ML 1 ML 10 ML VIAL SQ SCH ×4 (07:00→22:02)
[2017-07-12 07:05] LABS: Albumin 2.4 g/dL (3.5-5.0); Calcium 7.9 mg/dL (8.4-10.2); Potassium 3.9 mmol/L (3.5-5.1); Total Bilirubin 0.3 mg/dL (0.2-1.3); Total Protein 4.8 g/dL (6.3-8.2)
[2017-07-12] MEDS: NYSTATIN 100,000 UNIT/ML SUSP 500,000 UNIT/5 ML CUP PO SCH ×4 (07:32→22:00)
[2017-07-12] MEDS: PANTOPRAZOLE 40 MG TABLET PO SCH (07:33)
[2017-07-12] MEDS: DOCUSATE 100 MG CAP PO SCH ×2 (07:33→22:00)
[2017-07-12] MEDS: CHOLECALCIFEROL 1,000 UNIT TAB PO SCH (07:33)
[2017-07-12] MEDS: PIPERACILLIN-TAZOBACTAM 3.375 GM in DEXTROSE/WATER 1 50ML.BAG IVPB SCH ×2 (07:37→22:01)
[2017-07-12] MEDS: ONDANSETRON 4 MG/2 ML VIAL IVP PRN ×2 (07:43→22:13)
--- NOTE | 2017-07-12 10:19 | P.PN ---
Subjective Patient is seen in follow-up for acute kidney injury. Renal function is worsening with creatinine up to 6.56 today. She has undergone 2 treatments of dialysis so far. She remains nonoliguric with urine output of near 1 L in the last 24 hours. No vomiting or diarrhea. Denies chest pain or shortness of breath. Hemodynamically stable. Vital signs are stable. General: The patient appeared well nourished and normally developed. HEENT: Head exam is unremarkable. Neck is without jugular venous distension. LUNGS: Lungs are clear to auscultation and percussion. Breath sounds decreased. HEART: Rate and Rhythm are regular. First and second heart sounds normal. No murmurs, rubs or gallops. ABDOMEN: Abdominal exam reveals normal bowel sounds. Non-tender and non- distended. No evidence of peritonitis. EXTREMITITES: Trace edema. Objective - Vital Signs Vital signs: Vital Signs Temp 98.0 F 07/12/17 07:24 Pulse 63 07/12/17 07:24 Resp 16 07/12/17 07:25 BP 164/79 07/12/17 07:24 Pulse Ox 97 07/12/17 07:24 Intake & Output 07/11/17 07/12/17 07/12/17 18:59 06:59 18:59 Intake Total 50 300 118 Output Total 202 800 225 Balance -152 -500 -107 Intake: IV 50 50 Piperacillin-Tazobactam 3 50 50 .375 gm In Dextrose/Water 1 50ml.bag @ 12.5 mls/hr IVPB Q12HR [facility] Rx#: [id number] Oral 250 118 Output: Urine 200 800 225 Stool 2 Other: Voiding Method Toilet Toilet - Labs CBC & Chem 7: 07/10/17 07:07 07/12/17 06:37 Labs: Abnormal Lab Results - Last 24 Hours (Table) 07/11/17 07/11/17 07/11/17 Range/Units 10:16 11:35 16:52 BUN 22 H (7-17) mg/dL Creatinine 6.15 H* (0.52-1.04) mg/dL Glucose 156 H (74-99) mg/dL POC Glucose (mg/dL) 131 H 128 H (75-99) mg/dL Calcium 8.1 L (8.4-10.2) mg/dL AST (14-36) U/L Total Protein (6.3-8.2) g/dL Albumin (3.5-5.0) g/dL 07/11/17 07/12/17 07/12/17 Range/Units 20:18 06:37 06:48 BUN 26 H (7-17) mg/dL Creatinine 6.56 H* (0.52-1.04) mg/dL Glucose (74-99) mg/dL POC Glucose (mg/dL) 136 H 110 H (75-99) mg/dL Calcium 7.9 L (8.4-10.2) mg/dL AST 12 L (14-36) U/L Total Protein 4.8 L (6.3-8.2) g/dL Albumin 2.4 L (3.5-5.0) g/dL Assessment and Plan Plan: Assessment: #1. Oliguric - now nonoliguric - acute kidney injury secondary to ischemic ATN secondary to hypotension, anemia and use of nonsteroidals. Currently hemodialysis dependent. Baseline creatinine is 0.6. Urinalysis is quite benign. No evidence of hydronephrosis noted on CAT scan on admission. #2. Status post exploratory laparotomy with hematoma evacuation and drainage of abscess on June 29. #3. Acute blood loss anemia status post blood transfusion. Hemoglobin 8.7 today. #4. Metabolic acidosis secondary to acute kidney injury. Improved with dialysis. Plan: Third treatment of hemodialysis today with goal 1 L ultrafiltration. Continue to monitor renal function and urine output. Check phosphorus level. therapy manager on board to help facilitate outpatient hemodialysis set up. She will be monitored closely as an outpatient for renal recovery.
[2017-07-12 11:20] LABS: Glucose,Whole Blood 132 mg/dL (75-99)
[2017-07-12 17:08] LABS: Glucose,Whole Blood 103 mg/dL (75-99)
--- NOTE | 2017-07-12 17:48 | P.PN ---
Subjective Progress Note Date: 07/12/17 Progress note being dictated for Dr. Parsons. Interval history: Patient came in with complaints of right-sided severe abdominal pain sharp in nature and nonradiating found to have abscess in that area are a hematoma and which was infected patient had a recent laparoscopic robotic-assisted repair of incisional hernia was subsequently discharged home did well started having severe pain in that area along with chills. Patient is found to have fluid collection in the rectal sheath extending into the anterior abdominal wall and thickening of the ascending colon with diverticulosis. Patient was started on Vanco mycin Zosyn which is appropriate 06/30/2017 status post exploratory laparotomy drainage of intraperitoneal abscess resection of an infected mesh, purulent pelvis fluid with drainage of right rectus infected hematoma area. Maintained on IV antibiotics. Hemoglobin dropped to 7.3, symptomatic, receiving one unit of packed RBCs. Hypotensive, worsening renal function with low urine output receiving third liter of IV fluid bolus. Currently denying chest pain, palpitations, shortness of breath. Denies lightheadedness or dizziness. T-max 99.1, WBC 20.4. 07/01/2017 blood pressure improved, urine output increased with 180 mL's overnight. Renal function worsening, up to 3.2. Evaluated by nephrology with recommendations noted. Receive 1 unit of packed RBCs yesterday with hemoglobin up to 8.6. Afebrile, WBC trending down. maintaining O2 sats of mid to high 90s on room air. Tolerating clear liquid diet with no nausea, vomiting or diarrhea. Passing flatus, burping. Blood sugars controlled. Denies abdominal pain, states she is experiencing a"stinging sensation". Maintained on IV antibiotics as per infectious disease. 07/02/2017 denies pain. Tolerating regular diet with no nausea or vomiting. No bowel movement, passing flatus. Leukocytosis trending down. Afebrile. Received Lasix yesterday without increase in urine output. Renal function continues to worsen, 4.7. acidotic, CO2 13. Bicarb drip initiated as per nephrology. 07/03/2017 Patient's kidney function continued to worsen. Although patient clinically looks with very good and nephrology wanted to wait 1 more day and reassess for renal replacement therapy. Constitutional: Denied any fatigue denied any fever. Cardio vascular: denied any chest pain, palpitations Gastrointestinal denied any nausea vomiting Pulmonary: Denied any shortness of breath cough Neurologic denied any new focal deficits 07/05/2017 creatinine up to 7.4, complaining of decreased appetite, worsening nausea this afternoon. IV fluids have been discontinued, maintained on IV push Lasix. [place] drain discontinued. Nursing reports serous drainage during dressing change. Afebrile, WBC trending down. 07/06/17 renal function continues to worsen, creatinine up to 8.1,nauseated. Vascular surgery consulted from permacath placement and initiation of dialysis.afebrile. 07/07/17 yesterday underwent ultrasound-guided right internal jugular dialysis catheter placement with hemodialysis initiated, tolerated well. Received second session of hemodialysis this morning. Feels better ,nausea subsided. Good diet intake. Positive bowel movement. Denies abdominal pain. Afebrile. Diuresing well on Lasix IV push with 24-hour I&O reflecting a negative fluid balance. Potassium 3.4. Urine output improving. 07/08/2017 maintained on Zosyn, afebrile. scheduled for hemodialysis again today. Continues to do well. Nausea subsided. Positive bowel movement.Hypokalemic with electrolyte replacement as per nephrology. 07/09/17 no hemodialysis today. Fluid volume overload improved with Lasix decreased as per nephrology. Urine output improving. Afebrile, maintained on IV antibiotics of Zosyn 07/10/2017 Patient was initiated on hemodialysis with improvement in creatinine, in of hemodialysis is being held since yesterday with mild worsening in creatinine patient was complaining of some nausea along when she gets Zosyn. 07/11/2017 Patient's creatinine continued to worse and is now 6.15 may and up needing hemodialysis tomorrow. Patient has Proteus mirabilis and anaerobic bacteria because of which patient is to be on Zosyn nausea vomiting come completely resolved today patient is able to eat full liquid diet Constitutional: Denied any fatigue denied any fever. Cardio vascular: denied any chest pain, palpitations Gastrointestinal denied any nausea vomiting Pulmonary: Denied any shortness of breath cough Neurologic denied any new focal deficits 07/12/2017 creatinine 6.56, scheduled for hemodialysis today. Case management arranging outpatient hemodialysis. Good diet intake, denies nausea, vomiting. Objective - Vital Signs Vital signs: Vital Signs Temp 97.6 F 07/12/17 15:00 Pulse 58 L 04/16/18 15:00 Resp 16 07/12/17 15:00 BP 163/75 07/12/17 15:00 Pulse Ox 98 07/12/17 15:00 Intake & Output 07/11/17 07/12/17 07/12/17 18:59 06:59 18:59 Intake Total 50 300 118 Output Total 202 800 700 Balance -152 -500 -582 Weight 77.111 kg Intake: IV 50 50 Piperacillin-Tazobactam 3 50 50 .375 gm In Dextrose/Water 1 50ml.bag @ 12.5 mls/hr IVPB Q12HR [facility] Rx#: [id number] Oral 250 118 Output: Urine 200 800 700 Stool 2 Other: Voiding Method Toilet Toilet - Exam GENERAL: Sitting up in chair, Alert and oriented 3, no acute distress. HEENT: Pupils are round and equally reacting to light. EOMI. No scleral icterus. No conjunctival pallor. Normocephalic, atraumatic. Right internal jugular PermCath present CARDIOVASCULAR: S1 and S2 present. No murmurs, rubs, or gallops. PULMONARY: Chest is clear to auscultation, no wheezing or crackles. No rhonchi ABDOMEN: Soft, nontender, nondistended, positive bowel sounds. Status post surgery; dressing ,abdominal binder present EXTREMITIES: No cyanosis, bilateral lower extremity edema improving NEUROLOGICAL: Gross neurological examination did not reveal any focal deficits. - Labs CBC & Chem 7: 07/10/17 07:07 07/12/17 06:37 Labs: Abnormal Lab Results - Last 24 Hours (Table) 07/11/17 07/12/17 07/12/17 Range/Units 20:18 06:37 06:48 BUN 26 H (7-17) mg/dL Creatinine 6.56 H* (0.52-1.04) mg/dL POC Glucose (mg/dL) 136 H 110 H (75-99) mg/dL Calcium 7.9 L (8.4-10.2) mg/dL AST 12 L (14-36) U/L Total Protein 4.8 L (6.3-8.2) g/dL Albumin 2.4 L (3.5-5.0) g/dL 07/12/17 07/12/17 Range/Units 11:18 17:06 BUN (7-17) mg/dL Creatinine (0.52-1.04) mg/dL POC Glucose (mg/dL) 132 H 103 H (75-99) mg/dL Calcium (8.4-10.2) mg/dL AST (14-36) U/L Total Protein (6.3-8.2) g/dL Albumin (3.5-5.0) g/dL Assessment and Plan Assessment: - abdominal wall abscess, Status post exploratory laparotomy with resection of infected mesh and drainage, wound cultures reporting Proteus Mirabillis -Sepsis present on admission secondary to abdominal wall abscess -Hypertension -Chronic low back pain -Gastroesophageal reflux disease -Hyperlipidemia next -Acute postoperative blood loss anemia, expected postsurgical secondary to resection and drainage of abscess/hematoma ,status post transfusion 1 unit of packed RBCs -Acute renal failure secondary to ATN secondary to sepsis, hypotension, anemia, medications -Status post PermCath placement with initiation of hemodialysis secondary to the above -Metabolic acidosis secondary to acute kidney injury, status post IV bicarb, improved Plan: Continue on current medication regime , Lasix, monitoring and symptomatic treatment. Hemodialysis today. Aggressive pulmonary toileting. Hemodialysis today. Case management assisting in arranging outpatient hemodialysis with discharge planning in progress for possibly tomorrow pending nephrology clearance. The impression and plan of care has been dictated as directed. : I performed a history and examination of this patient, discussed the same with the dictator. I agree with the dictator's note ,documented as a scribe. Any additional findings or plans will be noted.
[2017-07-12 20:17] LABS: Glucose,Whole Blood 148 mg/dL (75-99)
[2017-07-12] MEDS: ATORVASTATIN 10 MG TAB PO SCH (22:00)
[2017-07-12] MEDS: FLUCONAZOLE 100 MG TAB PO SCH (22:00)
[2017-07-13 07:20] VITALS: BP 162/80; PULSE 75; TEMP 97.5
[2017-07-13 07:25] LABS: Glucose,Whole Blood 91 mg/dL (75-99)
[2017-07-13 07:57] LABS: Phosphorus 4.3 mg/dL (2.5-4.5); Potassium 3.7 mmol/L (3.5-5.1)
[2017-07-13] MEDS: INSULIN ASPART 100 UNIT/ML 1 ML 10 ML VIAL SQ SCH ×2 (08:14→13:01)
[2017-07-13] MEDS: HEPARIN SODIUM,PORCINE 5,000 UNIT/ML 1 ML VIAL SQ SCH (08:14)
[2017-07-13] MEDS: PANTOPRAZOLE 40 MG TABLET PO SCH (08:15)
[2017-07-13] MEDS: DOCUSATE 100 MG CAP PO SCH (08:15)
[2017-07-13] MEDS: NYSTATIN 100,000 UNIT/ML SUSP 500,000 UNIT/5 ML CUP PO SCH ×2 (08:15→13:04)
[2017-07-13] MEDS: CHOLECALCIFEROL 1,000 UNIT TAB PO SCH (08:15)
[2017-07-13] MEDS: PIPERACILLIN-TAZOBACTAM 3.375 GM in DEXTROSE/WATER 1 50ML.BAG IVPB SCH (08:19)
[2017-07-13 11:41] LABS: Glucose,Whole Blood 114 mg/dL (75-99)
--- NOTE | 2017-07-13 16:43 | P.DS ---
Providers Date of admission: 06/29/17 07:30 Expected date of discharge: 07/13/17 Attending physician: Sacha Parsons Consults: 06/29/17 09:06 Consult Physician Urgent Consulting Provider: Sacha Pruitt Consult Reason/Comments: Medical management Do you want consulting provider notified?: Yes 06/29/17 09:07 Consult Physician Urgent Consulting Provider: Alec Stubbs Consult Reason/Comments: Recommendations antibiotics Do you want consulting provider notified?: Yes 06/29/17 11:13 Consult Physician Routine Consulting Provider: Shelli Norton Consult Reason/Comments: Bleeding Do you want consulting provider notified?: Already Contacted 06/30/17 15:17 Consult Physician Urgent Consulting Provider: Anneliese Hilario Consult Reason/Comments: acute kidney failure Do you want consulting provider notified?: Yes 07/06/17 08:16 Consult Physician Routine Consulting Provider: Catrachito Yadav Consult Reason/Comments: Permcath placement for dialysis- [facility] Do you want consulting provider notified?: Yes 07/07/17 14:06 Consult Physician Routine Consulting Provider: Denice Echavarria Consult Reason/Comments: abodominal Pain Do you want consulting provider notified?: Already Contacted Primary care physician: Fay Diaz Hospital Course: Final Diagnoses: - abdominal wall abscess, Status post exploratory laparotomy with resection of infected mesh and drainage, wound cultures reporting Proteus Mirabillis -Sepsis present on admission secondary to abdominal wall abscess -Hypertension -Chronic low back pain -Gastroesophageal reflux disease -Hyperlipidemia next -Acute postoperative blood loss anemia, expected postsurgical secondary to resection and drainage of abscess/hematoma ,status post transfusion 1 unit of packed RBCs -Acute renal failure secondary to ATN secondary to sepsis, hypotension, anemia, medications -Status post PermCath placement with initiation of hemodialysis secondary to the above -Metabolic acidosis secondary to acute kidney injury, status post IV bicarb, improved -Diabetes mellitus, hemoglobin A1c 6.9 Hospital course:Patient came in with complaints of right-sided severe abdominal pain sharp in nature and nonradiating found to have abscess with hematoma, infected. patient had a recent laparoscopic robotic-assisted repair of incisional hernia, discharged home. started having severe pain in that area along with chills. Patient is found to have fluid collection in the rectal sheath extending into the anterior abdominal wall and thickening of the ascending colon with diverticulosis. Patient was started on IV antibiotics.Evaluated by multiple consults, Gen. surgery, infectious disease, nephrology, hematology, vascular surgery. Underwent exploratory laparotomy drainage of intraperitoneal abscess resection of an infected mesh, purulent pelvis fluid with drainage of right rectus infected hematoma area. Maintained on IV antibiotics. Hemoglobin dropped to 7.3, symptomatic, receiving one unit of packed RBCs. Hypotensive, worsening renal function with low urine output receiving multiple fluid boluses. Blood pressure improved, renal function continued to decline. Developed acute kidney injury secondary to ischemic acute tubular necrosis. Hemodialysis initiated. Initially oliguric, currently Non-oliguric .No evidence of hydronephrosis reported on CT. Outpatient hemodialysis arranged per case management. Close monitoring outpatient with nephrology for renal recovery. Cleared by all consults for discharge. Patient is being discharged home in a stable condition with guarded prognosis. PHYSICAL EXAM: GENERAL: VSS, Alert and oriented 3, no acute distress. CARDIOVASCULAR: S1 and S2 present. No murmurs, rubs, or gallops. PULMONARY: Chest is clear to auscultation, no wheezing or crackles. No rhonchi ABDOMEN: Soft, nondistended, positive bowel sounds. Status post surgery; dressing ,abdominal binder present NEUROLOGICAL: Gross neurological examination did not reveal any focal deficits. The impression and plan of care has been dictated as directed. : I performed a history and examination of this patient, discussed the same with the dictator. I agree with the dictator's note ,documented as a scribe. Any additional findings or plans will be noted. Time taken: 35 minutes Patient Condition at Discharge: Stable Plan - Discharge Summary Discharge Rx Participant: Yes New Discharge Prescriptions: New Acetaminophen Tab [Tylenol] 650 mg PO Q6HR PRN tab PRN Reason: Mild Pain Or Fever > 100.5 ALPRAZolam [Xanax] 0.25 mg PO BID PRN #20 tab PRN Reason: Anxiety Cholecalciferol [Vitamin D3] 1,000 unit PO 1200 tab INSULIN LISPRO (HumaLOG) [humaLOG] 0 unit SQ ACHS #1 vial Amoxic-Pot Clav 500-125 mg [Augmentin 500-125 mg] 1 tab PO Q12HR #14 tab Continue Simvastatin 20 mg PO HS Docusate [Colace] 100 mg PO BID #20 capsule Cyanocobalamin [Vitamin B-12] 500 mcg PO DAILY Omeprazole 20 mg PO DAILY Discontinued Lisinopril-Hctz 10-12.5 mg [Zestoretic 10-12.5] 1 tab PO DAILY Cinnamon Bark [Cinnamon] 500 mg PO BID Discharge Medication List Simvastatin 20 mg PO HS 12/08/15 [History] Docusate [Colace] 100 mg PO BID #20 capsule 05/26/17 [Rx] Cyanocobalamin [Vitamin B-12] 500 mcg PO DAILY 06/29/17 [History] Omeprazole 20 mg PO DAILY 06/29/17 [History] ALPRAZolam [Xanax] 0.25 mg PO BID PRN #20 tab 07/13/17 [Rx] Acetaminophen Tab [Tylenol] 650 mg PO Q6HR PRN tab 07/13/17 [Rx] Amoxic-Pot Clav 500-125 mg [Augmentin 500-125 mg] 1 tab PO Q12HR #14 tab [Rx] Cholecalciferol [Vitamin D3] 1,000 unit PO 1200 tab 07/13/17 [Rx] INSULIN LISPRO (HumaLOG) [humaLOG] 0 unit SQ ACHS #1 vial 07/13/17 [Rx] Follow up Appointment(s)/Referral(s): Anneliese Hilario MD [STAFF PHYSICIAN] - 1 Week (Office will contact the patient upon discharge to set up a follow up appointment) Fay Diaz MD [Primary Care Provider] - 07/19/17 3:15 pm Denice Echavarria MD [STAFF PHYSICIAN] - 07/22/17 1:45 pm [facility], [NON-STAFF] - Ambulatory/Diagnostic Orders: Complete Blood Count w/diff [LAB.AMB] Time Frame: 3 Days, Location: Determined By Patient Patient Instructions/Handouts: Exploratory Laparotomy (DC), Hemodialysis (DC) Activity/Diet/Wound Care/Special Instructions: Antibiotics as per infectious disease Glucometer - [facility] - [phone] - will deliver to bedside before discharge. No tub bath for six weeks. Shower daily. No lifting over 10 pounds for the next 6 weeks. Avoid constipation may use [id number] stool softeners if needed May use ice packs to surgical site. Wear abdominal binder to comfort may remove at bedtime [facility]: [phone]; [address] [place] [id number] First Chair Time: 07/14/17 at 11:00 a.m. Schedule: Wednesday, Wednesday, Wednesday \ Diet: consistent carb Accu-Cheks before meals and at bedtime with sliding scale, maintain log intake to follow-up visit with PCP for further recommendations. Hemodialysis as per nephrology Discharge Disposition: HOME WITH HOME HEALTH SERVICES
[2017-07-13] MEDS ORDERED: AMOXIC-POT CLAV 875-125MG 1 EACH TAB PO SCH (21:00)
[2017-07-13] MEDS ORDERED: AMOXIC-POT CLAV 500-125 MG 1 EACH TAB PO SCH (21:00)
--- NOTE | 2017-07-13 21:23 | P.PN ---
Subjective Progress Note Date: 07/13/17 Principal diagnosis: abdominal pain This is a 72-year-old female patient gives history of having an abdominal wall abscess on the right side for which she was treated at [facility] emergency center in October 2016. The ER physician did an incision and drainage and widen the draining track with a scalpel and placed iodoform gauze. There was purulent material at that time. Patient states that this eventually healed and in April she was having increased right-sided abdominal pain and her PCP sent her to [facility] for an ultrasound that showed a possible hematoma on the right upper quadrant. She was then sent to Dr. Hancock for further evaluation. Because of anemia, patient underwent an upper and lower endoscopy with Dr. Hancock on May 20 that found no signs of bleeding. She subsequently underwent a hernia repair at the site of the previous hematoma or abscess from October [address] Hancock and this was done on 05/26/2017. This was located in the mid upper abdomen. She states she continued to have right-sided abdominal pain, chills and hot feeling, decreased appetite with possible weight loss and nausea. She saw Dr. Hancock yesterday and she up for outpatient computed tomography scan but she states that after he pressed on her abdomen her pain got significant only worse last evening and she came into [facility] emergency center for evaluation. She underwent a CAT scan of the abdomen and pelvis which revealed marked interval worsening of a right rectus sheath fluid collection which now extends into the anterior abdominal wall. Differential includes hematoma, abscess with stromal felt less likely. Mild wall thickening within the ascending and transverse colon is nonspecific but may represent colitis. Extensive diverticulosis with mild adjacent nonspecific fluid in the pelvis limits evaluation for potential diverticulitis. Mild atelectasis or less likely pneumonia in the left lung base. Large hiatal hernia. This CAT scan was compared to one done in September 2016. Patient is now admitted under the care of Dr. Vinny Godwin and is scheduled for I&D and washout this afternoon. Patient presented with a white count of 26.4, lactic acid 3.3 and repeat 1.7, afebrile, creatinine 0.6. Mild elevation of liver function tests with AST of 63, ALT 75, alkaline phosphatase 156. Urinalysis was cloudy with nitrate and leukoesterase negative and bacteria many. Patient denies any urinary pain or frequency or urgency. She also denies having any blood in her stools. 06/30/2017 reveals the patient to be postoperative and feeling slightly better. However she is now having difficulties with urinary output. Despite 3 L of fluid and blood transfusion she continues to have poor urinary output. She had a bladder scan that only showed 12 mL of fluid. Her abdominal pain is improving. She tolerated a clear liquid diet with no difficulties. 07/01/2017 patient is postoperative and feeling better. Pain is under good control. She continues to have poor urinary output but has had at least some urine output today. She is comfortable. Denies shortness of breath. Wound culture showed evidence of gram-negative bacilli only and vancomycin therapy was discontinued yesterday. 07/02/2017 patient does feel better. Is having difficulties with edema. Urine output remains very low. Fortunately she is not having severe shortness of breath. She's had only minimal abdominal discomfort related to her recent surgery. Only Proteus mirabilis is been isolated and is noted vancomycin therapy was discontinued. Is being followed by nephrology and if she has no urinary output we will consider renal replacement therapy. 07/03/2017 patient does feel relatively well but is having some increasing difficulties with edema and has some epigastric discomfort. She's having increasing difficulties with her appetite with increasing nausea which appears to be in the bases of her increasing uremia. 07/05/2017 patient is feeling relatively well she is having some edema. She is evaluated by nephrology her creatinine is a 7.18 and consideration for hemodialysis tomorrow. 07/08/2017 patient is further improvement. Urine output has now markedly improved. Appears now have any post-ATN diuresis occurring. She is feeling better. Started to have a vaginal yeast infection and fluconazole was started yesterday and she relates she's feeling better today. 07/09/2017 reveals further improvement. Responding to the fluconazole for a vaginal candidal infection.. Urine output remains adequate 07/13/2017 doing better today ready for discharge to home with outpatient dialysis Objective - Vital Signs Vital signs: Vital Signs Temp 97.5 F L 07/13/17 07:19 Pulse 75 07/13/17 07:19 Resp 16 07/13/17 07:21 BP 162/80 07/13/17 07:19 Pulse Ox 96 07/13/17 07:19 Intake & Output 04/07/13/17 07/14/17 06:59 18:59 06:59 Intake Total 1180 50 Output Total 1130 450 Balance 50 -400 Intake: IV 50 Piperacillin-Tazobactam 3 50 .375 gm In Dextrose/Water 1 50ml.bag @ 12.5 mls/hr IVPB Q12HR REJI Rx#: [id number] Intake, IV Titration 100 Amount Piperacillin-Tazobactam 3 100 .375 gm In Dextrose/Water 1 50ml.bag @ 12.5 mls/hr IVPB Q12HR REJI Rx#: [id number] Oral 1080 Output: Urine 1130 450 Other: Voiding Method Toilet Toilet # Voids 1 - Exam Gen: This is a 72-year-old female patient. She is in bed and appears to be comfortable and in no acute distress. We does complain of some nausea. HEENT: Head is atraumatic, normocephalic. Pupils equal, round. Sclerae is anicteric. Conjunctiva pink. Mucous members of the mouth are dry. NECK: Supple. No JVD. No lymphadenopathy. No thyromegaly. LUNGS: Clear to auscultation. No wheezes or rhonchi. No intercostal retractions. HEART: Regular rate and rhythm. No murmur. ABDOMEN:few bowel sounds are heard there is a surgical incision that is having drainage of serosanginous material on the dressing the abdomen is tender to palpation EXTREMITIES: Is evidence of bilateral lower extremity edema No calf tenderness. Dorsalis pedis +2 bilaterally. NEUROLOGICAL: Patient is awake, alert and oriented x3 - Labs CBC & Chem 7: 07/10/17 07:07 07/13/17 06:46 Labs: Abnormal Lab Results - Last 24 Hours (Table) 07/13/17 07/13/17 Range/Units 06:46 11:33 Creatinine 4.44 H (0.52-1.04) mg/dL POC Glucose (mg/dL) 114 H (75-99) mg/dL Calcium 8.0 L (8.4-10.2) mg/dL Laboratory Results WBC 11.3 k/uL (3.8-10.6) H 07/10/17 07:07 RBC 3.83 m/uL (3.80-5.40) 07/10/17 07:07 Hgb 8.5 gm/dL (11.4-16.0) L 07/10/17 07:07 Hct 27.9 % (34.0-46.0) L 07/10/17 07:07 MCV 72.7 fL (80.0-100.0) L 07/10/17 07:07 MCH 22.2 pg (25.0-35.0) L 07/10/17 07:07 MCHC 30.6 g/dL (31.0-37.0) L 07/10/17 07:07 RDW 21.1 % (11.5-15.5) H 07/10/17 07:07 Plt Count 388 k/uL (150-450) 07/10/17 07:07 Neutrophils % 76 % 07/10/17 07:07 Neutrophils % (Manual) 88 % 06/29/17 04:38 Band Neutrophils % 6 % 06/29/17 04:38 Lymphocytes % 15 % 07/10/17 07:07 Lymphocytes % (Manual) 5 % 06/29/17 04:38 Monocytes % 4 % 07/10/17 07:07 Monocytes % (Manual) 2 % 06/29/17 04:38 Eosinophils % 3 % 07/10/17 07:07 Basophils % 0 % 07/10/17 07:07 Neutrophils # 8.6 k/uL (1.3-7.7) H 07/10/17 07:07 Neutrophils # (Manual) 24.80 k/uL (1.3-7.7) H 06/29/17 04:38 Lymphocytes # 1.7 k/uL (1.0-4.8) 07/10/17 07:07 Lymphocytes # (Manual) 1.32 k/uL (1.0-4.8) 06/29/17 04:38 Monocytes # 0.4 k/uL (0-1.0) 07/10/17 07:07 Monocytes # (Manual) 0.53 k/uL (0-1.0) 06/29/17 04:38 Eosinophils # 0.4 k/uL (0-0.7) 07/10/17 07:07 Basophils # 0.0 k/uL (0-0.2) 07/10/17 07:07 Nucleated RBCs 0 /100 WBC (0-0) 06/29/17 04:38 Manual Slide Review Performed 06/29/17 04:38 Toxic Vacuolation Present 06/29/17 04:38 Hypochromasia Marked 07/10/17 07:07 Poikilocytosis Slight 07/09/17 08:04 Anisocytosis Moderate 07/10/17 07:07 Microcytosis Marked 07/10/17 07:07 Retic Count 1.1 % (0.5-2.0) 06/30/17 06:39 PT 11.7 sec (9.0-12.0) 07/06/17 09:17 INR 1.2 (<1.2) H 07/06/17 09:17 APTT 22.3 sec (22.0-30.0) 06/29/17 10:45 Sodium 141 mmol/L (137-145) 07/13/17 06:46 Potassium 3.7 mmol/L (3.5-5.1) 07/13/17 06:46 Chloride 105 mmol/L (98-107) 07/13/17 06:46 Carbon Dioxide 26 mmol/L (22-30) 07/13/17 06:46 Anion Gap 10 mmol/L 07/13/17 06:46 BUN 16 mg/dL (7-17) 07/13/17 06:46 Creatinine 4.44 mg/dL (0.52-1.04) H 07/13/17 06:46 Est GFR (CKD-EPI)AfAm 11 (>60 ml/min/1.73 sqM) 07/13/17 06:46 Est GFR (CKD-EPI)NonAf 9 (>60 ml/min/1.73 sqM) 07/13/17 06:46 Glucose 95 mg/dL (74-99) 07/13/17 06:46 POC Glucose (mg/dL) 114 mg/dL (75-99) H 07/13/17 11:33 POC Glu [employer] ID Marlen Holcomb 07/13/17 11:[address] Glu mg/dL 151 06/30/17 06:39 Hemoglobin A1c 6.9 % (4.0-6.0) H 06/30/17 06:39 Lactic Ac Sepsis Rflx Y 06/29/17 05:08 Plasma Lactic Acid Lasha 1.7 mmol/L (0.7-2.0) 06/29/17 09:19 Calcium 8.0 mg/dL (8.4-10.2) L 07/13/17 06:46 Phosphorus 4.3 mg/dL (2.5-4.5) 07/13/17 06:46 Magnesium 1.6 mg/dL (1.6-2.3) 07/08/17 06:22 Iron 7 ug/dL (50-170) L 06/30/17 06:39 TIBC 197 ug/dL (228-460) L 06/30/17 06:39 Iron Saturation 3.55 (12.00-45.00) L 06/30/17 06:39 Ferritin 116.2 ng/mL (10.0-291.0) 06/30/17 06:39 Total Bilirubin 0.3 mg/dL (0.2-1.3) 07/12/17 06:37 AST 12 U/L (14-36) L 07/12/17 06:37 ALT 23 U/L (9-52) 07/12/17 06:37 Alkaline Phosphatase 52 U/L (38-126) 07/12/17 06:37 Total Protein 4.8 g/dL (6.3-8.2) L 07/12/17 06:37 Total Protein (PEP) 4.3 g/dL (6.2-8.2) L 07/05/17 10:15 Albumin 2.4 g/dL (3.5-5.0) L 07/12/17 06:37 Albumin (PEP) 2.04 g/dL (3.80-4.90) L 07/05/17 10:15 Chqhv-0-Tcqrkvkee 0.31 g/dL (0.10-0.40) 07/05/17 10:15 Gdrhq-6-Xzotdmprx 0.93 g/dL (0.60-1.00) 07/05/17 10:15 Beta Globulins 0.61 g/dL (0.60-1.30) 07/05/17 10:15 Gamma Globulins 0.41 g/dL (0.70-1.50) L 07/05/17 10:15 PEP Interpretation SEE NOTE 07/05/17 10:15 Amylase 38 U/L (30-110) 06/29/17 04:38 Lipase 64 U/L (23-300) 06/29/17 04:38 Vitamin B12 1273.0 pg/mL (200.0-944.0) H 06/30/17 06:39 Folate 11.2 ng/mL 06/30/17 06:39 Urine Color Yellow 06/29/17 06:38 Urine Appearance Cloudy (Clear) H 06/29/17 06:38 Urine pH 6.5 (5.0-8.0) 06/29/17 06:38 Ur Specific [place] 1.007 (1.001-1.035) 06/29/17 06:38 Urine Protein Negative (Negative) 06/29/17 06:38 Urine Glucose (UA) Negative (Negative) 06/29/17 06:38 Urine Ketones Negative (Negative) 06/29/17 06:38 Urine Blood Negative (Negative) 06/29/17 06:38 Urine Nitrite Negative (Negative) 06/29/17 06:38 Urine Bilirubin Negative (Negative) 06/29/17 06:38 Urine Urobilinogen <2.0 mg/dL (<2.0) 06/29/17 06:38 Ur Leukocyte Esterase Negative (Negative) 06/29/17 06:38 Urine RBC 2 /hpf (0-5) 06/29/17 06:38 Urine WBC 2 /hpf (0-5) 06/29/17 06:38 Ur Squamous Epith Cells 13 /hpf (0-4) H 06/29/17 06:38 Urine Bacteria Many /hpf (None) H 06/29/17 06:38 Hyaline Casts 2 /lpf (0-2) 06/29/17 06:38 Urine Mucus Rare /hpf (None) H 06/29/17 06:38 Random Vancomycin 26.9 ug/mL 07/02/17 06:24 Hepatitis A IgM Ab Non-Reactive (Non-Reactive) 06/29/17 04:38 Hep Bs Antigen Non-Reactive (Non-Reactive) 07/06/17 06:48 Hep Bs Antibody Non-Reactive (Non-Reactive) 07/06/17 06:48 Hep Bs Antibody, Quant 3.5 mIU/mL 07/06/17 06:48 Hep B Core IgM Ab Non-Reactive (Non-Reactive) 06/29/17 04:38 Hep C IgG Ab Non-Reactive (Non-Reactive) 06/29/17 04:38 Blood Type B Negative 06/30/17 08:24 Blood Type Recheck No 06/30/17 08:24 Antibody Screen NEGATIVE 06/30/17 08:24 Crossmatch See Detail 06/30/17 08:24 Spec Expiration Date 07/03/2017 - 2324 06/30/17 08:24 Microbiology 06/29/17 16:56 Abdomen Anaerobic Culture - Final Anaerobic Gm Negative Bacilli 06/29/17 06:00 Blood Blood Culture - Final No Growth after 144 hours 06/29/17 16:56 Abdomen Gram Stain - Final 06/29/17 16:56 Abdomen Wound Culture - Final Proteus mirabilis Assessment and Plan (1) Abdominal pain Status: Acute Priority: High Code(s): R10.9 - UNSPECIFIED ABDOMINAL PAIN SNOMED Code(s): 85151017 (2) Acute blood loss anemia Status: Acute Priority: High Code(s): D62 - ACUTE POSTHEMORRHAGIC ANEMIA SNOMED Code(s): 506091784 (3) Abdominal wall abscess Narrative/Plan: 72 year old woman staus post drainage of the intra-abdominal abscess. It is apparently outside of the peritoneum, and hopefully with incision and drainage will allow this to resolve rapidly. Cultures will further help direct antibiotic therapy, utilizing Zosyn and vancomycin for now pending further culture data. 06/30/2017 reveals the patient to be postoperative in feeling somewhat better. However she's now developed very low urinary output concerns to renal failure. Wound culture showing evidence of gram-negative bacilli. Vancomycin therapy is discontinued. Acute tubular necrosis is of concern given her sepsis at admission, gram-negative in nature. Cultures will help direct the final course of antibiotic therapy. Should be able to further help direct wound therapy once her some further improvement to the postoperative wound also. Nephrology is following. Further diuertic therapy is being given to see if she will respond especially since she's been given fluids and blood. Patient and family are reassured. 07/01/2017 patient is feeling relatively well. She is not having much pain and when she does oral pain medication and is tolerating this well. She does have poor urinary output and she has evidence of acute renal failure that as per nephrology is multifactorial. We'll culture has gram-negative bacilli only and that was evident the vancomycin therapy was discontinued, however with her acute renal failure she continues to have therapeutic level but no further doses are planned. She's received hydration and diuretic therapy awaiting a response. She clinically has an ATN and may require renal replacement therapy. 07/02/2017 patient does feel relatively well. Pain control with oral agents as effective. Continues to have very poor urinary output is being followed by nephrology and may require renal replacement therapy for her HTN. Antibiotic therapy with Zosyn is being utilized with excellent control of her infection, has been renally adjusted, and will likely transition to oral antimicrobial therapy as she shows ongoing improvement. 07/03/2017 patient is feeling less well today. Is having some epigastric discomfort and is developed some nausea without leonardo emesis. She has increasing amounts of renal failure and poor urinary output. She's developing some uremia is developing some edema and nausea on the basis. She's been followed by nephrology and likable have hemodialysis starting tomorrow for her ATN and acute oliguric renal failure. Antimicrobial therapy will transition to oral in the near future. 07/05/2017 patient continues to feel somewhat poorly. However is not having significant nausea or emesis. She is a bit more uremic and appetites poor. Has edema. Nephrology is following and will likely initiate hemodialysis tomorrow. We will transition to oral antibiotic therapy when she has initiated above treatment. 07/08/2017 patient continues to improve. She is now having post-ATN diuresis. She is definitely feeling better. She had a vaginal yeast infection is responding well to fluconazole. As she improves we'll be able to transition to oral Augmentin therapy to include her course of therapy for her extensive abdominal wall infection that is now much improved. 07/09/2017 with ongoing improvement the patient is feeling better. Yeast infections improved. We'll complete her course of fluconazole and Augmentin can be utilized to complete her course of significant abdominal wall infection. Nephrology is advising her completion course of hemodialysis for her acute tubular necrosis and renal failure which seems to be showing improvement with improving urine output. 07/13/2017 doing better overall, looking forward to discharge to home and is with improved urine output and good response to dialysis. Will transition to oral augmentin 500mg po bid for 7 days. Status: Acute Code(s): L02.211 - CUTANEOUS ABSCESS OF ABDOMINAL WALL SNOMED Code(s): 89209802
--- NOTE | 2017-07-14 17:50 | CDI ---
Last Revision, February 2017 Documentation Clarification Form Date: 07/14/17 From: Ann Lenny Olive Tobias, Log Check Scaler between 8:30 am & 5 pm María Elena Admit Date: 06/29/2017 7:30:00 AM Patient Name: Kathy Tate Visit Number: [id number] Discharge Date: 07/13/17 ATTENTION: The Clinical Documentation Specialists (CDI) and [facility] Coding Staff appreciate your assistance in clarifying documentation. Please respond to the clarification below the line at the bottom and electronically sign. The CDI & [facility] Coding staff will review the response and follow-up if needed. Please note: Queries are made part of the Legal Health Record. If you have any questions, please contact the author of this message via ITS. Dr. Yang Lopes Medical history of chronic kidney disease. Hx DM, infected mesh, sepsis. Dialysis catheter placed with hemodialysis. Current BUN: 12, 20, 30, 35, 42, 46, 46, 47, 21, 24, 16, 19, 22, 26, 16 Current CR: .60, 1.80, 3.20, 4.70, 6.01, 6.60, 7.18, 8.14, 4.52, 5.44, 4.40, 5.47, 6.15, 6.56, 4.44 Current GFR: >90, 28, 14, 9, 7, 6, 5, 5, 9, 7, 10, 7, 6, 6, 9 Baseline: CR: 0.6 In order to capture the severity of condition, please clarify if the condition signifies: CKD Stage 1 (GFR > 90) CKD Stage 2 (GFR 60-89) CKD Stage 3 (GFR 30-59) CKD Stage 4 (GFR 15-29) CKD Stage 5 (GFR <15) ESRD Other, please specify Unable to determine Please continue to document in your progress notes and discharge summary in order to capture severity of illness and risk of mortality. Include clinical findings that support your diagnosis. DEVYND
== END 2017-07-13 14:35 | disposition home health service (06) | DRG 907 ==
LOC: EC 04:21 → 3SUR 07:30
PROVIDERS: ADMIT Hospitalist; ATTEND Hospitalist
PROC: 0WPF0JZ Removal of Synthetic Substitute from Abdominal Wall, Open Approach (ICD-10-PCS; 2017-06-29)
PROC: 0W9J0ZZ Drainage of Pelvic Cavity, Open Approach (ICD-10-PCS; 2017-06-29)
PROC: 0W9F0ZZ Drainage of Abdominal Wall, Open Approach (ICD-10-PCS; 2017-06-29)
PROC: 0W9G0ZZ Drainage of Peritoneal Cavity, Open Approach (ICD-10-PCS; principal; 2017-06-29 15:00)
PROC: 30233N1 Transfusion of Nonautologous Red Blood Cells into Peripheral Vein, Percutaneous Approach (ICD-10-PCS; 2017-06-30)
PROC: 02HV33Z Insertion of Infusion Device into Superior Vena Cava, Percutaneous Approach (ICD-10-PCS; 2017-07-06)
PROC: 5A1D70Z Performance of Urinary Filtration, Intermittent, Less than 6 Hours Per Day (ICD-10-PCS; 2017-07-06)
PROC: 5A1D70Z Performance of Urinary Filtration, Intermittent, Less than 6 Hours Per Day (ICD-10-PCS; 2017-07-07)
PROC: 5A1D70Z Performance of Urinary Filtration, Intermittent, Less than 6 Hours Per Day (ICD-10-PCS; 2017-07-08)
PROC: 5A1D70Z Performance of Urinary Filtration, Intermittent, Less than 6 Hours Per Day (ICD-10-PCS; 2017-07-12)
DX: T85.79XA Infection and inflammatory reaction due to other internal prosthetic devices, implants and grafts, initial encounter (principal); A41.9 Sepsis, unspecified organism; N17.0 Acute kidney failure with tubular necrosis; R65.20 Severe sepsis without septic shock; K65.1 Peritoneal abscess; E87.2 Acidosis; D62 Acute posthemorrhagic anemia; N17.9 Acute kidney failure, unspecified; J98.11 Atelectasis; I95.9 Hypotension, unspecified; E11.22 Type 2 diabetes mellitus with diabetic chronic kidney disease; E87.70 Fluid overload, unspecified; E86.1 Hypovolemia; E86.0 Dehydration; D50.0 Iron deficiency anemia secondary to blood loss (chronic); I10 Essential (primary) hypertension; N73.9 Female pelvic inflammatory disease, unspecified; S30.1XXA Contusion of abdominal wall, initial encounter; K44.9 Diaphragmatic hernia without obstruction or gangrene; K57.30 Diverticulosis of large intestine without perforation or abscess without bleeding; E87.6 Hypokalemia; E78.5 Hyperlipidemia, unspecified; G89.29 Other chronic pain; M54.41 Lumbago with sciatica, right side; M54.42 Lumbago with sciatica, left side; M54.2 Cervicalgia; B37.3 Candidiasis of vulva and vagina; E66.9 Obesity, unspecified; Z68.31 Body mass index [BMI] 31.0-31.9, adult; K21.9 Gastro-esophageal reflux disease without esophagitis; Z99.2 Dependence on renal dialysis; M19.91 Primary osteoarthritis, unspecified site; Z79.82 Long term (current) use of aspirin; Z79.899 Other long term (current) drug therapy; Z91.030 Bee allergy status; Z90.49 Acquired absence of other specified parts of digestive tract; Z98.42 Cataract extraction status, left eye; Z98.41 Cataract extraction status, right eye; Z83.3 Family history of diabetes mellitus; Z82.61 Family history of arthritis; Y83.2 Surgical operation with anastomosis, bypass or graft as the cause of abnormal reaction of the patient, or of later complication, without mention of misadventure at the time of the procedure
CPT/HCPCS: 36415; 36558; 71045; 71046; 74176; 76937; 77001; 80048; 80053; 80074; 80202; 81001; 82150; 82607; 82728; 82746; 83036; 83540; 83550; 83605; 83690; 83735; 84100; 84165; 85025; 85045; 85610; 85730; 86706; 86850; 86900; 86901; 86920; 87040; 87070; 87075; 87077; 87186; 87205; 87340; 88304; 90935; 96365; 96366; 96375; 96376; 99285

== ENCOUNTER 2017-07-15 23:58 | Inpatient (IN) | payer MEDICARE ==
--- NOTE | 2017-07-16 00:12 | ED ---
General Adult HPI - General Stated complaint: JOSE Time Seen by Provider: 07/16/17 00:00 Source: patient, EMS, RN notes reviewed, old records reviewed Mode of arrival: EMS Limitations: no limitations - History of Present Illness Initial comments: Patient is a pleasant 72-year-old female presenting to the emergency Department with complaints of difficulty breathing. Onset of symptoms was around 7 PM. Symptoms have worsened quickly. EMS reported lung sounds were sensually clear on arrival however have worsened with crackles by time of arrival to the emergency department. Patient denies any history of similar symptoms previously. No history of CHF or COPD. Patient denies any fevers. No significant cough. Patient was just discharged from the hospital a couple days ago following abdominal surgery for reported infection in her abdomen. Patient is on dialysis at this time. Patient states she still does make urine. Patient states they do anticipate improvement of her kidneys. Patient does admit to having some leg swelling however states it is even somewhat improved from a couple of days ago. - Related Data Home Medications Medication Instructions Recorded Confirmed Simvastatin 20 mg PO HS 12/08/15 06/29/17 Cyanocobalamin [Vitamin B-12] 500 mcg PO DAILY 06/29/17 06/29/17 Omeprazole 20 mg PO DAILY 06/29/17 06/29/17 Previous Rx's Medication Instructions Recorded Docusate [Colace] 100 mg PO BID #20 capsule 05/26/17 ALPRAZolam [Xanax] 0.25 mg PO BID PRN #20 tab 07/13/17 Acetaminophen Tab [Tylenol] 650 mg PO Q6HR PRN tab 07/13/17 Amoxic-Pot Clav 500-125 mg 1 tab PO Q12HR #14 tab 07/13/17 [Augmentin 500-125 mg] Cholecalciferol [Vitamin D3] 1,000 unit PO 1200 tab 07/13/17 INSULIN LISPRO (HumaLOG) [humaLOG] 0 unit SQ ACHS #1 vial 07/13/17 Allergies Allergy/AdvReac Type Severity Reaction Status Date / Time venom-honey bee Allergy Anaphylaxis Verified 06/29/17 09:08 [bee venom (honey bee)] Review of Systems ROS Statement: Those systems with pertinent positive or pertinent negative responses have been documented in the HPI. ROS Other: All systems not noted in ROS Statement are negative. Constitutional: Denies: fever, chills Eyes: Denies: as per HPI ENT: Denies: ear pain Respiratory: Reports: dyspnea Cardiovascular: Denies: chest pain Endocrine: Reports: fatigue Gastrointestinal: Denies: abdominal pain Genitourinary: Denies: dysuria Musculoskeletal: Denies: back pain Skin: Denies: rash Neurological: Denies: weakness Past Medical History Past Medical History: Diabetes Mellitus, GERD/Reflux, Hyperlipidemia, Hypertension, Osteoarthritis (OA) Additional Past Medical History / Comment(s): Diet controlled diabetes, 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 History of Any Multi-Drug Resistant Organisms: None Reported Past Surgical History: Appendectomy, Cholecystectomy, Hernia Repair, Tonsillectomy Additional Past Surgical History / Comment(s): 05/26/17 laparoscopic incisional hernia repair with mesh/lysis of adhesions, bilateral cataract removals, R eye retinal hole repair, colonoscopies/EGD. Past Anesthesia/Blood Transfusion Reactions: No Reported Reaction Past Psychological History: No Psychological Hx Reported Additional Psychological History / Comment(s): Pt resides with her spouse. She is independent. Smoking Status: Never smoker Past Alcohol Use History: None Reported Additional Past Alcohol Use History / Comment(s): Patient is a lifelong nonsmoker, no illicit drug use, no alcohol use. Patient lives at home with her . Past Drug Use History: None Reported - Past Family History Father Family Medical History: Diabetes Mellitus Additional Family Medical History / Comment(s): father at the age of 62 yrs from diabetic complications. Mother Family Medical History: Diabetes Mellitus, Osteoarthritis (OA) Additional Family Medical History / Comment(s): Mother at the age of 93yrs. General Exam Limitations: no limitations General appearance: alert, in distress Head exam: Present: atraumatic Eye exam: Present: normal appearance, PERRL ENT exam: Present: normal oropharynx Neck exam: Present: normal inspection Respiratory exam: Present: rales, accessory muscle use Cardiovascular Exam: Present: tachycardia Expanded Peripheral pulses: 2+: Dorsalis Pedis (R), Dorsalis Pedis (L) GI/Abdominal exam: Present: soft, other (Patient has bandage over her central incision and right side of the abdomen.). Absent: tenderness Extremities exam: Present: pedal edema. Absent: calf tenderness Neurological exam: Present: alert Psychiatric exam: Present: normal affect, normal mood Skin exam: Present: normal color Course Vital Signs 07/16/17 00:07 Temperature 97.1 F L Pulse Rate 134 H Respiratory 30 H Rate Blood Pressure 173/98 O2 Sat by Pulse 99 Oximetry Medical Decision Making - Medical Decision Making Patient reevaluated and significantly improved with BiPAP. Patient and family updated on results and plan. Dr. Pruitt has been paged for admission. - Lab Data Result diagrams: 07/16/17 00:13 07/16/17 00:13 Lab Results 07/16/17 07/16/17 07/16/17 Range/Units 00:13 00:13 00:13 WBC 16.6 H (3.8-10.6) k/uL RBC 4.44 (3.80-5.40) m/uL Hgb 10.1 L (11.4-16.0) gm/dL Hct 33.0 L (34.0-46.0) % MCV 74.3 L (80.0-100.0) fL MCH 22.8 L (25.0-35.0) pg MCHC 30.7 L (31.0-37.0) g/dL RDW 21.6 H (11.5-15.5) % Plt Count 526 H (150-450) k/uL Neutrophils % 78 % Lymphocytes % 16 % Monocytes % 3 % Eosinophils % 1 % Basophils % 0 % Neutrophils # 12.9 H (1.3-7.7) k/uL Lymphocytes # 2.6 (1.0-4.8) k/uL Monocytes # 0.5 (0-1.0) k/uL Eosinophils # 0.2 (0-0.7) k/uL Basophils # 0.1 (0-0.2) k/uL Hypochromasia Marked Poikilocytosis Slight Anisocytosis Moderate Microcytosis Moderate PT 11.1 (9.0-12.0) sec INR 1.2 H (<1.2) APTT 20.4 L (22.0-30.0) sec Sodium 142 (137-145) mmol/L Potassium 3.4 L (3.5-5.1) mmol/L Chloride 100 (98-107) mmol/L Carbon Dioxide 26 (22-30) mmol/L Anion Gap 16 mmol/L BUN 15 (7-17) mg/dL Creatinine 3.70 H (0.52-1.04) mg/dL Est GFR (CKD-EPI)AfAm 14 (>60 ml/min/1.73 sqM) Est GFR (CKD-EPI)NonAf 12 (>60 ml/min/1.73 sqM) Glucose 238 H (74-99) mg/dL Calcium 8.6 (8.4-10.2) mg/dL Magnesium 1.6 (1.6-2.3) mg/dL Total Bilirubin 0.4 (0.2-1.3) mg/dL AST 17 (14-36) U/L ALT 21 (9-52) U/L Alkaline Phosphatase 79 (38-126) U/L Total Protein 5.8 L (6.3-8.2) g/dL Albumin 3.4 L (3.5-5.0) g/dL - Radiology Data Radiology results: image reviewed (Chest x-ray shows pulmonary congestion. Pulmonary infiltrates/pleural effusions.) Critical Care Time Critical Care Time: Yes Total Critical Care Time: 33 Disposition Clinical Impression: Pulmonary edema Disposition: ADMITTED IP TO THIS [facility] Condition: Serious Is patient prescribed a controlled substance at d/c from ED?: No Decision Time: 01:12
[2017-07-16 00:26] LABS: Anisocytosis Moderate; Basophils # (A) 0.1 k/uL (0-0.2); Basophils % (A) 0 %; Eosinophils # (A) 0.2 k/uL (0-0.7); Eosinophils % (A) 1 %; HGB 10.1 gm/dL (11.4-16.0); Hypochromasia Marked; Lymphocytes # (A) 2.6 k/uL (1.0-4.8); Lymphocytes % (A) 16 %; MCH 22.8 pg (25.0-35.0); MCHC 30.7 g/dL (31.0-37.0); MCV 74.3 fL (80.0-100.0); Mean Platelet Volume 6.8; Microcytosis Moderate; Monocytes # (A) 0.5 k/uL (0-1.0); Monocytes % (A) 3 %; Neutrophils # (A) 12.9 k/uL (1.3-7.7); Neutrophils % (A) 78 %; Platelet Count 526 k/uL (150-450); Poikilocytosis Slight; RBC 4.44 m/uL (3.80-5.40); RDW 21.6 % (11.5-15.5); WBC 16.6 k/uL (3.8-10.6)
[2017-07-16 00:35] LABS: Albumin 3.4 g/dL (3.5-5.0); Calcium 8.6 mg/dL (8.4-10.2); Magnesium 1.6 mg/dL (1.6-2.3); Potassium 3.4 mmol/L (3.5-5.1); Total Bilirubin 0.4 mg/dL (0.2-1.3); Total Protein 5.8 g/dL (6.3-8.2)
[2017-07-16 00:36] LABS: INR 1.2 (<1.2); Prothrombin Time 11.1 sec (9.0-12.0)
--- NOTE | 2017-07-16 00:58 | XR ---
EXAMINATION TYPE: XR chest 1V portable DATE OF EXAM: 07/16/2017 COMPARISON: 07/06/2017 HISTORY: Difficulty breathing TECHNIQUE: Single frontal view of the chest is obtained. FINDINGS: There is pulmonary edema. There is some blunting of costophrenic angles. There is right ce ntral venous catheter with the tip over the right atrium. There are chest leads. IMPRESSION: Congestive heart failure with basilar pulmonary infiltrates. Pleural effusions. Pulmonar y congestion is worse than last exam.
[2017-07-16 00:59] LABS: Partial Thromboplastin Time 20.4 sec (22.0-30.0)
[2017-07-16] MEDS ORDERED: NITROGLYCERIN OINT 1 INCH/GM PACKET TOPICAL STA (00:59)
[2017-07-16] MEDS ORDERED: FUROSEMIDE 10 MG/ML 4 ML VIAL IV STA (00:59)
[2017-07-16 01:02] LABS: Creatine Kinase MB 2.4 ng/mL (0.0-2.4)
[2017-07-16 01:15] LABS: Troponin I 0.231 ng/mL (0.000-0.034)
[2017-07-16] MEDS ORDERED: ASPIRIN 81 MG PO STA (01:16)
[2017-07-16] MEDS ORDERED: FUROSEMIDE 10 MG/ML 4 ML VIAL IV SCH (08:00)
[2017-07-16 08:23] LABS: Creatine Kinase MB 4.8 ng/mL (0.0-2.4)
[2017-07-16 08:24] LABS: Troponin I 0.863 ng/mL (0.000-0.034)
--- NOTE | 2017-07-16 09:07 | ECHOF ---
Referral Reason:Heart Failure MEASUREMENTS -------- HEIGHT: 157.5 cm WEIGHT: 89.4 kg BP: 135/85 RVIDd: 2.1 cm (< 3.3) IVSd: 0.9 cm (0.6 - 1.1) LVIDd: 4.7 cm (3.9 - 5.3) LVPWd: 1.1 cm (0.6 - 1.1) IVSs: 1.3 cm LVIDs: 3.5 cm LVPWs: 1.4 cm LA Diam: 3.5 cm (2.7 - 3.8) LAESV Index (A-L): 24.90 ml/m Ao Diam: 3.0 cm (2.0 - 3.7) AV Cusp: 2.1 cm (1.5 - 2.6) MV EXCURSION: 12.451 mm (> 18.000) MV EF SLOPE: 75 mm/s (70 - 150) EPSS: 1.2 cm MV E Ezra: 1.04 m/s MV DecT: 86 ms MV A Ezra: 0.90 m/s MV E/A Ratio: 1.16 RAP: 5.00 mmHg RVSP: 50.66 mmHg FINDINGS -------- Resting tachycardia (HR>100bpm). This was a technically adequate study. The left ventricular size is normal. There is borderline concentric left ventricular hypertrophy. Overall left ventricular systolic function is moderate-severely impaired with, an EF between 30 - 35 %. Apical anterior LV wall motion is hypokinetic. Apical lateral LV wall motion is hypokinetic. Apical inferior LV wall motion is hypokinetic. Apical septum LV wall motion is hypokinetic. The right ventricle is normal in size. Normal LA size by volume 22+/-6 ml/m2. The right atrium is normal in size. The aortic valve is trileaflet and appears structurally normal. Mild mitral regurgitation is present. Mild tricuspid regurgitation present. There is moderate pulmonary hypertension. The right ventric ular systolic pressure, as measured by Doppler, is 50.66mmHg. Trace/mild (physiologic) pulmonic regurgitation. The aortic root size is normal. There is no pericardial effusion. CONCLUSIONS -------- 1. Resting tachycardia (HR>100bpm). 2. This was a technically adequate study. 3. The left ventricular size is normal. 4. There is borderline concentric left ventricular hypertrophy. 5. Overall left ventricular systolic function is moderate-severely impaired with, an EF between 30 - 35 %. 6. Apical anterior LV wall motion is hypokinetic. 7. Apical lateral LV wall motion is hypokinetic. 8. Apical inferior LV wall motion is hypokinetic. 9. Apical septum LV wall motion is hypokinetic. 10. The right ventricle is normal in size. 11. Normal LA size by volume 22+/-6 ml/m2. 12. The right atrium is normal in size. 13. The aortic valve is trileaflet and appears structurally normal. 14. Mild mitral regurgitation is present. 15. Mild tricuspid regurgitation present. 16. There is moderate pulmonary hypertension. 17. The right ventricular systolic pressure, as measured by Doppler, is 50.66mmHg. 18. Trace/mild (physiologic) pulmonic regurgitation. 19. The aortic root size is normal. 20. There is no pericardial effusion. STRIKE PLANNING APPLICATIONS: Meera Blanc RDCS
[2017-07-16] MEDS: NITROGLYCERIN OINT 1 INCH/GM PACKET TOPICAL SCH ×4 (09:22→23:13)
[2017-07-16] MEDS: PIPERACILLIN-TAZOBACTAM 3.375 GM in DEXTROSE/WATER 1 50ML.BAG IVPB SCH ×2 (12:40→22:32)
--- NOTE | 2017-07-16 13:02 | P.CNPUL ---
History of Present Illness Consult date: 07/16/17 Reason for consult: dyspnea, hypoxemia History of present illness: A 72-year-old female patient was brought into the burst department for increased shortness of breath and a pulmonary consultation was requested. Apparently the patient was quite dyspneic at a time of arrival in the chest x- ray showed new lower lobe at the pulmonary infiltrates which was not present at a time of discharge from the hospital last week. The patient was briefly placed on BiPAP and currently she is on 4 L of oxygen nasal cannula. She denies having any chest pain. She is less tachycardic and she is in sinus tachycardia. She is producing urine output despite her being an acute kidney injury and she is dialysis dependent for now. Her last dialysis was on Wednesday and today she was supposed to have another session of dialysis which she is routinely having. No fever. No chills. No aspiration. No altered mentation. She has extensive swelling in lower extremity and she claims that the swelling itself is improved with dialysis. Note that, the patient's white cell count was elevated in the emergency at 16.6. The troponins were also positive with levels of 0.0 0.8 respectively and the proBNP level was 26,000. Echocardiac Preet was done in the emergency department that showed segmental wall motion abnormalities. The patient had moderate to see the LV dysfunction with an ejection fraction of 30-35%. There was evidence of anterior lateral inferior and septal wall hypokinesis and the right ventricular structures were within normal limits however there was moderate degree of pulmonary hypertension with a PA pressure of around 50. This patient is a very complex history. In summary I reviewed the records and I reviewed the extensive information available medical records from her most recent hospitalization. She was discharged from the hospital on 07/07/2017. The patient came into the hospital because of a abdominal abscess. The patient underwent expiratory laparotomy and she was found to have infected mesh from a previous incisional hernia repair that was draining. The patient underwent a total laparotomy and drainage of intra-abdominal abscess with resection of an infected mesh and the small bowel was run and there was no interloop abscesses identified. However, phlegmon in the distal terminal ileum was found and purulent fluid was present in the pelvis and the right rectus muscle was infected and there was a hematoma that was drained. Postop, the patient was found to have Proteus mirabilis and the patient was placed on IV antibiotics and subsequently discharged home on Augmentin. During the same hospitalization the patient developed an acute kidney injury knowing that her baseline renal function was within normal and currently she is of dialysis-dependent. A permacath was inserted in the right IJ and the patient was started on dialysis. She is having dialysis 3 times a week MW. The patient has also multiple other comorbidities including hypertension, acid reflux, chronic back pain, diabetes mellitus and hyperlipidemia and furthermore he was involved in an acute kidney injury following the abdominal surgery. Not known to have any previous history of coronary artery disease, COPD, asthma. Review of Systems Constitutional: Reports fatigue, Reports lethargy, Reports malaise, Reports poor appetite, Reports weakness, Reports weight loss Eyes: denies blurred vision, denies bulging eye, denies decreased vision Ears: deny: decreased hearing, ear discharge, earache Ears, nose, mouth and throat: Reports as per HPI Cardiovascular: Reports decreased exercise tolerance, Reports dyspnea on exertion, Reports leg edema, Reports shortness of breath Respiratory: Reports dyspnea Gastrointestinal: Reports as per HPI, Reports abdominal pain Genitourinary: Reports as per HPI Musculoskeletal: Denies myalgias Musculoskeletal: bilateral: ankle swelling, absent: ankle pain, ankle stiffness Integumentary: Reports wounds Neurological: Reports weakness Psychiatric: Denies anxiety, Denies depression Hematologic/Lymphatic: Reports as per HPI Allergic/Immunologic: Reports as per HPI Past Medical History Past Medical History: Diabetes Mellitus, Eye Disorder, GERD/Reflux, Hyperlipidemia, Hypertension, Osteoarthritis (OA), Renal Disease Additional Past Medical History / Comment(s): October 2016 abdominal wall abscess treated in ER with I&D/eventually healed, Apr 2017 increased R sided abdominal pain/anemia and on 05/26/17 had lap incisional hernia repair with mesh and lysis of adhesions, 06/29/17 admitted [facility] with R abdominal wall abscess had exploratory lap with resection infected mesh and drainage/sepsis/proteus mirabillis, post operative blood loss anemia, acute renal failure (tubular necrosis) and is currently receiving hemodialysis (last time 07/14/17), metabolic acidosis. Other hx: NIDDM type II-diet controlled but recently placed on sliding scale, diverticular dx, numbness/tingling bilateral hands, " If I lay wrong.", low back pain with bilateral sciatica, cervical pain, R eye had retinal "hole" which was surgically repaired, currently receiving hemodialysis but also makes her own urine. History of Any Multi-Drug Resistant Organisms: None Reported Past Surgical History: Appendectomy, Cholecystectomy, Hernia Repair, Tonsillectomy Additional Past Surgical History / Comment(s): 05/26/17 laparoscopic incisional hernia repair with mesh/lysis of adhesions, 06/29/17 exploratory laparoscopy with I&D intra abdominal abscess, 07/06/17 PICC line insertion since removed, 07/08/17 hemodialysis permacath placement, bilateral cataract removals, R eye retinal hole repair, colonoscopies/EGD. Past Anesthesia/Blood Transfusion Reactions: No Reported Reaction Smoking Status: Never smoker - Past Family History Father Family Medical History: Diabetes Mellitus Additional Family Medical History / Comment(s): father at the age of 62 yrs from diabetic complications. Mother Family Medical History: Diabetes Mellitus, Osteoarthritis (OA) Additional Family Medical History / Comment(s): Mother at the age of 93yrs. Medications and Allergies Home Medications Medication Instructions Recorded Confirmed Type Simvastatin 20 mg PO HS 12/08/15 07/16/17 History Docusate [Colace] 100 mg PO BID #20 capsule 05/26/17 07/16/17 Rx Cyanocobalamin [Vitamin B-12] 500 mcg PO DAILY 06/29/17 07/16/17 History Omeprazole 20 mg PO DAILY 06/29/17 07/16/17 History ALPRAZolam [Xanax] 0.25 mg PO BID PRN #20 tab 07/13/17 07/16/17 Rx Acetaminophen Tab [Tylenol] 650 mg PO Q6HR PRN tab 07/13/17 07/16/17 Rx Amoxic-Pot Clav 500-125 mg 1 tab PO Q12HR #14 tab 07/13/17 07/16/17 Rx [Augmentin 500-125 mg] Cholecalciferol [Vitamin D3] 1,000 unit PO 1200 tab 07/13/17 07/16/17 Rx INSULIN LISPRO (HumaLOG) [humaLOG] 0 unit SQ ACHS #1 vial 07/13/17 07/16/17 Rx Allergies Allergy/AdvReac Type Severity Reaction Status Date / Time venom-honey bee Allergy Anaphylaxis Verified 07/16/17 06:56 [bee venom (honey bee)] Physical Exam Vitals: Vital Signs Temp Pulse Resp BP Pulse Ox 07/16/17 11:28 98.0 F 120 H 26 H 150/85 96 07/16/17 10:44 98.0 F 110 H 18 136/91 98 07/16/17 08:44 114 H 18 126/77 98 07/16/17 07:01 108 H 24 126/77 99 07/16/17 04:40 111 H 22 135/85 99 07/16/17 02:28 123 H 28 H 146/89 99 07/16/17 01:12 116 H 24 142/84 99 07/16/17 00:07 97.1 F L 134 H 30 H 173/98 99 Intake and Output 07/15/17 07/16/17 07/16/17 22:59 06:59 14:59 Other: Weight 89.358 kg Gen. appearance the patient is a mild degree of respiratory distress even at rest. She is not using excessive muscle breathing.Head exam was generally normal. There was no scleral icterus or corneal arcus. Mucous membranes were moist. Neck is supple there is no JVDs no goiter or neck masses this point.Neck was supple and without jugular venous distension, thyromegaly, or carotid bruits. Carotids were easily palpable bilaterally. There was no adenopathy. The patient has a right anterior chest permacath and the exit site is clean and intact at this point in time. Lung sounds are diminished bilaterally especially lung bases along with some bibasilar crackles. Heart sounds are regular, possible sinus stool, tachycardic, no cervical murmurs appreciated. Abdomen is soft, and there is a mid abdominal incision which is dry clean and intact at this point. The patient also has a horizontal incision on the right upper quadrant and the wound is packed without any active purulent drainage at this point. No direct tenderness a Montessori guarding. Bowel sounds are diminished at the present. Extremities reveal +1 pitting edema and there is no cyanosis or clubbing at this point. Neurologically patient is awake and alert and there is no focal logical deficits. Psychiatrically seems to be slightly depressed. No anxiety. Results - Laboratory Findings CBC and BMP: 07/16/17 00:13 07/16/17 00:13 PT/INR, D-dimer PT 11.1 sec (9.0-12.0) 07/16/17 00:13 INR 1.2 (<1.2) H 07/16/17 00:13 Abnormal lab findings: Abnormal Labs 07/16/17 07/16/17 07/16/17 00:13 00:13 00:13 WBC 16.6 H Hgb 10.1 L Hct 33.0 L MCV 74.3 L MCH 22.8 L MCHC 30.7 L RDW 21.6 H Plt Count 526 H Neutrophils # 12.9 H INR APTT Potassium 3.4 L Creatinine 3.70 H Glucose 238 H CK-MB (CK-2) Troponin I 0.231 H* Total Protein 5.8 L Albumin 3.4 L 07/16/17 07/16/17 00:13 06:53 WBC Hgb Hct MCV MCH MCHC RDW Plt Count Neutrophils # INR 1.2 H APTT 20.4 L Potassium Creatinine Glucose CK-MB (CK-2) 4.8 H* Troponin I 0.863 H* Total Protein Albumin - Diagnostic Findings Chest x-ray: image reviewed Assessment and Plan Plan: Assessment 1 acute hypoxic respiratory failure. The patient presented extreme shortness of breath requiring brief BiPAP treatment. The patient was given Lasix and a chest x-ray was done that showed bilateral lower lobe pulmonary infiltrates. Rule out fluid overload/pulmonary edema secondary to decompensated CHF. Also suspect development of bilateral lower lobe pneumonia which could be potentially aspiration/healthcare acquired. 2 CHF with impaired LV function with an ejection fraction of 30-35% with segmental wall motion abnormalities involving the left ventricle and secondary pulmonary hypertension 3 troponin leak, rule out underlying acute non-ST segment elevation myocardial infarction 4 abdominal abscess status post expose the laparotomy and resection of an infected mesh with drainage cultures indicating Proteus mirabilis and the patient was receiving Augmentin outpatient basis. Currently there is no active drainage from the right upper quadrant abdominal wound. The mid abdominal incision is dry clean and intact. 5 recent septicemia related to abdominal infection/abscess 6 acute kidney injury, currently the patient is dialysis dependent undergoing dialysis 3 times a week via permacath over the right anterior chest area 7 diabetes mellitus 8 hypertension 9 hyperlipidemia 10 acid reflux 11 chronic back pain 12 anemia of chronic disease, multifactorial Plan Will continue IV Lasix 40 mg every 8 hours as long as the patient is producing urine. We'll ask nephrology to immediately evaluated this patient consider this patient for dialysis. The patient will be kept on oxygen 4 L/m nasal cannula. The patient will be started on IV Zosyn covering for her abdominal abscess which resulted in to Proteus mirabilis in addition to any possible pulmonary infection. Obtain sputum Gram stain and culture. Echo results were noted an underlying ischemic artery myopathy cannot be completely ruled out special ed with elevation of troponins. Reconsult general surgery and nephrology. Overall pulmonary status is more stable and the patient can be taken off the BiPAP and she is currently on 40 some oxygen nasal cannula. Daily chest x-rays. We'll continue to follow.
[2017-07-16] MEDS ORDERED: POTASSIUM CHLORIDE ER 20 MEQ TAB.ER PO STA (13:21)
--- NOTE | 2017-07-16 13:23 | P.NPCON ---
History of Present Illness - Reason for Consult acute renal failure - History of Present Illness Reason for consultation: Acute kidney injury History of present illness: Patient is a 72-year-old female seen in renal consultation for acute kidney injury. Patient was admitted earlier this month and developed acute kidney injury postoperatively. She underwent drainage of abdominal abscess and infected hematoma. She was subsequently started on hemodialysis. Her last treatment was on Wednesday. Patient states last night she was resting in bed and suddenly developed dyspnea. She was unable to catch her breath and decided to come to the hospital. Chest x-ray revealed vascular congestion and pleural effusions. Echocardiogram revealed ejection fraction of 30-35% with moderate pulmonary hypertension. She is currently maintained on IV Lasix. She does have good urine output. No vomiting or diarrhea. Denies chest pain. She does admit to orthopnea. Hemodynamically stable. Still feels quite dyspneic. Vital signs are stable. General: The patient appeared well nourished and normally developed. HEENT: Head exam is unremarkable. Neck is without jugular venous distension. LUNGS: Breath sounds decreased. HEART: Rate and Rhythm are regular. First and second heart sounds normal. No murmurs, rubs or gallops. ABDOMEN: Abdominal exam reveals normal bowel sounds. Non-tender and non- distended. No evidence of peritonitis. EXTREMITITES: 1+ edema. Past Medical History Past Medical History: Diabetes Mellitus, Eye Disorder, GERD/Reflux, Hyperlipidemia, Hypertension, Osteoarthritis (OA), Renal Disease Additional Past Medical History / Comment(s): October 2016 abdominal wall abscess treated in ER with I&D/eventually healed, Apr 2017 increased R sided abdominal pain/anemia and on 05/26/17 had lap incisional hernia repair with mesh and lysis of adhesions, 06/29/17 admitted [facility] with R abdominal wall abscess had exploratory lap with resection infected mesh and drainage/sepsis/proteus mirabillis, post operative blood loss anemia, acute renal failure (tubular necrosis) and is currently receiving hemodialysis (last time 07/14/17), metabolic acidosis. Other hx: NIDDM type II-diet controlled but recently placed on sliding scale, diverticular dx, numbness/tingling bilateral hands, " If I lay wrong.", low back pain with bilateral sciatica, cervical pain, R eye had retinal "hole" which was surgically repaired, currently receiving hemodialysis but also makes her own urine. History of Any Multi-Drug Resistant Organisms: None Reported Past Surgical History: Appendectomy, Cholecystectomy, Hernia Repair, Tonsillectomy Additional Past Surgical History / Comment(s): 05/26/17 laparoscopic incisional hernia repair with mesh/lysis of adhesions, 06/29/17 exploratory laparoscopy with I&D intra abdominal abscess, 07/06/17 PICC line insertion since removed, 07/08/17 hemodialysis permacath placement, bilateral cataract removals, R eye retinal hole repair, colonoscopies/EGD. Past Anesthesia/Blood Transfusion Reactions: No Reported Reaction Smoking Status: Never smoker - Past Family History Father Family Medical History: Diabetes Mellitus Additional Family Medical History / Comment(s): father at the age of 62 yrs from diabetic complications. Mother Family Medical History: Diabetes Mellitus, Osteoarthritis (OA) Additional Family Medical History / Comment(s): Mother at the age of 93yrs. Medications and Allergies Home Medications Medication Instructions Recorded Confirmed Type Simvastatin 20 mg PO HS 12/08/15 07/16/17 History Docusate [Colace] 100 mg PO BID #20 capsule 05/26/17 07/16/17 Rx Cyanocobalamin [Vitamin B-12] 500 mcg PO DAILY 06/29/17 07/16/17 History Omeprazole 20 mg PO DAILY 06/29/17 07/16/17 History ALPRAZolam [Xanax] 0.25 mg PO BID PRN #20 tab 07/13/17 07/16/17 Rx Acetaminophen Tab [Tylenol] 650 mg PO Q6HR PRN tab 07/13/17 07/16/17 Rx Amoxic-Pot Clav 500-125 mg 1 tab PO Q12HR #14 tab 07/13/17 07/16/17 Rx [Augmentin 500-125 mg] Cholecalciferol [Vitamin D3] 1,000 unit PO 1200 tab 07/13/17 07/16/17 Rx INSULIN LISPRO (HumaLOG) [humaLOG] 0 unit SQ ACHS #1 vial 07/13/17 07/16/17 Rx Allergies Allergy/AdvReac Type Severity Reaction Status Date / Time venom-honey bee Allergy Anaphylaxis Verified 07/16/17 06:56 [bee venom (honey bee)] Physical Exam Vitals: Vital Signs Temp Pulse Resp BP Pulse Ox 07/16/17 11:28 98.0 F 120 H 26 H 150/85 96 07/16/17 10:44 98.0 F 110 H 18 136/91 98 07/16/17 08:44 114 H 18 126/77 98 07/16/17 07:01 108 H 24 126/77 99 07/16/17 04:40 111 H 22 135/85 99 07/16/17 02:28 123 H 28 H 146/89 99 07/16/17 01:12 116 H 24 142/84 99 07/16/17 00:07 97.1 F L 134 H 30 H 173/98 99 Intake and Output 07/15/17 07/16/17 07/16/17 22:59 06:59 14:59 Other: Weight 89.358 kg Results - Lab Results Most recent lab results Calcium 8.6 mg/dL (8.4-10.2) 07/16/17 00:13 Magnesium 1.6 mg/dL (1.6-2.3) 07/16/17 00:13 07/16/17 00:13 07/16/17 00:13 Assessment and Plan Plan: Assessment: #1. Nonoliguric acute kidney injury secondary to ATN Paulie developed postoperatively after she underwent drainage of the abdominal abscess and infected hematoma. She was also anemic and required blood transfusion prior to admission. Currently hemodialysis dependent. #2. Dyspnea secondary to Volume overload. #3. Systolic CHF with ejection fraction of 30-35% with moderate pulmonary hypertension. #4. Hypokalemia secondary to diuresis. Rule out magnesium deficiency. #5. Status post drainage of abdominal abscess and infected hematoma on 2017. Plan: I will change Lasix to 80 mg IV twice daily. Check phosphorus level. Hemodialysis today with goal 3-4 L ultrafiltration. Avoid nephrotoxic agents and hypotensive episodes. Replace potassium. 40 mg once today. Check magnesium level. Thank you for the consultation. I will continue to follow the patient with you during her hospital stay.
[2017-07-16 13:32] LABS: Creatine Kinase MB 3.8 ng/mL (0.0-2.4); Troponin I 0.625 ng/mL (0.000-0.034)
[2017-07-16] MEDS ORDERED: ATORVASTATIN 40 MG TAB PO SCH (14:30)
[2017-07-16] MEDS ORDERED: ALPRAZolam 0.25 MG TAB PO PRN (14:41)
[2017-07-16] MEDS ORDERED: ACETAMINOPHEN TAB 325 MG TAB PO PRN (14:41)
--- NOTE | 2017-07-16 14:45 | P.PN ---
Progress Note - Text this is an addendum to the dictated cardiology consultation. The patient presents with progressive dyspnea. She was discharged recently after a lengthy admission was sepsis, infected abdomen and renal failure requiring dialysis she has no prior cardiac history but at home became more short of breath over the last 24 hours with no associated chest pain. Her echocardiogram showed a severely impaired left ventricle systolic function with segmental wall motion abnormality and her EKG shows T-wave inversion laterally. She had mild elevation of her troponin. She has received IV Lasix with improvement and she is scheduled to undergo dialysis today. Her lung exam shows few crackles, she has 1+ edema bilaterally and she is in sinus mechanism. The patient presents with evidence of CHF and systolic dysfunction. The duration of her systolic dysfunction is unclear. The mild troponin elevation could be related to the renal failure, type II event or could represent Takotsubo syndrome.I will obtain and prior EKG, add beta danika, aspirin and statin. Depending on her progress further recommendations will be made. She may require coronary angiography and that will be decided depending on her course.thank you for this consult we will follow with you.
--- NOTE | 2017-07-16 15:38 | HP ---
HISTORY AND PHYSICAL CHIEF COMPLAINTS: Shortness of breath. HISTORY OF PRESENT ILLNESS: This 72-year-old woman with past history of diabetes mellitus, hypertension, hyperlipidemia, history of renal disease being followed by Dr. Diaz in the outpatient setting has abdominal wall abscess. The patient subsequently had expiratory laparotomy, resection of infected mesh and Proteus mirabilis grown from the culture. Patient on broad spectrum IV antibiotics. The patient subsequently improved significantly. Patient went home and after going home the patient was noted to have significant shortness of breath which worsened as the evening progressed and the patient taken to [facility] and admitted for further evaluation and treatment. There is no history of any fever, rigors. No headache, loss of consciousness or seizures. Patient initially on BiPAP, subsequently weaned off to nasal cannula 4 L but currently the patient is on BiPAP again because of increasing shortness of breath and difficulties and evaluation by Dr. Molina and Cardiology and Nephrology is in progress at this time. There is no history of fever, rigors, chills. No history any headache, loss of consciousness, seizures. PAST MEDICAL HISTORY: History of diabetes, GERD, hypertension, hyperlipidemia, DJD, history of renal failure on hemodialysis. MEDICATIONS: Prior to admission include: 1. Simvastatin 20 mg p.o. q.h.s. 2. Omeprazole 20 mg p.o. daily. 3. Humalog scale. 4. Colace 100 mg p.o. b.i.d. 5. Vitamin B12 500 mcg. 6. Vitamin D3 2000 daily. 7. Augmentin 500/125 mg p.o. b.i.d. 8. Tylenol 650 q.6h p.r.n. 9. Xanax 0.5 b.i.d. p.r.n. ALLERGIES: HONEY BEE VENOM. FAMILY HISTORY: Diabetes mellitus type 2 in the family. SOCIAL HISTORY: No history of smoking, no history of alcohol intake. REVIEW OF SYSTEMS: ENT: Diminished hearing or vision. CARDIOVASCULAR: As mentioned. RESPIRATORY: As mentioned earlier. GI: as mentioned earlier. : No dysuria. NERVOUS SYSTEM: As mentioned. ALLERGY/IMMUNOLOGY: No history of asthma. MUSCULOSKELETAL: As mentioned earlier. HEMATOLOGY/ONCOLOGY: No history of anemia. ENDOCRINE: No history of diabetes or hypothyroidism. CONSTITUTIONAL: As mentioned. DERMATOLOGY: Negative. RHEUMATOLOGY: Negative. PSYCHIATRY As mentioned earlier. PHYSICAL EXAMINATION: Alert and oriented x3. Pulse 110, blood pressure 130/90, respiration 18, temperature 98 degrees, pulse ox 98% on 2 L. HEENT: Conjunctivae normal. Oral mucosa moist. NECK: No jugular venous distention. No carotid bruit. No lymph node enlargement. CARDIOVASCULAR: S1, S2. No S3, no S4. RESPIRATORY: Breath sounds diminished in the bases. Bilateral scattered rhonchi and crackles. ABDOMEN: Soft, status post surgery. No mass palpable. LEGS: Minimal edema. NERVOUS SYSTEM: Higher functions as mentioned earlier, moves all 4 limbs, no focal motor deficits. LYMPHATICS: No lymphadenopathy in the neck, axillae, groin. SKIN: No ulcers, rash or bleeding. LABS: WBC 16.6, hemoglobin is 10.1. INR is 1.2 and troponin 0.231 and 0.625. ASSESSMENT: 1. Shortness of breath with possible congestive heart failure acute exacerbation. 2. Rule out pneumonia, bibasilar. 3. Troponin indeterminate at 0.863. 4. History of recent abdominal abscess, status post exploratory laparotomy and resection of infected mesh and drainage and wound culture reporting Proteus mirabilis and sepsis. 5. Hypertension. 6. Chronic back pain. 7. Gastroesophageal reflux disease. 8. Hyperlipidemia. 9. History of acute on chronic renal failure on hemodialysis. 10.PermCath. 11.Diabetes mellitus type 2. RECOMMENDATIONS AND DISCUSSION: I recommend to continue current management and symptomatic treatment. Otherwise at this time I recommend closely follow with Nephrology, possibly hemodialysis. The Lasix has been initiated. Otherwise broad-spectrum IV antibiotics were given to rule out the possibility of pneumonia. We will obtain cultures and infectious disease evaluation. We will also obtain a surgical evaluation for continued followup also. MMODL / IJN: [id number] /
--- NOTE | 2017-07-16 15:48 | P.CRDCN ---
History of Present Illness Consult date: 07/16/17 Requesting physician: Sacha Pruitt Reason for Consult (text): pulmonary edema Chief complaint: difficulty breathing History of present illness: This is a pleasant 72-year-old female patient with a recent history of a lengthy admission with sepsis, infected hematoma and abscess of the abdomen and subsequent renal failure requiring dialysis. She was just discharged on 07/13/2017. She has no prior cardiac history. Her most recent dialysis treatment was on 07/14/2017. She presented to the emergency department after developing some sudden shortness of breath when she laid down to go to bed. She was found to have elevated troponin of 0.231, 0.863 and 0.625 without any symptoms of chest discomfort. Chest x-ray showed congestive heart failure with basilar and pulmonary infiltrates, pleural effusions, pulmonary congestion that is worse than last exam. EKG showed sinus tachycardia with T-wave inversions in the anterolateral leads which is new compared to previous. Echocardiogram showed severely impaired LV systolic function with segmental wall motion abnormalities. She has been started on Lasix 80 mg by mouth every 12 hours by nephrology and dialysis is planned for this evening. Upon examination, patient is visibly dyspneic. She had previously been on a BiPAP and that is at the bedside. She's had no complaints of chest discomfort. Past Medical History Past Medical History: Diabetes Mellitus, Eye Disorder, GERD/Reflux, Hyperlipidemia, Hypertension, Osteoarthritis (OA), Renal Disease Additional Past Medical History / Comment(s): October 2016 abdominal wall abscess treated in ER with I&D/eventually healed, Apr 2017 increased R sided abdominal pain/anemia and on 05/26/17 had lap incisional hernia repair with mesh and lysis of adhesions, 06/29/[address] [facility] with R abdominal wall abscess had exploratory lap with resection infected mesh and drainage/sepsis/proteus mirabillis, post operative blood loss anemia, acute renal failure (tubular necrosis) and is currently receiving hemodialysis (last time 07/14/17), metabolic acidosis. Other hx: NIDDM type II-diet controlled but recently placed on sliding scale, diverticular dx, numbness/tingling bilateral hands, " If I lay wrong.", low back pain with bilateral sciatica, cervical pain, R eye had retinal "hole" which was surgically repaired, currently receiving hemodialysis but also makes her own urine. History of Any Multi-Drug Resistant Organisms: None Reported Past Surgical History: Appendectomy, Cholecystectomy, Hernia Repair, Tonsillectomy Additional Past Surgical History / Comment(s): 05/26/17 laparoscopic incisional hernia repair with mesh/lysis of adhesions, 06/29/17 exploratory laparoscopy with I&D intra abdominal abscess, 07/06/17 PICC line insertion since removed, 07/08/17 hemodialysis permacath placement, bilateral cataract removals, R eye retinal hole repair, colonoscopies/EGD. Past Anesthesia/Blood Transfusion Reactions: No Reported Reaction Smoking Status: Never smoker - Past Family History Father Family Medical History: Diabetes Mellitus Additional Family Medical History / Comment(s): father at the age of 62 yrs from diabetic complications. Mother Family Medical History: Diabetes Mellitus, Osteoarthritis (OA) Additional Family Medical History / Comment(s): Mother at the age of 93yrs. Medications and Allergies Home Medications Medication Instructions Recorded Confirmed Type Simvastatin 20 mg PO HS 12/08/15 07/16/17 History Docusate [Colace] 100 mg PO BID #20 capsule 05/26/17 07/16/17 Rx Cyanocobalamin [Vitamin B-12] 500 mcg PO DAILY 06/29/17 07/16/17 History Omeprazole 20 mg PO DAILY 06/29/17 07/16/17 History ALPRAZolam [Xanax] 0.25 mg PO BID PRN #20 tab 07/13/17 07/16/17 Rx Acetaminophen Tab [Tylenol] 650 mg PO Q6HR PRN tab 07/13/17 07/16/17 Rx Amoxic-Pot Clav 500-125 mg 1 tab PO Q12HR #14 tab 07/13/17 07/16/17 Rx [Augmentin 500-125 mg] Cholecalciferol [Vitamin D3] 1,000 unit PO 1200 tab 07/13/17 07/16/17 Rx INSULIN LISPRO (HumaLOG) [humaLOG] 0 unit SQ ACHS #1 vial 07/13/17 07/16/17 Rx Allergies Allergy/AdvReac Type Severity Reaction Status Date / Time venom-honey bee Allergy Anaphylaxis Verified 07/16/17 06:56 [bee venom (honey bee)] Physical Exam Vitals: Vital Signs Temp Pulse Resp BP Pulse Ox 07/16/17 11:28 98.0 F 120 H 26 H 150/85 96 07/16/17 10:44 98.0 F 110 H 18 136/91 98 07/16/17 08:44 114 H 18 126/77 98 07/16/17 07:01 108 H 24 126/77 99 07/16/17 04:40 111 H 22 135/85 99 07/16/17 02:28 123 H 28 H 146/89 99 07/16/17 01:12 116 H 24 142/84 99 07/16/17 00:07 97.1 F L 134 H 30 H 173/98 99 Intake and Output 07/15/17 07/16/17 07/16/17 22:59 06:59 14:59 Other: Weight 89.358 kg 89.358 kg PHYSICAL EXAMINATION: HEENT: Head is atraumatic, normocephalic. Pupils equal, round. Neck is supple. There is elevated jugular venous pressure. HEART EXAMINATION: Heart sounds regular, S1 and S2 normal. No murmur or gallop heard. Tachycardia noted CHEST EXAMINATION: Lungs reveal crackles bilateral lower lobes. No chest wall tenderness is noted on palpation or with deep breathing. ABDOMEN: Soft, nontender. Bowel sounds are heard. No organomegaly noted. EXTREMITIES: 2+ peripheral pulses with evidence of 1+ peripheral edema and no calf tenderness noted. NEUROLOGIC patient is awake, alert and oriented x3. . Results 07/16/17 00:13 07/16/17 00:13 Cardiac Enzymes 07/16/17 07/16/17 07/16/17 Range/Units 00:13 00:13 06:53 AST 17 (14-36) U/L CK-MB (CK-2) 2.4 4.8 H* (0.0-2.4) ng/mL Troponin I 0.231 H* 0.863 H* (0.000-0.034) ng/mL 07/16/17 Range/Units 12:30 AST (14-36) U/L CK-MB (CK-2) 3.8 H* (0.0-2.4) ng/mL Troponin I 0.625 H* (0.000-0.034) ng/mL Coagulation 07/16/17 Range/Units 00:13 PT 11.1 (9.0-12.0) sec APTT 20.4 L (22.0-30.0) sec CBC 07/16/17 Range/Units 00:13 WBC 16.6 H (3.8-10.6) k/uL RBC 4.44 (3.80-5.40) m/uL Hgb 10.1 L (11.4-16.0) gm/dL Hct 33.0 L (34.0-46.0) % Plt Count 526 H (150-450) k/uL Comprehensive Metabolic Panel 07/16/17 Range/Units 00:13 Sodium 142 (137-145) mmol/L Potassium 3.4 L (3.5-5.1) mmol/L Chloride 100 (98-107) mmol/L Carbon Dioxide 26 (22-30) mmol/L BUN 15 (7-17) mg/dL Creatinine 3.70 H (0.52-1.04) mg/dL Glucose 238 H (74-99) mg/dL Calcium 8.6 (8.4-10.2) mg/dL AST 17 (14-36) U/L ALT 21 (9-52) U/L Alkaline Phosphatase 79 (38-126) U/L Total Protein 5.8 L (6.3-8.2) g/dL Albumin 3.4 L (3.5-5.0) g/dL Current Medications Generic Name Dose Route Start Last Admin Trade Name Freq PRN Reason Stop Dose Admin Aspirin 81 mg 07/17/17 09:00 Aspirin PO DAILY [facility] Atorvastatin Calcium 40 mg 07/16/17 14:30 Lipitor PO DAILY [facility] Furosemide 80 mg 07/16/17 21:00 Lasix IV Q12HR [facility] Piperacillin/Tazobactam/ 50 mls @ 12.5 mls/hr 07/16/17 12:00 07/16/17 12:40 Dextrose 3.375 gm/ IV Solution IVPB 12.5 mls/hr Q12HR REJI Administration Metoprolol Tartrate 25 mg 07/16/17 21:00 Lopressor PO BID [facility] Nitroglycerin 1 inch 07/16/17 09:00 07/16/17 12:40 Nitro-Bid Oint TOPICAL 1 inch QID REJI Administration Sodium Chloride 10 ml 07/16/17 09:00 07/16/17 09:21 Saline Flush IV 10 ml BID REJI Administration Intake and Output 07/15/17 07/16/17 07/16/17 22:59 06:59 14:59 Other: Weight 89.358 kg 89.358 kg Patient Weight 07/17/17 06:59 Weight 89.358 kg 07/16/17 00:13 07/16/17 00:13 Assessment and Plan Assessment: #1 acute systolic congestive heart failure, it is unclear if this is also a chronic condition #2 mild troponin elevation could be related to renal failure, type II event or Takotsubo syndrome #3 acute renal failure, on hemodialysis #4 basilar infiltrates, could be pneumonia, infectious disease is on consultation Plan: From cardiology's perspective, continue diuretics per nephrology. We will add aspirin, beta danika and a statin. We will keep the patient nothing by mouth after midnight. Patient may require coronary angiography. Further course of action will be determined based on patient's clinical progress. [employer]NAGING [employer]OR note has been reviewed, I agree with a documented findings and plan of care. Patient was seen and examined.
[2017-07-16] MEDS: HEPARIN SODIUM,PORCINE 5,000 UNIT/ML 1 ML VIAL SQ SCH ×2 (16:46→21:55)
[2017-07-16 17:47] LABS: Glucose,Whole Blood 169 mg/dL (75-99)
[2017-07-16] MEDS ORDERED: ATORVASTATIN 10 MG TAB PO SCH (21:00)
[2017-07-16 21:12] LABS: Glucose,Whole Blood 112 mg/dL (75-99)
[2017-07-16] MEDS: FUROSEMIDE 10 MG/ML 10 ML VIAL IV SCH (21:53)
[2017-07-16] MEDS: METOPROLOL TARTRATE 25 MG TAB PO SCH (23:10)
[2017-07-16] MEDS: DOCUSATE 100 MG CAP PO SCH (23:10)
[2017-07-17 00:41] LABS: Albumin 3.1 g/dL (3.5-5.0); Calcium 8.7 mg/dL (8.4-10.2); Magnesium 1.7 mg/dL (1.6-2.3); Potassium 3.6 mmol/L (3.5-5.1); Total Bilirubin 0.6 mg/dL (0.2-1.3); Total Protein 5.5 g/dL (6.3-8.2)
[2017-07-17] MEDS ORDERED: Magnesium Replacement Protocol 1 EACH MISC MISCELLANE PRN (01:43)
[2017-07-17] MEDS ORDERED: Potassium Replacement Protocol 1 EACH MISC MISCELLANE PRN (01:44)
[2017-07-17] MEDS: MAGNESIUM SULFATE-D5W PMX 1 GM in DEXTROSE/WATER 1 100ML.BAG IVPB SCH ×2 (02:21→03:43)
[2017-07-17] MEDS: POTASSIUM CHLORIDE 10 MEQ in WATER FOR INJECTION 1 100ML.BAG IVPB SCH ×2 (02:22→03:44)
[2017-07-17 02:35] LABS: Amorphous Sediment,Urine Rare /hpf; Appearance,Urine Cloudy (Clear); Bilirubin,Urine Negative (Negative); Blood,Urine Trace (Negative); Color,Urine Yellow; Glucose,Urine (UA) Negative (Negative); Hyaline Casts,Urine 96 /lpf (0-2); Ketones,Urine 1+ (Negative); Leukocyte Esterase,Urine Small (Negative); Mucus,Urine Rare /hpf; Nitrite,Urine Negative (Negative); Protein,Urine 2+ (Negative); RBC,Urine 5 /hpf (0-5); Specific Gravity,Urine 1.015 (1.001-1.035); Squamous Epithelial Cell,Urine 11 /hpf (0-4); Urobilinogen,Urine <2.0 mg/dL (<2.0); WBC,Urine 63 /hpf (0-5)
[2017-07-17 05:41] LABS: Anisocytosis Moderate; Basophils # (A) 0.1 k/uL (0-0.2); Basophils % (A) 1 %; Eosinophils # (A) 0.1 k/uL (0-0.7); Eosinophils % (A) 1 %; Hypochromasia Marked; Lymphocytes # (A) 1.6 k/uL (1.0-4.8); Lymphocytes % (A) 17 %; MCHC 30.7 g/dL (31.0-37.0); MCV 75.1 fL (80.0-100.0); Mean Platelet Volume 7.3; Microcytosis Moderate; Monocytes # (A) 0.4 k/uL (0-1.0); Monocytes % (A) 4 %; Neutrophils # (A) 7.4 k/uL (1.3-7.7); Neutrophils % (A) 76 %; Platelet Count 340 k/uL (150-450); WBC 9.7 k/uL (3.8-10.6)
[2017-07-17 05:43] LABS: HGB 8.3 gm/dL (11.4-16.0)
[2017-07-17 05:45] LABS: Calcium 8.6 mg/dL (8.4-10.2); Magnesium 2.4 mg/dL (1.6-2.3); Phosphorus 4.2 mg/dL (2.5-4.5)
--- NOTE | 2017-07-17 06:39 | XR ---
EXAMINATION TYPE: XR chest 1V portable DATE OF EXAM: 07/17/2017 HISTORY: follow up pulmonary edema. REFERENCE: Previous study dated 07/16/2017. FINDINGS: There is a large-bore, double-lumen catheter in place via a right internal jugular approach . Its tip is in the right atrium. There is worsening consolidation left lung base. There is developing consolidation at the right lung base. There are bilateral effusions, greater on the left than the right. Pulmonary vasculature has im proved. IMPRESSION: WORSENING CONSOLIDATION, LEFT LUNG BASE.
[2017-07-17 07:31] LABS: Glucose,Whole Blood 118 mg/dL (75-99)
[2017-07-17] MEDS: HEPARIN SODIUM,PORCINE 5,000 UNIT/ML 1 ML VIAL SQ SCH ×2 (08:38→20:31)
[2017-07-17] MEDS: DOCUSATE 100 MG CAP PO SCH ×2 (08:38→20:30)
[2017-07-17] MEDS: METOPROLOL TARTRATE 25 MG TAB PO SCH ×3 (08:38→22:04)
[2017-07-17] MEDS: PANTOPRAZOLE 40 MG TABLET PO SCH (08:38)
[2017-07-17] MEDS: FUROSEMIDE 10 MG/ML 10 ML VIAL IV SCH ×2 (08:39→20:31)
[2017-07-17] MEDS: NITROGLYCERIN OINT 1 INCH/GM PACKET TOPICAL SCH ×4 (08:45→22:05)
[2017-07-17] MEDS ORDERED: ASPIRIN 325 MG TAB PO SCH ×2 (09:00)
[2017-07-17] MEDS: PIPERACILLIN-TAZOBACTAM 3.375 GM in DEXTROSE/WATER 1 50ML.BAG IVPB SCH ×2 (09:37→20:31)
[2017-07-17] MEDS: ASPIRIN 81 MG PO SCH (09:38)
--- NOTE | 2017-07-17 09:49 | P.PN ---
Subjective Progress Note Date: 07/17/17 A 72-year-old female patient was brought into the burst department for increased shortness of breath and a pulmonary consultation was requested. Apparently the patient was quite dyspneic at a time of arrival in the chest x- ray showed new lower lobe at the pulmonary infiltrates which was not present at a time of discharge from the hospital last week. The patient was briefly placed on BiPAP and currently she is on 4 L of oxygen nasal cannula. She denies having any chest pain. She is less tachycardic and she is in sinus tachycardia. She is producing urine output despite her being an acute kidney injury and she is dialysis dependent for now. Her last dialysis was on Wednesday and today she was supposed to have another session of dialysis which she is routinely having. No fever. No chills. No aspiration. No altered mentation. She has extensive swelling in lower extremity and she claims that the swelling itself is improved with dialysis. Note that, the patient's white cell count was elevated in the emergency at 16.6. The troponins were also positive with levels of 0.0 0.8 respectively and the proBNP level was 26,000. Echocardiac Preet was done in the emergency department that showed segmental wall motion abnormalities. The patient had moderate to see the LV dysfunction with an ejection fraction of 30-35%. There was evidence of anterior lateral inferior and septal wall hypokinesis and the right ventricular structures were within normal limits however there was moderate degree of pulmonary hypertension with a PA pressure of around 50. This patient is a very complex history. In summary I reviewed the records and I reviewed the extensive information available medical records from her most recent hospitalization. She was discharged from the hospital on 07/07/2017. The patient came into the hospital because of a abdominal abscess. The patient underwent expiratory laparotomy and she was found to have infected mesh from a previous incisional hernia repair that was draining. The patient underwent a total laparotomy and drainage of intra-abdominal abscess with resection of an infected mesh and the small bowel was run and there was no interloop abscesses identified. However, phlegmon in the distal terminal ileum was found and purulent fluid was present in the pelvis and the right rectus muscle was infected and there was a hematoma that was drained. Postop, the patient was found to have Proteus mirabilis and the patient was placed on IV antibiotics and subsequently discharged home on Augmentin. During the same hospitalization the patient developed an acute kidney injury knowing that her baseline renal function was within normal and currently she is of dialysis-dependent. A permacath was inserted in the right IJ and the patient was started on dialysis. She is having dialysis 3 times a week MWF. The patient has also multiple other comorbidities including hypertension, acid reflux, chronic back pain, diabetes mellitus and hyperlipidemia and furthermore he was involved in an acute kidney injury following the abdominal surgery. Not known to have any previous history of coronary artery disease, COPD, asthma. On 07/17/2017 and I'm seeing this patient for a follow-up. The patient is awake and alert and she is not having any significant respiratory distress. The patient was off the BiPAP since yesterday. She underwent dialysis yesterday and total of 3.8 L of fluid was removed during dialysis. She became briefly hypotensive and she was given a total of 2 50 mL back and she did not require any pressors. She is afebrile. On today's evaluation the chest x-ray still showing bilateral lower lobe pulmonary infiltrate and and pleural effusions more so on the left. The patient is afebrile. The patient is on IV Zosyn. Abdominal wounds are dry clean and intact and there being regularly dressed. She is free of any chest pain. I reviewed the consultation by cardiology. I will be quite hesitant to undergo a cardiac catheterization knowing that the cath would not alter our treatment plan and the patient may end up having further nephrotoxicity from the contrast. Discussed this also with nephrology I'm going to talk to Dr. Dubose in this regard. Meanwhile, the patient will need another session of dialysis, short run to further improve her volume status and she'll be given Ativan of 2 hours today. No other complaints. No change in mental status. The dialysis site is dry clean and intact. Objective - Vital Signs Vital signs: Vital Signs Temp 98.1 F 07/17/17 08:00 Pulse 98 07/17/17 09:00 Resp 21 07/17/17 09:00 BP 125/66 07/17/17 09:00 Pulse Ox 96 07/17/17 09:00 Intake & Output 07/16/17 07/17/17 07/17/17 18:59 06:59 18:59 Intake Total 0 50 10 Output Total 4200 Balance 0 -4150 10 Weight 89.358 kg 83.3 kg Intake: IV 50 10 normal saline 50 10 Oral 0 0 Output: Urine 100 Other 4100 Other: Voiding Method Bedside Commode - Exam Gen. appearance the patient and she is calm and comfortable off the BiPAP and the patient is currently on oxygen at 2 L/m nasal cannula..Head exam was generally normal. There was no scleral icterus or corneal arcus. Mucous membranes were moist. Neck is supple there is no JVDs no goiter or neck masses this point.Neck was supple and without jugular venous distension, thyromegaly, or carotid bruits. Carotids were easily palpable bilaterally. There was no adenopathy. The patient has a right anterior chest permacath and the exit site is clean and intact at this point in time. Lung sounds are diminished bilaterally especially lung bases along with some bibasilar crackles. Heart sounds are regular, possible sinus stool, tachycardic, no cervical murmurs appreciated. Abdomen is soft, and there is a mid abdominal incision which is dry clean and intact at this point. The patient also has a horizontal incision on the right upper quadrant and the wound is packed without any active purulent drainage at this point. No direct tenderness a Montessori guarding. Bowel sounds are diminished at the present. Extremities reveal +1 pitting edema and there is no cyanosis or clubbing at this point. Neurologically patient is awake and alert and there is no focal logical deficits. Psychiatrically seems to be slightly depressed. No anxiety. - Labs CBC & Chem 7: 07/17/17 05:11 07/17/17 05:11 Labs: Abnormal Lab Results - Last 24 Hours (Table) 07/16/17 07/16/17 07/16/17 Range/Units 12:30 17:45 21:10 RBC (3.80-5.40) m/uL Hgb (11.4-16.0) gm/dL Hct (34.0-46.0) % MCV (80.0-100.0) fL MCH (25.0-35.0) pg MCHC (31.0-37.0) g/dL RDW (11.5-15.5) % Chloride (98-107) mmol/L Creatinine (0.52-1.04) mg/dL Glucose (74-99) mg/dL POC Glucose (mg/dL) 169 H 112 H (75-99) mg/dL Magnesium (1.6-2.3) mg/dL CK-MB (CK-2) 3.8 H* (0.0-2.4) ng/mL Troponin I 0.625 H* (0.000-0.034) ng/mL Total Protein (6.3-8.2) g/dL Albumin (3.5-5.0) g/dL Urine Appearance (Clear) Urine Protein (Negative) Urine Ketones (Negative) Urine Blood (Negative) Ur Leukocyte Esterase (Negative) Urine WBC (0-5) /hpf Ur Squamous Epith Cells (0-4) /hpf Amorphous Sediment (None) /hpf Hyaline Casts (0-2) /lpf Urine Mucus (None) /hpf 07/16/17 07/17/17 07/17/17 Range/Units 23:59 02:00 05:11 RBC (3.80-5.40) m/uL Hgb (11.4-16.0) gm/dL Hct (34.0-46.0) % MCV (80.0-100.0) fL MCH (25.0-35.0) pg MCHC (31.0-37.0) g/dL RDW (11.5-15.5) % Chloride 97 L 97 L (98-107) mmol/L Creatinine 2.60 H 2.80 H (0.52-1.04) mg/dL Glucose 129 H 129 H (74-99) mg/dL POC Glucose (mg/dL) (75-99) mg/dL Magnesium 2.4 H (1.6-2.3) mg/dL CK-MB (CK-2) (0.0-2.4) ng/mL Troponin I (0.000-0.034) ng/mL Total Protein 5.5 L (6.3-8.2) g/dL Albumin 3.1 L (3.5-5.0) g/dL Urine Appearance Cloudy H (Clear) Urine Protein 2+ H (Negative) Urine Ketones 1+ H (Negative) Urine Blood Trace H (Negative) Ur Leukocyte Esterase Small H (Negative) Urine WBC 63 H (0-5) /hpf Ur Squamous Epith Cells 11 H (0-4) /hpf Amorphous Sediment Rare H (None) /hpf Hyaline Casts 96 H (0-2) /lpf Urine Mucus Rare H (None) /hpf 07/17/17 07/17/17 Range/Units 05:11 07:29 RBC 3.60 L (3.80-5.40) m/uL Hgb 8.3 L D (11.4-16.0) gm/dL Hct 27.0 L (34.0-46.0) % MCV 75.1 L (80.0-100.0) fL MCH 23.0 L (25.0-35.0) pg MCHC 30.7 L (31.0-37.0) g/dL RDW 22.0 H (11.5-15.5) % Chloride (98-107) mmol/L Creatinine (0.52-1.04) mg/dL Glucose (74-99) mg/dL POC Glucose (mg/dL) 118 H (75-99) mg/dL Magnesium (1.6-2.3) mg/dL CK-MB (CK-2) (0.0-2.4) ng/mL Troponin I (0.000-0.034) ng/mL Total Protein (6.3-8.2) g/dL Albumin (3.5-5.0) g/dL Urine Appearance (Clear) Urine Protein (Negative) Urine Ketones (Negative) Urine Blood (Negative) Ur Leukocyte Esterase (Negative) Urine WBC (0-5) /hpf Ur Squamous Epith Cells (0-4) /hpf Amorphous Sediment (None) /hpf Hyaline Casts (0-2) /lpf Urine Mucus (None) /hpf Assessment and Plan Plan: Assessment 1 acute hypoxic respiratory failure. The patient has developed bilateral lower lobe pulmonary infiltrates and pleural effusion. Rule out pneumonia. Rule out fluid overload/CHF. The patient improved with dialysis and the patient had dialysis yesterday with total of 3-1/2 L of fluid was removed during ultrafiltration. Overall condition is improved and the patient is currently on 2 L of oxygen nasal cannula of the chest x-ray still showing right lower lobe pleural effusions. We will consider thoracentesis if dialysis feels to improve her overall pulmonary status. Continued IV Zosyn. 2 CHF with impaired LV function with an ejection fraction of 30-35% with segmental wall motion abnormalities involving the left ventricle and secondary pulmonary hypertension 3 troponin leak, rule out underlying acute non-ST segment elevation myocardial infarction 4 abdominal abscess status post expose the laparotomy and resection of an infected mesh with drainage cultures indicating Proteus mirabilis and the patient was receiving Augmentin outpatient basis. Currently there is no active drainage from the right upper quadrant abdominal wound. The mid abdominal incision is dry clean and intact. 5 recent septicemia related to abdominal infection/abscess 6 acute kidney injury, currently the patient is dialysis dependent undergoing dialysis 3 times a week via permacath over the right anterior chest area 7 diabetes mellitus 8 hypertension 9 hyperlipidemia 10 acid reflux 11 chronic back pain 12 anemia of chronic disease, multifactorial Plan Continue with the IV Lasix. A short-term of hemodialysis probably an ultrafiltration of 2 L. Continue IV Zosyn. Obtain ultrasound of the chest for tomorrow morning and will consider a thoracentesis if there is any sizable effusion. Do not support cardiac catheterization at this point due to concerns of nephrotoxicity and the cath itself may not change our treatment plan. As such, the patient will be kept on IV Zosyn. We'll continue diuretics. We'll continue supportive care. Continue BiPAP treatment as needed. Surgeries on the case. IVs on the case. We'll continue to follow. Repeat labs and chest x- ray in the morning.
--- NOTE | 2017-07-17 09:57 | P.PN ---
Subjective Patient is seen in follow-up for acute kidney injury currently hemodialysis dependent. She underwent hemodialysis yesterday with 3.8 L ultrafiltration. Blood pressures drop in the systolic 90s but subsequently improved. Blood pressure this morning was in the systolic 120s. Patient's dyspnea is improved. She is currently sitting up in bed. Denies vomiting or diarrhea. Denies chest pain. Vital signs are stable. General: The patient appeared well nourished and normally developed. HEENT: Head exam is unremarkable. Neck is without jugular venous distension. LUNGS: Breath sounds decreased. No rhonchi or wheezes. HEART: Rate and Rhythm are regular. First and second heart sounds normal. No murmurs, rubs or gallops. ABDOMEN: Abdominal exam reveals normal bowel sounds. Non-tender and non- distended. No evidence of peritonitis. EXTREMITITES: No clubbing, cyanosis, or edema. Objective - Vital Signs Vital signs: Vital Signs Temp 98.1 F 07/17/17 08:00 Pulse 98 07/17/17 09:00 Resp 21 07/17/17 09:00 BP 125/66 07/17/17 09:00 Pulse Ox 96 07/17/17 09:00 Intake & Output 07/16/17 07/17/17 07/17/17 18:59 06:59 18:59 Intake Total 0 50 10 Output Total 4200 Balance 0 -4150 10 Weight 89.358 kg 83.3 kg Intake: IV 50 10 normal saline 50 10 Oral 0 0 Output: Urine 100 Other 4100 Other: Voiding Method Bedside Commode - Labs CBC & Chem 7: 07/17/17 05:11 07/17/17 05:11 Labs: Abnormal Lab Results - Last 24 Hours (Table) 07/16/17 07/16/17 07/16/17 Range/Units 12:30 17:45 21:10 RBC (3.80-5.40) m/uL Hgb (11.4-16.0) gm/dL Hct (34.0-46.0) % MCV (80.0-100.0) fL MCH (25.0-35.0) pg MCHC (31.0-37.0) g/dL RDW (11.5-15.5) % Chloride (98-107) mmol/L Creatinine (0.52-1.04) mg/dL Glucose (74-99) mg/dL POC Glucose (mg/dL) 169 H 112 H (75-99) mg/dL Magnesium (1.6-2.3) mg/dL CK-MB (CK-2) 3.8 H* (0.0-2.4) ng/mL Troponin I 0.625 H* (0.000-0.034) ng/mL Total Protein (6.3-8.2) g/dL Albumin (3.5-5.0) g/dL Urine Appearance (Clear) Urine Protein (Negative) Urine Ketones (Negative) Urine Blood (Negative) Ur Leukocyte Esterase (Negative) Urine WBC (0-5) /hpf Ur Squamous Epith Cells (0-4) /hpf Amorphous Sediment (None) /hpf Hyaline Casts (0-2) /lpf Urine Mucus (None) /hpf 07/16/17 07/17/17 07/17/17 Range/Units 23:59 02:00 05:11 RBC (3.80-5.40) m/uL Hgb (11.4-16.0) gm/dL Hct (34.0-46.0) % MCV (80.0-100.0) fL MCH (25.0-35.0) pg MCHC (31.0-37.0) g/dL RDW (11.5-15.5) % Chloride 97 L 97 L (98-107) mmol/L Creatinine 2.60 H 2.80 H (0.52-1.04) mg/dL Glucose 129 H 129 H (74-99) mg/dL POC Glucose (mg/dL) (75-99) mg/dL Magnesium 2.4 H (1.6-2.3) mg/dL CK-MB (CK-2) (0.0-2.4) ng/mL Troponin I (0.000-0.034) ng/mL Total Protein 5.5 L (6.3-8.2) g/dL Albumin 3.1 L (3.5-5.0) g/dL Urine Appearance Cloudy H (Clear) Urine Protein 2+ H (Negative) Urine Ketones 1+ H (Negative) Urine Blood Trace H (Negative) Ur Leukocyte Esterase Small H (Negative) Urine WBC 63 H (0-5) /hpf Ur Squamous Epith Cells 11 H (0-4) /hpf Amorphous Sediment Rare H (None) /hpf Hyaline Casts 96 H (0-2) /lpf Urine Mucus Rare H (None) /hpf 07/17/17 07/17/17 Range/Units 05:11 07:29 RBC 3.60 L (3.80-5.40) m/uL Hgb 8.3 L D (11.4-16.0) gm/dL Hct 27.0 L (34.0-46.0) % MCV 75.1 L (80.0-100.0) fL MCH 23.0 L (25.0-35.0) pg MCHC 30.7 L (31.0-37.0) g/dL RDW 22.0 H (11.5-15.5) % Chloride (98-107) mmol/L Creatinine (0.52-1.04) mg/dL Glucose (74-99) mg/dL POC Glucose (mg/dL) 118 H (75-99) mg/dL Magnesium (1.6-2.3) mg/dL CK-MB (CK-2) (0.0-2.4) ng/mL Troponin I (0.000-0.034) ng/mL Total Protein (6.3-8.2) g/dL Albumin (3.5-5.0) g/dL Urine Appearance (Clear) Urine Protein (Negative) Urine Ketones (Negative) Urine Blood (Negative) Ur Leukocyte Esterase (Negative) Urine WBC (0-5) /hpf Ur Squamous Epith Cells (0-4) /hpf Amorphous Sediment (None) /hpf Hyaline Casts (0-2) /lpf Urine Mucus (None) /hpf Assessment and Plan Plan: Assessment: #1. Nonoliguric acute kidney injury secondary to ATN developed postoperatively after she underwent drainage of the abdominal abscess and infected hematoma. She was also anemic and required blood transfusion that admission. Currently hemodialysis dependent. #2. Dyspnea secondary to volume overload. Improved with ultrafiltration. #3. Systolic CHF with ejection fraction of 30-35% with moderate pulmonary hypertension. #4. Hypokalemia secondary to diuresis. Improved. Magnesium replete. #5. Status post drainage of abdominal abscess and infected hematoma on 2017. #6. Anemia. Rule out iron deficiency. Plan: Maintain Lasix 80 mg IV twice daily. Hemodialysis today with goal 1-2 L ultrafiltration. Avoid nephrotoxic agents and hypotensive episodes. Check iron studies. Discussed case with the tip tester and cardiology - expect improvement of left effusion post dialysis. Otherwise may require thoracentesis. Patient will likely also require cardiac catheterization down the road. I did discuss with the patient that dye exposure will impair renal recovery.
--- NOTE | 2017-07-17 10:33 | PN ---
PROGRESS NOTE HISTORY: Mrs. Tate is a 72-year-old female who presented with worsening dyspnea and has a history of recent onset of renal failure on dialysis. She was transferred to the ICU because of progressive dyspnea. She is feeling much better this morning. Her breathing is stable. Her breathing is better. She had underwent dialysis with removal of 3.8 L yesterday and she is scheduled to undergo short dialysis today. There is a pleural effusion, more so on the left side and she may undergo well thoracentesis. Her echocardiogram revealed a severely impaired left ventricular systolic function with segmental wall motion abnormality and there is T-wave inversion anteriorly with a minimal troponin elevation suggestive of takotsubo syndrome. She denies any chest pain. She denies any palpitation. She denies any nausea. She continues to be at this time on aspirin once a day, furosemide 80 mg q.12 hours, nitro paste 1 inch q.6 hours, metoprolol tartrate 25 mg twice a day and Lipitor 10 mg daily. PHYSICAL EXAMINATION: Blood pressure 125/60 with a heart rate in the 90s. LUNGS: With decreased breath sounds at the bases. Few crackles. HEART: Regular rate and rhythm S1, S2. No S3 with systolic murmur. No diastolic murmur. ABDOMEN: Soft. Mild tenderness. Dorita noted. Extremities no significant edema. LAB DATA: Revealed BUN and creatinine 15 and 2.8, potassium 4.0, hemoglobin of 8.3. EKG reveals sinus mechanism with T-wave inversion on the anterolateral leads. Chest x-ray revealed worsening consolidation of the left lung base. IMPRESSION: 1. Findings suggestive of takotsubo syndrome with a impairment left ventricular systolic function and a T-wave inversion in the anterolateral leads with minimal troponin elevation. Respiratory failure with congestive heart failure. 2. Pleural effusion. 3. Renal failure on hemodialysis. 4. Recent extensive abdominal surgery for abscess and infection. 5. History of hypertension. 6. Hyperlipidemia. RECOMMENDATION: We will hold on the cardiac catheterization at this time in view of her status after discussion with Dr. Molina and Dr. Lopes. I will continue on the beta danika. We will increase the dose of her beta danika as well as dose of her statin and depending on her progress, further recommendations will be made. MMODL / IJN: [id number] /
[2017-07-17] MEDS: CYANOCOBALAMIN 500 MCG TAB PO SCH (11:52)
[2017-07-17] MEDS: CHOLECALCIFEROL 1,000 UNIT TAB PO SCH (11:52)
[2017-07-17 12:38] LABS: Glucose,Whole Blood 126 mg/dL (75-99)
[2017-07-17 16:45] LABS: Glucose,Whole Blood 115 mg/dL (75-99)
--- NOTE | 2017-07-17 17:18 | PN ---
PROGRESS NOTE DATE OF SERVICE: 07/17/2017 This 72-year-old woman was admitted with shortness of breath with possible congestive heart failure acute exacerbation also had a possible pneumonia. The patient also had renal failure. Yesterday the patient had hemodialysis partially and today again 2 L has been planned to be taken off. After the dialysis the patient is definitely feeling better. Patient is on nasal cannula at this time. Patient being closely monitored in ICU. Dr. Molina is following the patient closely as well as Cardiology, Nephrology as well. Most recent chest x-ray done today. The patient possibly had a takotsubo syndrome according to Cardiology. Cardiac cath has been on hold at this time. PAST MEDICAL HISTORY: Reviewed. REVIEW OF SYSTEMS: CARDIOVASCULAR: As mentioned earlier. RESPIRATORY: As mentioned earlier. GI: As mentioned. : No dysuria. NERVOUS SYSTEM: Diffusely weak. CURRENT MEDICATIONS: Reviewed and include: 1. Tylenol 650 q.6h p.r.n. 2. Xanax 0.5 b.i.d. 3. Aspirin 81 mg. 4. Lipitor 40 mg q.h.s. 5. Vitamin D3 1000 daily. 6. B12 500 mcg p.o. daily. 7. Colace 100 mg daily. 8. Lasix 80 mg IV b.i.d. 9. Heparin 5000 subcu b.i.d. 10.Lopressor. 11.Nitro-Bid. 12.Protonix. 13.Zosyn. PHYSICAL EXAM: Patient is alert, oriented x3. Pulse 103, blood pressure 119/60, respiration 24, temperature 98.2, pulse ox 96% on 2 L. HEENT: Conjunctivae normal. Oral mucosa moist. NECK: No jugular venous distention. No carotid bruit. No lymph node enlargement. CARDIOVASCULAR: S1, S2. No S3, no S4. RESPIRATORY: Breath sounds diminished in the bases. A few scattered rhonchi and crackles. Expiratory wheezing also present. ABDOMEN: Soft, nontender. No mass palpable. LEGS: Minimal edema no apparent leg edema NERVOUS SYSTEM: Higher functions as mentioned earlier. Moves all four limbs. No focal deficits. LYMPHATICS: No lymphadenopathy in the neck, axillae, groin. SKIN: No ulcers, rash or bleeding. LAB STUDIES: WBC 11.1, hemoglobin is 8.3. Creatinine is 2.80. UA noted. ASSESSMENT: 1. Shortness with possible congestive heart failure acute exacerbation with acute on chronic systolic dysfunction, ejection fraction 30-35%. 2. Rule out takotsubo syndrome. 3. Rule out bibasilar pneumonia. 4. Troponin indeterminate at 0.860. 5. History of recent abdominal abscess, status post exploratory laparotomy with resection of infected mesh and drainage and wound culture showing Proteus mirabilis and sepsis. 6. Hypertension. 7. Chronic back pain. 8. Gastroesophageal reflux disease. 9. Hyperlipidemia. 10.History of acute on chronic renal failure on hemodialysis. 11.PermCath. 12.Diabetes mellitus type 2. RECOMMENDATIONS AND DISCUSSION: In this 72-year-old woman who was admitted with multiple complex medical issues , will monitor the patient closely. Continue the current management and symptomatic treatment. Otherwise continue with hemodialysis and the rest of medications including antibiotics. Closely follow with Pulmonary and Cardiology. Possible cardiac cath once the patient is stabilized. Guarded prognosis because of multiple complex medical issues. Further recommendations to follow. MMODL / IJN: [id number] / MTDaSrah Beth
--- NOTE | 2017-07-17 17:37 | P.CONS ---
History of Present Illness - Reason for Consult Consult date: 07/16/17 - Chief Complaint shortness of breath - History of Present Illness This is a 72-year-old female patient gives history of having an abdominal wall abscess on the right side for which she was treated at [facility] emergency center in October 2016. The ER physician did an incision and drainage and widen the draining track with a scalpel and placed iodoform gauze. There was purulent material at that time. Patient states that this eventually healed and in April she was having increased right-sided abdominal pain and her PCP sent her to [facility] for an ultrasound that showed a possible hematoma on the right upper quadrant. She was then sent to Dr. Hancock for further evaluation. Because of anemia, patient underwent an upper and lower endoscopy with Dr. Hancock on May 20 that found no signs of bleeding. She subsequently underwent a hernia repair at the site of the previous hematoma or abscess from October [address] Hancock and this was done on 05/26/2017. This was located in the mid upper abdomen. She states she continued to have right-sided abdominal pain, chills and hot feeling, decreased appetite with possible weight loss and nausea. She again presented to Hospital and underwent incision and drainage of the abscess. At that time she did have evidence of significant sepsis with leukocytosis and elevated lactic acid. After surgery she recovered except developed acute renal failure on the basis of ATN and likely medication effects from Carlitos inhibitors and nonsteroidal anti-inflammatories. The patient had a protracted hospitalization eventually was sent home with outpatient hemodialysis. Shortly after being home she apparently started having increasing difficulties with her fluid status and presents to Hospital profoundly short of breath with chest x- ray showing evidence of extensive volume overload. Echocardiogram was performed due to her shortness of breath and a low ejection fraction was found. The acuity of this was not truly known we don't have prior echocardiogram here. The patient was seen by nephrology and urgent hemodialysis as requested because of her significant volume overload, BiPAP was started which improved her profound shortness of breath. With BiPAP she's feeling better and awaits hemodialysis, we'll move to the ICU for this to occur in the next short period of time. Review of Systems HEENT:Denies headache or acute visual change. Denies sinus or mouth discomforts. Denies neck stiffness or pain. Denies significant oral cavity pain. Denies difficulty on swallowing. Lungs: As per the HPI very short of breath Cardiovascular: As per the HPI severe shortness of breath some fullness in her chest but no true chest pain definite orthopnea and dyspnea on exertion she is short of breath at rest Gastrointestinal:Denies nausea, vomiting, diarrhea, constipation, hematemesis, melena, hematochezia. No no significant change of bowel habit noticed. Musculoskeletal: denies significant myalgias or arthralgias. No new joint swelling. Denies new back pain. Skin: Denies new rash or lesions. No new ulcers or wounds are related.. Neuro: Denies headache or visual change. Denies any new onset weakness or difficulty with ambulation. Denies falls or seizures. Psychiatric: Significant anxiety with her shortness of breath Endocrine: Significant fatigue weight has increased Past Medical History Past Medical History: Diabetes Mellitus, Eye Disorder, GERD/Reflux, Hyperlipidemia, Hypertension, Osteoarthritis (OA), Renal Disease Additional Past Medical History / Comment(s): October 2016 abdominal wall abscess treated in ER with I&D/eventually healed, Apr 2017 increased R sided abdominal pain/anemia and on 05/26/17 had lap incisional hernia repair with mesh and lysis of adhesions, 06/29/17 admitted [facility] with R abdominal wall abscess had exploratory lap with resection infected mesh and drainage/sepsis/proteus mirabillis, post operative blood loss anemia, acute renal failure (tubular necrosis) and is currently receiving hemodialysis (last time 07/14/17), metabolic acidosis. Other hx: NIDDM type II-diet controlled but recently placed on sliding scale, diverticular dx, numbness/tingling bilateral hands, " If I lay wrong.", low back pain with bilateral sciatica, cervical pain, R eye had retinal "hole" which was surgically repaired, currently receiving hemodialysis but also makes her own urine. History of Any Multi-Drug Resistant Organisms: None Reported Past Surgical History: Appendectomy, Cholecystectomy, Hernia Repair, Tonsillectomy Additional Past Surgical History / Comment(s): 05/26/17 laparoscopic incisional hernia repair with mesh/lysis of adhesions, 06/29/17 exploratory laparoscopy with I&D intra abdominal abscess, 07/06/17 PICC line insertion since removed, 07/08/17 hemodialysis permacath placement, bilateral cataract removals, R eye retinal hole repair, colonoscopies/EGD. Past Anesthesia/Blood Transfusion Reactions: No Reported Reaction Smoking Status: Never smoker - Past Family History Father Family Medical History: Diabetes Mellitus Additional Family Medical History / Comment(s): father at the age of 62 yrs from diabetic complications. Mother Family Medical History: Diabetes Mellitus, Osteoarthritis (OA) Additional Family Medical History / Comment(s): Mother at the age of 93yrs. Medications and Allergies Home Medications and Allergies Comment(s): Current Medications Acetaminophen (Tylenol Tab) 650 mg PO Q6HR PRN PRN Reason: Mild Pain or Fever > 100.5 Alprazolam (Xanax) 0.25 mg PO BID PRN PRN Reason: Anxiety Aspirin (Aspirin) 81 mg PO DAILY [facility] Last Admin: 07/17/17 09:38 Dose: 81 mg Atorvastatin Calcium (Lipitor) 40 mg PO HS [facility] Cholecalciferol (Vitamin D3) 1,000 unit PO 1200 [facility] Last Admin: 07/17/17 11:52 Dose: 1,000 unit Cyanocobalamin (Vitamin B-12) 500 mcg PO 1200 [facility] Last Admin: 07/17/17 11:52 Dose: 500 mcg Docusate Sodium (Colace) 100 mg PO HS [facility] Furosemide (Lasix) 80 mg IV Q12HR [facility] Last Admin: 07/17/17 08:39 Dose: 80 mg Heparin Sodium (Porcine) (Heparin) 5,000 unit SQ Q12HR [facility] Last Admin: 07/17/17 08:38 Dose: 5,000 unit Piperacillin/Tazobactam/ (Dextrose 3.375 gm/ IV Solution) 50 mls @ 12.5 mls/hr IVPB Q12HR [facility] Last Admin: 07/17/17 09:37 Dose: 12.5 mls/hr Metoprolol Tartrate (Lopressor) 25 mg PO TID [facility] Miscellaneous Information (Magnesium Per Protocol) 1 each MISCELLANE DAILY PRN ; Protocol PRN Reason: Per Protocol Miscellaneous Information (Potassium Per Protocol) 1 each MISCELLANE DAILY PRN ; Protocol PRN Reason: Per Protocol Nitroglycerin (Nitro-Bid Oint) 1 inch TOPICAL QID [facility] Last Admin: 07/17/17 11:52 Dose: 1 inch Pantoprazole Sodium (Protonix) 40 mg PO AC-BRKFST [facility] Last Admin: 07/17/17 08:38 Dose: 40 mg Sodium Chloride (Saline Flush) 10 ml IV BID [facility] Last Admin: 07/17/17 08:39 Dose: 10 ml Home Medications Medication Instructions Recorded Confirmed Type Simvastatin 20 mg PO HS 12/08/15 07/16/17 History Docusate [Colace] 100 mg PO BID #20 capsule 05/26/17 07/16/17 Rx Cyanocobalamin [Vitamin B-12] 500 mcg PO DAILY 06/29/17 07/16/17 History Omeprazole 20 mg PO DAILY 06/29/17 07/16/17 History ALPRAZolam [Xanax] 0.25 mg PO BID PRN #20 tab 07/13/17 07/16/17 Rx Acetaminophen Tab [Tylenol] 650 mg PO Q6HR PRN tab 07/13/17 07/16/17 Rx Amoxic-Pot Clav 500-125 mg 1 tab PO Q12HR #14 tab 07/13/17 07/16/17 Rx [Augmentin 500-125 mg] Cholecalciferol [Vitamin D3] 1,000 unit PO 1200 tab 07/13/17 07/16/17 Rx INSULIN LISPRO (HumaLOG) [humaLOG] 0 unit SQ ACHS #1 vial 07/13/17 07/16/17 Rx Allergies Allergy/AdvReac Type Severity Reaction Status Date / Time venom-honey bee Allergy Anaphylaxis Verified 07/16/17 06:56 [bee venom (honey bee)] Physical Exam Vitals: Vital Signs Temp Pulse Pulse Resp BP Pulse Ox 07/17/17 15:00 92 21 118/83 95 07/17/17 14:00 104 H 19 118/71 97 07/17/17 13:00 103 H 24 119/62 96 07/17/17 12:00 98.2 F 92 24 132/72 96 07/17/17 11:00 90 20 124/66 96 07/17/17 10:00 90 21 126/72 96 07/17/17 09:00 98 21 125/66 96 07/17/17 08:00 98.1 F 98 20 117/64 98 07/17/17 07:30 97 07/17/17 07:00 94 18 109/69 96 07/17/17 06:30 114 H 20 119/72 96 07/17/17 06:00 92 16 114/63 98 07/17/17 05:30 84 18 106/58 98 07/17/17 05:00 83 14 110/64 97 07/17/17 04:30 81 18 114/65 98 07/17/17 04:00 98.2 F 87 87 16 117/66 97 07/17/17 03:30 95 18 106/58 98 07/17/17 03:00 81 14 97/62 98 07/17/17 02:56 99 07/17/17 02:30 82 16 109/57 99 07/17/17 02:00 107 H 18 108/86 96 07/17/17 01:30 81 14 89/48 99 07/17/17 01:00 79 16 87/50 99 07/17/17 00:30 89 14 91/51 100 07/17/17 00:00 97.7 F 87 81 16 92/51 99 07/16/17 23:30 88 16 100/65 100 07/16/17 23:22 98 14 114/63 99 07/16/17 23:05 99 07/16/17 23:00 98 16 95/53 100 07/16/17 22:30 87 16 91/55 100 07/16/17 22:00 89 16 94/58 100 07/16/17 21:30 93 14 93/52 100 07/16/17 21:00 91 16 109/70 100 07/16/17 20:30 95 16 120/66 99 07/16/17 20:00 97.6 F 80 97 16 83/46 99 07/16/17 19:30 93 18 110/82 99 07/16/17 19:00 90 123/69 99 07/16/17 18:30 102 H 124/70 99 18 18:10 105 H 127/75 99 07/16/17 18:00 108 H 122/75 99 18 17:55 20 07/16/17 17:50 97.4 F L 114 H 132/87 99 Intake and Output 07/17/17 07/17/17 07/17/17 06:59 14:59 22:59 Intake Total 20 130 10 Output Total 100 650 Balance -80 -520 10 Intake: IV 20 130 10 Piperacillin-Tazobactam 3 50 .375 gm In Dextrose/Water 1 50ml.bag @ 12.5 mls/hr IVPB Q12HR [facility] Rx#: [id number] normal saline 20 80 10 Oral 0 Output: Urine 100 650 Other: Voiding Method Bedside Commode # Bowel Movements 1 Weight 83.3 kg Gen: This is a 72-year-old female patient. Very short of breath BiPAP in place HEENT: Head is atraumatic, normocephalic. Pupils equal, round. Sclerae is anicteric. Conjunctiva pink. Mucous members of the mouth are dry. NECK: Supple. No JVD. No lymphadenopathy. No thyromegaly. LUNGS: Patient has a rapid respiratory rate and has evidence of crackles at the bilateral bases left greater than right expiratory wheezes are scattered HEART: Regular rate and rhythm. 2/6 systolic murmur without click or rub PMI is nondisplaced ABDOMEN: Soft. Bowel sounds are present. No masses. Right sided tenderness. Mass palpated to the mid right lateral area. EXTREMITIES: Bilateral lower extremity edema without open ulcers, No calf tenderness. Dorsalis pedis +2 bilaterally. NEUROLOGICAL: Patient is awake, alert and oriented x3. Cranial nerves 2 through 12 are grossly intact. Results CBC & Chem 7: 07/17/17 05:11 07/17/17 05:11 Labs: Abnormal Lab Results - Last 24 Hours (Table) 07/16/17 07/16/17 07/16/17 Range/Units 17:45 21:10 23:59 RBC (3.80-5.40) m/uL Hgb (11.4-16.0) gm/dL Hct (34.0-46.0) % MCV (80.0-100.0) fL MCH (25.0-35.0) pg MCHC (31.0-37.0) g/dL RDW (11.5-15.5) % Chloride 97 L (98-107) mmol/L Creatinine 2.60 H (0.52-1.04) mg/dL Glucose 129 H (74-99) mg/dL POC Glucose (mg/dL) 169 H 112 H (75-99) mg/dL Magnesium (1.6-2.3) mg/dL Total Protein 5.5 L (6.3-8.2) g/dL Albumin 3.1 L (3.5-5.0) g/dL Urine Appearance (Clear) Urine Protein (Negative) Urine Ketones (Negative) Urine Blood (Negative) Ur Leukocyte Esterase (Negative) Urine WBC (0-5) /hpf Ur Squamous Epith Cells (0-4) /hpf Amorphous Sediment (None) /hpf Hyaline Casts (0-2) /lpf Urine Mucus (None) /hpf 07/17/17 07/17/17 07/17/17 Range/Units 02:00 05:11 05:11 RBC 3.60 L (3.80-5.40) m/uL Hgb 8.3 L D (11.4-16.0) gm/dL Hct 27.0 L (34.0-46.0) % MCV 75.1 L (80.0-100.0) fL MCH 23.0 L (25.0-35.0) pg MCHC 30.7 L (31.0-37.0) g/dL RDW 22.0 H (11.5-15.5) % Chloride 97 L (98-107) mmol/L Creatinine 2.80 H (0.52-1.04) mg/dL Glucose 129 H (74-99) mg/dL POC Glucose (mg/dL) (75-99) mg/dL Magnesium 2.4 H (1.6-2.3) mg/dL Total Protein (6.3-8.2) g/dL Albumin (3.5-5.0) g/dL Urine Appearance Cloudy H (Clear) Urine Protein 2+ H (Negative) Urine Ketones 1+ H (Negative) Urine Blood Trace H (Negative) Ur Leukocyte Esterase Small H (Negative) Urine WBC 63 H (0-5) /hpf Ur Squamous Epith Cells 11 H (0-4) /hpf Amorphous Sediment Rare H (None) /hpf Hyaline Casts 96 H (0-2) /lpf Urine Mucus Rare H (None) /hpf 07/17/17 07/17/17 07/17/17 Range/Units 07:29 12:37 16:43 RBC (3.80-5.40) m/uL Hgb (11.4-16.0) gm/dL Hct (34.0-46.0) % MCV (80.0-100.0) fL MCH (25.0-35.0) pg MCHC (31.0-37.0) g/dL RDW (11.5-15.5) % Chloride (98-107) mmol/L Creatinine (0.52-1.04) mg/dL Glucose (74-99) mg/dL POC Glucose (mg/dL) 118 H 126 H 115 H (75-99) mg/dL Magnesium (1.6-2.3) mg/dL Total Protein (6.3-8.2) g/dL Albumin (3.5-5.0) g/dL Urine Appearance (Clear) Urine Protein (Negative) Urine Ketones (Negative) Urine Blood (Negative) Ur Leukocyte Esterase (Negative) Urine WBC (0-5) /hpf Ur Squamous Epith Cells (0-4) /hpf Amorphous Sediment (None) /hpf Hyaline Casts (0-2) /lpf Urine Mucus (None) /hpf Microbiology - Last 24 Hours (Table) 07/17/17 02:00 Urine Culture - Preliminary Urine,Voided Laboratory Results WBC 9.7 k/uL (3.8-10.6) 07/17/17 05:11 RBC 3.60 m/uL (3.80-5.40) L 07/17/17 05:11 Hgb 8.3 gm/dL (11.4-16.0) L D 07/17/17 05:11 Hct 27.0 % (34.0-46.0) L 07/17/17 05:11 MCV 75.1 fL (80.0-100.0) L 07/17/17 05:11 MCH 23.0 pg (25.0-35.0) L 07/17/17 05:11 MCHC 30.7 g/dL (31.0-37.0) L 07/17/17 05:11 RDW 22.0 % (11.5-15.5) H 07/17/17 05:11 Plt Count 340 k/uL (150-450) 07/17/17 05:11 Neutrophils % 76 % 07/17/17 05:11 Lymphocytes % 17 % 07/17/17 05:11 Monocytes % 4 % 07/17/17 05:11 Eosinophils % 1 % 07/17/17 05:11 Basophils % 1 % 07/17/17 05:11 Neutrophils # 7.4 k/uL (1.3-7.7) 07/17/17 05:11 Lymphocytes # 1.6 k/uL (1.0-4.8) 07/17/17 05:11 Monocytes # 0.4 k/uL (0-1.0) 07/17/17 05:11 Eosinophils # 0.1 k/uL (0-0.7) 07/17/17 05:11 Basophils # 0.1 k/uL (0-0.2) 07/17/17 05:11 Hypochromasia Marked 07/17/17 05:11 Poikilocytosis Slight 07/16/17 00:13 Anisocytosis Moderate 07/17/17 05:11 Microcytosis Moderate 07/17/17 05:11 PT 11.1 sec (9.0-12.0) 07/16/17 00:13 INR 1.2 (<1.2) H 07/16/17 00:13 APTT 20.4 sec (22.0-30.0) L 07/16/17 00:13 Sodium 138 mmol/L (137-145) 07/17/17 05:11 Potassium 4.0 mmol/L (3.5-5.1) 07/17/17 05:11 Chloride 97 mmol/L (98-107) L 07/17/17 05:11 Carbon Dioxide 26 mmol/L (22-30) 07/17/17 05:11 Anion Gap 15 mmol/L 07/17/17 05:11 BUN 15 mg/dL (7-17) 07/17/17 05:11 Creatinine 2.80 mg/dL (0.52-1.04) H 07/17/17 05:11 Est GFR (CKD-EPI)AfAm 19 (>60 ml/min/1.73 sqM) 07/17/17 05:11 Est GFR (CKD-EPI)NonAf 16 (>60 ml/min/1.73 sqM) 07/17/17 05:11 Glucose 129 mg/dL (74-99) H 07/17/17 05:11 POC Glucose (mg/dL) 115 mg/dL (75-99) H 07/17/17 16:43 POC Glu Oiler Helper ID Tania Tai 07/17/17 16:43 Calcium 8.6 mg/dL (8.4-10.2) 07/17/17 05:11 Phosphorus 4.2 mg/dL (2.5-4.5) 07/17/17 05:11 Magnesium 2.4 mg/dL (1.6-2.3) H 07/17/17 05:11 Total Bilirubin 0.6 mg/dL (0.2-1.3) 07/16/17 23:59 AST 16 U/L (14-36) 07/16/17 23:59 ALT 16 U/L (9-52) 07/16/17 23:59 Alkaline Phosphatase 66 U/L (38-126) 07/16/17 23:59 Total Creatine Kinase 43 U/L (30-135) 07/16/17 00:13 CK-MB (CK-2) 3.8 ng/mL (0.0-2.4) H* 07/16/17 12:30 CK-MB (CK-2) Rel Index 5.6 07/16/17 00:13 Troponin I 0.625 ng/mL (0.000-0.034) H* 07/16/17 12:30 NT-Pro-B Natriuret Pep [id number] pg/mL 07/16/17 00:13 Total Protein 5.5 g/dL (6.3-8.2) L 07/16/17 23:59 Albumin 3.1 g/dL (3.5-5.0) L 07/16/17 23:59 Urine Color Yellow 07/17/17 02:00 Urine Appearance Cloudy (Clear) H 07/17/17 02:00 Urine pH 6.0 (5.0-8.0) 07/17/17 02:00 Ur Specific [place] 1.015 (1.001-1.035) 07/17/17 02:00 Urine Protein 2+ (Negative) H 07/17/17 02:00 Urine Glucose (UA) Negative (Negative) 07/17/17 02:00 Urine Ketones 1+ (Negative) H 07/17/17 02:00 Urine Blood Trace (Negative) H 07/17/17 02:00 Urine Nitrite Negative (Negative) 07/17/17 02:00 Urine Bilirubin Negative (Negative) 07/17/17 02:00 Urine Urobilinogen <2.0 mg/dL (<2.0) 07/17/17 02:00 Ur Leukocyte Esterase Small (Negative) H 07/17/17 02:00 Urine RBC 5 /hpf (0-5) 07/17/17 02:00 Urine WBC 63 /hpf (0-5) H 07/17/17 02:00 Ur Squamous Epith Cells 11 /hpf (0-4) H 07/17/17 02:00 Amorphous Sediment Rare /hpf (None) H 07/17/17 02:00 Hyaline Casts 96 /lpf (0-2) H 07/17/17 02:00 Urine Mucus Rare /hpf (None) H 07/17/17 02:00 Microbiology 07/17/17 02:00 Urine,Voided Urine Culture - Preliminary Assessment and Plan (1) Pulmonary edema Current Visit: Yes Status: Acute Code(s): J81.1 - CHRONIC PULMONARY EDEMA SNOMED Code(s): 10199686 (2) Abdominal wall abscess Narrative/Plan: Pleasant 72-year-old woman presents from home with profound increasing shortness of breath occurring after her long hospital stay and transition to home. The is present and does relate that he is providing all of her meals, which includes cold cuts and frozen meals, he does not cook. The patient this time his pulmonary edema with significant volume overload and nephrology has evaluated and has asked for urgent hemodialysis remove the severe amount of fluid. Pleural effusion is noted and hopefully with hemodialysis will rapidly improve. At this time no evidence of significant infection and would do well to not have further ulceration of her antibiotic therapy but should complete the course of antibiotic for the abdominal abscess. While she is acutely ill she is receiving Zosyn and should complete 7 days total of antibiotic with Augmentin. We'll expect with hemodialysis she has a rapid improvement. Current Visit: No Status: Acute Code(s): L02.211 - CUTANEOUS ABSCESS OF ABDOMINAL WALL SNOMED Code(s): 65732689
[2017-07-17 18:00] LABS: Iron Saturation 7.59 (12.00-45.00)
[2017-07-17 20:23] LABS: Glucose,Whole Blood 139 mg/dL (75-99)
[2017-07-17] MEDS: ATORVASTATIN 40 MG TAB PO SCH (20:30)
[2017-07-17] MEDS: CLOTRIMAZOLE TROCHE 10 MG TROCHE MUCOUS MEM SCH (22:03)
--- NOTE | 2017-07-17 22:55 | P.PN ---
Subjective Progress Note Date: 07/17/17 Principal diagnosis: Shortness of breath This is a 72-year-old female patient gives history of having an abdominal wall abscess on the right side for which she was treated at [facility] emergency center in October 2016. The ER physician did an incision and drainage and widen the draining track with a scalpel and placed iodoform gauze. There was purulent material at that time. Patient states that this eventually healed and in April she was having increased right-sided abdominal pain and her PCP sent her to [facility] for an ultrasound that showed a possible hematoma on the right upper quadrant. She was then sent to Dr. Hancock for further evaluation. Because of anemia, patient underwent an upper and lower endoscopy with Dr. Hancock on May 20 that found no signs of bleeding. She subsequently underwent a hernia repair at the site of the previous hematoma or abscess from October [address] Hancock and this was done on 05/26/2017. This was located in the mid upper abdomen. She states she continued to have right-sided abdominal pain, chills and hot feeling, decreased appetite with possible weight loss and nausea. She again presented to Hospital and underwent incision and drainage of the abscess. At that time she did have evidence of significant sepsis with leukocytosis and elevated lactic acid. After surgery she recovered except developed acute renal failure on the basis of ATN and likely medication effects from Carlitos inhibitors and nonsteroidal anti-inflammatories. The patient had a protracted hospitalization eventually was sent home with outpatient hemodialysis. Shortly after being home she apparently started having increasing difficulties with her fluid status and presents to Hospital profoundly short of breath with chest x- ray showing evidence of extensive volume overload. Echocardiogram was performed due to her shortness of breath and a low ejection fraction was found. The acuity of this was not truly known we don't have prior echocardiogram here. The patient was seen by nephrology and urgent hemodialysis as requested because of her significant volume overload, BiPAP was started which improved her profound shortness of breath. With BiPAP she's feeling better and awaits hemodialysis, we'll move to the ICU for this to occur in the next short period of time. 07/17/2017 reveals the patient to be feeling considerably better after her second cycle of hemodialysis in 48 hours. With 6 L of fluid removed her shortness of breath is generally resolving, her initial is improving and she is able to eat. Sitting at the bedside without oxygen on breathing comfortably she has a saturation greater than 95%. As noted she is off BiPAP and feeling better. She denies fevers or chills. Objective - Vital Signs Vital signs: Vital Signs Temp 98.7 F 07/17/17 20:00 Pulse 93 07/17/17 20:00 Resp 20 07/17/17 20:00 BP 124/66 07/17/17 20:00 Pulse Ox 94 L 07/17/17 20:00 Intake & Output 07/17/17 07/17/17 07/18/17 06:59 18:59 06:59 Intake Total 50 170 30 Output Total 4200 800 Balance -4150 -630 30 Weight 83.3 kg Intake: IV 50 170 30 Piperacillin-Tazobactam 3 50 .375 gm In Dextrose/Water 1 50ml.bag @ 12.5 mls/hr IVPB Q12HR [facility] Rx#: [id number] normal saline 50 120 30 Oral 0 Output: Urine 100 800 Other 4100 Other: Voiding Method Bedside Commode Bedside Commode # Bowel Movements 1 - Exam Gen: This is a 72-year-old female patient. No considerably less short of breath HEENT: Head is atraumatic, normocephalic. Pupils equal, round. Sclerae is anicteric. Conjunctiva pink. Mucous members of the mouth are dry. NECK: Supple. No JVD. No lymphadenopathy. No thyromegaly. LUNGS: Patient has a rapid respiratory rate and has evidence of crackles at the bilateral bases left greater than right expiratory wheezes are scattered HEART: Regular rate and rhythm. 2/6 systolic murmur without click or rub PMI is nondisplaced ABDOMEN: Soft. Bowel sounds are present. No masses. Right sided tenderness. Mass palpated to the mid right lateral area. EXTREMITIES: Bilateral lower extremity edema without open ulcers, No calf tenderness. Dorsalis pedis +2 bilaterally. NEUROLOGICAL: Patient is awake, alert and oriented x3. - Labs CBC & Chem 7: 07/17/17 05:11 07/17/17 05:11 Labs: Abnormal Lab Results - Last 24 Hours (Table) 07/16/17 07/17/17 07/17/17 Range/Units 23:59 02:00 05:11 RBC (3.80-5.40) m/uL Hgb (11.4-16.0) gm/dL Hct (34.0-46.0) % MCV (80.0-100.0) fL MCH (25.0-35.0) pg MCHC (31.0-37.0) g/dL RDW (11.5-15.5) % Chloride 97 L 97 L (98-107) mmol/L Creatinine 2.60 H 2.80 H (0.52-1.04) mg/dL Glucose 129 H 129 H (74-99) mg/dL POC Glucose (mg/dL) (75-99) mg/dL Magnesium 2.4 H (1.6-2.3) mg/dL Total Protein 5.5 L (6.3-8.2) g/dL Albumin 3.1 L (3.5-5.0) g/dL Urine Appearance Cloudy H (Clear) Urine Protein 2+ H (Negative) Urine Ketones 1+ H (Negative) Urine Blood Trace H (Negative) Ur Leukocyte Esterase Small H (Negative) Urine WBC 63 H (0-5) /hpf Ur Squamous Epith Cells 11 H (0-4) /hpf Amorphous Sediment Rare H (None) /hpf Hyaline Casts 96 H (0-2) /lpf Urine Mucus Rare H (None) /hpf 07/17/17 07/17/17 07/17/17 Range/Units 05:11 07:29 12:37 RBC 3.60 L (3.80-5.40) m/uL Hgb 8.3 L D (11.4-16.0) gm/dL Hct 27.0 L (34.0-46.0) % MCV 75.1 L (80.0-100.0) fL MCH 23.0 L (25.0-35.0) pg MCHC 30.7 L (31.0-37.0) g/dL RDW 22.0 H (11.5-15.5) % Chloride (98-107) mmol/L Creatinine (0.52-1.04) mg/dL Glucose (74-99) mg/dL POC Glucose (mg/dL) 118 H 126 H (75-99) mg/dL Magnesium (1.6-2.3) mg/dL Total Protein (6.3-8.2) g/dL Albumin (3.5-5.0) g/dL Urine Appearance (Clear) Urine Protein (Negative) Urine Ketones (Negative) Urine Blood (Negative) Ur Leukocyte Esterase (Negative) Urine WBC (0-5) /hpf Ur Squamous Epith Cells (0-4) /hpf Amorphous Sediment (None) /hpf Hyaline Casts (0-2) /lpf Urine Mucus (None) /hpf 07/17/17 07/17/17 Range/Units 16:43 20:22 RBC (3.80-5.40) m/uL Hgb (11.4-16.0) gm/dL Hct (34.0-46.0) % MCV (80.0-100.0) fL MCH (25.0-35.0) pg MCHC (31.0-37.0) g/dL RDW (11.5-15.5) % Chloride (98-107) mmol/L Creatinine (0.52-1.04) mg/dL Glucose (74-99) mg/dL POC Glucose (mg/dL) 115 H 139 H (75-99) mg/dL Magnesium (1.6-2.3) mg/dL Total Protein (6.3-8.2) g/dL Albumin (3.5-5.0) g/dL Urine Appearance (Clear) Urine Protein (Negative) Urine Ketones (Negative) Urine Blood (Negative) Ur Leukocyte Esterase (Negative) Urine WBC (0-5) /hpf Ur Squamous Epith Cells (0-4) /hpf Amorphous Sediment (None) /hpf Hyaline Casts (0-2) /lpf Urine Mucus (None) /hpf Microbiology - Last 24 Hours (Table) 07/16/17 15:25 Blood Culture - Preliminary Blood No Growth after 24 hours 07/17/17 02:00 Urine Culture - Preliminary Urine,Voided Laboratory Results WBC 9.7 k/uL (3.8-10.6) 07/17/17 05:11 RBC 3.60 m/uL (3.80-5.40) L 07/17/17 05:11 Hgb 8.3 gm/dL (11.4-16.0) L D 07/17/17 05:11 Hct 27.0 % (34.0-46.0) L 07/17/17 05:11 MCV 75.1 fL (80.0-100.0) L 07/17/17 05:11 MCH 23.0 pg (25.0-35.0) L 07/17/17 05:11 MCHC 30.7 g/dL (31.0-37.0) L 07/17/17 05:11 RDW 22.0 % (11.5-15.5) H 07/17/17 05:11 Plt Count 340 k/uL (150-450) 07/17/17 05:11 Neutrophils % 76 % 07/17/17 05:11 Lymphocytes % 17 % 07/17/17 05:11 Monocytes % 4 % 07/17/17 05:11 Eosinophils % 1 % 07/17/17 05:11 Basophils % 1 % 07/17/17 05:11 Neutrophils # 7.4 k/uL (1.3-7.7) 07/17/17 05:11 Lymphocytes # 1.6 k/uL (1.0-4.8) 07/17/17 05:11 Monocytes # 0.4 k/uL (0-1.0) 07/17/17 05:11 Eosinophils # 0.1 k/uL (0-0.7) 07/17/17 05:11 Basophils # 0.1 k/uL (0-0.2) 07/17/17 05:11 Hypochromasia Marked 07/17/17 05:11 Poikilocytosis Slight 07/16/17 00:13 Anisocytosis Moderate 07/17/17 05:11 Microcytosis Moderate 07/17/17 05:11 PT 11.1 sec (9.0-12.0) 07/16/17 00:13 INR 1.2 (<1.2) H 07/16/17 00:13 APTT 20.4 sec (22.0-30.0) L 07/16/17 00:13 Sodium 138 mmol/L (137-145) 07/17/17 05:11 Potassium 4.0 mmol/L (3.5-5.1) 07/17/17 05:11 Chloride 97 mmol/L (98-107) L 07/17/17 05:11 Carbon Dioxide 26 mmol/L (22-30) 07/17/17 05:11 Anion Gap 15 mmol/L 07/17/17 05:11 BUN 15 mg/dL (7-17) 07/17/17 05:11 Creatinine 2.80 mg/dL (0.52-1.04) H 07/17/17 05:11 Est GFR (CKD-EPI)AfAm 19 (>60 ml/min/1.73 sqM) 07/17/17 05:11 Est GFR (CKD-EPI)NonAf 16 (>60 ml/min/1.73 sqM) 07/17/17 05:11 Glucose 129 mg/dL (74-99) H 07/17/17 05:11 POC Glucose (mg/dL) 139 mg/dL (75-99) H 07/17/17 20:22 POC Glu [employer] ID Keesha Solomon 07/17/17 20:22 Calcium 8.6 mg/dL (8.4-10.2) 07/17/17 05:11 Phosphorus 4.2 mg/dL (2.5-4.5) 07/17/17 05:11 Magnesium 2.4 mg/dL (1.6-2.3) H 07/17/17 05:11 Total Bilirubin 0.6 mg/dL (0.2-1.3) 07/16/17 23:59 AST 16 U/L (14-36) 07/16/17 23:59 ALT 16 U/L (9-52) 07/16/17 23:59 Alkaline Phosphatase 66 U/L (38-126) 07/16/17 23:59 Total Creatine Kinase 43 U/L (30-135) 07/16/17 00:13 CK-MB (CK-2) 3.8 ng/mL (0.0-2.4) H* 07/16/17 12:30 CK-MB (CK-2) Rel Index 5.6 07/16/17 00:13 Troponin I 0.625 ng/mL (0.000-0.034) H* 07/16/17 12:30 NT-Pro-B Natriuret Pep 37975 pg/mL 07/16/17 00:13 Total Protein 5.5 g/dL (6.3-8.2) L 07/16/17 23:59 Albumin 3.1 g/dL (3.5-5.0) L 07/16/17 23:59 Urine Color Yellow 07/17/17 02:00 Urine Appearance Cloudy (Clear) H 07/17/17 02:00 Urine pH 6.0 (5.0-8.0) 07/17/17 02:00 Ur Specific [place] 1.015 (1.001-1.035) 07/17/17 02:00 Urine Protein 2+ (Negative) H 07/17/17 02:00 Urine Glucose (UA) Negative (Negative) 07/17/17 02:00 Urine Ketones 1+ (Negative) H 07/17/17 02:00 Urine Blood Trace (Negative) H 07/17/17 02:00 Urine Nitrite Negative (Negative) 07/17/17 02:00 Urine Bilirubin Negative (Negative) 07/17/17 02:00 Urine Urobilinogen <2.0 mg/dL (<2.0) 07/17/17 02:00 Ur Leukocyte Esterase Small (Negative) H 07/17/17 02:00 Urine RBC 5 /hpf (0-5) 07/17/17 02:00 Urine WBC 63 /hpf (0-5) H 07/17/17 02:00 Ur Squamous Epith Cells 11 /hpf (0-4) H 07/17/17 02:00 Amorphous Sediment Rare /hpf (None) H 07/17/17 02:00 Hyaline Casts 96 /lpf (0-2) H 07/17/17 02:00 Urine Mucus Rare /hpf (None) H 07/17/17 02:00 Microbiology 07/16/17 15:25 Blood Blood Culture - Preliminary No Growth after 24 hours 07/17/17 02:00 Urine,Voided Urine Culture - Preliminary Assessment and Plan (1) Pulmonary edema Current Visit: Yes Status: Acute Code(s): J81.1 - CHRONIC PULMONARY EDEMA SNOMED Code(s): 90273768 (2) Abdominal wall abscess Narrative/Plan: Pleasant 72-year-old woman presents from home with profound increasing shortness of breath occurring after her long hospital stay and transition to home. The is present and does relate that he is providing all of her meals, which includes cold cuts and frozen meals, he does not cook. The patient this time his pulmonary edema with significant volume overload and nephrology has evaluated and has asked for urgent hemodialysis remove the severe amount of fluid. Pleural effusion is noted and hopefully with hemodialysis will rapidly improve. At this time no evidence of significant infection and would do well to not have further ulceration of her antibiotic therapy but should complete the course of antibiotic for the abdominal abscess. While she is acutely ill she is receiving Zosyn and should complete 7 days total of antibiotic with Augmentin. We'll expect with hemodialysis she has a rapid improvement. 07/17/2017 reveals the patient be considerably improved after her second cycle of hemodialysis and removal of 6 L of fluid. Fortunately there is no evidence of pneumonia at this time. She does have abdominal ulceration Aquacel silver as requested to be packed into the ulceration. She relates that she's having a bit of irritation overall cavity somewhat when she had thrush recently and Mycelex as requested. She is down to the last several days of antibiotic therapy which can be transitioned to Augmentin at the time for discharge. Current Visit: No Status: Acute Code(s): L02.211 - CUTANEOUS ABSCESS OF ABDOMINAL WALL SNOMED Code(s): 87837899
[2017-07-18 04:36] LABS: Anisocytosis Moderate; Basophils % (A) 1 %; Eosinophils # (A) 0.2 k/uL (0-0.7); Eosinophils % (A) 2 %; HCT 25.2 % (34.0-46.0); HGB 7.5 gm/dL (11.4-16.0); Hypochromasia Marked; Lymphocytes # (A) 1.2 k/uL (1.0-4.8); Lymphocytes % (A) 18 %; MCH 22.1 pg (25.0-35.0); MCHC 29.8 g/dL (31.0-37.0); MCV 74.1 fL (80.0-100.0); Mean Platelet Volume 7.4; Microcytosis Marked; Monocytes # (A) 0.4 k/uL (0-1.0); Monocytes % (A) 5 %; Neutrophils # (A) 4.8 k/uL (1.3-7.7); Neutrophils % (A) 73 %; Platelet Count 275 k/uL (150-450); RDW 22.6 % (11.5-15.5); WBC 6.6 k/uL (3.8-10.6)
[2017-07-18 04:50] LABS: Calcium 8.4 mg/dL (8.4-10.2); Potassium 3.3 mmol/L (3.5-5.1)
--- NOTE | 2017-07-18 07:19 | XR ---
EXAMINATION TYPE: XR chest 1V portable DATE OF EXAM: 07/18/2017 HISTORY: SOB. REFERENCE: Previous study dated 07/17/2017. FINDINGS: A large-bore, double-lumen catheter remains in place via a right internal jugular approach. Its tip is in the right atrium. There is bibasilar airspace disease. There are small effusions. Heart size is upper limits of normal. IMPRESSION: NO SIGNIFICANT INTERVAL CHANGE IN THE APPEARANCE OF THE CHEST.
[2017-07-18 07:20] LABS: Glucose,Whole Blood 125 mg/dL (75-99)
[2017-07-18] MEDS: FUROSEMIDE 10 MG/ML 10 ML VIAL IV SCH ×2 (07:42→21:23)
[2017-07-18] MEDS: HEPARIN SODIUM,PORCINE 5,000 UNIT/ML 1 ML VIAL SQ SCH ×2 (07:43→21:24)
[2017-07-18] MEDS: PANTOPRAZOLE 40 MG TABLET PO SCH (07:43)
[2017-07-18] MEDS: METOPROLOL TARTRATE 25 MG TAB PO SCH (07:43)
[2017-07-18] MEDS: CLOTRIMAZOLE TROCHE 10 MG TROCHE MUCOUS MEM SCH ×3 (07:43→21:24)
[2017-07-18] MEDS: ASPIRIN 81 MG PO SCH (07:43)
[2017-07-18] MEDS: POTASSIUM CHLORIDE ER 20 MEQ TAB.ER PO SCH ×2 (07:43→09:07)
[2017-07-18] MEDS: NITROGLYCERIN OINT 1 INCH/GM PACKET TOPICAL SCH (07:45)
--- NOTE | 2017-07-18 08:49 | P.PN ---
Subjective Patient is seen in follow-up for acute kidney injury currently hemodialysis dependent. She underwent hemodialysis yesterday with 2 L ultrafiltration. Currently resting in bed. Denies any active chest pain or shortness of breath. States she became dyspneic last night but improved with BiPAP. Chest x-ray reveals small effusions. Scheduled for thoracentesis today. Vital signs are stable. General: The patient appeared well nourished and normally developed. HEENT: Head exam is unremarkable. Neck is without jugular venous distension. LUNGS: Breath sounds decreased. No rhonchi or wheezes. HEART: Rate and Rhythm are regular. First and second heart sounds normal. No murmurs, rubs or gallops. ABDOMEN: Abdominal exam reveals normal bowel sounds. Non-tender and non- distended. No evidence of peritonitis. EXTREMITITES: No clubbing, cyanosis, or edema. Objective - Vital Signs Vital signs: Vital Signs Temp 98.9 F 07/18/17 04:00 Pulse 80 07/18/17 07:00 Resp 15 07/18/17 07:00 BP 144/79 07/18/17 07:00 Pulse Ox 99 07/18/17 07:00 Intake & Output 07/17/17 07/18/17 07/18/17 18:59 06:59 18:59 Intake Total 170 170.0 10 Output Total 800 725 Balance -630 -555.0 10 Weight 80.8 kg Intake: IV 170 170.0 10 Piperacillin-Tazobactam 3 50 50.0 .375 gm In Dextrose/Water 1 50ml.bag @ 12.5 mls/hr IVPB Q12HR [facility] Rx#: [id number] normal saline 120 120 10 Output: Urine 800 725 Other: Voiding Method Bedside Commode Bedside Commode # Bowel Movements 1 1 - Labs CBC & Chem 7: 07/18/17 04:04 07/18/17 04:04 Labs: Abnormal Lab Results - Last 24 Hours (Table) 07/17/17 07/17/17 07/17/17 Range/Units 12:37 16:43 20:22 RBC (3.80-5.40) m/uL Hgb (11.4-16.0) gm/dL Hct (34.0-46.0) % MCV (80.0-100.0) fL MCH (25.0-35.0) pg MCHC (31.0-37.0) g/dL RDW (11.5-15.5) % Potassium (3.5-5.1) mmol/L Chloride (98-107) mmol/L BUN (7-17) mg/dL Creatinine (0.52-1.04) mg/dL Glucose (74-99) mg/dL POC Glucose (mg/dL) 126 H 115 H 139 H (75-99) mg/dL 07/18/17 07/18/17 07/18/17 Range/Units 04:04 04:04 07:18 RBC 3.40 L (3.80-5.40) m/uL Hgb 7.5 L (11.4-16.0) gm/dL Hct 25.2 L (34.0-46.0) % MCV 74.1 L (80.0-100.0) fL MCH 22.1 L (25.0-35.0) pg MCHC 29.8 L (31.0-37.0) g/dL RDW 22.6 H (11.5-15.5) % Potassium 3.3 L (3.5-5.1) mmol/L Chloride 96 L (98-107) mmol/L BUN 18 H (7-17) mg/dL Creatinine 2.70 H (0.52-1.04) mg/dL Glucose 121 H (74-99) mg/dL POC Glucose (mg/dL) 125 H (75-99) mg/dL Microbiology - Last 24 Hours (Table) 07/16/17 15:25 Blood Culture - Preliminary Blood No Growth after 24 hours 07/17/17 02:00 Urine Culture - Preliminary Urine,Voided Assessment and Plan Plan: Assessment: #1. Nonoliguric acute kidney injury secondary to ATN developed postoperatively after she underwent drainage of the abdominal abscess and infected hematoma. She was also anemic and required blood transfusion that admission. Currently hemodialysis dependent. #2. Dyspnea secondary to volume overload. Improved with ultrafiltration. #3. Systolic CHF with ejection fraction of 30-35% with moderate pulmonary hypertension. #4. Hypokalemia secondary to diuresis. Magnesium replete. #5. Status post drainage of abdominal abscess and infected hematoma on 2017. #6. Anemia. Rule out iron deficiency. Plan: Maintain Lasix 80 mg IV twice daily. Next hemodialysis tomorrow. Schedule for thoracentesis today. Avoid nephrotoxic agents and hypotensive episodes. Follow-up iron studies. Replace potassium. 40 mEq today. Patient will likely also require cardiac catheterization down the road. I did discuss with the patient that dye exposure will impair renal recovery.
[2017-07-18] MEDS: PIPERACILLIN-TAZOBACTAM 3.375 GM in DEXTROSE/WATER 1 50ML.BAG IVPB SCH ×2 (09:06→23:16)
--- NOTE | 2017-07-18 09:38 | XR ---
EXAMINATION TYPE: XR chest 1V DATE OF EXAM: 07/18/2017 HISTORY: thoracentesis. REFERENCE: Previous study dated earlier today. FINDINGS: A large-bore, double-lumen catheter remains in place via a right internal jugular approach. Its tip is at the cavoatrial junction. There continues to be bibasilar airspace disease. There is a small left effusion. This has improved f rom previous. I do not see evidence of pneumothorax. The heart is not enlarged. IMPRESSION: I DO NOT SEE A POSTTHORACENTESIS COMPLICATION.
--- NOTE | 2017-07-18 10:16 | PN ---
PROGRESS NOTE Mrs Tate is a 72-year-old female who presented with symptoms of worsening dyspnea, was found to have evidence of non ST-segment elevation myocardial infarction with evidence of ischemic cardiomyopathy and T-wave inversion anteriorly suggestive of takotsubo syndrome. She has underwent thoracentesis with removal of large amount of fluid from the left side. She is feeling much better. Her breathing is better. She denies any chest pain or dizziness. She denies any palpitation. She is in sinus mechanism. She continues to be on aspirin once a day, Lipitor 40 mg daily. Furosemide 80 mg IV q.12 hours, metoprolol tartrate 25 mg 3 times a day, and nitro paste 1 inch 4 times a day. PHYSICAL EXAMINATION: Blood pressure 124/60 with a heart rate in the 90s. LUNGS: With decreased breath sounds that improved. Heart regular rate and rhythm S1, S2. No S3, no rub with a systolic murmur. ABDOMEN: Soft. Mild tenderness. EXTREMITIES: No edema. LAB DATA: BUN and creatinine of 18 and 2.7, potassium is 3.3, hemoglobin of 7.5. IMPRESSION: 1. Non ST-segment elevation myocardial infarction with ischemic cardiomyopathy, highly suggestive of takotsubo syndrome. 2. Worsening dyspnea, improving at this time with the dialysis and thoracentesis. 3. End-stage renal disease on hemodialysis. 4. Status post recent abdominal surgery. RECOMMENDATION: From the cardiac standpoint, I will increase the dose of beta danika. I will switch her to oral nitrate. Her EKG revealed T-wave inversion anteriorly. The patient will benefit from cardiac catheterization, but will await stabilization and depending on her progress, further recommendation will be made. I have discussed those recommendations with the patient. MMODL / IJN: [id number] /
[2017-07-18 12:18] LABS: Glucose,Whole Blood 113 mg/dL (75-99)
[2017-07-18] MEDS: ISOSORBIDE MONONITRATE ER 30 MG TAB.ER.24H PO SCH (12:30)
[2017-07-18] MEDS: CYANOCOBALAMIN 500 MCG TAB PO SCH (12:31)
[2017-07-18] MEDS: CHOLECALCIFEROL 1,000 UNIT TAB PO SCH (12:31)
[2017-07-18] MEDS ORDERED: LORazepam 0.5 MG TAB PO PRN (12:36)
--- NOTE | 2017-07-18 13:52 | P.PN ---
Subjective Progress Note Date: 07/18/17 A 72-year-old female patient was brought into the burst department for increased shortness of breath and a pulmonary consultation was requested. Apparently the patient was quite dyspneic at a time of arrival in the chest x- ray showed new lower lobe at the pulmonary infiltrates which was not present at a time of discharge from the hospital last week. The patient was briefly placed on BiPAP and currently she is on 4 L of oxygen nasal cannula. She denies having any chest pain. She is less tachycardic and she is in sinus tachycardia. She is producing urine output despite her being an acute kidney injury and she is dialysis dependent for now. Her last dialysis was on Wednesday and today she was supposed to have another session of dialysis which she is routinely having. No fever. No chills. No aspiration. No altered mentation. She has extensive swelling in lower extremity and she claims that the swelling itself is improved with dialysis. Note that, the patient's white cell count was elevated in the emergency at 16.6. The troponins were also positive with levels of 0.0 0.8 respectively and the proBNP level was 26,000. Echocardiac Preet was done in the emergency department that showed segmental wall motion abnormalities. The patient had moderate to see the LV dysfunction with an ejection fraction of 30-35%. There was evidence of anterior lateral inferior and septal wall hypokinesis and the right ventricular structures were within normal limits however there was moderate degree of pulmonary hypertension with a PA pressure of around 50. This patient is a very complex history. In summary I reviewed the records and I reviewed the extensive information available medical records from her most recent hospitalization. She was discharged from the hospital on 07/07/2017. The patient came into the hospital because of a abdominal abscess. The patient underwent expiratory laparotomy and she was found to have infected mesh from a previous incisional hernia repair that was draining. The patient underwent a total laparotomy and drainage of intra-abdominal abscess with resection of an infected mesh and the small bowel was run and there was no interloop abscesses identified. However, phlegmon in the distal terminal ileum was found and purulent fluid was present in the pelvis and the right rectus muscle was infected and there was a hematoma that was drained. Postop, the patient was found to have Proteus mirabilis and the patient was placed on IV antibiotics and subsequently discharged home on Augmentin. During the same hospitalization the patient developed an acute kidney injury knowing that her baseline renal function was within normal and currently she is of dialysis-dependent. A permacath was inserted in the right IJ and the patient was started on dialysis. She is having dialysis 3 times a week MWF. The patient has also multiple other comorbidities including hypertension, acid reflux, chronic back pain, diabetes mellitus and hyperlipidemia and furthermore he was involved in an acute kidney injury following the abdominal surgery. Not known to have any previous history of coronary artery disease, COPD, asthma. On 07/17/2017 and I'm seeing this patient for a follow-up. The patient is awake and alert and she is not having any significant respiratory distress. The patient was off the BiPAP since yesterday. She underwent dialysis yesterday and total of 3.8 L of fluid was removed during dialysis. She became briefly hypotensive and she was given a total of 2 50 mL back and she did not require any pressors. She is afebrile. On today's evaluation the chest x-ray still showing bilateral lower lobe pulmonary infiltrate and and pleural effusions more so on the left. The patient is afebrile. The patient is on IV Zosyn. Abdominal wounds are dry clean and intact and there being regularly dressed. She is free of any chest pain. I reviewed the consultation by cardiology. I will be quite hesitant to undergo a cardiac catheterization knowing that the cath would not alter our treatment plan and the patient may end up having further nephrotoxicity from the contrast. Discussed this also with nephrology I'm going to talk to Dr. Dubose in this regard. Meanwhile, the patient will need another session of dialysis, short run to further improve her volume status and she'll be given Ativan of 2 hours today. No other complaints. No change in mental status. The dialysis site is dry clean and intact. On 07/18/2017, the patient is being seen in follow-up. The patient remains in intensive care unit. She got dialyzed yesterday and this was her second session [id number] during this current hospitalization. Another 2 L of fluid was removed yesterday. On today's evaluation the patient is still having some shortness of breath and she did have an episode yesterday where she required the BiPAP briefly. This morning she is off the BiPAP. On examination she has a pleural effusion on the left and based on that I performed a bedside thoracentesis and I removed approximately 450 mL of pleural fluid from the left lung. The patient did well and the chest x-ray that was done following the procedure showed no evidence of any pneumothorax. The patient is afebrile. Abdominal wound is unchanged. The patient is on IV Zosyn. As mentioned earlier the patient has an underlying component of cardiomyopathy with impaired LV function and segmental wall motion abnormalities. Cardiac catheterization has been deferred for now based on the fact that the patient has an underlying \ kidney injury and she is anticipated to recover from her kidney failure. She remains on Lasix IV 80 mg every 12 hours. The net fluid balance for yesterday was negative for 4150 mL and her body weight is down from baseline 89 kg down to 80 kg. No leukocytosis. Today's creatinine is at 2.7. She did well following the thoracentesis she is resting comfortably. Cardiac rhythm is still sinus. Objective - Vital Signs Vital signs: Vital Signs Temp 98.3 F 07/18/17 08:00 Pulse 87 07/18/17 12:00 Resp 22 07/18/17 12:00 BP 112/69 07/18/17 12:00 Pulse Ox 98 07/18/17 12:00 Intake & Output 07/17/17 07/18/17 07/18/17 18:59 06:59 18:59 Intake Total 170 170.0 100 Output Total 800 725 650 Balance -630 -555.0 -550 Weight 80.8 kg Intake: IV 170 170.0 100 Piperacillin-Tazobactam 3 50 50.0 50 .375 gm In Dextrose/Water 1 50ml.bag @ 12.5 mls/hr IVPB Q12HR [facility] Rx#: [id number] normal saline 120 120 50 Output: Urine 800 725 650 Other: Voiding Method Bedside Commode Bedside Commode Bedside Commode # Bowel Movements 1 1 - Exam Gen. appearance the patient and she is calm and comfortable off the BiPAP and the patient is currently on oxygen at 2 L/m nasal cannula..Head exam was generally normal. There was no scleral icterus or corneal arcus. Mucous membranes were moist. Neck is supple there is no JVDs no goiter or neck masses this point.Neck was supple and without jugular venous distension, thyromegaly, or carotid bruits. Carotids were easily palpable bilaterally. There was no adenopathy. The patient has a right anterior chest permacath and the exit site is clean and intact at this point in time. Lung sounds are diminished bilaterally especially lung bases along with some bibasilar crackles. Heart sounds are regular, possible sinus stool, tachycardic, no cervical murmurs appreciated. Abdomen is soft, and there is a mid abdominal incision which is dry clean and intact at this point. The patient also has a horizontal incision on the right upper quadrant and the wound is packed without any active purulent drainage at this point. No direct tenderness a Montessori guarding. Bowel sounds are diminished at the present. Extremities reveal +1 pitting edema and there is no cyanosis or clubbing at this point. Neurologically patient is awake and alert and there is no focal logical deficits. Psychiatrically seems to be slightly depressed. No anxiety. - Labs CBC & Chem 7: 07/18/17 04:04 07/18/17 04:04 Labs: Abnormal Lab Results - Last 24 Hours (Table) 07/17/17 07/17/17 07/17/17 Range/Units 05:11 16:43 20:22 RBC (3.80-5.40) m/uL Hgb (11.4-16.0) gm/dL Hct (34.0-46.0) % MCV (80.0-100.0) fL MCH (25.0-35.0) pg MCHC (31.0-37.0) g/dL RDW (11.5-15.5) % Potassium (3.5-5.1) mmol/L Chloride (98-107) mmol/L BUN (7-17) mg/dL Creatinine (0.52-1.04) mg/dL Glucose (74-99) mg/dL POC Glucose (mg/dL) 115 H 139 H (75-99) mg/dL Iron 18 L (50-170) ug/dL Iron Saturation 7.59 L (12.00-45.00) 07/18/17 07/18/17 07/18/17 Range/Units 04:04 04:04 07:18 RBC 3.40 L (3.80-5.40) m/uL Hgb 7.5 L (11.4-16.0) gm/dL Hct 25.2 L (34.0-46.0) % MCV 74.1 L (80.0-100.0) fL MCH 22.1 L (25.0-35.0) pg MCHC 29.8 L (31.0-37.0) g/dL RDW 22.6 H (11.5-15.5) % Potassium 3.3 L (3.5-5.1) mmol/L Chloride 96 L (98-107) mmol/L BUN 18 H (7-17) mg/dL Creatinine 2.70 H (0.52-1.04) mg/dL Glucose 121 H (74-99) mg/dL POC Glucose (mg/dL) 125 H (75-99) mg/dL Iron (50-170) ug/dL Iron Saturation (12.00-45.00) 07/18/17 Range/Units 12:14 RBC (3.80-5.40) m/uL Hgb (11.4-16.0) gm/dL Hct (34.0-46.0) % MCV (80.0-100.0) fL MCH (25.0-35.0) pg MCHC (31.0-37.0) g/dL RDW (11.5-15.5) % Potassium (3.5-5.1) mmol/L Chloride (98-107) mmol/L BUN (7-17) mg/dL Creatinine (0.52-1.04) mg/dL Glucose (74-99) mg/dL POC Glucose (mg/dL) 113 H (75-99) mg/dL Iron (50-170) ug/dL Iron Saturation (12.00-45.00) Microbiology - Last 24 Hours (Table) 07/17/17 02:00 Urine Culture - Final Urine,Voided 07/16/17 15:25 Blood Culture - Preliminary Blood No Growth after 24 hours Assessment and Plan Plan: Assessment 1 acute hypoxic respiratory failure. The patient has developed bilateral lower lobe pulmonary infiltrates and pleural effusion. Rule out pneumonia. Rule out fluid overload/CHF. The patient improved with dialysis and the patient had dialysis yesterday with total of 3-1/2 L of fluid was removed during ultrafiltration. Overall condition is improved and the patient is currently on 2 L of oxygen nasal cannula of the chest x-ray still showing right lower lobe pleural effusions. We will consider thoracentesis if dialysis feels to improve her overall pulmonary status. Continued IV Zosyn. On 07/18/2017, the patient was felt to have residual pleural fluid following 2 sessions of dialysis with ultrafiltration. Based on that, I performed a bedside thoracentesis and removed a total of 450 mL of pleural fluid from the left lung successfully. Note that the patient has lost approximately 8 kg since her admission to the hospital essentially due to diuresis and dialysis. Her chest x-ray shows improvement in the volume status. She is improved and she is currently off the BiPAP. Note that she has been also diagnosed having a congestion heart failure with impaired LV function and this needs to be investigated later stage including a torn an angiogram. 2 CHF with impaired LV function with an ejection fraction of 30-35% with segmental wall motion abnormalities involving the left ventricle and secondary pulmonary hypertension 3 troponin leak, rule out underlying acute non-ST segment elevation myocardial infarction 4 abdominal abscess status post expose the laparotomy and resection of an infected mesh with drainage cultures indicating Proteus mirabilis and the patient was receiving Augmentin outpatient basis. Currently there is no active drainage from the right upper quadrant abdominal wound. The mid abdominal incision is dry clean and intact. 5 recent septicemia related to abdominal infection/abscess 6 acute kidney injury, currently the patient is dialysis dependent undergoing dialysis 3 times a week via permacath over the right anterior chest area 7 diabetes mellitus, 8 hypertension 9 hyperlipidemia 10 acid reflux 11 chronic back pain 12 anemia of chronic disease, multifactorial Plan The patient is doing better following the above-mentioned interventions. Continued IV Zosyn. Continued IV Lasix. Thoracentesis was done. A coronary angiogram will be needed a later stage. Nephrology is monitoring the renal function. She is producing adequate amount of urine output. Her wound care is being done regularly. ID is on the case. We'll continue to follow. She may be transferred to a telemetry unit at a later stage today.
--- NOTE | 2017-07-18 14:56 | P.PN ---
Subjective Progress Note Date: 07/18/17 Principal diagnosis: Shortness of breath This is a 72-year-old female patient gives history of having an abdominal wall abscess on the right side for which she was treated at [facility] emergency center in October 2016. The ER physician did an incision and drainage and widen the draining track with a scalpel and placed iodoform gauze. There was purulent material at that time. Patient states that this eventually healed and in April she was having increased right-sided abdominal pain and her PCP sent her to [facility] for an ultrasound that showed a possible hematoma on the right upper quadrant. She was then sent to Dr. Hancock for further evaluation. Because of anemia, patient underwent an upper and lower endoscopy with Dr. Hancock on May 20 that found no signs of bleeding. She subsequently underwent a hernia repair at the site of the previous hematoma or abscess from October [address] Hancock and this was done on 05/26/2017. This was located in the mid upper abdomen. She states she continued to have right-sided abdominal pain, chills and hot feeling, decreased appetite with possible weight loss and nausea. She again presented to Hospital and underwent incision and drainage of the abscess. At that time she did have evidence of significant sepsis with leukocytosis and elevated lactic acid. After surgery she recovered except developed acute renal failure on the basis of ATN and likely medication effects from Carlitos inhibitors and nonsteroidal anti-inflammatories. The patient had a protracted hospitalization eventually was sent home with outpatient hemodialysis. Shortly after being home she apparently started having increasing difficulties with her fluid status and presents to Hospital profoundly short of breath with chest x- ray showing evidence of extensive volume overload. Echocardiogram was performed due to her shortness of breath and a low ejection fraction was found. The acuity of this was not truly known we don't have prior echocardiogram here. The patient was seen by nephrology and urgent hemodialysis as requested because of her significant volume overload, BiPAP was started which improved her profound shortness of breath. With BiPAP she's feeling better and awaits hemodialysis, we'll move to the ICU for this to occur in the next short period of time. 07/17/2017 reveals the patient to be feeling considerably better after her second cycle of hemodialysis in 48 hours. With 6 L of fluid removed her shortness of breath is generally resolving, her initial is improving and she is able to eat. Sitting at the bedside without oxygen on breathing comfortably she has a saturation greater than 95%. As noted she is off BiPAP and feeling better. She denies fevers or chills. 07/16/2017 patient had a bout of severe shortness of breath overnight that required a short utilization of BiPAP. Because of her ongoing difficulties thoracentesis has been performed, now postthoracentesis her respiratory status is definitely improved. She's not having any fevers or chills. Addition of Mycelex has distinctly improved her discomfort in her mouth and throat. Objective - Vital Signs Vital signs: Vital Signs Temp 98.3 F 07/18/17 08:00 Pulse 87 07/18/17 12:00 Resp 22 07/18/17 12:00 BP 112/69 07/18/17 12:00 Pulse Ox 98 07/18/17 12:00 Intake & Output 07/17/17 07/18/17 07/18/17 18:59 06:59 18:59 Intake Total 170 170.0 100 Output Total 800 725 650 Balance -630 -555.0 -550 Weight 80.8 kg Intake: IV 170 170.0 100 Piperacillin-Tazobactam 3 50 50.0 50 .375 gm In Dextrose/Water 1 50ml.bag @ 12.5 mls/hr IVPB Q12HR [facility] Rx#: [id number] normal saline 120 120 50 Output: Urine 800 725 650 Other: Voiding Method Bedside Commode Bedside Commode Bedside Commode # Bowel Movements 1 1 - Exam Gen: This is a 72-year-old female patient. No considerably less short of breath HEENT: Head is atraumatic, normocephalic. Pupils equal, round. Sclerae is anicteric. Conjunctiva pink. Mucous members of the mouth are dry. No leonardo thrush is seen NECK: Supple. No JVD. No lymphadenopathy. No thyromegaly. LUNGS: Patient has a rapid respiratory rate and has evidence of crackles at the bilateral bases left greater than right expiratory wheezes are scattered HEART: Regular rate and rhythm. 2/6 systolic murmur without click or rub PMI is nondisplaced ABDOMEN: Soft. Bowel sounds are present. No masses. Right sided tenderness. Mass palpated to the mid right lateral area. EXTREMITIES: Bilateral lower extremity edema without open ulcers, No calf tenderness. Dorsalis pedis +2 bilaterally. NEUROLOGICAL: Patient is awake, alert and oriented x3. - Labs CBC & Chem 7: 07/18/17 04:04 07/18/17 04:04 Labs: Abnormal Lab Results - Last 24 Hours (Table) 07/17/17 07/17/17 07/17/17 Range/Units 05:11 16:43 20:22 RBC (3.80-5.40) m/uL Hgb (11.4-16.0) gm/dL Hct (34.0-46.0) % MCV (80.0-100.0) fL MCH (25.0-35.0) pg MCHC (31.0-37.0) g/dL RDW (11.5-15.5) % Potassium (3.5-5.1) mmol/L Chloride (98-107) mmol/L BUN (7-17) mg/dL Creatinine (0.52-1.04) mg/dL Glucose (74-99) mg/dL POC Glucose (mg/dL) 115 H 139 H (75-99) mg/dL Iron 18 L (50-170) ug/dL Iron Saturation 7.59 L (12.00-45.00) 07/18/17 07/18/17 07/18/17 Range/Units 04:04 04:04 07:18 RBC 3.40 L (3.80-5.40) m/uL Hgb 7.5 L (11.4-16.0) gm/dL Hct 25.2 L (34.0-46.0) % MCV 74.1 L (80.0-100.0) fL MCH 22.1 L (25.0-35.0) pg MCHC 29.8 L (31.0-37.0) g/dL RDW 22.6 H (11.5-15.5) % Potassium 3.3 L (3.5-5.1) mmol/L Chloride 96 L (98-107) mmol/L BUN 18 H (7-17) mg/dL Creatinine 2.70 H (0.52-1.04) mg/dL Glucose 121 H (74-99) mg/dL POC Glucose (mg/dL) 125 H (75-99) mg/dL Iron (50-170) ug/dL Iron Saturation (12.00-45.00) 07/18/17 Range/Units 12:14 RBC (3.80-5.40) m/uL Hgb (11.4-16.0) gm/dL Hct (34.0-46.0) % MCV (80.0-100.0) fL MCH (25.0-35.0) pg MCHC (31.0-37.0) g/dL RDW (11.5-15.5) % Potassium (3.5-5.1) mmol/L Chloride (98-107) mmol/L BUN (7-17) mg/dL Creatinine (0.52-1.04) mg/dL Glucose (74-99) mg/dL POC Glucose (mg/dL) 113 H (75-99) mg/dL Iron (50-170) ug/dL Iron Saturation (12.00-45.00) Microbiology - Last 24 Hours (Table) 07/17/17 02:00 Urine Culture - Final Urine,Voided 07/16/17 15:25 Blood Culture - Preliminary Blood No Growth after 24 hours Laboratory Results WBC 6.6 k/uL (3.8-10.6) 07/18/17 04:04 RBC 3.40 m/uL (3.80-5.40) L 07/18/17 04:04 Hgb 7.5 gm/dL (11.4-16.0) L 07/18/17 04:04 Hct 25.2 % (34.0-46.0) L 07/18/17 04:04 MCV 74.1 fL (80.0-100.0) L 07/18/17 04:04 MCH 22.1 pg (25.0-35.0) L 07/18/17 04:04 MCHC 29.8 g/dL (31.0-37.0) L 07/18/17 04:04 RDW 22.6 % (11.5-15.5) H 07/18/17 04:04 Plt Count 275 k/uL (150-450) 07/18/17 04:04 Neutrophils % 73 % 07/18/17 04:04 Lymphocytes % 18 % 07/18/17 04:04 Monocytes % 5 % 07/18/17 04:04 Eosinophils % 2 % 07/18/17 04:04 Basophils % 1 % 07/18/17 04:04 Neutrophils # 4.8 k/uL (1.3-7.7) 07/18/17 04:04 Lymphocytes # 1.2 k/uL (1.0-4.8) 07/18/17 04:04 Monocytes # 0.4 k/uL (0-1.0) 07/18/17 04:04 Eosinophils # 0.2 k/uL (0-0.7) 07/18/17 04:04 Basophils # 0.0 k/uL (0-0.2) 07/18/17 04:04 Hypochromasia Marked 07/18/17 04:04 Poikilocytosis Slight 07/16/17 00:13 Anisocytosis Moderate 07/18/17 04:04 Microcytosis Marked 07/18/17 04:04 PT 11.1 sec (9.0-12.0) 07/16/17 00:13 INR 1.2 (<1.2) H 07/16/17 00:13 APTT 20.4 sec (22.0-30.0) L 07/16/17 00:13 Sodium 139 mmol/L (137-145) 07/18/17 04:04 Potassium 3.3 mmol/L (3.5-5.1) L 07/18/17 04:04 Chloride 96 mmol/L (98-107) L 07/18/17 04:04 Carbon Dioxide 29 mmol/L (22-30) 07/18/17 04:04 Anion Gap 14 mmol/L 07/18/17 04:04 BUN 18 mg/dL (7-17) H 07/18/17 04:04 Creatinine 2.70 mg/dL (0.52-1.04) H 07/18/17 04:04 Est GFR (CKD-EPI)AfAm 20 (>60 ml/min/1.73 sqM) 07/18/17 04:04 Est GFR (CKD-EPI)NonAf 17 (>60 ml/min/1.73 sqM) 07/18/17 04:04 Glucose 121 mg/dL (74-99) H 07/18/17 04:04 POC Glucose (mg/dL) 113 mg/dL (75-99) H 07/18/17 12:14 POC Glu Camera Rep[employer] Technician Lana Salter 07/18/17 12:14 Calcium 8.4 mg/dL (8.4-10.2) 07/18/17 04:04 Phosphorus 4.2 mg/dL (2.5-4.5) 07/17/17 05:11 Magnesium 1.9 mg/dL (1.6-2.3) 07/18/17 04:04 Iron 18 ug/dL (50-170) L 07/17/17 05:11 TIBC 237 ug/dL (228-460) 07/17/17 05:11 Iron Saturation 7.59 (12.00-45.00) L 07/17/17 05:11 Ferritin 53.1 ng/mL (10.0-291.0) 07/17/17 05:11 Total Bilirubin 0.6 mg/dL (0.2-1.3) 07/16/17 23:59 AST 16 U/L (14-36) 07/16/17 23:59 ALT 16 U/L (9-52) 07/16/17 23:59 Alkaline Phosphatase 66 U/L (38-126) 07/16/17 23:59 Total Creatine Kinase 43 U/L (30-135) 07/16/17 00:13 CK-MB (CK-2) 3.8 ng/mL (0.0-2.4) H* 07/16/17 12:30 CK-MB (CK-2) Rel Index 5.6 07/16/17 00:13 Troponin I 0.625 ng/mL (0.000-0.034) H* 07/16/17 12:30 NT-Pro-B Natriuret Pep 86258 pg/mL 07/16/17 00:13 Total Protein 5.5 g/dL (6.3-8.2) L 07/16/17 23:59 Albumin 3.1 g/dL (3.5-5.0) L 07/16/17 23:59 Urine Color Yellow 07/17/17 02:00 Urine Appearance Cloudy (Clear) H 07/17/17 02:00 Urine pH 6.0 (5.0-8.0) 07/17/17 02:00 Ur Specific Falcon 1.015 (1.001-1.035) 07/17/17 02:00 Urine Protein 2+ (Negative) H 07/17/17 02:00 Urine Glucose (UA) Negative (Negative) 07/17/17 02:00 Urine Ketones 1+ (Negative) H 07/17/17 02:00 Urine Blood Trace (Negative) H 07/17/17 02:00 Urine Nitrite Negative (Negative) 07/17/17 02:00 Urine Bilirubin Negative (Negative) 07/17/17 02:00 Urine Urobilinogen <2.0 mg/dL (<2.0) 07/17/17 02:00 Ur Leukocyte Esterase Small (Negative) H 07/17/17 02:00 Urine RBC 5 /hpf (0-5) 07/17/17 02:00 Urine WBC 63 /hpf (0-5) H 07/17/17 02:00 Ur Squamous Epith Cells 11 /hpf (0-4) H 07/17/17 02:00 Amorphous Sediment Rare /hpf (None) H 07/17/17 02:00 Hyaline Casts 96 /lpf (0-2) H 07/17/17 02:00 Urine Mucus Rare /hpf (None) H 07/17/17 02:00 Microbiology 07/17/17 02:00 Urine,Voided Urine Culture - Final 07/16/17 15:25 Blood Blood Culture - Preliminary No Growth after 24 hours Assessment and Plan (1) Pulmonary edema Current Visit: Yes Status: Acute Code(s): J81.1 - CHRONIC PULMONARY EDEMA SNOMED Code(s): 35097054 (2) Abdominal wall abscess Narrative/Plan: Pleasant 72-year-old woman presents from home with profound increasing shortness of breath occurring after her long hospital stay and transition to home. The is present and does relate that he is providing all of her meals, which includes cold cuts and frozen meals, he does not cook. The patient this time his pulmonary edema with significant volume overload and nephrology has evaluated and has asked for urgent hemodialysis remove the severe amount of fluid. Pleural effusion is noted and hopefully with hemodialysis will rapidly improve. At this time no evidence of significant infection and would do well to not have further ulceration of her antibiotic therapy but should complete the course of antibiotic for the abdominal abscess. While she is acutely ill she is receiving Zosyn and should complete 7 days total of antibiotic with Augmentin. We'll expect with hemodialysis she has a rapid improvement. 07/17/2017 reveals the patient be considerably improved after her second cycle of hemodialysis and removal of 6 L of fluid. Fortunately there is no evidence of pneumonia at this time. She does have abdominal ulceration Aquacel silver as requested to be packed into the ulceration. She relates that she's having a bit of irritation overall cavity somewhat when she had thrush recently and Mycelex as requested. She is down to the last several days of antibiotic therapy which can be transitioned to Augmentin at the time for discharge. 07/18/2017 patient had difficulty overnight with shortness of breath, requiring a time on BiPAP. She has had a thoracentesis today he is feeling considerably better. Oral cavity discomfort is improved with Mycelex. Doing well with the Aquacel silver packing interabdominal ulceration. Current Visit: No Status: Acute Code(s): L02.211 - CUTANEOUS ABSCESS OF ABDOMINAL WALL SNOMED Code(s): 85529916
[2017-07-18] MEDS ORDERED: ARTIFICIAL TEARS-HYPROMELLOSE DROPS 15 ML BTL BOTH EYES PRN (16:21)
[2017-07-18] MEDS ORDERED: POTASSIUM CHLORIDE ER 20 MEQ TAB.ER PO SCH ×2 (17:00→20:00)
[2017-07-18 17:04] LABS: Appearance,BF Clear; Color,BF Yellow; Nucleated Cells, Body Fluid 2 /uL; RBC, Body Fluid 1 /uL
[2017-07-18 17:37] LABS: Glucose,Whole Blood 139 mg/dL (75-99)
--- NOTE | 2017-07-18 19:43 | PN ---
PROGRESS NOTE DATE OF SERVICE: 07/18/2017 This 72-year-old woman is admitted with shortness of breath and CHF exacerbation is still being closely monitored in ICU at this time. The patient had 2 sets of hemodialysis and chest x-ray done today showed stable bilateral pleural effusion , bilateral pulmonary edema. However the patient is feeling much better. Patient did use BiPAP last night. PAST MEDICAL HISTORY: Reviewed. REVIEW OF SYSTEMS: Cardio system: As mentioned earlier. Respiration: As mentioned earlier. GI: No nausea or vomiting. : As mentioned earlier. Central nervous system: No numbness or weakness. MEDICATIONS: Reviewed and include: 1. Tylenol 650 q.6h p.r.n. 2. Artificial Tears. 3. Aspirin 81 mg. 4. Lipitor 40 mg q.h.s. 5. Vitamin D3 1000 daily. 6. Mycelex. 7. Vitamin B12 500 mcg p.o. daily. 8. Colace 100 mg p.o. q.h.s. 9. Lasix 80 mg IV b.i.d. 11.Alprazolam mg p.o. b.i.d. 12.Imdur 30 mg. 13.Ativan 0.5 mg q.h.s. 14.Lopressor 50 mg daily. 15.Magnesium replacement protocol. 16.Zosyn 3.375 IV b.i.d. PHYSICAL EXAMINATION: The patient is alert, oriented x3. Pulse is 92, blood pressure 102/60, respiratory 22, pulse ox 98% on room air. HEENT is conjunctivae normal. Oral mucosa moist. Neck is no jugular venous distention. No carotid bruit. No lymph node enlargement. Cardiovascular: S1, S2 muffled. Respiratory: Breath sounds diminished in the bases. A few scattered rhonchi. No crackles. Abdomen is soft, nontender. Legs are no edema. No swelling. Central nervous system: No focal deficits. LAB: WBC 6.2, hemoglobin 7.5, sodium 139, potassium 3.3, glucose 125. ASSESSMENT: 1. Shortness of breath, possibly congestive heart failure acute exacerbation with acute on chronic systolic dysfunction, ejection fraction 30-35%. 2. Rule out takotsubo syndrome. 3. Rule out bibasilar pneumonia. 4. Troponin indeterminate at 0.860. 5. History of recent abdominal abscess, status post exploratory laparotomy with resection of infected mesh and drainage of the wound culture showing Proteus mirabilis and sepsis. 6. Hypertension. 7. Chronic back pain. 8. Gastroesophageal reflux disease. 9. Hyperlipidemia. 10.History of acute chronic pain on hemodialysis. 11.PermCath. 12.Diabetes type 2. RECOMMENDATIONS AND DISCUSSION: Recommend to continue current medications, symptomatic treatment, management. Continue hemodialysis. Monitor fluid and electrolytes balance closely. Supplement potassium. Otherwise continue the rest of the medications. Prognosis guarded because of multiple complex medications. Further recommendations to follow. MMODL / IJN: [id number] / MIKI
[2017-07-18] MEDS: DOCUSATE 100 MG CAP PO SCH (21:22)
[2017-07-18] MEDS: hydrALAZINE HCL 25 MG TAB PO SCH (21:24)
[2017-07-18] MEDS: METOPROLOL TARTRATE 50 MG TAB PO SCH (21:24)
[2017-07-18] MEDS: ATORVASTATIN 40 MG TAB PO SCH (21:25)
--- NOTE | 2017-07-18 22:31 | PCN ---
PROCEDURE NOTE THORACENTESIS: INDICATION: Pleural effusion. A time-out was completed verifying correct patient, procedure, site, positioning , and implant (s) or special equipment if applicable. Ultrasound guidance was used and appropriate fluid pocket was identified and marked. Patient was positioned, prepped and draped in usual sterile fashion. Lidocaine was used to anesthetize the area. A Thoracentesis catheter was introduced into the pleural space and fluid was removed. Blood loss was none. A chest x-ray was ordered to evaluate for pneumothorax. TOTAL FLUID REMOVED: 450 mL COLOR OF FLUID: Turbid dark yellowish colored fluid from the left side. Fluid was/was not sent for appropriate laboratory tests. Patient tolerated the procedure well and there were no complications No complication or bleeding. No pneumothorax. PREOP DIAGNOSIS: Left side pleural effusion. POSTOP DIAGNOSIS: Left side pleural effusion. MMODL / IJN: [id number] /
[2017-07-18 23:04] LABS: Total Protein, Body Fluid 1278 mg/dL
[2017-07-19] MEDS: PANTOPRAZOLE 40 MG TABLET PO SCH (06:14)
[2017-07-19 06:36] LABS: Anisocytosis Moderate; Basophils # (A) 0.1 k/uL (0-0.2); Basophils % (A) 1 %; Eosinophils # (A) 0.3 k/uL (0-0.7); Eosinophils % (A) 4 %; HCT 28.9 % (34.0-46.0); HGB 8.7 gm/dL (11.4-16.0); Hypochromasia Moderate; Lymphocytes # (A) 1.4 k/uL (1.0-4.8); Lymphocytes % (A) 20 %; MCH 22.8 pg (25.0-35.0); MCHC 30.2 g/dL (31.0-37.0); MCV 75.5 fL (80.0-100.0); Mean Platelet Volume 7.4; Microcytosis Moderate; Monocytes # (A) 0.3 k/uL (0-1.0); Monocytes % (A) 5 %; Neutrophils # (A) 4.7 k/uL (1.3-7.7); Neutrophils % (A) 68 %; Platelet Count 369 k/uL (150-450); RBC 3.83 m/uL (3.80-5.40); RDW 21.9 % (11.5-15.5); WBC 6.9 k/uL (3.8-10.6)
[2017-07-19 06:51] LABS: Calcium 8.8 mg/dL (8.4-10.2); Potassium 3.5 mmol/L (3.5-5.1)
--- NOTE | 2017-07-19 08:18 | XR ---
EXAMINATION TYPE: XR chest 1V portable DATE OF EXAM: 07/19/2017 COMPARISON: 07/18/2017 HISTORY: Shortness of breath TECHNIQUE: Single frontal view of the chest is obtained. FINDINGS: Dual-lumen right-sided hemodialysis catheter is again noted. Perihilar consolidations are slightly worsened in the interim. There is new blunting the costophrenic angle and may relate to a tr irineo pleural effusion. Osseous structures are intact. Cardiomediastinal silhouette is within normal li mits. IMPRESSION: Slight worsening of the perihilar biceps basilar airspace disease that may represent non cardiogenic pulmonary edema in this patient with a hemodialysis catheter.
[2017-07-19] MEDS ORDERED: POTASSIUM CHLORIDE ER 20 MEQ TAB.ER PO STA (08:44)
[2017-07-19] MEDS ORDERED: DARBEPOETIN ALFA 40 MCG/0.4 ML SYRINGE SQ SCH (09:00)
--- NOTE | 2017-07-19 09:10 | P.PN ---
Subjective Patient is seen in follow-up for acute kidney injury currently hemodialysis dependent. She underwent hemodialysis on Wednesday and Wednesday with near total 6 L ultrafiltration. She also underwent left-sided thoracentesis on July 18 with 450 mL drained. Currently resting in bed. Denies any active chest pain or shortness of breath. No active complaints. Hemodynamically stable. Vital signs are stable. General: The patient appeared well nourished and normally developed. HEENT: Head exam is unremarkable. Neck is without jugular venous distension. LUNGS: Breath sounds decreased. No rhonchi or wheezes. HEART: Rate and Rhythm are regular. First and second heart sounds normal. No murmurs, rubs or gallops. ABDOMEN: Abdominal exam reveals normal bowel sounds. Non-tender and non- distended. No evidence of peritonitis. EXTREMITITES: No clubbing, cyanosis, or edema. Objective - Vital Signs Vital signs: Vital Signs Temp 97.4 F L 07/19/17 04:00 Pulse 84 07/19/17 04:00 Resp 18 07/19/17 04:00 BP 112/60 07/19/17 04:00 Pulse Ox 93 L 07/19/17 04:00 Intake & Output 07/18/17 07/19/17 07/19/17 18:59 06:59 18:59 Intake Total 100 50 720 Output Total 850 700 Balance -750 -650 720 Weight 79.1 kg Intake: IV 100 50 Piperacillin-Tazobactam 3 50 50 .375 gm In Dextrose/Water 1 50ml.bag @ 12.5 mls/hr IVPB Q12HR REJI Rx#: [id number] normal saline 50 Oral 720 Output: Urine 850 700 Other: Voiding Method Bedside Commode Bedside Commode # Voids 2 # Bowel Movements 1 - Labs CBC & Chem 7: 07/19/17 06:13 07/19/17 06:13 Labs: Abnormal Lab Results - Last 24 Hours (Table) 07/17/17 07/18/17 07/18/17 Range/Units 05:11 12:14 17:14 Hgb (11.4-16.0) gm/dL Hct (34.0-46.0) % MCV (80.0-100.0) fL MCH (25.0-35.0) pg MCHC (31.0-37.0) g/dL RDW (11.5-15.5) % Potassium (3.5-5.1) mmol/L BUN (7-17) mg/dL Creatinine (0.52-1.04) mg/dL Glucose (74-99) mg/dL POC Glucose (mg/dL) 113 H 139 H (75-99) mg/dL Iron 18 L (50-170) ug/dL Iron Saturation 7.59 L (12.00-45.00) 07/18/17 07/19/17 07/19/17 Range/Units 18:20 06:13 06:13 Hgb 8.7 L (11.4-16.0) gm/dL Hct 28.9 L (34.0-46.0) % MCV 75.5 L (80.0-100.0) fL MCH 22.8 L (25.0-35.0) pg MCHC 30.2 L (31.0-37.0) g/dL RDW 21.9 H (11.5-15.5) % Potassium 3.4 L (3.5-5.1) mmol/L BUN 26 H (7-17) mg/dL Creatinine 3.38 H (0.52-1.04) mg/dL Glucose 123 H (74-99) mg/dL POC Glucose (mg/dL) (75-99) mg/dL Iron (50-170) ug/dL Iron Saturation (12.00-45.00) Microbiology - Last 24 Hours (Table) 07/18/17 08:54 Gram Stain - Preliminary Pleural Fluid Body Fluid Culture - Preliminary 07/16/17 15:25 Blood Culture - Preliminary Blood No Growth after 48 hours 07/17/17 02:00 Urine Culture - Final Urine,Voided Assessment and Plan Plan: Assessment: #1. Nonoliguric acute kidney injury secondary to ATN developed postoperatively after she underwent drainage of the abdominal abscess and infected hematoma. She was also anemic and required blood transfusion that admission. Currently hemodialysis dependent. #2. Dyspnea secondary to volume overload. Improved with ultrafiltration. #3. Systolic CHF with ejection fraction of 30-35% with moderate pulmonary hypertension. #4. Hypokalemia secondary to diuresis. Magnesium replete. #5. Status post drainage of abdominal abscess and infected hematoma on 2017. #6. Anemia. Iron replete. Plan: Maintain Lasix 80 mg IV twice daily. Hemodialysis today with goal 3 L ultrafiltration. Ferrlicit 125 mg IV daily for 3 days. First dose today. Add Aranesp. Avoid nephrotoxic agents and hypotensive episodes. Replace potassium. 40 mEq today. Patient will likely also require cardiac catheterization down the road. I did discuss with the patient that dye exposure will impair renal recovery. Patient still not sure if she is willing to proceed with cardiac catheterization at this time.
[2017-07-19] MEDS: ASPIRIN 81 MG PO SCH (09:37)
[2017-07-19] MEDS: HEPARIN SODIUM,PORCINE 5,000 UNIT/ML 1 ML VIAL SQ SCH ×2 (09:38→21:47)
[2017-07-19] MEDS: METOPROLOL TARTRATE 50 MG TAB PO SCH ×2 (09:38→21:47)
[2017-07-19] MEDS: hydrALAZINE HCL 25 MG TAB PO SCH ×2 (09:38→21:47)
[2017-07-19] MEDS: CLOTRIMAZOLE TROCHE 10 MG TROCHE MUCOUS MEM SCH ×3 (09:38→21:47)
[2017-07-19] MEDS: FUROSEMIDE 10 MG/ML 10 ML VIAL IV SCH ×2 (09:38→21:47)
[2017-07-19] MEDS: ISOSORBIDE MONONITRATE ER 30 MG TAB.ER.24H PO SCH (09:38)
[2017-07-19] MEDS: SODIUM FERRIC GLUCONAT-SUCROSE 125 MG in SODIUM CHLORIDE 0.9% 100 ML IVPB SCH (09:40)
[2017-07-19 10:49] VITALS: BMI 31.8
--- NOTE | 2017-07-19 11:23 | PN ---
PROGRESS NOTE Mrs. Tate is a 72-year-old female who presented with symptoms of progressive dyspnea. She had EKG changes with T-wave inversion anteriorly and significantly impaired mild left ventricular systolic function was intra-apical hypokinesis. She is feeling much better at this time. Her breathing is stable. She denies any dizziness, palpitation. She denies any nausea. She is ambulating without difficulty. She continues to be at this time on aspirin 81 mg daily, Lipitor 40 mg daily, Lasix 80 mg IV q.12 hours, hydralazine 25 mg twice a day, isosorbide mononitrate 30 mg daily, metoprolol tartrate 50 mg twice a day. PHYSICAL EXAMINATION: Blood pressure 119/60 with a heart rate in 90s. LUNGS: Clear. HEART: Regular rate and rhythm, S1, S2. No S3, no rub with a systolic murmur. ABDOMEN: Soft, nontender. EXTREMITIES: No edema. LAB DATA: Revealed BUN and creatinine 26 and 3.3, potassium 3.5, hemoglobin of 8.7. IMPRESSION: 1. Non ST-segment elevation myocardial infarction with severe cardiomyopathy, cannot exclude takotsubo syndrome. 2. Hemodialysis with end-stage renal disease, that was an acute. 3. Status post recent abdominal surgery. 4. Hypertension. RECOMMENDATION: From the cardiac standpoint, I had a long discussion with the patient and her regarding the options including proceeding with cardiac catheterization and the risk with that including worsening renal function. I have discussed with them that she may have takotsubo syndrome, but the possibility of obstructive disease cannot be totally excluded. The patient is quite unsure regarding what she wants to do and would like to think about it further. She was seen by Dr. Lopes in that regard as well, who has explained that the renal issue. We will await her input. In the meantime, will continue present therapy and depending on her progress, further recommendation will be made. MMODL / IJN: [id number] /
[2017-07-19] MEDS: CYANOCOBALAMIN 500 MCG TAB PO SCH (13:18)
[2017-07-19] MEDS: CHOLECALCIFEROL 1,000 UNIT TAB PO SCH (13:18)
[2017-07-19] MEDS: PIPERACILLIN-TAZOBACTAM 3.375 GM in DEXTROSE/WATER 1 50ML.BAG IVPB SCH ×2 (13:19→21:56)
--- NOTE | 2017-07-19 15:31 | P.PN ---
Subjective Progress Note Date: 07/19/17 Principal diagnosis: Acute hypoxic respiratory failure secondary to left pleural effusion, fluid overload, acute on chronic systolic congestive heart failure. A 72-year-old female patient was brought into the burst department for increased shortness of breath and a pulmonary consultation was requested. Apparently the patient was quite dyspneic at a time of arrival in the chest x- ray showed new lower lobe at the pulmonary infiltrates which was not present at a time of discharge from the hospital last week. The patient was briefly placed on BiPAP and currently she is on 4 L of oxygen nasal cannula. She denies having any chest pain. She is less tachycardic and she is in sinus tachycardia. She is producing urine output despite her being an acute kidney injury and she is dialysis dependent for now. Her last dialysis was on Wednesday and today she was supposed to have another session of dialysis which she is routinely having. No fever. No chills. No aspiration. No altered mentation. She has extensive swelling in lower extremity and she claims that the swelling itself is improved with dialysis. Note that, the patient's white cell count was elevated in the emergency at 16.6. The troponins were also positive with levels of 0.0 0.8 respectively and the proBNP level was 26,000. Echocardiac Preet was done in the emergency department that showed segmental wall motion abnormalities. The patient had moderate to see the LV dysfunction with an ejection fraction of 30-35%. There was evidence of anterior lateral inferior and septal wall hypokinesis and the right ventricular structures were within normal limits however there was moderate degree of pulmonary hypertension with a PA pressure of around 50. This patient is a very complex history. In summary I reviewed the records and I reviewed the extensive information available medical records from her most recent hospitalization. She was discharged from the hospital on 07/07/2017. The patient came into the hospital because of a abdominal abscess. The patient underwent expiratory laparotomy and she was found to have infected mesh from a previous incisional hernia repair that was draining. The patient underwent a total laparotomy and drainage of intra-abdominal abscess with resection of an infected mesh and the small bowel was run and there was no interloop abscesses identified. However, phlegmon in the distal terminal ileum was found and purulent fluid was present in the pelvis and the right rectus muscle was infected and there was a hematoma that was drained. Postop, the patient was found to have Proteus mirabilis and the patient was placed on IV antibiotics and subsequently discharged home on Augmentin. During the same hospitalization the patient developed an acute kidney injury knowing that her baseline renal function was within normal and currently she is of dialysis-dependent. A permacath was inserted in the right IJ and the patient was started on dialysis. She is having dialysis 3 times a week MWF. The patient has also multiple other comorbidities including hypertension, acid reflux, chronic back pain, diabetes mellitus and hyperlipidemia and furthermore he was involved in an acute kidney injury following the abdominal surgery. Not known to have any previous history of coronary artery disease, COPD, asthma. On 07/17/2017 and I'm seeing this patient for a follow-up. The patient is awake and alert and she is not having any significant respiratory distress. The patient was off the BiPAP since yesterday. She underwent dialysis yesterday and total of 3.8 L of fluid was removed during dialysis. She became briefly hypotensive and she was given a total of 2 50 mL back and she did not require any pressors. She is afebrile. On today's evaluation the chest x-ray still showing bilateral lower lobe pulmonary infiltrate and and pleural effusions more so on the left. The patient is afebrile. The patient is on IV Zosyn. Abdominal wounds are dry clean and intact and there being regularly dressed. She is free of any chest pain. I reviewed the consultation by cardiology. I will be quite hesitant to undergo a cardiac catheterization knowing that the cath would not alter our treatment plan and the patient may end up having further nephrotoxicity from the contrast. Discussed this also with nephrology I'm going to talk to Dr. Dubose in this regard. Meanwhile, the patient will need another session of dialysis, short run to further improve her volume status and she'll be given Ativan of 2 hours today. No other complaints. No change in mental status. The dialysis site is dry clean and intact. On 07/18/2017, the patient is being seen in follow-up. The patient remains in intensive care unit. She got dialyzed yesterday and this was her second session [id number] during this current hospitalization. Another 2 L of fluid was removed yesterday. On today's evaluation the patient is still having some shortness of breath and she did have an episode yesterday where she required the BiPAP briefly. This morning she is off the BiPAP. On examination she has a pleural effusion on the left and based on that I performed a bedside thoracentesis and I removed approximately 450 mL of pleural fluid from the left lung. The patient did well and the chest x-ray that was done following the procedure showed no evidence of any pneumothorax. The patient is afebrile. Abdominal wound is unchanged. The patient is on IV Zosyn. As mentioned earlier the patient has an underlying component of cardiomyopathy with impaired LV function and segmental wall motion abnormalities. Cardiac catheterization has been deferred for now based on the fact that the patient has an underlying \ kidney injury and she is anticipated to recover from her kidney failure. She remains on Lasix IV 80 mg every 12 hours. The net fluid balance for yesterday was negative for 4150 mL and her body weight is down from baseline 89 kg down to 80 kg. No leukocytosis. Today's creatinine is at 2.7. She did well following the thoracentesis she is resting comfortably. Cardiac rhythm is still sinus. Reevaluated today on 07/19/2017, feeling better since she had her thoracentesis. Hardly any cough, no wheezing, no shortness of breath. Final report on the fluid is pending. Patient is scheduled to have more hemodialysis today. CBC showed hemoglobin of 8.7 basic metabolic profile is normal BUN is 26 creatinine 3.3 Objective - Vital Signs Vital signs: Vital Signs Temp 97.6 F 07/19/17 08:00 Pulse 77 07/19/17 12:00 Resp 16 07/19/17 12:00 BP 103/53 07/19/17 12:00 Pulse Ox 93 L 07/19/17 04:00 Intake & Output 07/18/17 07/19/17 07/19/17 18:59 06:59 18:59 Intake Total 389 84 2780 Output Total 850 700 300 Balance -750 -650 780 Weight 79.1 kg 79.1 kg Intake: IV 100 50 Piperacillin-Tazobactam 3 50 50 .375 gm In Dextrose/Water 1 50ml.bag @ 12.5 mls/hr IVPB Q12HR REJI Rx#: [id number] normal saline 50 Oral 1080 Output: Urine 850 700 300 Other: Voiding Method Bedside Commode Bedside Commode Bedside Commode # Voids 2 # Bowel Movements 1 - Exam Physical Exam: Revealed a 72-year-old female in no distress, on 2 L nasal cannula. Head: Atraumatic, normocephalic. Eyes: PERRLA, EOMI, no icterus. HEENT:[Neck is supple.] [No neck masses.] [No thyromegaly.] [No JVD.] Chest: [Clear throughout, no crackles, no rhonchi, no wheezes.] Right anterior chest wall permacath is noted. Cardiac Exam: [Normal S1 and S2, no S3 gallop, no murmur.] Abdomen: [Soft, nontender, no megaly, no rebound, no guarding, normal bowel sounds.] Extremities: [No clubbing, no edema, no cyanosis.] Neurological Exam: [No focal neurologic deficit. Lymphatics: No lymphadenopathy. Psychiatric: Normal mood affect and mental status examination. ] - Labs CBC & Chem 7: 07/19/17 06:13 07/19/17 06:13 Labs: Abnormal Lab Results - Last 24 Hours (Table) 07/18/17 07/18/17 07/19/17 Range/Units 17:14 18:20 06:13 Hgb 8.7 L (11.4-16.0) gm/dL Hct 28.9 L (34.0-46.0) % MCV 75.5 L (80.0-100.0) fL MCH 22.8 L (25.0-35.0) pg MCHC 30.2 L (31.0-37.0) g/dL RDW 21.9 H (11.5-15.5) % Potassium 3.4 L (3.5-5.1) mmol/L BUN (7-17) mg/dL Creatinine (0.52-1.04) mg/dL Glucose (74-99) mg/dL POC Glucose (mg/dL) 139 H (75-99) mg/dL 07/19/17 Range/Units 06:13 Hgb (11.4-16.0) gm/dL Hct (34.0-46.0) % MCV (80.0-100.0) fL MCH (25.0-35.0) pg MCHC (31.0-37.0) g/dL RDW (11.5-15.5) % Potassium (3.5-5.1) mmol/L BUN 26 H (7-17) mg/dL Creatinine 3.38 H (0.52-1.04) mg/dL Glucose 123 H (74-99) mg/dL POC Glucose (mg/dL) (75-99) mg/dL Microbiology - Last 24 Hours (Table) 07/18/17 08:54 Gram Stain - Preliminary Pleural Fluid Body Fluid Culture - Preliminary 07/16/17 15:25 Blood Culture - Preliminary Blood No Growth after 48 hours Assessment and Plan Assessment: 1 acute hypoxic respiratory failure. This is secondary to acute on chronic systolic congestive heart failure, fluid overload and renal failure. No clear- cut evidence of pneumonia. On 07/18/2017, the patient was felt to have residual pleural fluid following 2 sessions of dialysis with ultrafiltration. Based on that, I performed a bedside thoracentesis and removed a total of 450 mL of pleural fluid from the left lung successfully. Note that the patient has lost approximately 8 kg since her admission to the hospital essentially due to diuresis and dialysis. Her chest x-ray shows improvement in the volume status. She is improved and she is currently off the BiPAP. Note that she has been also diagnosed having a congestion heart failure with impaired LV function and this needs to be investigated later stage including a torn an angiogram. 2 acute on chronic systolic CHF with impaired LV function with an ejection fraction of 30-35% with segmental wall motion abnormalities involving the left ventricle and secondary pulmonary hypertension 3 troponin leak, rule out underlying acute non-ST segment elevation myocardial infarction 4 abdominal abscess status post expose the laparotomy and resection of an infected mesh with drainage cultures indicating Proteus mirabilis and the patient was receiving Augmentin outpatient basis. Currently there is no active drainage from the right upper quadrant abdominal wound. The mid abdominal incision is dry clean and intact. 5 recent septicemia related to abdominal infection/abscess 6 acute kidney injury, currently the patient is dialysis dependent undergoing dialysis 3 times a week via permacath over the right anterior chest area 7 diabetes mellitus, 8 hypertension 9 hyperlipidemia 10 acid reflux 11 chronic back pain 12 anemia of chronic disease, multifactorial Recommendation: Continue present supportive care measures, consider discharge planning in the next 24 hours. Time with Patient: Less than 30
--- NOTE | 2017-07-19 19:37 | P.PN ---
Subjective Progress Note Date: 07/19/17 Progress note being dictated for Dr. Pruitt. Interval history: This a 72-year-old female admitted with acute CHF exacerbation , receiving hemodialysis and multiple other medical issues. Status post thoracentesis, pleural cultures pending. Breathing significantly improved. Used BiPAP last night. Scheduled for hemodialysis today. Telemetry sinus rhythm with PVCs. Denies chest pain, palpitations or increased shortness of breath. Objective - Vital Signs Vital signs: Vital Signs Temp 97.6 F 07/19/17 08:00 Pulse 96 07/19/17 16:00 Resp 16 07/19/17 16:00 BP 133/67 07/19/17 16:00 Pulse Ox 93 L 07/19/17 04:00 Intake & Output 07/19/17 07/19/17 07/20/17 06:59 18:59 06:59 Intake Total 50 1320 Output Total 700 300 Balance -650 1020 Weight 79.1 kg 79.1 kg Intake: IV 50 Piperacillin-Tazobactam 3 50 .375 gm In Dextrose/Water 1 50ml.bag @ 12.5 mls/hr IVPB Q12HR [facility] Rx#: [id number] Oral 1320 Output: Urine 700 300 Other: Voiding Method Bedside Commode Bedside Commode # Voids 2 - Exam PHYSICAL EXAM: VITAL SIGNS: As above GENERAL: Sitting up in bed, no acute distress, tired appearing HEENT: Conjunctivae normal. eyes normal. Oral mucosa moist NECK: No JVD. No thyroid enlargement. No LNs. Right chest wall permacath. CARDIOVASCULAR: S1, S2 muffled. No murmur RESPIRATION: Breath sounds diminished in the bases. No rhonchi or crackles. ABDOMEN: Soft, status post recent abdominal surgery, No guarding. no masses palpable. Bowel sounds heard. LEGS: No edema. no swelling PSYCHIATRY: Alert and oriented -3, mood and affect normal. NERVOUS SYSTEM: Cranial N 2-12 grossly normal. Moves all 4 limbs. Diffuse weakness No focal deficits. Skin: no ulcer no rash Joints: No active swelling. No inflammation. Lymphatic system. No LN neck axilla or groin. - Labs CBC & Chem 7: 07/19/17 06:13 07/19/17 06:13 Labs: Abnormal Lab Results - Last 24 Hours (Table) 04/23/18 04/23/18 Range/Units 06:13 06:13 Hgb 8.7 L (11.4-16.0) gm/dL Hct 28.9 L (34.0-46.0) % MCV 75.5 L (80.0-100.0) fL MCH 22.8 L (25.0-35.0) pg MCHC 30.2 L (31.0-37.0) g/dL RDW 21.9 H (11.5-15.5) % BUN 26 H (7-17) mg/dL Creatinine 3.38 H (0.52-1.04) mg/dL Glucose 123 H (74-99) mg/dL Microbiology - Last 24 Hours (Table) 07/16/17 15:25 Blood Culture - Preliminary Blood No Growth after 72 hours 07/18/17 08:54 Gram Stain - Preliminary Pleural Fluid Body Fluid Culture - Preliminary Assessment and Plan Assessment: 1. Acute hypoxic respiratory failure secondary to Acute ON Chronic CHF exacerbation, systolic dysfunction, EF 30-35% 2. Rule out takotsubo syndrome 3. Rule out bibasilar pneumonia 4. Troponin indeterminate, 0.860 5. Recent abdominal abscess, status post respiratory laparotomy with resection of infected mesh and drainage, cultures Proteus mirabilis, sepsis 6. Acute renal failure secondary to ATN status post recent abdominal surgery, currently hemodialysis dependent Plan: Continue on current medication regime ,monitoring and symptomatic treatment. Hemodialysis, diuretic as per nephrology. Electrolytes being replaced. Pleural cultures/pathology pending. EF 30-35% , further workup - Eventual cardiac catheterization. Follow closely with nephrology, pulmonary. Further recommendations to follow. The impression and plan of care has been dictated as directed. : I performed a history and examination of this patient, discussed the same with the dictator. I agree with the dictator's note ,documented as a scribe. Any additional findings or plans will be noted.
[2017-07-19 20:18] VITALS: RESP 18
[2017-07-19] MEDS ORDERED: HEPARIN SODIUM,PORCINE 5,000 UNIT/ML 1 ML VIAL ONE (21:30)
[2017-07-19] MEDS: DOCUSATE 100 MG CAP PO SCH (21:47)
[2017-07-19] MEDS: ATORVASTATIN 40 MG TAB PO SCH (21:47)
--- NOTE | 2017-07-19 21:52 | P.PN ---
Subjective Progress Note Date: 07/19/17 Principal diagnosis: Shortness of breath This is a 72-year-old female patient gives history of having an abdominal wall abscess on the right side for which she was treated at [facility] emergency center in October 2016. The ER physician did an incision and drainage and widen the draining track with a scalpel and placed iodoform gauze. There was purulent material at that time. Patient states that this eventually healed and in April she was having increased right-sided abdominal pain and her PCP sent her to [facility] for an ultrasound that showed a possible hematoma on the right upper quadrant. She was then sent to Dr. Hancock for further evaluation. Because of anemia, patient underwent an upper and lower endoscopy with Dr. Hancock on May 20 that found no signs of bleeding. She subsequently underwent a hernia repair at the site of the previous hematoma or abscess from October [address] Hancock and this was done on 05/26/2017. This was located in the mid upper abdomen. She states she continued to have right-sided abdominal pain, chills and hot feeling, decreased appetite with possible weight loss and nausea. She again presented to Hospital and underwent incision and drainage of the abscess. At that time she did have evidence of significant sepsis with leukocytosis and elevated lactic acid. After surgery she recovered except developed acute renal failure on the basis of ATN and likely medication effects from Carlitos inhibitors and nonsteroidal anti-inflammatories. The patient had a protracted hospitalization eventually was sent home with outpatient hemodialysis. Shortly after being home she apparently started having increasing difficulties with her fluid status and presents to Hospital profoundly short of breath with chest x- ray showing evidence of extensive volume overload. Echocardiogram was performed due to her shortness of breath and a low ejection fraction was found. The acuity of this was not truly known we don't have prior echocardiogram here. The patient was seen by nephrology and urgent hemodialysis as requested because of her significant volume overload, BiPAP was started which improved her profound shortness of breath. With BiPAP she's feeling better and awaits hemodialysis, we'll move to the ICU for this to occur in the next short period of time. 07/17/2017 reveals the patient to be feeling considerably better after her second cycle of hemodialysis in 48 hours. With 6 L of fluid removed her shortness of breath is generally resolving, her initial is improving and she is able to eat. Sitting at the bedside without oxygen on breathing comfortably she has a saturation greater than 95%. As noted she is off BiPAP and feeling better. She denies fevers or chills. 07/16/2017 patient had a bout of severe shortness of breath overnight that required a short utilization of BiPAP. Because of her ongoing difficulties thoracentesis has been performed, now postthoracentesis her respiratory status is definitely improved. She's not having any fevers or chills. Addition of Mycelex has distinctly improved her discomfort in her mouth and throat. 07/19/2017 reveals the patient to be feeling considerably better. She is tolerating dialysis well. In with her dialysis she's now much less short of breath and is having no interval troubles. She's being followed by pulmonology and cardiology Objective - Vital Signs Vital signs: Vital Signs Temp 97.6 F 07/19/17 20:00 Pulse 75 07/19/17 21:42 Resp 18 07/19/17 20:00 BP 117/72 07/19/17 21:42 Pulse Ox 96 07/19/17 20:00 Intake & Output 07/19/17 07/19/17 07/20/17 06:59 18:59 06:59 Intake Total 50 1320 Output Total 700 300 Balance -650 1020 Weight 79.1 kg 79.1 kg Intake: IV 50 Piperacillin-Tazobactam 3 50 .375 gm In Dextrose/Water 1 50ml.bag @ 12.5 mls/hr IVPB Q12HR [facility] Rx#: [id number] Oral 1320 Output: Urine 700 300 Other: Voiding Method Bedside Commode Bedside Commode Bedside Commode # Voids 2 - Exam Gen: This is a 72-year-old female patient. No considerably less short of breath HEENT: Head is atraumatic, normocephalic. Pupils equal, round. Sclerae is anicteric. Conjunctiva pink. Mucous members of the mouth are dry. No leonardo thrush is seen NECK: Supple. No JVD. No lymphadenopathy. No thyromegaly. LUNGS: Patient has a rapid respiratory rate and has evidence of crackles at the bilateral bases left greater than right expiratory wheezes are scattered HEART: Regular rate and rhythm. 2/6 systolic murmur without click or rub PMI is nondisplaced ABDOMEN: Soft. Bowel sounds are present. No masses. Right sided tenderness. Mass palpated to the mid right lateral area. EXTREMITIES: Bilateral lower extremity edema without open ulcers, No calf tenderness. Dorsalis pedis +2 bilaterally. NEUROLOGICAL: Patient is awake, alert and oriented x3. - Labs CBC & Chem 7: 07/19/17 06:13 07/19/17 06:13 Labs: Abnormal Lab Results - Last 24 Hours (Table) 07/19/17 07/19/17 Range/Units 06:13 06:13 Hgb 8.7 L (11.4-16.0) gm/dL Hct 28.9 L (34.0-46.0) % MCV 75.5 L (80.0-100.0) fL MCH 22.8 L (25.0-35.0) pg MCHC 30.2 L (31.0-37.0) g/dL RDW 21.9 H (11.5-15.5) % BUN 26 H (7-17) mg/dL Creatinine 3.38 H (0.52-1.04) mg/dL Glucose 123 H (74-99) mg/dL Microbiology - Last 24 Hours (Table) 07/16/17 15:25 Blood Culture - Preliminary Blood No Growth after 72 hours 07/18/17 08:54 Gram Stain - Preliminary Pleural Fluid Body Fluid Culture - Preliminary Laboratory Results WBC 6.9 k/uL (3.8-10.6) 07/19/17 06:13 RBC 3.83 m/uL (3.80-5.40) 07/19/17 06:13 Hgb 8.7 gm/dL (11.4-16.0) L 07/19/17 06:13 Hct 28.9 % (34.0-46.0) L 07/19/17 06:13 MCV 75.5 fL (80.0-100.0) L 07/19/17 06:13 MCH 22.8 pg (25.0-35.0) L 07/19/17 06:13 MCHC 30.2 g/dL (31.0-37.0) L 07/19/17 06:13 RDW 21.9 % (11.5-15.5) H 07/19/17 06:13 Plt Count 369 k/uL (150-450) 07/19/17 06:13 Neutrophils % 68 % 07/19/17 06:13 Lymphocytes % 20 % 07/19/17 06:13 Monocytes % 5 % 07/19/17 06:13 Eosinophils % 4 % 07/19/17 06:13 Basophils % 1 % 07/19/17 06:13 Neutrophils # 4.7 k/uL (1.3-7.7) 07/19/17 06:13 Lymphocytes # 1.4 k/uL (1.0-4.8) 07/19/17 06:13 Monocytes # 0.3 k/uL (0-1.0) 07/19/17 06:13 Eosinophils # 0.3 k/uL (0-0.7) 07/19/17 06:13 Basophils # 0.1 k/uL (0-0.2) 07/19/17 06:13 Hypochromasia Moderate 07/19/17 06:13 Poikilocytosis Slight 07/16/17 00:13 Anisocytosis Moderate 07/19/17 06:13 Microcytosis Moderate 07/19/17 06:13 PT 11.1 sec (9.0-12.0) 07/16/17 00:13 INR 1.2 (<1.2) H 07/16/17 00:13 APTT 20.4 sec (22.0-30.0) L 07/16/17 00:13 Sodium 142 mmol/L (137-145) 07/19/17 06:13 Potassium 3.5 mmol/L (3.5-5.1) 07/19/17 06:13 Chloride 98 mmol/L (98-107) 07/19/17 06:13 Carbon Dioxide 28 mmol/L (22-30) 07/19/17 06:13 Anion Gap 16 mmol/L 07/19/17 06:13 BUN 26 mg/dL (7-17) H 07/19/17 06:13 Creatinine 3.38 mg/dL (0.52-1.04) H 07/19/17 06:13 Est GFR (CKD-EPI)AfAm 15 (>60 ml/min/1.73 sqM) 07/19/17 06:13 Est GFR (CKD-EPI)NonAf 13 (>60 ml/min/1.73 sqM) 07/19/17 06:13 Glucose 123 mg/dL (74-99) H 07/19/17 06:13 POC Glucose (mg/dL) 139 mg/dL (75-99) H 07/18/17 17:14 POC Glu Cryptologic Linguist ID Lana Haynes 07/18/17 17:14 Calcium 8.8 mg/dL (8.4-10.2) 07/19/17 06:13 Phosphorus 4.2 mg/dL (2.5-4.5) 07/17/17 05:11 Magnesium 1.9 mg/dL (1.6-2.3) 07/18/17 04:04 Iron 18 ug/dL (50-170) L 07/17/17 05:11 TIBC 237 ug/dL (228-460) 07/17/17 05:11 Iron Saturation 7.59 (12.00-45.00) L 07/17/17 05:11 Ferritin 53.1 ng/mL (10.0-291.0) 07/17/17 05:11 Total Bilirubin 0.6 mg/dL (0.2-1.3) 07/16/17 23:59 AST 16 U/L (14-36) 07/16/17 23:59 ALT 16 U/L (9-52) 07/16/17 23:59 Alkaline Phosphatase 66 U/L (38-126) 07/16/17 23:59 Total Creatine Kinase 43 U/L (30-135) 07/16/17 00:13 CK-MB (CK-2) 3.8 ng/mL (0.0-2.4) H* 07/16/17 12:30 CK-MB (CK-2) Rel Index 5.6 07/16/17 00:13 Troponin I 0.625 ng/mL (0.000-0.034) H* 07/16/17 12:30 NT-Pro-B Natriuret Pep 70468 pg/mL 07/16/17 00:13 Total Protein 5.5 g/dL (6.3-8.2) L 07/16/17 23:59 Albumin 3.1 g/dL (3.5-5.0) L 07/16/17 23:59 Urine Color Yellow 07/17/17 02:00 Urine Appearance Cloudy (Clear) H 07/17/17 02:00 Urine pH 6.0 (5.0-8.0) 07/17/17 02:00 Ur Specific [place] 1.015 (1.001-1.035) 07/17/17 02:00 Urine Protein 2+ (Negative) H 07/17/17 02:00 Urine Glucose (UA) Negative (Negative) 07/17/17 02:00 Urine Ketones 1+ (Negative) H 07/17/17 02:00 Urine Blood Trace (Negative) H 07/17/17 02:00 Urine Nitrite Negative (Negative) 07/17/17 02:00 Urine Bilirubin Negative (Negative) 07/17/17 02:00 Urine Urobilinogen <2.0 mg/dL (<2.0) 07/17/17 02:00 Ur Leukocyte Esterase Small (Negative) H 07/17/17 02:00 Urine RBC 5 /hpf (0-5) 07/17/17 02:00 Urine WBC 63 /hpf (0-5) H 07/17/17 02:00 Ur Squamous Epith Cells 11 /hpf (0-4) H 07/17/17 02:00 Amorphous Sediment Rare /hpf (None) H 07/17/17 02:00 Hyaline Casts 96 /lpf (0-2) H 07/17/17 02:00 Urine Mucus Rare /hpf (None) H 07/17/17 02:00 Fluid Source Pleural 07/18/17 08:54 Fluid Color Yellow 07/18/17 08:54 Fluid Appearance Clear 07/18/17 08:54 Fluid RBC 1 /uL 07/18/17 08:54 Fluid Nucleated Cells 2 /uL 07/18/17 08:54 Body Fluid Glucose Source Pleural Fluid 07/18/17 08:54 Fluid Glucose 143 mg/dL 07/18/17 08:54 Body Fluid Protein Source Pleural Fluid 07/18/17 08:54 Fluid Total Protein 1278 mg/dL 07/18/17 08:54 Body Fluid LDH Source Pleural Fluid 07/18/17 08:54 Fluid LDH 102 U/L 07/18/17 08:54 Microbiology 07/16/17 15:25 Blood Blood Culture - Preliminary No Growth after 72 hours 07/18/17 08:54 Pleural Fluid Gram Stain - Preliminary 07/18/17 08:54 Pleural Fluid Body Fluid Culture - Preliminary 07/17/17 02:00 Urine,Voided Urine Culture - Final Assessment and Plan (1) Pulmonary edema Current Visit: Yes Status: Acute Code(s): J81.1 - CHRONIC PULMONARY EDEMA SNOMED Code(s): 16285185 (2) Abdominal wall abscess Narrative/Plan: Pleasant 72-year-old woman presents from home with profound increasing shortness of breath occurring after her long hospital stay and transition to home. The is present and does relate that he is providing all of her meals, which includes cold cuts and frozen meals, he does not cook. The patient this time his pulmonary edema with significant volume overload and nephrology has evaluated and has asked for urgent hemodialysis remove the severe amount of fluid. Pleural effusion is noted and hopefully with hemodialysis will rapidly improve. At this time no evidence of significant infection and would do well to not have further ulceration of her antibiotic therapy but should complete the course of antibiotic for the abdominal abscess. While she is acutely ill she is receiving Zosyn and should complete 7 days total of antibiotic with Augmentin. We'll expect with hemodialysis she has a rapid improvement. 07/17/2017 reveals the patient be considerably improved after her second cycle of hemodialysis and removal of 6 L of fluid. Fortunately there is no evidence of pneumonia at this time. She does have abdominal ulceration Aquacel silver as requested to be packed into the ulceration. She relates that she's having a bit of irritation overall cavity somewhat when she had thrush recently and Mycelex as requested. She is down to the last several days of antibiotic therapy which can be transitioned to Augmentin at the time for discharge. 07/18/2017 patient had difficulty overnight with shortness of breath, requiring a time on BiPAP. She has had a thoracentesis today he is feeling considerably better. Oral cavity discomfort is improved with Mycelex. Doing well with the Aquacel silver packing interabdominal ulceration. 07/19/2017 patient now feeling considerably better. No further shortness of breath. Thoracentesis is effectively help her shortness of breath as has the dialysis cycles. Definitely feeling better this evening. Continue with the local wound care was Aquacel to the abdominal wall ulceration. She is being followed by pulmonary /critical care and cardiology. At this time the patient does not desire to exposure to dye for further evaluation of potential cardiac issues. Fortunate she is tolerating hemodialysis well with adequate blood pressures without hypotension showing evidence of adequate output. She is ready for discharge to home will transition to Augmentin, Mycelex has helped her thrush and she feels better. Current Visit: No Status: Acute Code(s): L02.211 - CUTANEOUS ABSCESS OF ABDOMINAL WALL SNOMED Code(s): 32644384
[2017-07-20] MEDS: PANTOPRAZOLE 40 MG TABLET PO SCH (06:21)
[2017-07-20 06:25] LABS: Anisocytosis Moderate; Basophils % (A) 1 %; Eosinophils # (A) 0.2 k/uL (0-0.7); Eosinophils % (A) 4 %; HCT 29.2 % (34.0-46.0); HGB 8.6 gm/dL (11.4-16.0); Hypochromasia Marked; Lymphocytes # (A) 1.3 k/uL (1.0-4.8); Lymphocytes % (A) 29 %; MCH 21.9 pg (25.0-35.0); MCHC 29.6 g/dL (31.0-37.0); MCV 73.9 fL (80.0-100.0); Mean Platelet Volume 7.9; Microcytosis Marked; Monocytes # (A) 0.3 k/uL (0-1.0); Monocytes % (A) 7 %; Neutrophils # (A) 2.7 k/uL (1.3-7.7); Neutrophils % (A) 59 %; Platelet Count 303 k/uL (150-450); RBC 3.95 m/uL (3.80-5.40); RDW 22.6 % (11.5-15.5); WBC 4.6 k/uL (3.8-10.6)
[2017-07-20 06:46] LABS: Potassium 3.5 mmol/L (3.5-5.1)
--- NOTE | 2017-07-20 08:13 | XR ---
EXAMINATION TYPE: XR chest 1V portable DATE OF EXAM: 07/20/2017 HISTORY: Shortness of breath. COMPARISON: 07/19/2017 TECHNIQUE: Single view of the chest is submitted. FINDINGS: Demonstrated are scattered senescent parenchymal change. Left basilar infiltrate with small effusion persists. Improved aeration right perihilar region. The heart is stable. Hilar and mediastinal structures are within normal limits. Degenerative changes are seen of the dorsal spine. IMPRESSION: 1. Left basilar infiltrate with small effusion persists. Improved aeration right perihilar region.
[2017-07-20] MEDS: CYANOCOBALAMIN 500 MCG TAB PO SCH (08:57)
[2017-07-20] MEDS: FUROSEMIDE 10 MG/ML 10 ML VIAL IV SCH (08:57)
[2017-07-20] MEDS: hydrALAZINE HCL 25 MG TAB PO SCH (08:57)
[2017-07-20] MEDS: ISOSORBIDE MONONITRATE ER 30 MG TAB.ER.24H PO SCH (08:57)
[2017-07-20] MEDS: CHOLECALCIFEROL 1,000 UNIT TAB PO SCH (08:57)
[2017-07-20] MEDS: ASPIRIN 81 MG PO SCH (08:57)
[2017-07-20] MEDS: METOPROLOL TARTRATE 50 MG TAB PO SCH (08:57)
[2017-07-20] MEDS: CLOTRIMAZOLE TROCHE 10 MG TROCHE MUCOUS MEM SCH ×2 (08:57→15:39)
[2017-07-20] MEDS: HEPARIN SODIUM,PORCINE 5,000 UNIT/ML 1 ML VIAL SQ SCH (08:57)
[2017-07-20] MEDS: PIPERACILLIN-TAZOBACTAM 3.375 GM in DEXTROSE/WATER 1 50ML.BAG IVPB SCH (08:58)
[2017-07-20] MEDS: SODIUM FERRIC GLUCONAT-SUCROSE 125 MG in SODIUM CHLORIDE 0.9% 100 ML IVPB SCH (08:58)
[2017-07-20] MEDS ORDERED: POTASSIUM CHLORIDE ER 20 MEQ TAB.ER PO STA (10:18)
--- NOTE | 2017-07-20 10:47 | P.PN ---
Subjective Patient is seen in follow-up for acute kidney injury currently hemodialysis dependent. She underwent hemodialysis on Wednesday and Wednesday with near total 6 L ultrafiltration. Now maintained on a Wednesday schedule. She also underwent left-sided thoracentesis on July 18 with 450 mL drained. Currently resting in bed. Denies any active chest pain or shortness of breath. No active complaints. Hemodynamically stable. Vital signs are stable. General: The patient appeared well nourished and normally developed. HEENT: Head exam is unremarkable. Neck is without jugular venous distension. LUNGS: Breath sounds decreased. No rhonchi or wheezes. HEART: Rate and Rhythm are regular. First and second heart sounds normal. No murmurs, rubs or gallops. ABDOMEN: Abdominal exam reveals normal bowel sounds. Non-tender and non- distended. No evidence of peritonitis. EXTREMITITES: No clubbing, cyanosis, or edema. Objective - Vital Signs Vital signs: Vital Signs Temp 97.1 F L 07/20/17 08:58 Pulse 94 07/20/17 08:58 Resp 18 07/20/17 08:58 BP 103/71 07/20/17 08:58 Pulse Ox 95 07/20/17 09:03 Intake & Output 07/19/17 07/20/17 07/20/17 18:59 06:59 18:59 Intake Total 1320 Output Total 300 1350 Balance 1020 -1350 Weight 79.1 kg 73.8 kg Intake: Oral 1320 Output: Urine 300 1350 Other: Voiding Method Bedside Commode Bedside Commode Bedside Commode # Voids 1 - Labs CBC & Chem 7: 07/20/17 05:56 07/20/17 05:56 Labs: Abnormal Lab Results - Last 24 Hours (Table) 07/20/17 07/20/17 Range/Units 05:56 05:56 Hgb 8.6 L (11.4-16.0) gm/dL Hct 29.2 L (34.0-46.0) % MCV 73.9 L (80.0-100.0) fL MCH 21.9 L (25.0-35.0) pg MCHC 29.6 L (31.0-37.0) g/dL RDW 22.6 H (11.5-15.5) % Creatinine 2.18 H (0.52-1.04) mg/dL Glucose 111 H (74-99) mg/dL Microbiology - Last 24 Hours (Table) 07/16/17 15:25 Blood Culture Gram Stain - Preliminary Blood 07/16/17 15:25 Blood Culture - Final Blood 07/18/17 08:54 Gram Stain - Preliminary Pleural Fluid Body Fluid Culture - Preliminary Assessment and Plan Plan: Assessment: #1. Nonoliguric acute kidney injury secondary to ATN developed postoperatively after she underwent drainage of the abdominal abscess and infected hematoma. She was also anemic and required blood transfusion that admission. Currently hemodialysis dependent. #2. Dyspnea secondary to volume overload. Improved with ultrafiltration. #3. Systolic CHF with ejection fraction of 30-35% with moderate pulmonary hypertension. #4. Hypokalemia secondary to diuresis. Magnesium replete. #5. Status post drainage of abdominal abscess and infected hematoma on 2017. #6. Anemia. Iron replete. Plan: Maintain Lasix 80 mg twice daily Changed to oral. Hemodialysis tomorrow with goal 3 L ultrafiltration. Ferrlicit 125 mg IV daily for 3 days. Second dose today. Maintain Aranesp. Avoid nephrotoxic agents and hypotensive episodes. Replace potassium. 40 mEq today. Start maintenance potassium supplementation 20 mEq daily. Patient will likely also require cardiac catheterization down the road. I did discuss with the patient that dye exposure will impair renal recovery. patient is refusing cardiac catheterization at this time.
[2017-07-20 11:21] VITALS: BP 102/56; PULSE 81; TEMP 97.4
--- NOTE | 2017-07-20 12:53 | P.PN ---
Subjective Progress Note Date: 07/20/17 Principal diagnosis: Acute hypoxic respiratory failure secondary to left pleural effusion, fluid overload, acute on chronic systolic congestive heart failure. A 72-year-old female patient was brought into the burst department for increased shortness of breath and a pulmonary consultation was requested. Apparently the patient was quite dyspneic at a time of arrival in the chest x- ray showed new lower lobe at the pulmonary infiltrates which was not present at a time of discharge from the hospital last week. The patient was briefly placed on BiPAP and currently she is on 4 L of oxygen nasal cannula. She denies having any chest pain. She is less tachycardic and she is in sinus tachycardia. She is producing urine output despite her being an acute kidney injury and she is dialysis dependent for now. Her last dialysis was on Wednesday and today she was supposed to have another session of dialysis which she is routinely having. No fever. No chills. No aspiration. No altered mentation. She has extensive swelling in lower extremity and she claims that the swelling itself is improved with dialysis. Note that, the patient's white cell count was elevated in the emergency at 16.6. The troponins were also positive with levels of 0.0 0.8 respectively and the proBNP level was 26,000. Echocardiac Preet was done in the emergency department that showed segmental wall motion abnormalities. The patient had moderate to see the LV dysfunction with an ejection fraction of 30-35%. There was evidence of anterior lateral inferior and septal wall hypokinesis and the right ventricular structures were within normal limits however there was moderate degree of pulmonary hypertension with a PA pressure of around 50. This patient is a very complex history. In summary I reviewed the records and I reviewed the extensive information available medical records from her most recent hospitalization. She was discharged from the hospital on 07/07/2017. The patient came into the hospital because of a abdominal abscess. The patient underwent expiratory laparotomy and she was found to have infected mesh from a previous incisional hernia repair that was draining. The patient underwent a total laparotomy and drainage of intra-abdominal abscess with resection of an infected mesh and the small bowel was run and there was no interloop abscesses identified. However, phlegmon in the distal terminal ileum was found and purulent fluid was present in the pelvis and the right rectus muscle was infected and there was a hematoma that was drained. Postop, the patient was found to have Proteus mirabilis and the patient was placed on IV antibiotics and subsequently discharged home on Augmentin. During the same hospitalization the patient developed an acute kidney injury knowing that her baseline renal function was within normal and currently she is of dialysis-dependent. A permacath was inserted in the right IJ and the patient was started on dialysis. She is having dialysis 3 times a week MWF. The patient has also multiple other comorbidities including hypertension, acid reflux, chronic back pain, diabetes mellitus and hyperlipidemia and furthermore he was involved in an acute kidney injury following the abdominal surgery. Not known to have any previous history of coronary artery disease, COPD, asthma. On 07/17/2017 and I'm seeing this patient for a follow-up. The patient is awake and alert and she is not having any significant respiratory distress. The patient was off the BiPAP since yesterday. She underwent dialysis yesterday and total of 3.8 L of fluid was removed during dialysis. She became briefly hypotensive and she was given a total of 2 50 mL back and she did not require any pressors. She is afebrile. On today's evaluation the chest x-ray still showing bilateral lower lobe pulmonary infiltrate and and pleural effusions more so on the left. The patient is afebrile. The patient is on IV Zosyn. Abdominal wounds are dry clean and intact and there being regularly dressed. She is free of any chest pain. I reviewed the consultation by cardiology. I will be quite hesitant to undergo a cardiac catheterization knowing that the cath would not alter our treatment plan and the patient may end up having further nephrotoxicity from the contrast. Discussed this also with nephrology I'm going to talk to Dr. Dubose in this regard. Meanwhile, the patient will need another session of dialysis, short run to further improve her volume status and she'll be given Ativan of 2 hours today. No other complaints. No change in mental status. The dialysis site is dry clean and intact. On 07/18/2017, the patient is being seen in follow-up. The patient remains in intensive care unit. She got dialyzed yesterday and this was her second session [id number] during this current hospitalization. Another 2 L of fluid was removed yesterday. On today's evaluation the patient is still having some shortness of breath and she did have an episode yesterday where she required the BiPAP briefly. This morning she is off the BiPAP. On examination she has a pleural effusion on the left and based on that I performed a bedside thoracentesis and I removed approximately 450 mL of pleural fluid from the left lung. The patient did well and the chest x-ray that was done following the procedure showed no evidence of any pneumothorax. The patient is afebrile. Abdominal wound is unchanged. The patient is on IV Zosyn. As mentioned earlier the patient has an underlying component of cardiomyopathy with impaired LV function and segmental wall motion abnormalities. Cardiac catheterization has been deferred for now based on the fact that the patient has an underlying \ kidney injury and she is anticipated to recover from her kidney failure. She remains on Lasix IV 80 mg every 12 hours. The net fluid balance for yesterday was negative for 4150 mL and her body weight is down from baseline 89 kg down to 80 kg. No leukocytosis. Today's creatinine is at 2.7. She did well following the thoracentesis she is resting comfortably. Cardiac rhythm is still sinus. Reevaluated today on 07/19/2017, feeling better since she had her thoracentesis. Hardly any cough, no wheezing, no shortness of breath. Final report on the fluid is pending. Patient is scheduled to have more hemodialysis today. CBC showed hemoglobin of 8.7 basic metabolic profile is normal BUN is 26 creatinine 3.3 The patient is seen again today July 20 2017 in follow-up. She is awake and alert in no acute distress. Pleural fluid analysis pending. Today's chest x- ray reveals a left basilar infiltrate with small effusion persists. Improved aeration the right perihilar region. She is maintaining good O2 saturations in the upper 90s on room air. She is afebrile. Hemodynamically stable. White count 4.6. Hemoglobin 8.6. Creatinine 2.18. She remains on diuretics. Objective - Vital Signs Vital signs: Vital Signs Temp 97.4 F L 07/20/17 11:21 Pulse 81 07/20/17 11:21 Resp 18 07/20/17 11:21 BP 102/56 07/20/17 11:21 Pulse Ox 97 07/20/17 11:21 Intake & Output 07/19/17 07/20/17 07/20/17 18:59 06:59 18:59 Intake Total 1320 150 Output Total 300 1350 Balance 1020 -1350 150 Weight 79.1 kg 73.8 kg Intake: IV 50 Piperacillin-Tazobactam 3 50 .375 gm In Dextrose/Water 1 50ml.bag @ 12.5 mls/hr IVPB Q12HR REJI Rx#: [id number] Intake, IV Titration 100 Amount Sodium Ferric Gluconat- 100 Sucrose 125 mg In Sodium Chloride 0.9% 100 ml @ 100 mls/hr IVPB DAILY REJI Rx#:[id number] Oral 1320 Output: Urine 300 1350 Other: Voiding Method Bedside Commode Bedside Commode Bedside Commode # Voids 1 - Exam GENERAL EXAM: Alert, active, comfortable in no apparent distress. HEAD: Normocephalic. EYES: Normal reaction of pupils, equal size. NOSE: Clear with pink turbinates. THROAT: No erythema or exudates. NECK: No masses, no JVD. CHEST: No chest wall deformity. Right permacath in place. LUNGS: Equal air entry with no crackles, wheeze, rhonchi or dullness. CVS: S1 and S2 normal with no audible murmur, regular rhythm. ABDOMEN: No hepatosplenomegaly, normal bowel sounds, no guarding or rigidity. SPINE: No scoliosis or deformity SKIN: No rashes CENTRAL NERVOUS SYSTEM: No focal deficits, tone is normal in all 4 extremities. EXTREMITIES: There is no peripheral edema. No clubbing, no cyanosis. Peripheral pulses are intact. - Labs CBC & Chem 7: 07/20/17 05:56 07/20/17 05:56 Labs: Abnormal Lab Results - Last 24 Hours (Table) 07/20/17 07/20/17 Range/Units 05:56 05:56 Hgb 8.6 L (11.4-16.0) gm/dL Hct 29.2 L (34.0-46.0) % MCV 73.9 L (80.0-100.0) fL MCH 21.9 L (25.0-35.0) pg MCHC 29.6 L (31.0-37.0) g/dL RDW 22.6 H (11.5-15.5) % Creatinine 2.18 H (0.52-1.04) mg/dL Glucose 111 H (74-99) mg/dL Microbiology - Last 24 Hours (Table) 04/20/18 15:25 Blood Culture Gram Stain - Preliminary Blood 07/16/17 15:25 Blood Culture - Final Blood 07/18/17 08:54 Gram Stain - Preliminary Pleural Fluid Body Fluid Culture - Preliminary Assessment and Plan Assessment: 1 acute hypoxic respiratory failure. This is secondary to acute on chronic systolic congestive heart failure, fluid overload and renal failure. No clear- cut evidence of pneumonia. On 07/18/2017, the patient was felt to have residual pleural fluid following 2 sessions of dialysis with ultrafiltration. Based on that, I performed a bedside thoracentesis and removed a total of 450 mL of pleural fluid from the left lung successfully. Note that the patient has lost approximately 8 kg since her admission to the hospital essentially due to diuresis and dialysis. Her chest x-ray shows improvement in the volume status. She is improved and she is currently off the BiPAP. Note that she has been also diagnosed having a congestion heart failure with impaired LV function and this needs to be investigated later stage including a torn an angiogram. 2 acute on chronic systolic CHF with impaired LV function with an ejection fraction of 30-35% with segmental wall motion abnormalities involving the left ventricle and secondary pulmonary hypertension 3 troponin leak, rule out underlying acute non-ST segment elevation myocardial infarction 4 abdominal abscess status post expose the laparotomy and resection of an infected mesh with drainage cultures indicating Proteus mirabilis and the patient was receiving Augmentin outpatient basis. Currently there is no active drainage from the right upper quadrant abdominal wound. The mid abdominal incision is dry clean and intact. 5 recent septicemia related to abdominal infection/abscess 6 acute kidney injury, currently the patient is dialysis dependent undergoing dialysis 3 times a week via permacath over the right anterior chest area 7 diabetes mellitus, 8 hypertension 9 hyperlipidemia 10 acid reflux 11 chronic back pain 12 anemia of chronic disease, multifactorial Recommendation: The patient was seen and evaluated by Dr. De Guzman. Chest x-ray and labs were reviewed. She is improved from the pulmonary standpoint. I, the cosigning physician, performed a history & physical examination of the patient. Lungs sounds with faint crackles in posterior bases more so on the left. Maintaining good O2 saturations in the 90s on room air. I discussed the assessment and plan of care with my nurse practitioner, Jany Marquez. I attest to the above note as dictated by her.
--- NOTE | 2017-07-20 14:14 | PN ---
PROGRESS NOTE Mrs. Tate is a 72-year-old female who presented with symptoms of dyspnea and was noted to have evidence of severe cardiomyopathy with segmental wall motion abnormality, raising the possibility takotsubo syndrome. She has renal failure and discussion regarding possible cardiac catheterization was made with her, but she is reluctant to undergo that. She is doing well this morning. She is ambulating without difficulty. Denying any chest pain. No dizziness. No palpitation. She denies any nausea. She denies any cough or fever. She continues to be at this time on aspirin once a day, Lipitor 40 mg daily, furosemide 80 mg twice a day, hydralazine 25 mg twice a day, metoprolol tartrate 50 mg twice a day. PHYSICAL EXAMINATION: Blood pressure 102/56 with a heart rate in the 80s. LUNGS: Clear. HEART: Regular rate and rhythm, S1, S2. No S3. No rub. ABDOMEN: Soft and nontender. EXTREMITIES: No edema. LAB DATA: Revealed hemoglobin of 8.6, BUN and creatinine of 14 and 2.18. IMPRESSION: 1. Status post non ST-segment elevation myocardial infarction, could be takotsubo syndrome. 2. Renal failure. 3. Status post recent abdominal surgery. 4. Hypertension. RECOMMENDATION: Patient has declined cardiac catheterization. Will continue on the present medical regimen. I would expect she should be able to be discharged home soon and she will follow up in the office for further evaluation. MMODL / IJN: [id number] /
[2017-07-20] MEDS ORDERED: FUROSEMIDE 80 MG TAB PO SCH (16:00)
--- NOTE | 2017-07-20 22:51 | P.PN ---
Subjective Progress Note Date: 07/20/17 Principal diagnosis: Shortness of breath This is a 72-year-old female patient gives history of having an abdominal wall abscess on the right side for which she was treated at [facility] emergency center in October 2016. The ER physician did an incision and drainage and widen the draining track with a scalpel and placed iodoform gauze. There was purulent material at that time. Patient states that this eventually healed and in April she was having increased right-sided abdominal pain and her PCP sent her to [facility] for an ultrasound that showed a possible hematoma on the right upper quadrant. She was then sent to Dr. Hancock for further evaluation. Because of anemia, patient underwent an upper and lower endoscopy with Dr. Hancock on May 20 that found no signs of bleeding. She subsequently underwent a hernia repair at the site of the previous hematoma or abscess from October [address] Hancock and this was done on 05/26/2017. This was located in the mid upper abdomen. She states she continued to have right-sided abdominal pain, chills and hot feeling, decreased appetite with possible weight loss and nausea. She again presented to Hospital and underwent incision and drainage of the abscess. At that time she did have evidence of significant sepsis with leukocytosis and elevated lactic acid. After surgery she recovered except developed acute renal failure on the basis of ATN and likely medication effects from Carlitos inhibitors and nonsteroidal anti-inflammatories. The patient had a protracted hospitalization eventually was sent home with outpatient hemodialysis. Shortly after being home she apparently started having increasing difficulties with her fluid status and presents to Hospital profoundly short of breath with chest x- ray showing evidence of extensive volume overload. Echocardiogram was performed due to her shortness of breath and a low ejection fraction was found. The acuity of this was not truly known we don't have prior echocardiogram here. The patient was seen by nephrology and urgent hemodialysis as requested because of her significant volume overload, BiPAP was started which improved her profound shortness of breath. With BiPAP she's feeling better and awaits hemodialysis, we'll move to the ICU for this to occur in the next short period of time. 07/17/2017 reveals the patient to be feeling considerably better after her second cycle of hemodialysis in 48 hours. With 6 L of fluid removed her shortness of breath is generally resolving, her initial is improving and she is able to eat. Sitting at the bedside without oxygen on breathing comfortably she has a saturation greater than 95%. As noted she is off BiPAP and feeling better. She denies fevers or chills. 07/16/2017 patient had a bout of severe shortness of breath overnight that required a short utilization of BiPAP. Because of her ongoing difficulties thoracentesis has been performed, now postthoracentesis her respiratory status is definitely improved. She's not having any fevers or chills. Addition of Mycelex has distinctly improved her discomfort in her mouth and throat. 07/19/2017 reveals the patient to be feeling considerably better. She is tolerating dialysis well. In with her dialysis she's now much less short of breath and is having no interval troubles. She's being followed by pulmonology and cardiology 07/20/2017 patient continues to feel better. She is much less short of breath and is having no new difficulties with discomfort. The thoracentesis is allowed a good resolution of her shortness of breath. She is tolerating activity better. Her sore throat has generally resolved with the Mycelex. Denies fevers or other new acute complaints. Objective - Vital Signs Vital signs: Vital Signs Temp 97.4 F L 07/20/17 11:21 Pulse 81 07/20/17 11:21 Resp 18 07/20/17 11:21 BP 102/56 07/20/17 11:21 Pulse Ox 97 07/20/17 11:21 Intake & Output 07/20/17 07/20/17 07/21/17 06:59 18:59 06:59 Intake Total 150 Output Total 1350 Balance -1350 150 Weight 73.8 kg Intake: IV 50 Piperacillin-Tazobactam 3 50 .375 gm In Dextrose/Water 1 50ml.bag @ 12.5 mls/hr IVPB Q12HR REJI Rx#: [id number] Intake, IV Titration 100 Amount Sodium Ferric Gluconat- 100 Sucrose 125 mg In Sodium Chloride 0.9% 100 ml @ 100 mls/hr IVPB DAILY REJI Rx#:[id number] Output: Urine 1350 Other: Voiding Method Bedside Commode Bedside Commode # Voids 1 - Exam Gen: This is a 72-year-old female patient. No considerably less short of breath HEENT: Head is atraumatic, normocephalic. Pupils equal, round. Sclerae is anicteric. Conjunctiva pink. Mucous members of the mouth are dry. No leonardo thrush is seen NECK: Supple. No JVD. No lymphadenopathy. No thyromegaly. LUNGS: Patient has a rapid respiratory rate and has evidence of crackles at the bilateral bases left greater than right expiratory wheezes are scattered HEART: Regular rate and rhythm. 2/6 systolic murmur without click or rub PMI is nondisplaced ABDOMEN: Soft. Bowel sounds are present. No masses. Right sided tenderness. Mass palpated to the mid right lateral area. EXTREMITIES: Bilateral lower extremity edema without open ulcers, No calf tenderness. Dorsalis pedis +2 bilaterally. NEUROLOGICAL: Patient is awake, alert and oriented x3. - Labs CBC & Chem 7: 07/20/17 05:56 07/20/17 05:56 Labs: Abnormal Lab Results - Last 24 Hours (Table) 07/20/17 07/20/17 Range/Units 05:56 05:56 Hgb 8.6 L (11.4-16.0) gm/dL Hct 29.2 L (34.0-46.0) % MCV 73.9 L (80.0-100.0) fL MCH 21.9 L (25.0-35.0) pg MCHC 29.6 L (31.0-37.0) g/dL RDW 22.6 H (11.5-15.5) % Creatinine 2.18 H (0.52-1.04) mg/dL Glucose 111 H (74-99) mg/dL Microbiology - Last 24 Hours (Table) 07/18/17 08:54 Gram Stain - Preliminary Pleural Fluid Body Fluid Culture - Preliminary 07/16/17 15:25 Blood Culture Gram Stain - Preliminary Blood 07/16/17 15:25 Blood Culture - Final Blood Laboratory Results WBC 4.6 k/uL (3.8-10.6) 07/20/17 05:56 RBC 3.95 m/uL (3.80-5.40) 07/20/17 05:56 Hgb 8.6 gm/dL (11.4-16.0) L 07/20/17 05:56 Hct 29.2 % (34.0-46.0) L 07/20/17 05:56 MCV 73.9 fL (80.0-100.0) L 07/20/17 05:56 MCH 21.9 pg (25.0-35.0) L 07/20/17 05:56 MCHC 29.6 g/dL (31.0-37.0) L 07/20/17 05:56 RDW 22.6 % (11.5-15.5) H 07/20/17 05:56 Plt Count 303 k/uL (150-450) 07/20/17 05:56 Neutrophils % 59 % 07/20/17 05:56 Lymphocytes % 29 % 07/20/17 05:56 Monocytes % 7 % 07/20/17 05:56 Eosinophils % 4 % 07/20/17 05:56 Basophils % 1 % 07/20/17 05:56 Neutrophils # 2.7 k/uL (1.3-7.7) 07/20/17 05:56 Lymphocytes # 1.3 k/uL (1.0-4.8) 07/20/17 05:56 Monocytes # 0.3 k/uL (0-1.0) 07/20/17 05:56 Eosinophils # 0.2 k/uL (0-0.7) 07/20/17 05:56 Basophils # 0.0 k/uL (0-0.2) 07/20/17 05:56 Hypochromasia Marked 07/20/17 05:56 Poikilocytosis Slight 07/16/17 00:13 Anisocytosis Moderate 07/20/17 05:56 Microcytosis Marked 07/20/17 05:56 PT 11.1 sec (9.0-12.0) 07/16/17 00:13 INR 1.2 (<1.2) H 07/16/17 00:13 APTT 20.4 sec (22.0-30.0) L 07/16/17 00:13 Sodium 141 mmol/L (137-145) 07/20/17 05:56 Potassium 3.5 mmol/L (3.5-5.1) 07/20/17 05:56 Chloride 100 mmol/L (98-107) 07/20/17 05:56 Carbon Dioxide 27 mmol/L (22-30) 07/20/17 05:56 Anion Gap 14 mmol/L 07/20/17 05:56 BUN 14 mg/dL (7-17) 07/20/17 05:56 Creatinine 2.18 mg/dL (0.52-1.04) H 07/20/17 05:56 Est GFR (CKD-EPI)AfAm 26 (>60 ml/min/1.73 sqM) 07/20/17 05:56 Est GFR (CKD-EPI)NonAf 22 (>60 ml/min/1.73 sqM) 07/20/17 05:56 Glucose 111 mg/dL (74-99) H 07/20/17 05:56 POC Glucose (mg/dL) 139 mg/dL (75-99) H 07/18/17 17:14 POC Glu Physician Pediatrician ID Lana Haynes 07/18/17 17:14 Calcium 9.0 mg/dL (8.4-10.2) 07/20/17 05:56 Phosphorus 4.2 mg/dL (2.5-4.5) 07/17/17 05:11 Magnesium 1.9 mg/dL (1.6-2.3) 07/18/17 04:04 Iron 18 ug/dL (50-170) L 07/17/17 05:11 TIBC 237 ug/dL (228-460) 07/17/17 05:11 Iron Saturation 7.59 (12.00-45.00) L 07/17/17 05:11 Ferritin 53.1 ng/mL (10.0-291.0) 07/17/17 05:11 Total Bilirubin 0.6 mg/dL (0.2-1.3) 07/16/17 23:59 AST 16 U/L (14-36) 07/16/17 23:59 ALT 16 U/L (9-52) 07/16/17 23:59 Alkaline Phosphatase 66 U/L (38-126) 07/16/17 23:59 Total Creatine Kinase 43 U/L (30-135) 07/16/17 00:13 CK-MB (CK-2) 3.8 ng/mL (0.0-2.4) H* 07/16/17 12:30 CK-MB (CK-2) Rel Index 5.6 07/16/17 00:13 Troponin I 0.625 ng/mL (0.000-0.034) H* 07/16/17 12:30 NT-Pro-B Natriuret Pep 94128 pg/mL 07/16/17 00:13 Total Protein 5.5 g/dL (6.3-8.2) L 07/16/17 23:59 Albumin 3.1 g/dL (3.5-5.0) L 07/16/17 23:59 Urine Color Yellow 07/17/17 02:00 Urine Appearance Cloudy (Clear) H 07/17/17 02:00 Urine pH 6.0 (5.0-8.0) 07/17/17 02:00 Ur Specific [place] 1.015 (1.001-1.035) 07/17/17 02:00 Urine Protein 2+ (Negative) H 07/17/17 02:00 Urine Glucose (UA) Negative (Negative) 07/17/17 02:00 Urine Ketones 1+ (Negative) H 07/17/17 02:00 Urine Blood Trace (Negative) H 07/17/17 02:00 Urine Nitrite Negative (Negative) 07/17/17 02:00 Urine Bilirubin Negative (Negative) 07/17/17 02:00 Urine Urobilinogen <2.0 mg/dL (<2.0) 07/17/17 02:00 Ur Leukocyte Esterase Small (Negative) H 07/17/17 02:00 Urine RBC 5 /hpf (0-5) 07/17/17 02:00 Urine WBC 63 /hpf (0-5) H 07/17/17 02:00 Ur Squamous Epith Cells 11 /hpf (0-4) H 07/17/17 02:00 Amorphous Sediment Rare /hpf (None) H 07/17/17 02:00 Hyaline Casts 96 /lpf (0-2) H 07/17/17 02:00 Urine Mucus Rare /hpf (None) H 07/17/17 02:00 Fluid Source Pleural 07/18/17 08:54 Fluid Color Yellow 07/18/17 08:54 Fluid Appearance Clear 07/18/17 08:54 Fluid RBC 1 /uL 07/18/17 08:54 Fluid Nucleated Cells 2 /uL 07/18/17 08:54 Body Fluid Glucose Source Pleural Fluid 07/18/17 08:54 Fluid Glucose 143 mg/dL 07/18/17 08:54 Body Fluid Protein Source Pleural Fluid 07/18/17 08:54 Fluid Total Protein 1278 mg/dL 07/18/17 08:54 Body Fluid LDH Source Pleural Fluid 07/18/17 08:54 Fluid LDH 102 U/L 07/18/17 08:54 Microbiology 07/18/17 08:54 Pleural Fluid Gram Stain - Preliminary 07/18/17 08:54 Pleural Fluid Body Fluid Culture - Preliminary 07/16/17 15:25 Blood Blood Culture Gram Stain - Preliminary 07/16/17 15:25 Blood Blood Culture - Final 07/17/17 02:00 Urine,Voided Urine Culture - Final Assessment and Plan (1) Pulmonary edema Status: Acute Code(s): J81.1 - CHRONIC PULMONARY EDEMA SNOMED Code(s): 63438699 (2) Abdominal wall abscess Narrative/Plan: Pleasant 72-year-old woman presents from home with profound increasing shortness of breath occurring after her long hospital stay and transition to home. The is present and does relate that he is providing all of her meals, which includes cold cuts and frozen meals, he does not cook. The patient this time his pulmonary edema with significant volume overload and nephrology has evaluated and has asked for urgent hemodialysis remove the severe amount of fluid. Pleural effusion is noted and hopefully with hemodialysis will rapidly improve. At this time no evidence of significant infection and would do well to not have further ulceration of her antibiotic therapy but should complete the course of antibiotic for the abdominal abscess. While she is acutely ill she is receiving Zosyn and should complete 7 days total of antibiotic with Augmentin. We'll expect with hemodialysis she has a rapid improvement. 07/17/2017 reveals the patient be considerably improved after her second cycle of hemodialysis and removal of 6 L of fluid. Fortunately there is no evidence of pneumonia at this time. She does have abdominal ulceration Aquacel silver as requested to be packed into the ulceration. She relates that she's having a bit of irritation overall cavity somewhat when she had thrush recently and Mycelex as requested. She is down to the last several days of antibiotic therapy which can be transitioned to Augmentin at the time for discharge. 07/18/2017 patient had difficulty overnight with shortness of breath, requiring a time on BiPAP. She has had a thoracentesis today he is feeling considerably better. Oral cavity discomfort is improved with Mycelex. Doing well with the Aquacel silver packing interabdominal ulceration. 07/19/2017 patient now feeling considerably better. No further shortness of breath. Thoracentesis is effectively help her shortness of breath as has the dialysis cycles. Definitely feeling better this evening. Continue with the local wound care was Aquacel to the abdominal wall ulceration. She is being followed by pulmonary /critical care and cardiology. At this time the patient does not desire to exposure to dye for further evaluation of potential cardiac issues. Fortunate she is tolerating hemodialysis well with adequate blood pressures without hypotension showing evidence of adequate output. She is ready for discharge to home will transition to Augmentin, Mycelex has helped her thrush and she feels better. 07/20/2017 patient is ready for discharge to home. Thoracentesis and dialysis have allowed a marked improvement of her volume overload and she's feeling quite well. Energy levels improved. She will have outpatient dialysis and be closely followed in attempts to wean her from dialysis if she is having improving urinary output. She will follow closely with cardiology after discharge as to any further cardiovascular interventions. A follow-up echocardiogram is planned to evaluate her ejection fraction. She may complete her Mycelex the next couple of days. Status: Acute Code(s): L02.211 - CUTANEOUS ABSCESS OF ABDOMINAL WALL SNOMED Code(s): 58203802
--- NOTE | 2017-07-21 08:12 | DS ---
DISCHARGE SUMMARY FINAL DIAGNOSES: 1. Acute hypoxic respiratory failure secondary to acute on chronic congestive heart failure acute exacerbation, with acute on chronic systolic dysfunction, ejection fraction 30%-35%. 2. Possible bibasilar pneumonia, gram-negative. 3. To rule out takotsubo syndrome. 4. Troponin indeterminate at 0.860. 5. History of recent abdominal abscess, status post exploratory laparotomy and resection of infected mesh and drainage. 6. Acute renal failure secondary to acute tubular necrosis. DEGENERATION DISPOSITION: The patient will be discharged in a stable condition with guarded prognosis. HISTORY OF PRESENT ILLNESS: This 72-year-old woman with a past medical history of multiple medical problems was admitted with CHF acute exacerbation, also multiple other medical problems. Patient treated in conjunction with Nephrology and as well as Infectious Disease and Pulmonology. Patient improved significantly. The hemodialysis continued. On exam, vitals are stable. CARDIOVASCULAR: S1, S2. ABDOMEN: Soft. NERVOUS SYSTEM: No focal deficits. Cultures are negative so far. Discharge diet is cardiac diet. Activity limited until followup. Follow up with Dr. Diaz in 2-3 days. Follow up with Dr. Lopes and Cardiology as advised. MEDICATIONS ARE: 1. Tylenol 650 q.6 p.r.n. 2. Xanax 0.5 b.i.d. p.r.n. 3. Augmentin 500 mg 1 p.o. b.i.d. for 1 week. 4. Artificial Tears as before. 5. Aspirin 81 mg daily. 6. Vitamin D3 one thousand daily. 7. Mycelex Connie 10 mg Mucous Membrane t.i.d. 8. Vitamin B12 five hundred mg p.o. daily. 9. Colace 100 mg b.i.d. 10.Lasix 80 mg p.o. b.i.d. 11.Apresoline 25 mg b.i.d. 12.Humalog scale. 13.Imdur ER 30 mg p.o. daily. 14.Lopressor 50 mg p.o. b.i.d. 15.Omeprazole 20 mg p.o. daily. 16.K-Dur 10 mEq p.o. daily. 17.Simvastatin 20 mg p.o. q.h.s. Once again, the patient will be discharged in a stable condition with guarded prognosis. Total time taken 35 minutes. MMODL / IJN: [id number] /
[2017-07-21] MEDS ORDERED: POTASSIUM CHLORIDE ER 20 MEQ TAB.ER PO SCH (09:00)
== END 2017-07-20 15:52 | disposition home or self-care (01) | DRG 280 ==
LOC: EC 23:58 → 6SEL 07-16 01:04 → 6ICU 07-16 17:38 → 6SEL 07-18 18:42
PROVIDERS: ADMIT Hospitalist; ATTEND Hospitalist
PROC: 0W9B3ZZ Drainage of Left Pleural Cavity, Percutaneous Approach (ICD-10-PCS; principal; 2017-07-18)
PROC: 5A1D70Z Performance of Urinary Filtration, Intermittent, Less than 6 Hours Per Day (ICD-10-PCS; 2017-07-18)
DX: I13.2 Hypertensive heart and chronic kidney disease with heart failure and with stage 5 chronic kidney disease, or end stage renal disease (principal); I50.23 Acute on chronic systolic (congestive) heart failure; I21.4 Non-ST elevation (NSTEMI) myocardial infarction; J96.01 Acute respiratory failure with hypoxia; N17.0 Acute kidney failure with tubular necrosis; J15.6 Pneumonia due to other Gram-negative bacteria; I27.29 Other secondary pulmonary hypertension; I95.3 Hypotension of hemodialysis; E11.22 Type 2 diabetes mellitus with diabetic chronic kidney disease; N18.6 End stage renal disease; I51.81 Takotsubo syndrome; B37.9 Candidiasis, unspecified; I25.5 Ischemic cardiomyopathy; D63.8 Anemia in other chronic diseases classified elsewhere; E78.5 Hyperlipidemia, unspecified; E87.6 Hypokalemia; G89.29 Other chronic pain; I49.3 Ventricular premature depolarization; K21.9 Gastro-esophageal reflux disease without esophagitis; M54.2 Cervicalgia; M54.42 Lumbago with sciatica, left side; M54.41 Lumbago with sciatica, right side; Z98.42 Cataract extraction status, left eye; Z98.41 Cataract extraction status, right eye; T50.2X5A Adverse effect of carbonic-anhydrase inhibitors, benzothiadiazides and other diuretics, initial encounter; Z79.82 Long term (current) use of aspirin; Z79.899 Other long term (current) drug therapy; Z83.3 Family history of diabetes mellitus; Z99.2 Dependence on renal dialysis; L98.499 Non-pressure chronic ulcer of skin of other sites with unspecified severity; Z91.030 Bee allergy status
CPT/HCPCS: 36415; 71045; 80048; 80053; 81001; 82550; 82553; 82728; 82945; 83540; 83550; 83615; 83735; 83880; 84100; 84132; 84157; 84484; 85025; 85610; 85730; 87040; 87070; 87086; 87205; 88108; 88305; 89050; 90935; 93005; 93306; 94660; 94760; 96374; 96376; 99291

== ENCOUNTER → 2017-08-13 | Outpatient (CLI) | payer MEDICARE ==
[2017-08-13 09:57] LABS: Calcium 9.7 mg/dL (8.4-10.2); Magnesium 1.7 mg/dL (1.6-2.3); Potassium 3.7 mmol/L (3.5-5.1)
== END ==
LOC: LABWHC1 09:12
PROVIDERS: ATTEND Internal Medicine
DX: N18.9 Chronic kidney disease, unspecified (principal)
CPT/HCPCS: 36415; 80048; 83735

== ENCOUNTER → 2017-08-26 | Outpatient (CLI) | payer MEDICARE ==
--- NOTE | 2017-08-26 13:40 | US ---
EXAMINATION TYPE: US kidneys/renal and bladder DATE OF EXAM: 08/26/2017 COMPARISON: NONE CLINICAL HISTORY: N17.9 acute kidney injury. TRICE, patient finished dialysis 2-3 weeks ago EXAM MEASUREMENTS: Right Kidney: 13.0 x 4.9 x 3.8 cm Left Kidney: 10.9 x 5.3 x 3.7 cm Right Kidney: Slightly asymmetrically enlarged. No hydronephrosis or nephrolithiasis. Left Kidney: no evidence of hydronephrosis. No nephrolithiasis. Bladder: appears wnl Bilateral Jets seen: yes There is no evidence for hydronephrosis at this point in time. No nephrolithiasis is seen. No bria s are identified. The urinary bladder is anechoic. Bilateral ureteral jets are seen. IMPRESSION: Slight asymmetric enlargement of the right kidney. No hydronephrosis or nephrolithiasis.
== END | disposition home or self-care (01) ==
LOC: RADUSWWP 12:05
PROVIDERS: ATTEND Internal Medicine Nephrology
DX: N28.81 Hypertrophy of kidney (principal)
CPT/HCPCS: 76770

== ENCOUNTER → 2017-11-23 | Outpatient (CLI) | payer MEDICARE ==
[2017-11-23 09:11] LABS: HCT 36.4 % (34.0-46.0); HGB 11.5 gm/dL (11.4-16.0); MCH 27.9 pg (25.0-35.0); MCHC 31.7 g/dL (31.0-37.0); MCV 87.9 fL (80.0-100.0); Mean Platelet Volume 6.7; Platelet Count 399 k/uL (150-450); RBC 4.14 m/uL (3.80-5.40); WBC 7.6 k/uL (3.8-10.6)
[2017-11-23 09:14] LABS: Appearance,Urine Clear (Clear); Bacteria,Urine Many /hpf; Bilirubin,Urine Negative (Negative); Blood,Urine Negative (Negative); Color,Urine Light Yellow; Glucose,Urine (UA) Negative (Negative); Ketones,Urine Negative (Negative); Leukocyte Esterase,Urine Trace (Negative); Mucus,Urine Rare /hpf; Nitrite,Urine Negative (Negative); PH, Urine 6.5 (5.0-8.0); Protein,Urine Negative (Negative); RBC,Urine 1 /hpf (0-5); Specific Gravity,Urine 1.005 (1.001-1.035); Squamous Epithelial Cell,Urine 3 /hpf (0-4); Urobilinogen,Urine <2.0 mg/dL (<2.0); WBC,Urine 2 /hpf (0-5)
[2017-11-23 09:36] LABS: Calcium 9.5 mg/dL (8.4-10.2); Phosphorus 4.2 mg/dL (2.5-4.5); Potassium 4.4 mmol/L (3.5-5.1); Uric Acid 6.2 mg/dL (3.7-7.4)
[2017-11-23 16:40] LABS: Iron Saturation 18.38 (12.00-45.00)
[2017-11-23 19:43] LABS: Hemoglobin A1C 5.3 % (4.0-6.0)
== END | disposition home or self-care (01) ==
LOC: LABWHC1 08:50
PROVIDERS: ATTEND Nurse Practitioner Family
DX: E11.9 Type 2 diabetes mellitus without complications (principal); N17.9 Acute kidney failure, unspecified; D64.9 Anemia, unspecified; E21.3 Hyperparathyroidism, unspecified; N39.0 Urinary tract infection, site not specified; M10.9 Gout, unspecified
CPT/HCPCS: 36415; 80048; 81001; 82306; 82728; 83036; 83540; 83550; 83735; 83970; 84100; 84550; 85027

== ENCOUNTER → 2018-05-23 | Outpatient (CLI) | payer MEDICARE ==
[2018-05-23 10:46] LABS: HCT 38.4 % (34.0-46.0); HGB 12.8 gm/dL (11.4-16.0); MCH 28.6 pg (25.0-35.0); MCHC 33.2 g/dL (31.0-37.0); Mean Platelet Volume 6.3; Platelet Count 304 k/uL (150-450); RBC 4.47 m/uL (3.80-5.40); RDW 14.1 % (11.5-15.5); WBC 7.8 k/uL (3.8-10.6)
[2018-05-23 10:53] LABS: Appearance,Urine Clear (Clear); Bilirubin,Urine Negative (Negative); Blood,Urine Negative (Negative); Color,Urine Light Yellow; Glucose,Urine (UA) Negative (Negative); Ketones,Urine Negative (Negative); Leukocyte Esterase,Urine Negative (Negative); Nitrite,Urine Negative (Negative); Protein,Urine Negative (Negative); Specific Gravity,Urine 1.004 (1.001-1.035); Urobilinogen,Urine <2.0 mg/dL (<2.0)
[2018-05-23 18:34] LABS: Iron Saturation 21.08 (12.00-45.00)
[2018-05-23 18:35] LABS: Vitamin D 25 Hydroxy 21.7 ng/mL (30.0-100.0)
[2018-05-23 18:47] LABS: Anion Gap 6.7 mmol/L (4.00-12.00); Calcium 9.2 mg/dL (8.7-10.3); Carbon Dioxide 25.3 mmol/L (21.6-31.8); Phosphorus 3.7 mg/dL (2.4-5.1); Potassium 4.4 mmol/L (3.5-5.5); Uric Acid 6.1 mg/dL (2.9-7.7)
[2018-05-23 18:59] LABS: Parathyroid Hormone Intact 47.9 pg/mL (14.0-72.0)
== END | disposition home or self-care (01) ==
LOC: LABWHC1 09:32
PROVIDERS: ATTEND Nurse Practitioner Family
DX: N17.9 Acute kidney failure, unspecified (principal); E11.9 Type 2 diabetes mellitus without complications; E21.3 Hyperparathyroidism, unspecified; D64.9 Anemia, unspecified; M10.9 Gout, unspecified; N39.0 Urinary tract infection, site not specified
CPT/HCPCS: 36415; 80048; 81003; 82306; 82728; 83036; 83540; 83550; 83735; 83970; 84100; 84550; 85027

== ENCOUNTER → 2018-12-05 | Outpatient (CLI) | payer MEDICARE ==
[2018-12-05 09:42] LABS: HCT 40.2 % (34.0-46.0); HGB 13.6 gm/dL (11.4-16.0); MCH 28.9 pg (25.0-35.0); MCHC 33.8 g/dL (31.0-37.0); MCV 85.4 fL (80.0-100.0); Mean Platelet Volume 6.8; Platelet Count 287 k/uL (150-450); RBC 4.71 m/uL (3.80-5.40); RDW 13.9 % (11.5-15.5); WBC 8.8 k/uL (3.8-10.6)
[2018-12-05 10:54] LABS: Appearance,Urine Clear (Clear); Bacteria,Urine Few /hpf; Bilirubin,Urine Negative (Negative); Blood,Urine Negative (Negative); Color,Urine Yellow; Glucose,Urine (UA) Negative (Negative); Hyaline Casts,Urine 1 /lpf (0-2); Ketones,Urine Negative (Negative); Leukocyte Esterase,Urine Trace (Negative); Mucus,Urine Rare /hpf; Nitrite,Urine Negative (Negative); Protein,Urine Negative (Negative); RBC,Urine 2 /hpf (0-5); Specific Gravity,Urine 1.016 (1.001-1.035); Squamous Epithelial Cell,Urine 3 /hpf (0-4); Urobilinogen,Urine <2.0 mg/dL (<2.0); WBC,Urine 1 /hpf (0-5)
[2018-12-05 16:10] LABS: Iron Saturation 22.75 (12.00-45.00)
[2018-12-05 16:16] LABS: Vitamin D 25 Hydroxy 23.6 ng/mL (30.0-100.0)
[2018-12-05 16:24] LABS: African American GFR (CKD) 65.6 (60.0-200.0); Anion Gap 6.4 mmol/L (4.00-12.00); Calcium 9.5 mg/dL (8.7-10.3); Carbon Dioxide 26.6 mmol/L (21.6-31.8); Phosphorus 3.8 mg/dL (2.4-5.1); Potassium 4.5 mmol/L (3.5-5.5); Uric Acid 6.3 mg/dL (2.9-7.7)
== END | disposition home or self-care (01) ==
LOC: LABWHC1 08:51
PROVIDERS: ATTEND Nurse Practitioner Family
DX: D64.9 Anemia, unspecified (principal); N17.9 Acute kidney failure, unspecified; E11.9 Type 2 diabetes mellitus without complications; E21.3 Hyperparathyroidism, unspecified; E55.9 Vitamin D deficiency, unspecified; N39.0 Urinary tract infection, site not specified; M10.9 Gout, unspecified
CPT/HCPCS: 36415; 80048; 81001; 82306; 82728; 83036; 83540; 83550; 83735; 83970; 84100; 84550; 85027

== ENCOUNTER → 2021-05-14 | Outpatient (CLI) | payer MEDICARE ==
--- NOTE | 2021-05-15 07:52 | ECHOF ---
Referral Reason:I50.22 CHF MEASUREMENTS -------- HEIGHT: 157.5 cm WEIGHT: 87.1 kg BP: IVSd: 1.2 cm (0.6 - 1.1) LVIDd: 3.2 cm (3.9 - 5.3) LVPWd: 1.2 cm (0.6 - 1.1) IVSs: 1.5 cm LVIDs: 2.3 cm LVPWs: 1.1 cm LAESV Index (A-L): 24.25 ml/m Ao Diam: 2.9 cm (2.0 - 3.7) AV Cusp: 2.1 cm (1.5 - 2.6) LA Diam: 4.2 cm (2.7 - 3.8) MV EXCURSION: 13.883 mm (> 18.000) MV EF SLOPE: 30 mm/s (70 - 150) EPSS: 0.2 cm MV E Ezra: 0.80 m/s MV DecT: 269 ms MV A Ezra: 1.01 m/s MV E/A Ratio: 0.80 RAP: 5.00 mmHg RVSP: 14.41 mmHg FINDINGS -------- Sinus rhythm. This was a technically adequate study. LV size, wall thickness and systolic function are normal, with an EF greater than 55%. The left asad tricular size is normal. The right ventricle is normal in size. Normal LA size by volume 22+/-6 ml/m2. The right atrial size is normal. The aortic valve is trileaflet, and appears structurally normal. No aortic stenosis or regurgitation. The mitral valve is normal. Mild mitral regurgitation is present. The tricuspid valve appears structurally normal. Mild tricuspid regurgitation present. Right vent ricular systolic pressure is normal at < 35 mmHg. There is no pulmonic regurgitation present. The aortic root size is normal. There is no pericardial effusion. CONCLUSIONS -------- 1. LV size, wall thickness and systolic function are normal, with an EF greater than 55%. 2. Normal LA size by volume 22+/-6 ml/m2. 3. The aortic valve is trileaflet, and appears structurally normal. No aortic stenosis or regurgitati on. 4. Mild mitral regurgitation is present. 5. Mild tricuspid regurgitation present. 6. There is no pericardial effusion. TREATING MACHINE OPERATOR: Sandy Solis RDCS
== END | disposition home or self-care (01) ==
LOC: RADECHMAIN 13:48
PROVIDERS: ATTEND Family Medicine
DX: I50.9 Heart failure, unspecified (principal); I08.1 Rheumatic disorders of both mitral and tricuspid valves
CPT/HCPCS: 93306

== ENCOUNTER 2022-09-26 09:42 | Emergency (ER) | payer MEDICARE ==
[2022-09-26] MEDS ORDERED: traMADol 50 MG TAB PO STA ×2 (10:03→11:31)
[2022-09-26] MEDS ORDERED: KETOROLAC 15 MG/ML 1 ML VIAL IM STA (10:03)
--- NOTE | 2022-09-26 10:11 | ED ---
Extremity Problem HPI - General Chief complaint: Recheck/Abnormal Lab/Rx Stated complaint: leg swelling,back pain Time Seen by Provider: 09/26/22 09:46 Source: patient, RN notes reviewed Mode of arrival: ambulatory Limitations: no limitations - History of Present Illness Initial comments: This is a 77-year-old female who presents to the emergency department for back pain and right leg swelling. States that when she woke up this morning, she noticed swelling to the right lower extremity. Denies any pain associated with this. Also denies any history of similar symptoms in the past. She does not have a history of blood clots and is not taking any blood thinners. Additionally, she has a history of sciatica. She has had left-sided sciatica pain over the last couple of weeks, which she is used to. However, she has now started to develop pain in the right side with a burning sensation behind the right knee, which has never happened before. Denies any injuries. Also denies any loss of bowel/bladder control or saddle anesthesia. She is taking Tylenol without much improvement in symptoms. Denies any fevers, chills, sore throat, cough, dyspnea, chest pain, palpitations, abdominal pain, nausea, vomiting, diarrhea, or headaches. MD Complaint: extremity swelling - Related Data Home Medications Medication Instructions Recorded Confirmed Simvastatin 20 mg PO HS 12/08/15 09/26/22 Ascorbic Acid [Vitamin C] 500 mg PO DAILY 09/26/22 09/26/22 Cholecalciferol [Vitamin D3 (25 25 mcg PO DAILY 09/26/22 09/26/22 Mcg = 1000 Iu)] Furosemide [Lasix] 20 mg PO DAILY 09/26/22 09/26/22 Losartan Potassium [Cozaar] 25 mg PO DAILY 09/26/22 09/26/22 Metoprolol Tartrate [Lopressor] 50 mg PO DAILY 09/26/22 09/26/22 Zinc Gluconate [Zinc] 50 mg PO DAILY 09/26/22 09/26/22 metFORMIN HCL ER [Glucophage XR] 500 mg PO HS 09/26/22 09/26/22 Previous Rx's Medication Instructions Recorded Aspirin 81 mg PO DAILY #30 chew 07/20/17 Isosorbide Mononitrate ER [Imdur] 30 mg PO DAILY #30 tab.er.24h 07/20/17 predniSONE [Deltasone] 20 mg PO BID 5 Days #10 tab 09/26/22 Allergies Allergy/AdvReac Type Severity Reaction Status Date / Time venom-honey bee Allergy Anaphylaxis Verified 09/26/22 12:50 [bee venom (honey bee)] Review of Systems ROS Statement: Those systems with pertinent positive or pertinent negative responses have been documented in the HPI. ROS Other: All systems not noted in ROS Statement are negative. Past Medical History Past Medical History: Diabetes Mellitus, Eye Disorder, GERD/Reflux, Hyperlipidemia, Hypertension, Osteoarthritis (OA), Renal Disease Additional Past Medical History / Comment(s): October 2016 abdominal wall abscess treated in ER with I&D/eventually healed, Apr 2017 increased R sided abdominal pain/anemia and on 05/26/17 had lap incisional hernia repair with mesh and lysis of adhesions, 06/29/17 admitted [facility] with R abdominal wall abscess had exploratory lap with resection infected mesh and drainage/sepsis/proteus mirabillis, post operative blood loss anemia, acute renal failure (tubular necrosis) and is c urrently receiving hemodialysis (last time 07/14/17), metabolic acidosis. Other hx: NIDDM type II-diet controlled but recently placed on sliding scale, diverticular dx, numbness/tingling bilateral hands, "If I lay wrong.", low back pain with bilateral sciatica, cervical pain, R eye had retinal "hole" which was surgically repaired, currently receiving hemodialysis but also makes her own ur ine. History of Any Multi-Drug Resistant Organisms: None Reported Past Surgical History: Appendectomy, Cholecystectomy, Hernia Repair, Tonsillectomy Additional Past Surgical History / Comment(s): 05/26/17 laparoscopic incisional hernia repair with mesh/lysis of adhesions, 06/29/17 exploratory laparoscopy with I&D intra abdominal abscess, 07/06/17 PICC line insertion since removed, 07/08/17 hemodialysis permacath placement, bilateral cataract removals, R eye retinal hole repair, colonoscopies/EGD. Past Anesthesia/Blood Transfusion Reactions: No Reported Reaction Past Psychological History: No Psychological Hx Reported Smoking Status: Never smoker Past Alcohol Use History: None Reported Past Drug Use History: None Reported - Past Family History Father Family Medical History: Diabetes Mellitus Additional Family Medical History / Comment(s): father at the age of 62 yrs from diabetic complications. Mother Family Medical History: Diabetes Mellitus, Osteoarthritis (OA) Additional Family Medical History / Comment(s): Mother at the age of 93yrs. General Exam Limitations: no limitations General appearance: alert, in no apparent distress Head exam: Present: atraumatic, normocephalic, normal inspection Respiratory exam: Present: normal lung sounds bilaterally. Absent: respiratory distress, wheezes, rales, rhonchi, stridor Cardiovascular Exam: Present: regular rate, normal rhythm, normal heart sounds. Absent: systolic murmur, diastolic murmur, rubs, gallop, clicks Extremities exam: Present: other (Diffuse swelling to the right lower extremity. This is not pitting. No erythema or tenderness. 2+ DP and PT pulses. Capillary refill less than 1 second.). Absent: calf tenderness Back exam: Present: normal inspection, full ROM. Absent: tenderness Neurological exam: Present: alert, oriented X3, CN II-XII intact Psychiatric exam: Present: normal affect, normal mood Skin exam: Present: warm, dry, intact, normal color. Absent: rash Course Vital Signs 09/26/22 09/26/22 09:43 12:48 Temperature 98.4 F 97.8 F Pulse Rate 63 52 L Respiratory 20 19 Rate Blood Pressure 150/76 125/78 O2 Sat by Pulse 96 95 Oximetry Medical Decision Making - Medical Decision Making This is a 77-year-old female who presents to the emergency department for lower back pain and right leg swelling. Was pt. sent in by a medical professional or institution? @ -No Did you speak to anyone other than the patient for history? @ -No Did you review nursing and triage notes? @ -Yes, and I agree, it is accurate with regards to the patient's symptoms. Were old charts reviewed? @ -No Differential Diagnosis? @ -Differential Back Pain: Strain, zoster, cauda equina syndrome, epidural abscess, vertebral osteomyelitis, discitis, fracture, subluxation, disc herniation, DJD, spinal stenosis, dissection, AAA, pancreatitis, peptic ulcer disease, pyelonephritis, kidney stone, this is not meant to be an all-inclusive list. -Differential Leg Swelling: Cellullitis, Gout, DVT, PVD, arterial insufficiency, congestive heart failure, compartment syndrome, venous stasis changes, thrombophlebitis, contact dermatitis, necrotizing fasciitis, septic arthritis, this is not meant to be an all-inclusive list. EKG interpreted by me (3pts min.)? @ -Not obtained X-rays interpreted by me (1pt min.)? @ -X-ray of the lumbar spine obtained. My interpretation identifies degenerative changes. CT interpreted by me (1pt min.)? @ -Not obtained U/S interpreted by me (1pt. min.)? @ -Duplex ultrasound of the right lower extremity obtained. My interpretation identifies no evidence of a DVT. What testing was considered but not performed? (CT, X-rays, U/S, labs)? Why? @ -None What meds were considered but not given? Why? @ -None Did you discuss the management of the patient with other professionals? @ -No Did you reconcile home meds? @ -No Was smoking cessation discussed for >3mins.? @ -No Was critical care preformed (if so, how long)? @ -No Were there social determinants of health that impacted care today? How? (Homelessness, low income, unemployed, alcoholism, drug addiction, transportation, low edu. Level, literacy, decrease access to med. care, fci, rehab)? @ -No Was there de-escalation of care discussed even if they declined? (Discuss DNR or withdrawal of care, Hospice)? @ -No What co-morbidities impacted this encounter? (DM, HTN, Smoking, COPD, CAD, Cancer, CVA, Hep., AIDS, mental health diagnosis, sleep apnea, morbid obesity)? @ -Osteoarthritis Was patient admitted / discharged? @ -Discharged. X-ray of the lumbar spine revealed multiple degenerative changes, retrolisthesis, and facet changes. Duplex ultrasound of the right lower extremity obtained as well revealing no evidence of a DVT or other acute process. Pain control with Toradol and tramadol. Patient cannot have anti- inflammatories on a regular basis due to mild renal impairment. Will put the patient on a five-day course of prednisone for management of the sciatica flareup. She was also given a starter pack for tramadol, which I advised she take sparingly when her pain is the most severe and to avoid driving or operating machinery when taking this. Discussed that she'll need to follow up with her primary care provider and have a repeat ultrasound in 1 week if the swelling persists Undiagnosed new problem with uncertain prognosis? @ -None Drug Therapy requiring intensive monitoring for toxicity (Heparin, Nitro, Insulin, Cardizem)? @ -None Were any procedures done? @ -None Diagnosis/symptom? @ -Lower back pain, right leg swelling Acute, or Chronic, or Acute on Chronic? @ -Acute Uncomplicated (without systemic symptoms) or Complicated (systemic symptoms)? @ -Uncomplicated Side effects of treatment? @ -None Exacerbation, Progression, or Severe Exacerbation] @ -Not applicable Poses a threat to life or bodily function? @ -No Return precautions reviewed in depth, the patient is instructed to return to the emergency department with any new, worsening, or concerning symptoms. Patient verbalized understanding. This case was discussed in detail with the attending ED physician, Dr. Lucas. Presentation, findings, and treatment plan discussed in detail as well. - Radiology Data Radiology results: report reviewed, image reviewed Disposition Clinical Impression: Sciatica, Lower back pain, Right leg swelling Disposition: HOME SELF-CARE Instructions (If sedation given, give patient instructions): Sciatica (ED), Back Pain (ED) Additional Instructions: Return to the emergency department with any new, worsening, or concerning symptoms. Take the prednisone twice daily for 5 days. You may take this with Tylenol. Take the Tramadol sparingly when your pain is the most severe and be aware that it may make you drowsy. Contact orthopedics as listed below for further evaluation of your back pain. Follow up with your primary care provider in 1-2 days, you may need a repeat US of the right leg in 1 week if the swelling worsens or persists. Prescriptions: predniSONE [Deltasone] 20 mg PO BID 5 Days #10 tab Is patient prescribed a controlled substance at d/c from ED?: No Referrals: Fay Diaz MD [Primary Care Provider] - 1-2 days Will Malloy DO [Doctor of Osteopathic Medicine] - 1-2 days
--- NOTE | 2022-09-26 10:33 | XR ---
EXAMINATION TYPE: XR lumbosacral spine min 4V DATE OF EXAM: 09/26/2022 COMPARISON: 05/27/2016 HISTORY: Low back pain sciatica TECHNIQUE: 3 view lumbar spine FINDINGS: There are 5 lumbar-type vertebral bodies. Pedicles are intact. There is a scoliosis present with convexity to the left centered at L2-3. Vertebral body heights are preserved. Facet degenerativ e changes and sclerosis are present at the L2-3 level. No spondylolytic defects are evident. Facet de generative changes are present at the remaining levels. There is a grade 1 retrolisthesis of L3 poste riorly on L4. Posterior endplate spurring is present L2-3. A retrolisthesis of L1 posterior on L2 is present. IMPRESSION: 1. Retrolisthesis of L3 on L4 and L1 on L2. 2. Degenerative disc changes especially noted L1-2 and L2-3. 3. Facet changes greatest at L2-3
--- NOTE | 2022-09-26 11:26 | US ---
EXAMINATION TYPE: US venous doppler duplex LE RT DATE OF EXAM: 09/26/2022 11:08 AM COMPARISON: NONE CLINICAL INDICATION: Female, 77 years old with history of Right leg swelling; edema SIDE PERFORMED: Right TECHNIQUE: The lower extremity deep venous system is examined utilizing real time linear array sonog miley with graded compression, doppler sonography and color-flow sonography. VESSELS IMAGED: Common Femoral Vein Deep Femoral Vein Greater Saphenous Vein * Femoral Vein Popliteal Vein Small Saphenous Vein * Proximal Calf Veins (* superficial vessels) Right Leg: Negative for DVT IMPRESSION: 1. Right lower extremity ultrasound negative for deep venous thrombosis
[2022-09-26] MEDS ORDERED: traMADol 50 MG STARTER PACK 3 TAB BTL PO STA (12:27)
[2022-09-26 12:49] VITALS: BP 125/78; PULSE 52; RESP 19; TEMP 97.8
== END 2022-09-26 12:49 | disposition home or self-care (01) ==
LOC: EC 09:42
DX: M54.30 Sciatica, unspecified side (principal); M43.16 Spondylolisthesis, lumbar region; M47.816 Spondylosis without myelopathy or radiculopathy, lumbar region; M79.89 Other specified soft tissue disorders; E11.9 Type 2 diabetes mellitus without complications; E78.5 Hyperlipidemia, unspecified; I10 Essential (primary) hypertension; M19.90 Unspecified osteoarthritis, unspecified site; Z79.84 Long term (current) use of oral hypoglycemic drugs; Z79.899 Other long term (current) drug therapy; Z79.1 Long term (current) use of non-steroidal anti-inflammatories (NSAID); Z91.030 Bee allergy status
CPT/HCPCS: 72110; 93971; 99284; 96372; J1885

== ENCOUNTER → 2022-10-20 | Outpatient (CLI) | payer MEDICARE ==
--- NOTE | 2022-10-22 08:58 | MR ---
EXAMINATION TYPE: MR lumbar spine wo con DATE OF EXAM: 10/20/2022 2:26 PM COMPARISON: NONE HISTORY: Lower back pain, LLE radiculopathy x 2 mos. No hx trauma/surgery. Multiplanar, MultiSpin echo imaging of the lumbar spine was performed. L1-L2: Severe disc desiccation with posterior disc bulge and partial encapsulating spur greatest para centrally and to the left. There is left lateral recess stenosis and mild central stenosis. Facet keshia nt arthropathy with bilateral neural foraminal encroachment. Ventral spondylosis and degenerative end plate marrow change. L2-L3: Severe disc desiccation. Moderate circumferential disc bulge. Hypertrophy of the ligamentum fl avum and facet joint arthropathy resulting in mild to moderate stenosis. Mild bilateral neural forami nal encroachment. Degenerative endplate marrow change and ventral spondylosis. L3-L4: There is moderate disc desiccation. Circumferential disc bulge is noted. There is grade 1 retrolisthesis of L3 on L4 measuring 4 mm. There is elongate intradural lesion measu ring 2.6 cm in length by 7 mm in AP dimension. This could reflect sequestered disc herniation however a nerve root lesion such as schwannoma and ependymoma. Contrast-enhanced study is recommended for fu rther evaluation. There is severe central stenosis noted at this level. L4-L5: Moderate disc desiccation. Moderate circumferential disc bulge greatest posteriorly. Hypertrop hy of the ligamentum flavum and facet joint arthropathy result in severe central stenosis. Severe lef t neural foraminal encroachment. L5-S1: Mild disc desiccation with posterior disc bulge. Minimal effacement ventral thecal sac. Left g reater than right foraminal encroachment. No central stenosis or disc herniation. Lumbar segments are intact. No paraspinal masses are identified. Conus medullaris has a normal appe arance. IMPRESSION: 1. Severe multilevel degenerative disc disease with multilevel central stenosis as outlined above. 2. Intradural lesion at the L3-4 level with differential diagnostic possibilities discussed above. Co ntrast-enhanced MRI of the lumbar spine is recommended for further evaluation.
== END | disposition home or self-care (01) ==
LOC: RADMRIMAIN 13:09
PROVIDERS: ATTEND Nurse Practitioner Family
DX: M51.17 Intervertebral disc disorders with radiculopathy, lumbosacral region (principal); M99.73 Connective tissue and disc stenosis of intervertebral foramina of lumbar region
CPT/HCPCS: 72148

== ENCOUNTER → 2022-11-26 | Outpatient (CLI) | payer MEDICARE ==
[2022-11-26 08:55] VITALS: BP 162/82; PULSE 54; RESP 16; TEMP 97.9
--- NOTE | 2022-11-26 14:51 | P.PAINPG ---
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 Pt states pain level is provoked at 8/10 in intensity, constant, localized in the mid to lower lumbar spine L> R, achy in character w shooting pain towards the LLE. Pain is provoked by walking for periods of 10 min or more. Pain is alleviated by heat, ice, PT in 2019, chiropractic treatments semi monthly x 1 yr w last visit 2 mo ago, medications (Tyl, Nervive), Topicals, repositioning and rest. Oswestry axial pain score at . PMH: OA, DM II, Eye Disorder, GERD, Hyperlipidemia, HTN, OA, CRF PSH: Laparoscopic Incisional Hernia Repair (2018), Appendectomy, Cholecystectomy, Hernia Repair, Tonsillectomy, BL Cataract Removal, Colonoscopies/ EGD SH: Negative x3 FH: Fa- DM/ at age 64. Mo- DM/ OA/ at age 89. All: See list Meds: See list REVIEW OF ORGAN SYSTEMS: CONSTITUTIONAL: No fevers or chills. No recent weight loss. NEUROLOGICAL: + numbness and tingling along the distal extremities. No seizure disorders or headaches. MUSCULOSKELETAL: + pain PSYCHIATRIC: Denies current depression or suicidal thoughts. Physical Examinations : Constitutional : Cooperative , not in acute distress . Neurologic : Cranial nerve II to XII intact. No focal neurological deficits. Psychiatric : alert & oriented x 3. Matching mood & appropriate affect. Judgment & insight intact. Musculoskeletal : Cervical Spine Motor strength in the deltoid and biceps: Normal right side. Normal Left side Motor strength biceps and the wrist extensors: Normal right side . Normal left side Motor strength in the triceps muscle: Normal right side. Normal left side Deep tendon reflexes: Normal at the biceps. Normal at Brachioradialis. Normal at triceps Vertebral body tenderness to deep palpation over Cervical facet loading test: positive bilaterally Spurling test: positive bilaterally Neck distraction test: positive bilaterally Kisha sign: positive bilaterally Lumbar spine Motor strength lower extremities ,thigh and legs 5/5 Right side , 5/5 Left side Deep tendon reflexes : Normal Knee Jerk. Normal Ankle Jerk Vertebral body tenderness over Adler Test positive Lumbar facet Loading Test: positive Right / positive Left Range of motion of the lumbar spine Flexion 30 degrees, extension 10 degrees Straight Leg Raise test: Left/ Right positive at degree Mak test: positive right / positive left. Severe tenderness over the Sacroiliac joint on the Right / Left sides Gaenslen test: positive bilaterally Seated flexion test: positive bilaterally. Sacral spine : Severe tenderness over the Sacroiliac joint: right side / left side Range of motion: Flexion of the lumbar spine <60 degrees Range of motion: Extension of the lumbar spine <20 degrees Gaenslen's Test positive Kev's Test positive Mak test: positive right side / left side Thigh Thrust Test Sacral Thrust Test Imaging: MRI noncontrast of the lumbar spine from 10/20/22 reviewed Assessment/ Plan : Lumbar DDD Recommendation of medication management. Tramadol 50mg #90 w 1 RF. Opiate/ narcotic agreement signed today 11/26/22. Use, side effects, adverse reactions and safe storage discussed and pt acknowledged understanding. All questions answered. I have spent greater than 30 minutes on patient care today. Dr Dill was available by phone for the evaluation of this patient. The time was used to review the medical records including relevant urine studies and Prescription history (MAPs), review of the available imaging, evaluation and examination of the patient, coordination of care with the medical staff and if applicable referring physicians, as well as creation of the medical record - Pain Location Bilateral Lower Back Non-Pharmacological Interventions: Heat, Ice, Inactivity, Physical Therapy Pharmacological Interventions: PRN Medication, Topical Medication PQRS Narrative: Smoking Status Never smoker Blood Pressure 162/82 Pain Intensity [Bilateral 8 Lower Back] Scale Used Numeric (1 - 10) Hx Alcohol Use (MH) No Home Medications: Ambulatory Orders Simvastatin 20 mg PO HS 12/08/15 Aspirin 81 mg PO DAILY #30 chew 07/20/17 Isosorbide Mononitrate ER [Imdur] 30 mg PO DAILY #30 tab.er.24h 07/20/17 Ascorbic Acid [Vitamin C] 500 mg PO DAILY 09/26/22 Cholecalciferol [Vitamin D3 (25 Mcg = 1000 Iu)] 25 mcg PO DAILY 09/26/22 Furosemide [Lasix] 20 mg PO DAILY 09/26/22 Losartan Potassium [Cozaar] 25 mg PO DAILY 09/26/22 Metoprolol Tartrate [Lopressor] 50 mg PO DAILY 09/26/22 Zinc Gluconate [Zinc] 50 mg PO DAILY 09/26/22 metFORMIN HCL ER [Glucophage XR] 500 mg PO HS 09/26/22 predniSONE [Deltasone] 20 mg PO BID 5 Days #10 tab 09/26/22 traMADol HCL 50 mg PO Q8H PRN 30 Days #90 tab 11/26/22 Controlled Substance Measures - Controlled Substance Measures Is patient prescribed a controlled substance at discharge?: No
== END ==
LOC: PNWHC3 08:31
PROVIDERS: ATTEND Specialist
DX: M51.36 Other intervertebral disc degeneration, lumbar region (principal); M47.26 Other spondylosis with radiculopathy, lumbar region; M41.86 Other forms of scoliosis, lumbar region; M54.50 Low back pain, unspecified; K21.9 Gastro-esophageal reflux disease without esophagitis; E78.5 Hyperlipidemia, unspecified; M19.90 Unspecified osteoarthritis, unspecified site; I12.9 Hypertensive chronic kidney disease with stage 1 through stage 4 chronic kidney disease, or unspecified chronic kidney disease; E11.22 Type 2 diabetes mellitus with diabetic chronic kidney disease; N18.9 Chronic kidney disease, unspecified; Z91.030 Bee allergy status; Z79.84 Long term (current) use of oral hypoglycemic drugs; Z79.899 Other long term (current) drug therapy; Z79.82 Long term (current) use of aspirin
CPT/HCPCS: 99211

== ENCOUNTER → 2023-01-21 | Outpatient (CLI) | payer MEDICARE ==
[2023-01-21 09:28] VITALS: BP 113/69; PULSE 57; RESP 16; TEMP 97.8
--- NOTE | 2023-01-21 12:20 | P.PAINPG ---
Objective - Vital Signs Vital signs: Intake & Output 01/20/23 01/21/23 01/21/23 18:59 06:59 18:59 Weight 81.647 kg PQRS Measure Charge Sheet Comment: HISTORY OF PRESENT ILLNESS: 77 yr old female presents today w severe and chronic LBP x 3 mo secondary to DDD, spondylosis and facet arthropathy without myelopathy for medication refills. Pt states pain level is provoked at 3/10 in intensity, constant, localized in the mid to lower lumbar spine L> R, achy in character without shooting pain. Pain is provoked by walking for periods of 10 min or more. Pain is alleviated by heat, ice, PT in 2019, chiropractic treatments semi monthly x 1 yr w last visit Summer 2022, medications, Topicals, repositioning and rest. Interventional procedures include DENIES Medications include Tramadol, Tyl, Nervive, topical REVIEW OF ORGAN SYSTEMS: CONSTITUTIONAL: No fevers or chills. No recent weight loss. NEUROLOGICAL: + numbness and tingling along the distal extremities. No seizure disorders or headaches. MUSCULOSKELETAL: + pain PSYCHIATRIC: Denies current depression or suicidal thoughts. Physical Examinations : Constitutional : Cooperative , not in acute distress . Neurologic : Cranial nerve II to XII intact. No focal neurological deficits. Psychiatric : alert & oriented x 3. Matching mood & appropriate affect. Judgment & insight intact. Musculoskeletal : Cervical Spine Motor strength in the deltoid and biceps: Normal right side. Normal Left side Motor strength biceps and the wrist extensors: Normal right side . Normal left side Motor strength in the triceps muscle: Normal right side. Normal left side Deep tendon reflexes: Normal at the biceps. Normal at Brachioradialis. Normal at triceps Vertebral body tenderness to deep palpation over Cervical facet loading test: positive bilaterally Spurling test: positive bilaterally Neck distraction test: positive bilaterally Kisha sign: positive bilaterally Lumbar spine Motor strength lower extremities ,thigh and legs 5/5 Right side , 5/5 Left side Deep tendon reflexes : Normal Knee Jerk. Normal Ankle Jerk Vertebral body tenderness over Adler Test positive Lumbar facet Loading Test: positive Right / positive Left Range of motion of the lumbar spine Flexion 30 degrees, extension 10 degrees Straight Leg Raise test: Left/ Right positive at degree Mak test: positive right / positive left. Severe tenderness over the Sacroiliac joint on the Right / Left sides Gaenslen test: positive bilaterally Seated flexion test: positive bilaterally. Sacral spine : Severe tenderness over the Sacroiliac joint: right side / left side Range of motion: Flexion of the lumbar spine <60 degrees Range of motion: Extension of the lumbar spine <20 degrees Gaenslen's Test positive Kev's Test positive Mak test: positive right side / left side Thigh Thrust Test Sacral Thrust Test Imaging: MRI noncontrast of the lumbar spine from 10/20/22 reviewed Assessment/ Plan : Lumbar DDD Recommendation of medication management. Tramadol 50mg #60 w 1 RF. Reduced quantity as pt is not taking medications as often. Opiate/ narcotic agreement signed 11/26/22. Use, side effects, adverse reactions and safe storage discussed and pt acknowledged understanding. All questions answered. I have spent greater than 30 minutes on patient care today. Dr Dill was available by phone for the evaluation of this patient. The time was used to review the medical records including relevant urine studies and Prescription history (MAPs), review of the available imaging, evaluation and examination of the patient, coordination of care with the medical staff and if applicable referring physicians, as well as creation of the medical record PQRS Narrative: Smoking Status Never smoker Hx Alcohol Use (MH) No Home Medications: Ambulatory Orders Simvastatin 20 mg PO HS 12/08/15 Aspirin 81 mg PO DAILY #30 chew 07/20/17 Isosorbide Mononitrate ER [Imdur] 30 mg PO DAILY #30 tab.er.24h 07/20/17 Ascorbic Acid [Vitamin C] 500 mg PO DAILY 09/26/22 Cholecalciferol [Vitamin D3 (25 Mcg = 1000 Iu)] 25 mcg PO DAILY 09/26/22 Furosemide [Lasix] 20 mg PO DAILY 09/26/22 Losartan Potassium [Cozaar] 25 mg PO DAILY 09/26/22 Metoprolol Tartrate [Lopressor] 50 mg PO DAILY 09/26/22 Zinc Gluconate [Zinc] 50 mg PO DAILY 09/26/22 metFORMIN HCL ER [Glucophage XR] 500 mg PO HS 09/26/22 predniSONE [Deltasone] 20 mg PO BID 5 Days #10 tab 09/26/22 traMADol HCL 50 mg PO Q8H PRN 30 Days #90 tab 11/26/22 Controlled Substance Measures - Controlled Substance Measures Is patient prescribed a controlled substance at discharge?: Yes When asked, does pt state using other controlled substances?: No If prescribed controlled substance>3 days was MAPS reviewed?: Yes
== END ==
LOC: PNWHC3 08:50
PROVIDERS: ATTEND Specialist
DX: M51.36 Other intervertebral disc degeneration, lumbar region (principal); Z79.82 Long term (current) use of aspirin; Z91.030 Bee allergy status
CPT/HCPCS: 99211